=== PATIENT | male | born 1930 | race Caucasian/White ===

== ENCOUNTER 2017-05-31 18:10 | Emergency (ER) | payer MEDICARE ==
[2017-05-31 18:26] VITALS: BP 137/60
--- NOTE | 2017-05-31 20:37 | RAD ---
HISTORY: Right knee pain COMPARISONS: February 05, 2011 VIEWS: 4, Frontal, lateral, axial, and oblique views of the right knee FINDINGS: BONE DENSITY: Normal. BONES: There is no displaced fracture. 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 There is no suprapatellar joint effusion or lipohemarthrosis. ALIGNMENT: There is no dislocation. SOFT TISSUES: Unremarkable. OTHER FINDINGS: None. IMPRESSION: OSTEOARTHRITIS. NO ACUTE OSSEOUS INJURY. IF SYMPTOMS PERSIST, RECOMMEND REPEAT IMAGING.
--- NOTE | 2017-05-31 20:53 | UC ---
Bj Gale Stephanie, scribed for Phuc Butts MD on 05/31/17 at 1941 . Knee Pain HPI - HPI Summary HPI Summary: The pt is an 86 y/o M presenting to with c/o knee pain that began earlier today. The pt reports a history and treatment of a R knee injury 3 years ago. The pt reports that the pain occurs after long time periods without movement. He denies a history of blood clots. - History of Current Complaint Chief Complaint: UCLowerExtremity Stated Complaint: KNEE PAIN Time Seen by Provider: 05/31/17 19:22 Hx Obtained From: Patient Onset/Duration: Gradual Onset, Lasting Days - 1, Resolved Pain Intensity: 4 Pain Scale Used: 0-10 Numeric Aggravating Factor(s): Movement Alleviating Factor(s): Other - ambulation Able to Bear Weight: Yes - Allergies/Home Medications Allergies/Adverse Reactions: Allergies Allergy/AdvReac Type Severity Reaction Status Date / Time No Known Allergies Allergy Verified 06/11/15 18:39 PMH/Surg Hx/FS Hx/Imm Hx Previously Healthy: Yes - Pt denies any medical history when asked. - Surgical History Surgical History: Yes Surgery Procedure, Year, and Place: IMGUINAL HERNIA - Family History Known Family History: Positive: Diabetes - Social History Occupation: Employed Full-time Lives: Alone Alcohol Use: Rare Alcohol Amount: 1 glass wine/week Substance Use Type: None Smoking Status (MU): Never Smoked Tobacco Review of Systems Musculoskeletal: Other: - intermittant R knee pain All Other Systems Reviewed And Are Negative: Yes Physical Exam Triage Information Reviewed: Yes Vital Signs: Initial Vital Signs Temp 98.4 F 05/31/17 18:23 Pulse 71 05/31/17 18:23 Resp 18 05/31/17 18:23 BP 137/60 05/31/17 18:23 Pulse Ox 97 05/31/17 18:23 Vital Signs Reviewed: Yes - Additional Comments General: well-appearing, no pain distress Skin: warm, color reflects adequate perfusion, dry Head: normal Eyes: EOMI, DONAL ENT: normal Neck: supple, nontender Respiratory: CTA, breath sounds present Cardiovascular: RRR Abdomen: soft, nontender Bowel: present Musculoskeletal: normal, strength/ROM intact Neurological: normal, sensory/motor intact, A&O x3 Psychological: affect/mood appropriate Diagnostics - Radiology Knee X-ray Xray Interpretation: No Acute Changes Radiology Interpretation Completed By: Radiologist - OSTEOARTHRITIS. NO ACUTE OSSEOUS INJURY. IF SYMPTOMS PERSIST, RECOMMEND REPEAT IMAGING. Knee Pain Course/Dx - Course Course Of Treatment: Medications reviewed. DISCUSSED RESULTS WITH PATIENT. - Differential Dx/Diagnosis Provider Diagnoses: RIGHT KNEE PAIN Discharge - Discharge Plan Condition: Stable Disposition: HOME Patient Education Materials: Knee Pain (ED) Referrals: Martir Muir MD [Primary Care Provider] - Additional Instructions: FOLLOW UP WITH YOUR DOCTOR. CONSIDER TAKING AN OVER THE COUNTER GLUCOSAMINE/CHONDROITIN SUPPLEMENT FOR YOUR KNEE PAIN. GET RECHECKED FOR ANY WORSENING OF YOUR CONDITION OR QUESTIONS OR CONCERNS. The documentation as recorded by the Bj peguero Stephanie accurately reflects the service I personally performed and the decisions made by me, Phuc Butts MD.
== END 2017-05-31 21:00 | disposition home or self-care (01) ==
LOC: UCEAST 18:10
DX: M25.561 Pain in right knee (principal); M17.11 Unilateral primary osteoarthritis, right knee
CPT/HCPCS: 99211; G0463

== ENCOUNTER 2018-04-15 07:30 | Inpatient (IN) | payer MEDICARE ==
[2018-04-15] MEDS ORDERED: NS 0.9% 1000 ML* 1,000 ML IV ONE (07:37)
--- NOTE | 2018-04-15 07:41 | ED ---
Neurological HPI - HPI Summary HPI Summary: An 87 y/o male brought in by [facility] presents to [facility] with a chief complaint of a possible stroke the morning of 04/15/18. He was last seen with normal speech at 16:00 04/14/18, but he was heard moving around the morning of 04/15/18. Dr. Felix was at bedside upon arrival at 07:28. Becca Celis was called at 07:37. Per EMS the patient was having speech trouble and not able to make much sense. The patient denies any pain, rating his pain at a 0/10, but admits that he is "having trouble finding words". - History of Current Complaint Stated Complaint: POSS STROKE Hx Obtained From: Patient, EMS Onset/Duration: Sudden Onset, Started hours ago, Still Present Timing: Constant Onset Severity: Moderate Current Severity: Moderate Pain Intensity: 0 Pain Scale Used: 0-10 Numeric Character: Impaired Speech Aggravating: Nothing Alleviating: Nothing Associated Signs and Symptoms: Negative: Chest Pain, Shortness of Breath - Allergy/Home Medications Allergies/Adverse Reactions: Allergies Allergy/AdvReac Type Severity Reaction Status Date / Time No Known Allergies Allergy Verified 06/11/15 18:39 Home Medications: Home Medications Benadryl PO 50 MG CAP* 1 tab PO BEDTIME 04/15/18 [History Confirmed 04/15/18] PMH/Surg Hx/FS Hx/Imm Hx Endocrine/Hematology History: Denies: Hx Diabetes, Hx Thyroid Disease Cardiovascular History: Denies: Hx Hypertension Respiratory History: Denies: Hx Asthma, Hx Chronic Obstructive Pulmonary Disease (COPD) GI History: Denies: Hx Ulcer - Surgical History Surgery Procedure, Year, and Place: IMGUINAL HERNIA - Immunization History Date of Tetanus Vaccine: Unk Date of Influenza Vaccine: Fall 2014 Infectious Disease History: Denies: Hx Clostridium Difficile, Hx Hepatitis, Hx Human Immunodeficiency Virus (HIV), Hx of Known/Suspected MRSA, Hx Shingles, Hx Tuberculosis - Family History Known Family History: Positive: Diabetes - Social History Alcohol Use: Rare Alcohol Amount: 1 glass wine/week Substance Use Type: Reports: None Smoking Status (MU): Never Smoked Tobacco Review of Systems Negative: Fever Negative: Chest Pain Negative: Shortness Of Breath Neurological: Other - Positive: impaired speech All Other Systems Reviewed And Are Negative: Yes Physical Exam - Summary Physical Exam Summary: Appearance: The patient is well-nourished in no acute distress and in no acute pain. Skin: The skin is warm and dry and skin color reflects adequate perfusion. HEENT: The head is normocephalic and atraumatic. The pupils are equal and reactive. The conjunctivae are clear and without drainage. Nares are patent and without drainage. Mouth reveals moist mucous membranes and the throat is without erythema and exudate. The external ears are intact. The ear canals are patent and without drainage. The tympanic membranes are intact. Neck: The neck is supple with full range of motion and non-tender. There are no carotid bruits. There is no neck vein distension. Respiratory: Chest is non-tender. Lungs are clear to auscultation and breath sounds are symmetrical and equal. Cardiovascular: Heart is regular rate and rhythm. There is no murmur or rub auscultated. There is no peripheral edema and pulses are symmetrical and equal. Abdomen: The abdomen is soft and non-tender. There are normal bowel sounds heard in all four quadrants and there is no organomegaly palpated. Musculoskeletal: There is no back tenderness noted. Extremities are non-tender with full range of motion. There is good capillary refill. There is no peripheral edema or calf tenderness elicited. Neurological: Patient is alert and oriented to person, place and time. The patient has symmetrical motor strength in all four extremities. Cranial nerves are grossly intact. Deep tendon reflexes are symmetrical and equal in all four extremities. Psychiatric: The patient has an appropriate affect and does not exhibit any anxiety or depression. GCS: 15 Triage Information Reviewed: Yes Vital Signs Reviewed: Yes Diagnostics - Laboratory Result Diagrams: 04/15/18 08:05 04/15/18 08:05 Lab Statement: Any lab studies that have been ordered have been reviewed, and results considered in the medical decision making process. - Radiology CXR Radiology Interpretation Completed By: Radiologist Summary of Radiographic Findings: No evidence for acute intrathoracic disease. ED physician has reviewed this imaging report. - CT Head CTA CT Interpretation Completed By: Radiologist Summary of CT Findings: Atherosclerosis without definite evidence of stenosis in the common carotid. arteries and vertebral arteries bilaterally as well as in the intracavernous portion of. the carotid artery. No aneurysmal dilatation or branch occlusion is identified. ED physician has reviewed this imaging report. Brain CT CT Interpretation Completed By: Radiologist Summary of CT Findings: Chronic ischemic white matter change with no intracranial mass or hemorrhage. ED physician has reviewed this imaging report. - EKG 08:02 Cardiac Rate: NL - 62 bpm EKG Rhythm: Sinus Rhythm Summary of EKG Findings: NSR, PVC, first degree block, LAD. Course/Dx - Course Course Of Treatment: Mr. Ross presented by ambulance for difficulty speaking. He was last seen at 1600 yesterday and his family heard him up and about during the night at different times but this morning noticed that he was having trouble communicating. On my initial evaluation I felt that his NIH stroke scale was 4 for aphasia, possibly some dysarthria and inability to give me his date. He is within the 24-hour window for clot retrieval so a CTA was ordered along with initial code celis orders. Dr. Olmstead was consult to came to the department and evaluated him after his CT scan was negative for bleed. He is currently taking Aggrenox and had been given an aspirin here and she recommended including Plavix and admission to the hospitalist. - Diagnoses Provider Diagnoses: CVA (cerebrovascular accident) - Physician Notifications Discussed Care Of Patient With: Rehana Nash Time Discussed With Above Provider: 08:00 Instructed by Provider To: Other - Discussed patient's case in the ED. At 09:05 Dr. Nash recommended admission to the hospitalist. - Critical Care Time Critical Care Time: 30-74 min Discharge - Sign-Out/Discharge Documenting (check all that apply): Patient Departure - Admit - Discharge Plan Condition: Fair Disposition: ADMITTED TO [facility] Referrals: Martir Muir MD [Primary Care Provider] - - Billing Disposition and Condition Condition: FAIR Disposition: Admitted to [facility] - Attestation Statements Document Initiated by Jorge Luisibe: Yes Documenting Scribe: Hood Orozco Provider For Whom Ama is Documenting (Include Credential): Bc Felix MD Scribe Attestation: I, Hood Orozco, scribed for Bc Felix MD on 04/15/18 at 1030. Scribe Documentation Reviewed: Yes Provider Attestation: The documentation as recorded by the Hood peguero accurately reflects the service I personally performed and the decisions made by me, Bc Felix MD Status of Scribe Document: Viewed Consult Consult: At 09:25 Dr. Rock, hospitalist, accepted the patient for admission.
[2018-04-15] MEDS ORDERED: Iodixanol* (CONTRAST) 320 MG/ML 100 ML SDV IV ONE (07:56)
[2018-04-15] MEDS ORDERED: Aspirin TAB* 325 MG PO ONE (08:09)
[2018-04-15 08:30] LABS: Activated Partial Thrombo Time 25.9 seconds (26.0-36.3); INR 1.03 (0.77-1.02)
[2018-04-15 08:34] LABS: ABS Basophils 0 10^3/ul (0-0.2); ABS Eosinophils 0.1 10^3/ul (0-0.6); ABS Lymphocytes 0.8 10^3/ul (1.0-4.8); ABS Monocytes 0.4 10^3/ul (0-0.8); ABS Neutrophils 5.3 10^3/ul (1.5-7.7); ABS Nucleated RBC 0 10^3/ul; Eosinophil % 1.1 %; Hematocrit 37 % (42-52); Hemoglobin 12.5 g/dl (14.0-18.0); Lymphocyte % 11.7 %; Mean Corpuscular HGB Conc 34 g/dl (31-36); Mean Corpuscular Hemoglobin 31 pg (27-31); Mean Corpuscular Volume 91 fL (80-94); Mean Platelet Volume 8.6 fL (7.4-10.4); Nucleated Red Blood Cells % 0.1; Platelet Count 166 10^3/ul (150-450); Red Blood Count 4.06 10^6/ul (4.00-5.40); Red Cell Distribution Width 13 % (10.5-15); White Blood Count 6.6 10^3/ul (3.5-10.8)
[2018-04-15 08:42] LABS: Albumin 3.7 g/dL (3.2-5.2); Albumin/Globulin Ratio 1.5 (1-3); BUN/Creatinine Ratio 19.4 (8-20); Calcium 8.9 mg/dL (8.6-10.3); EGFR Non-African American 77.2 (>60); Globulin 2.5 g/dL (2-4); HDL Cholesterol 33.6 mg/dL; Potassium 3.8 mmol/L (3.5-5.0); Total Bilirubin 0.7 mg/dL (0.2-1.0); Total Protein 6.2 g/dL (6.4-8.9)
[2018-04-15] MEDS ORDERED: Clopidogrel TAB* 75 MG PO ONE (09:36)
[2018-04-15] MEDS ORDERED: LORazepam TAB(*) 0.5 MG PO PRN (10:21)
[2018-04-15 10:26] LABS: TSH (Thyroid Stimulating Horm) 0.69 mcIU/mL (0.34-5.60)
[2018-04-15 10:28] LABS: Free T4 0.85 ng/dL (0.61-1.12)
[2018-04-15 10:37] LABS: Folate 16.85 ng/mL (>3.99)
[2018-04-15] MEDS: NS 0.9% 1000 ML* 1,000 ML IV SCH (12:43)
--- NOTE | 2018-04-15 12:57 | CONS ---
CONSULTATION REPORT: DATE OF CONSULT: 04/15/18 REQUESTING PROVIDER: Bc Felix MD. This is a Code Celis, last known well at 8:30 p.m. last night. NIH stroke scale is 6. REQUEST FOR CONSULT: For stroke. HISTORY OF PRESENT ILLNESS: Dickson Ross is an 87-year-old gentleman with history of depression, anxiety, and an episode of vertigo in 2010 questioned to be stroke for which he was treated with Aggrenox, who is now in the emergency room for acute onset of change in speech. Since in the emergency room, he has received aspirin 325 mg a day. He has had CT of the brain which showed extensive small vessel ischemic disease in the periventricular region and subcortical region. His CTA showed no evidence of large vessel occlusion. His NIH stroke scale was 6 with a right homonymous hemianopsia, expressive aphasia, perseveration, and apraxia. At bedside was his resource manager forester, Trinity. He has been a of 8 years and Trinity has lived with him for most of this time. He has no children. She believes that she is his healthcare proxy. He follows with Dr. Muir and records have been requested. He also follows with Dr. [facility]. At baseline, he has had memory decline over many years. Last night he had dinner with Trinity and was working on [employer]. Trinity went to bed about 8:30 in the evening. Trinity indicated that he was up at night walking, but then was up particularly up after 5:00 a.m. When Trinity got up at 6:00 AM, she realized that his speech was a little off. She got ready for work and then it became clear that he had more difficulty with speech, and he was brought to the hospital. PAST MEDICAL HISTORY: Includes: 1. Anxiety and depression. 2. He was admitted for suicidal ideation in 2003 with an overdose of alprazolam. 3. He also was noted to have an episode of vertigo, being admitted in [address] Colvin. He was on Aggrenox. 4. Chart indicates that there also was a history of hyperlipidemia in the past. 5. Nephrolithiasis. 6. Biliary dyskinesia. 7. He has also had a right hernia repair. Trinity is unaware of any metal on his body. MEDICATIONS: Include: 1. Aggrenox 1 tablet p.o. b.i.d. 2. Benadryl p.o. q.h.s., which he uses for sleep. 3. He takes alprazolam unknown dose b.i.d. prescribed by [facility]. ALLERGIES: He has no known drug allergies. FAMILY HISTORY: Includes mother who had diabetes, father who had heart attack, nephew who had a tumor behind his eye, brother who of dementia in his 80s, a brother who had thyroid cancer. He has no children. SOCIAL HISTORY: He does not smoke. He drinks alcohol once in a great while, maximum 1 to 2 a week. Trinity denies any use of cocaine, heroin, marijuana or any other drugs. REVIEW OF SYSTEMS: The patient could not participate in review of systems given his difficulty with speech. Trinity is unaware of anything other than him feeling tired lately and his knees bothering him in the setting of arthritis. She also indicates he can get confused over years. He did not complain to her of any chest pain, chest pressure, shortness of breath. There has been no recent known rashes, high fevers. All other positive findings were listed in the HPI. 14 review of systems was attempted. PHYSICAL EXAM: Vital Signs: On examination, most recent blood pressure was 143 /77, his pulse was 63 and regular, temperature was 97.9 degrees Fahrenheit, saturation was 98%, and respiratory rate was 14. General: He had a regular cardiac rhythm. Lungs: His lungs were clear to auscultation. There was no peripheral edema and he had peripheral pulses that were intact. Extremities: He had pull-on soft braces on his knees. Neurologic: His pupils were equal and responsive to light. He had full extraocular movements with no nystagmus. He had a right homonymous hemianopsia to confrontation. His facial expression, sensation, and hearing appear to be equal. Palate was upgoing. Tongue was midline. Sternocleidomastoid and trapezius were 5/5 in strength. He had significant expressive aphasia when trying to name objects, he had completely the wrong words. He had difficulty describing a picture. He, however, did say some short sentences with clear meaning. When asked how old he was, he indicated he was 25; when asked what year it was, it was 23; and when asked who is the president, the answer was 23. He had no pronator drift. He gave good strength in the upper and lower extremities. There was no evidence of dysmetria. He denied any asymmetries to pinprick, cold, or light touch; however , had difficulty participating in double simultaneous stimulation or telling me which limb I was touching when his eyes were closed in the setting of speech difficulty. Reflexes were 2+ and symmetric with the exception of the ankles that were absent. Toes were flexor response. Gait was not tested given clinical status. DIAGNOSTIC STUDIES/LAB DATA: CBC was performed. Hemoglobin and hematocrit were slightly low at 12.5 and 37. INR was 1.03. His metabolic panel showed elevated glucose of 134, total protein was low at 6.2. His total cholesterol was 163, LDL 113, triglycerides 82, HDL 33.6. His CT of the brain showed atrophy and extensive small vessel ischemic disease in the periventricular subcortical region. His CTA of the brain and neck showed no large vessel occlusion. There was evidence of atherosclerosis. Please see report for details. These films were reviewed directly. Chest x-ray showed no evidence of acute disease per report. IMPRESSION: An 87-year-old right-handed gentleman with history of depression, anxiety, vertigo in 2010 questioned to be stroke on Aggrenox at baseline, now in the emergency room with expressive aphasia last known well at 8:30 p.m. on . His NIH stroke scale was 6. Given the timing of presentation, last known well and lack of any large vessel pathology, he is not a candidate for either tPA or for clot retrieval. This occurs in the setting of decline in memory for years and extensive small vessel ischemic disease on CT brain. He lives with his resource manager forester, Trinity, who is at his bedside and helped provide history. His examination shows right homonymous hemianopsia, expressive aphasia, perseveration and apraxia, which all can be consistent with a left hemispheric stroke. Some cognitive changes however have been noted prior to this presentation by Trinity. At this point, we will admit to telemetry to work up for stroke. I would suggest changing his Aggrenox to aspirin and Plavix for now. Would check a MRI of the brain to confirm diagnosis, as well as obtain an echocardiogram for evaluation of cardioembolic source of stroke. His fasting lipid profile did show elevated LDL at 113, and I would suggest starting him on a statin. He will need GI prophylaxis. I would allow permissive hypertension for the stroke, and treat if systolic blood pressure is greater than 180 or diastolic over 100. He does have cognitive changes, and the finding of significant small vessel ischemic disease that may contribute. I will check B12, folate, TSH, and free T4. Records from primary care may be helpful in the setting of his speech deficit and cognitive difficulties. Trinity believes she is listed as the healthcare proxy, and will be helpful to get this documentation. TIME SPENT: Over 75 minutes were spent in the patient's care. All questions were answered. Case was discussed with ER physician and hospitalist team is being paged. [id number]/[facility] #: [id number] JESSICA
[2018-04-15] MEDS: Heparin VIAL(*) 5000 UNITS/ML VIAL (FIVE THOUSAND) SUBCUT SCH ×2 (14:13→20:00)
[2018-04-15] MEDS ORDERED: Ondansetron INJ* 2 MG/ML VIAL IV PRN (14:42)
--- NOTE | 2018-04-15 16:05 | HP ---
CC: Dr. Muir * HISTORY AND PHYSICAL: DATE OF ADMISSION: 04/15/18 PRIMARY CARE PROVIDER: Dr. Muir. CHIEF COMPLAINT: Nonsensical speech. HISTORY OF PRESENT ILLNESS: Mr. Ross is an 87-year-old male who has a history of depression/anxiety and vertigo in 2010 which was questioned to be a stroke, who had been on Aggrenox, presented to the emergency room with expressive aphasia. Dr. Nash was able to obtain from somebody that the patient was last seen well at approximately 8:30 p.m. on 04/14/18; however, the patient's caregiver, Trinity whom I speak with states that they went to dinner, he seemed normal at that time. 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 At this morning when she awakened, she found the patient to be unable to speak clearly. She states that he had a very restless night of sleep based on hearing him awake. She believes that he got up at approximately 5:00 a.m. At approximately 6:00 a.m., she found him. At that point, she was concerned for stroke and had him brought to the emergency room for evaluation. PAST MEDICAL HISTORY: 1. History of vertigo in 2010 questioned to be stroke. 2. Depression/anxiety. PAST SURGICAL HISTORY: Incarcerated right inguinal hernia repair. MEDICATIONS: 1. Benadryl 50 mg p.o. q.h.s. 2. Aggrenox 25/200 one cap p.o. b.i.d. 3. Ativan 1 mg p.o. b.i.d. 4. Ibuprofen 400 mg p.o. q.6 hours p.r.n. pain. ALLERGIES: No known drug allergies. FAMILY HISTORY: Mom had diabetes. Dad of an [place]. The patient had one brother who in World War II, one brother who had lymphoma, and one brother who had dementia. SOCIAL HISTORY: The patient is a nonsmoker, he drinks alcohol rarely. 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 He is not . He has no children. Trinity is his caregiver. REVIEW OF SYSTEMS: Unobtainable from the patient. PHYSICAL EXAMINATION GENERAL: The patient is a well-developed elderly male seen lying in the stretcher in no acute distress. VITAL SIGNS: Blood pressure 143/77, pulse 63, respirations 14, temp 97.9, and O2 sat 98% on room air. HEENT: Pupils are equal and round. Extraocular muscles are intact. Oropharynx is clear. Oral mucosa is moist. There is no submandibular, cervical , or supraclavicular lymphadenopathy. NECK: Thyroid is not enlarged. No thyroid nodules noted. PULMONARY: Lungs are clear to auscultation bilaterally. CARDIAC: Normal S1 and S2. Regular rate and rhythm. There is a 2/6 systolic murmur heard best at the right upper sternal border. There is no lower extremity edema. ABDOMEN: Bowel sounds are present. Abdomen is soft, nontender, and nondistended. MUSCULOSKELETAL: There is no cyanosis or clubbing of the digits. There is full active range of motion of all four extremities. SKIN: Warm and dry. There are no rashes. There is minor abrasions to the anterior lower legs. NEUROLOGIC: Cranial nerves II through XII appear to be grossly intact. He has a significant expressive aphasia. I question a slight decrease in instructional leader strength on the left. PSYCH: The patient is alert, he appears frustrated at times but cannot speak to tell me so. LABORATORY DATA: WBC 6.6, hemoglobin 12.5, hematocrit 37, platelets 166,000. INR 1.03. Sodium 137, potassium 3.8, chloride 107, CO2 of 24, BUN 18, creatinine 0.93, glucose 134, lactic acid 1.4, calcium 8.9, bilirubin 0.7. AST 14, ALT 11, alk phos 50, troponin 0, albumin 3.7, triglycerides 82, cholesterol 163, LDL 113, and HDL 33.6. Chest x-ray: No acute intrathoracic disease. CT brain: Chronic ischemic white matter change with no intracranial mass or hemorrhage. CTA head and neck : Atherosclerosis without definite evidence of stenosis in the common carotid arteries and vertebral arteries bilaterally as well as in the intracavernous portion of the carotid artery. No aneurysmal dilation or branch occlusion is identified. ASSESSMENT AND PLAN: Mr. Ross is an 87-year-old male with a history of possible cerebrovascular disease dating back to 2010 and depression/anxiety who was last normal last evening and found this morning with a severe expressive aphasia. 1. Cerebrovascular accident. The patient has been seen in consultation by Dr. Nash already. She has recommended switching from Aggrenox which was started in 2010 to aspirin and Plavix. This has been ordered. The patient has already had CT and CTA of the head and neck. The plan will be for MRI of the brain and transthoracic echocardiogram. His fasting lipid profile is not favorable. Lipitor 40 mg p.o. q.h.s. has been ordered. We will allow for permissive hypertension. PT, OT, and speech evaluations have been ordered. Nursing bedside swallow evaluation is to be performed prior to any oral intake. Neuro checks will be obtained every 4 hours. 2. Anxiety/depression. I will continue the patient on p.r.n. Ativan, though I am going to decrease the dose to 0.5 mg twice daily. 3. Cognitive impairment. Dr. Nash has ordered vitamin B12, folate, TSH, and free T4 levels. The results of these are pending at this time. We will try to get records from Dr. Muir's office. 4. DVT prophylaxis. According to the Adult Thrombosis Prophylaxis Risk Factor Assessment Guide the patient has a total risk factor score of 3 making him high risk. He will be placed on heparin 5000 units subcutaneous q.8 hours. Code status is DNR based on the healthcare proxy's understanding of what the patient' s wishes will be. TIME SPENT: 55 minutes were spent admitting this patient. [id number]/[facility] #: [id number] JESSICA
--- NOTE | 2018-04-15 16:38 | ECHO ---
Patient: HOMER CARRILLO [facility] Rec#: [id number] : 1930 Date: 04/15/2018 Age: 87y Height: 170 cm / 66.9 in Weight: 73 kg / 160.9 lbs Sex: M BSA: 1.8 Room#: [facility] Admit Date#: 04/15/2018 Type: Inpatient Referring: Delicia Rock DO Reading: Bradley Ramos MD Individual Small Group Instructor: Meghna Ching RN RDCS CC: Martir Muir MD Transthoracic Echocardiogram Indication: CVA BP: 137/72 HR: 63 Rhythm: NSR Findings History: Hyperlipidemia, prior TIA Technical Comments: The study quality is fair. The study is technically limited due to poor apical windows. Left Ventricle: The left ventricular chamber size is normal. Mild to moderate concentric left ventricular hypertrophy is observed. There is increased basal septal hypertrophy noted without evidence of an increased gradient across the left ventricular outflow tract. Global left ventricular wall motion and contractility are within normal limits. There is normal left ventricular systolic function. The estimated ejection fraction is 60-65%. Abnormal left ventricular diastolic filling is observed, consistent with impaired relaxation. Left Atrium: The left atrium is not well visualized. Right Ventricle: The right ventricle is mildly dilated. The right ventricular global systolic function is normal. Right Atrium: The right atrium is not well visualized. The bubble study is positive. A patent foramen ovale is demonstrated by agitated contrast. Aortic Valve: The aortic valve is trileaflet. The aortic valve leaflets are moderately thickened. Systolic excursion of the aortic valve cusps is reduced. There is no evidence of aortic regurgitation. There is moderate aortic stenosis. The mean gradient of the aortic valve is 19 mmHg. The peak instantaneous gradient of the aortic valve is 30 mmHg. The aortic valve area, by peak velocities, is calculated at 1.2 cm2. The aortic valve area, by VTI's, is calculated at 1.3 cm2. The highest aortic valve velocity was obtained with the standard probe from the A5C view. Mitral Valve: Mild mitral annular calcification present. The mitral valve leaflets are mildly thickened. There is trace to mild mitral regurgitation. There is no evidence of mitral stenosis. Tricuspid Valve: The tricuspid valve leaflets are normal. There is mild tricuspid regurgitation. There is evidence of mild to moderate pulmonary hypertension. There is no tricuspid stenosis. Pulmonic Valve: The pulmonic valve structure is not well visualized. There is trace to mild pulmonic regurgitation. There is no pulmonic stenosis. Pericardium: There is no significant pericardial effusion. Aorta: The ascending aorta is not well visualized. There is no dilatation of the aortic arch. There is no dilation of the aortic root. Pulmonary Artery: The main pulmonary artery is not well visualized. Venous: The venous system is not well visualized. The inferior vena cava is not visualized. Contrast: Normal saline was used as contrast for the bubble study. Images 1 and 2. Summary: There are changes noted when compared to the previous study done on 03/04/2011, is now moderate instead of mild then. PHTN is up to moderate from mild then. Conclusions The left ventricular chamber size is normal. Mild to moderate concentric left ventricular hypertrophy is observed. There is increased basal septal hypertrophy noted without evidence of an increased gradient across the left ventricular outflow tract. There is normal left ventricular systolic function. The estimated ejection fraction is 60-65%. Abnormal left ventricular diastolic filling is observed, consistent with impaired relaxation. There is moderate aortic stenosis. The mean gradient of the aortic valve is 19 mmHg. There is trace to mild mitral regurgitation. There is mild tricuspid regurgitation. There is evidence of mild to moderate pulmonary hypertension. There is trace to mild pulmonic regurgitation. Measurements Name Value Normal Range RVIDd (AP) 2D 3.4 cm (0.9 - 2.6) RVDdMajor (2D) 3.9 cm (2.2 - 4.4) IVSd (2D) 1.3 cm (0.6 - 1) LVPWd (2D) 1.3 cm (0.6 - 1) LVIDd (2D) 4.2 cm (3.6 - 5.4) LVIDs (2D) 2.7 cm - LV FS (2D) 36 % (25 - 45) Aortic Annulus 2.1 cm (1.4 - 2.6) Ao root diameter (2D) 3.1 cm (2.1 - 3.5) Aortic arch 2.1 cm (1.8 - 3.4) LA dimension (AP) 2D 3.3 cm (2.3 - 3.8) Name Value Normal Range MV E-wave Vmax 0.63 m/sec - MV deceleration time 398 msec - MV A-wave Vmax 0.92 m/sec - LV septal e' Vmax 0.06 m/sec - LV lateral e' Vmax 0.07 m/sec - LV E:e' septal ratio 10.5 ratio - LV E:e' lateral ratio 9 ratio - Name Value Normal Range AV Vmax 2.8 m/sec - AV VTI 61.4 cm - AV peak gradient 30 mmHg - AV mean gradient 19 mmHg - LVOT diameter 2.1 cm - LVOT Vmax 1 m/sec - LVOT VTI 23.4 cm - LVOT peak gradient 4 mmHg - LVOT mean gradient 3 mmHg - DOI (VTI) 0.38 ratio - DOI (Vmax) 0.36 ratio - ANDER (continuity Vmax) 1.2 cm2 - ANDER (continuity VTI) 1.3 cm2 - ZACKARY Vmax 0.57 m/sec - Name Value Normal Range TR Vmax 2.9 m/sec - TR peak gradient 34 mmHg - RAP 8 mmHg - RVSP 42 mmHg - Name Value Normal Range PV Vmax 0.88 m/sec -
--- NOTE | 2018-04-15 18:00 | PN ---
Progress Note - Progress Note Date of Service: 04/15/18 Note: Neurology brief evening rounds after testing: HPI: 'doing better' no new concerns. Exam: No dysarthria. Occasionally stumbling over a word, however now naming and repeating with out difficulty. Facial expression symmetric. No dysarthria. Full johnson to confrontation. No pronator drift, no dysmetria. MRI with no new stroke. Reviewed directly. There is atrophy and small vessel ischemic disease. Echo showed +PFO, moderate Aortic stenosis and mild to moderate pulmonary hypertension. Please see reports for details. Laboratory Results - last 24 hr 04/15/18 04/15/18 04/15/18 08:03 08:05 08:05 WBC 6.6 RBC 4.06 Hgb 12.5 L Hct 37 L MCV 91 MCH 31 MCHC 34 RDW 13 Plt Count 166 MPV 8.6 Neut % (Auto) 79.9 Lymph % (Auto) 11.7 Gila % (Auto) 6.7 Eos % (Auto) 1.1 Baso % (Auto) 0.6 Absolute Neuts (auto) 5.3 Absolute Lymphs (auto) 0.8 L Absolute Monos (auto) 0.4 Absolute Eos (auto) 0.1 Absolute Basos (auto) 0 Absolute Nucleated RBC 0 Nucleated RBC % 0.1 INR (Anticoag Therapy) 1.03 H APTT 25.9 L Sodium Potassium Chloride Carbon Dioxide Anion Gap BUN Creatinine Est GFR ( Amer) Est GFR (Non-Af Amer) BUN/Creatinine Ratio Glucose POC Glucose (mg/dL) 139 H Hemoglobin A1c Lactic Acid Calcium Total Bilirubin AST ALT Alkaline Phosphatase Troponin I Total Protein Albumin Globulin Albumin/Globulin Ratio Triglycerides Cholesterol LDL Cholesterol HDL Cholesterol Vitamin B12 Folate TSH Free T4 04/15/18 04/15/18 04/15/18 08:05 08:05 08:05 WBC RBC Hgb Hct MCV MCH MCHC RDW Plt Count MPV Neut % (Auto) Lymph % (Auto) Gila % (Auto) Eos % (Auto) Baso % (Auto) Absolute Neuts (auto) Absolute Lymphs (auto) Absolute Monos (auto) Absolute Eos (auto) Absolute Basos (auto) Absolute Nucleated RBC Nucleated RBC % INR (Anticoag Therapy) APTT Sodium 137 Potassium 3.8 Chloride 107 Carbon Dioxide 24 Anion Gap 6 BUN 18 Creatinine 0.93 Est GFR ( Amer) 93.4 Est GFR (Non-Af Amer) 77.2 BUN/Creatinine Ratio 19.4 Glucose 134 H POC Glucose (mg/dL) Hemoglobin A1c Lactic Acid 1.4 Calcium 8.9 Total Bilirubin 0.70 AST 14 ALT 11 Alkaline Phosphatase 50 Troponin I 0.00 Total Protein 6.2 L Albumin 3.7 Globulin 2.5 Albumin/Globulin Ratio 1.5 Triglycerides 82 Cholesterol 163 LDL Cholesterol 113 HDL Cholesterol 33.6 Vitamin B12 210 Folate 16.85 TSH 0.69 Free T4 0.85 04/15/18 08:05 WBC RBC Hgb Hct MCV MCH MCHC RDW Plt Count MPV Neut % (Auto) Lymph % (Auto) Gila % (Auto) Eos % (Auto) Baso % (Auto) Absolute Neuts (auto) Absolute Lymphs (auto) Absolute Monos (auto) Absolute Eos (auto) Absolute Basos (auto) Absolute Nucleated RBC Nucleated RBC % INR (Anticoag Therapy) APTT Sodium Potassium Chloride Carbon Dioxide Anion Gap BUN Creatinine Est GFR ( Amer) Est GFR (Non-Af Amer) BUN/Creatinine Ratio Glucose POC Glucose (mg/dL) Hemoglobin A1c 5.8 H Lactic Acid Calcium Total Bilirubin AST ALT Alkaline Phosphatase Troponin I Total Protein Albumin Globulin Albumin/Globulin Ratio Triglycerides Cholesterol LDL Cholesterol HDL Cholesterol Vitamin B12 Folate TSH Free T4 B12 is low normal. Impression/plan: 87 year old gentleman admitted with expressive aphasia, perseveration, apraxia and right homonymous hemianopsia, now improved with no new stroke on MRI brain, + PFO on echo, abnormal lipid profile. Question TIA. Continue monitoring on telemetry. For now continue on plavix and aspirin. If no cardioembolic source is found, would continue on this combination for a month and then reduced to aspirin a day. He has started on statin. PT/OT/ST have been ordered. He has had cognitive decline. Vitamin B12 is low normal. Will check homocysteine and methylmalonic acid level. D.Dx could include seizure in setting of cognitive decline. Will check EEG, however less likely given field cut previously noted on exam. See note from earlier today for further details. Addition 25 minutes care this evening.
[2018-04-15] MEDS: Atorvastatin* 40 MG TAB PO SCH (19:57)
[2018-04-16] MEDS: Heparin VIAL(*) 5000 UNITS/ML VIAL (FIVE THOUSAND) SUBCUT SCH ×3 (05:21→20:55)
[2018-04-16] MEDS: NS 0.9% 1000 ML* 1,000 ML IV SCH (05:22)
[2018-04-16] MEDS: Clopidogrel TAB* 75 MG PO SCH (08:31)
[2018-04-16] MEDS: Aspirin TAB* 325 MG PO SCH (08:32)
[2018-04-16] MEDS: CMCS:Pantoprazole TAB (NF) 40 MG TAB PO SCH (08:32)
[2018-04-16] MEDS: Cyanocobalamin TAB* 500 MCG PO SCH (09:35)
--- NOTE | 2018-04-16 09:36 | PN ---
Subjective Date of Service: 04/16/18 Interval History: Pt is feeling ok today. He states he feels much less confused. He and his caregiver think that his speech is improved. Objective Active Medications: Aspirin (Aspirin Tab*) 325 mg PO DAILY [facility] Last Admin: 04/16/18 08:32 Dose: 325 mg Atorvastatin Calcium (Lipitor*) 40 mg PO 2100 [facility] Last Admin: 04/15/18 19:57 Dose: 40 mg Clopidogrel Bisulfate (Plavix Tab*) 75 mg PO DAILY [facility] Last Admin: 04/16/18 08:31 Dose: 75 mg Cyanocobalamin (Vitamin B12 Tab*) 1,000 mcg PO DAILY [facility] Heparin Sodium (Porcine) (Heparin Vial(*)) 5,000 units SUBCUT Q8HR [facility] Last Admin: 04/16/18 05:21 Dose: 5,000 units Sodium Chloride (Ns 0.9% 1000 Ml*) 1,000 mls @ 75 mls/hr IV PER RATE [facility] Last Admin: 04/16/18 05:22 Dose: 75 mls/hr Lorazepam (Ativan Tab(*)) 0.5 mg PO BID PRN PRN Reason: ANXIETY Ondansetron HCl (Zofran Inj*) 4 mg IV Q6H PRN PRN Reason: NAUSEA Last Admin: 04/15/18 16:46 Dose: 4 mg Pantoprazole Sodium (Protonix Tab (Nf)) 40 mg PO DAILY [facility] Last Admin: 04/16/18 08:32 Dose: 40 mg Vital Signs - 8 hr 04/16/18 04/16/18 04:00 08:00 Temperature 98.1 F Pulse Rate 60 Respiratory 16 16 Rate Blood Pressure 128/66 (mmHg) O2 Sat by Pulse 98 98 Oximetry Oxygen Devices in Use Now: None Appearance: Elderly male sitting up in bed, NAD Eyes: No Scleral Icterus Ears/Nose/Mouth/Throat: Mucous Membranes Moist Respiratory: Symmetrical Chest Expansion and Respiratory Effort, Clear to Auscultation Cardiovascular: NL Sounds; No Murmurs; No JVD, RRR, No Edema Abdominal: NL Sounds; No Tenderness; No Distention Extremities: No Clubbing, Cyanosis Skin: No Nodules or Sclerosis Neurological: - - Much improved expressive and receptive aphasia, still with mild-moderate word finding difficulties. Result Diagrams: 04/15/18 08:05 04/15/18 08:05 Assess/Plan/Problems-Billing Mr Ross is an 87 yo M who has a h/o possible CVA in 2010 and depression/ anxiety who presented to the ER with c/o difficulty speaking and was admitted for possible CVA. - Patient Problems (1) CVA (cerebral vascular accident) Current Visit: Yes Status: Acute Code(s): I63.9 - CEREBRAL INFARCTION, UNSPECIFIED SNOMED Code(s): 115971358 Comment: MRI negative for CVA. ? TIA. Pt much improved today but still with mild to moderate deficits. Continue ASA and plavix x30 days then decrease to just ASA. Continue omeprazole for GI prophylaxis. Continue lipitor. Dr. Nash also ordered EEG. (2) Cognitive impairment Current Visit: Yes Status: Acute Code(s): R41.89 - OTH SYMPTOMS AND SIGNS W COGNITIVE FUNCTIONS AND AWARENESS SNOMED Code(s): 411848535 Comment: Methylmalonic acid and homocysteine levels pending. Start vitamin B12 1000mcg po daily empirically as his B12 level is low normal. (3) Depression with anxiety Current Visit: Yes Status: Acute Code(s): F41.8 - OTHER SPECIFIED ANXIETY DISORDERS SNOMED Code(s): 25867302 Comment: Continue prn ativan. (4) DVT prophylaxis Current Visit: Yes Status: Acute Code(s): RTV5326 - SNOMED Code(s): 052028111 Comment: SQ heparin (5) DNR (do not resuscitate) Current Visit: Yes Status: Acute
[2018-04-16] MEDS: Atorvastatin* 40 MG TAB PO SCH (20:55)
--- NOTE | 2018-04-16 21:21 | CONS ---
NEUROLOGY FOLLOWUP: DATE OF CONSULT: 04/16/18 LOCATION: He is an inpatient in [facility]. HOSPITALIST: Dr. Rock. CHIEF COMPLAINT: Episode of aphasia. INTERVAL HISTORY: Since yesterday, Mr. Ross feels fine. He is accompanied by , I believe, his [id number], who was there when he had the episode yesterday morning. She said he seemed fine, but then he started to speaking gibberish. The words were sort of mumbly and not complete words. Her , I believe, checked his strength and thought perhaps one side was weak but she does not know for certain nor know which side. When he presented to the emergency room, he was back to normal. MEDICATIONS: Reviewed and he is now on, 1. Aspirin 325 mg p.o. daily. 2. Atorvastatin 40 mg p.o. daily. 3. Clopidogrel 75 mg p.o. daily. 4. Vitamin B12 of 1000 mcg p.o. daily. 5. Subcutaneous heparin 5000 units q.8 hours. 6. Lorazepam 0.5 mg p.o. b.i.d. p.r.n. anxiety. 7. Zofran 4 mg IV q. 6 hours p.r.n. nausea. 8. Protonix 40 mg p.o. daily. PHYSICAL EXAMINATION: He is afebrile, blood pressure 142/75, heart rate in the 50s, temperature 98.1. On exam, he has a fluent language and clear speech. Eye movements are full. Facial musculature is symmetric. Speech is clear. He has excellent strength in upper and lower extremities. There is no drift of the limbs. I did not attempt to ambulate him. His memory is poor and he says that he is 57 years old. DIAGNOSTIC STUDIES/LAB DATA: Laboratory data is reviewed. He had an MRI of the brain, which did not reveal any acute ischemic lesions. He has extensive sinus disease. Other laboratory data notable for cholesterol of 163 and LDL of 113 yesterday on admission. CBC is notable for mild anemia with hematocrit of 37. CT angiogram of the brain is reviewed. There is patchy atherosclerotic changes including in the branches of the left middle cerebral artery and the vertebral basilar system. There is also some atherosclerotic plaquing in the carotid. IMPRESSION: Probable dominant hemisphere transient ischemic attack. He is right handed. He was on aspirin therapy and he is now dual-antiplatelet therapy and a statin has been started. His blood pressure is in good shape. There is no evidence of cardioembolic source on an echocardiogram that he had. He does have a patent foramen ovale, but I consider that to be in insignificant with his other vascular risk factors. PLAN/RECOMMENDATIONS: I would recommend dual antiplatelet therapy and continue him on the statin at discharge, which can probably be tomorrow. After 30 days, he should be switched to Plavix monotherapy. He can see one of us in the office and followup. [id number]/[facility] #: [id number] JESSICA
--- NOTE | 2018-04-17 03:11 | EEG ---
ELECTROENCEPHALOGRAPHY: DATE OF STUDY: 04/16/18. LOCATION: He is an inpatient in [facility]. REFERRING PROVIDER: Dr. Nash. CLINICAL HISTORY: An episode of aphasia yesterday morning upon awakening. MEDICATIONS: Include: 1. Plavix. 2. Aspirin. 3. Atorvastatin. 4. Lorazepam. REPORT: The 16-channel EEG is remarkable for background rhythms, consisting of an alpha rhythm at the occipital derivations at just 8 cycles per second, which is symmetric. Muscle artifact is seen intermittently. In quieter portions of the tracing, beta rhythms are seen bifrontally. Activation procedures are not attempted. This patient does not appear to drowse or sleep during the recording. There are no clinical events. There are no focal, lateralized or epileptiform abnormalities. CLINICAL IMPRESSION: Normal awake EEG. [id number]/[facility] #: [id number] MTDJohn
[2018-04-17] MEDS: Heparin VIAL(*) 5000 UNITS/ML VIAL (FIVE THOUSAND) SUBCUT SCH ×2 (05:53→14:57)
[2018-04-17] MEDS: Cyanocobalamin TAB* 500 MCG PO SCH (09:08)
[2018-04-17] MEDS: Aspirin TAB* 325 MG PO SCH (09:08)
[2018-04-17] MEDS: Clopidogrel TAB* 75 MG PO SCH (09:09)
[2018-04-17] MEDS: CMCS:Pantoprazole TAB (NF) 40 MG TAB PO SCH (09:09)
[2018-04-17 12:59] VITALS: BP 133/64
--- NOTE | 2018-04-20 12:22 | EEG ---
ELECTROENCEPHALOGRAPHY: DATE OF SERVICE: 04/16/18 - ROOM #[id number] REFERRING PROVIDER: Dr. Nash. CLINICAL HISTORY: Episode of aphasia and subsequent amnesia. Rule out seizure disorder. MEDICATIONS: Include lorazepam, Plavix, aspirin, atorvastatin. ELECTROENCEPHALOGRAPHY DESCRIPTION: A 16-channel EEG is remarkable for background rhythms consistent with occipital rhythm at just about 8 cycles per second, which is symmetric. Frontal rhythms consist mainly of moderate voltage fast activity. The patient is clinically awake. Activation procedures are not attempted. The patient moves occasionally but does not drowse or sleep during the recording. There are no clinical events. There are no focal, lateralized, or epileptiform abnormalities. INTERPRETATION: Borderline abnormal EEG due to generalized slowing of background rhythms. There are no focal or epileptiform features to this recording. [id number]/[facility] #: [id number] MTDD
--- NOTE | 2018-05-19 19:25 | DS ---
CC: Dr. Muir; Dr. Nash * DISCHARGE SUMMARY: DATE OF ADMISSION: 04/15/18 DATE OF DISCHARGE: 04/17/18 PRIMARY CARE PROVIDER: Dr. Muir NEUROLOGIST: Dr. Nash PRINCIPAL DIAGNOSIS: Transient ischemic attack with resultant aphasia. SECONDARY DIAGNOSIS: Depression/anxiety. DISCHARGE MEDICATIONS: 1. Benadryl 50 mg p.o. q.h.s. 2. Ativan 1 mg p.o. b.i.d. p.r.n. anxiety. 3. Protonix 40 mg p.o. daily. 4. Vitamin B12 1000 mcg p.o. daily. 5. Plavix 75 mg p.o. daily. 6. Lipitor 40 mg p.o. q.h.s. 7. Aspirin 325 mg p.o. daily. HOSPITAL COURSE: Mr. Ross is an 87-year-old male who presented to the emergency room on 04/15/18 with complaints of nonsensical speech. He was reportedly last seen well on the evening prior to presentation. It was felt that the patient likely initially was suffering from a CVA; however, MRI of the brain did not reveal any areas of ischemia. Atrophy and findings consistent with [id number] chronic small vessel ischemic changes, however, were noted. Ultimately, it was felt that patient likely suffered from a TIA in the dominant hemisphere. The patient was seen in consultation by Dr. Nash. EEG was obtained and was reportedly normal. On 04/16/18, the patient was seen by Dr. Hunter, who recommended continuing the patient on dual antiplatelet therapy with aspirin and Plavix. Lipitor was added to his regimen. After 30 days, he should be switched to Plavix as monotherapy. The patient continued to do well from a neurologic standing point and had essentially a full recovery. At this point, it is felt that patient is safe for discharge home. Patient was discharged home on 04/17/18. ACTIVITY: Activity level is as tolerated. DIET: Hearty healthy. CONDITION ON DISCHARGE: Stable. FOLLOWUP: The patient should follow up with Dr. Muir on 04/28/18 at 11:[address] Nash in approximately 1 month. [id number]/[facility] #: [id number] [facility]
== END 2018-04-17 15:40 | disposition home or self-care (01) | DRG 69 ==
LOC: ED 07:30 → MEDTELE 10:18
PROVIDERS: ADMIT Hospitalist; ATTEND Hospitalist
DX: G45.9 Transient cerebral ischemic attack, unspecified (principal); Q21.1 Atrial septal defect; G31.84 Mild cognitive impairment of uncertain or unknown etiology; I67.2 Cerebral atherosclerosis; R29.704 NIHSS score 4; M17.0 Bilateral primary osteoarthritis of knee; Z66 Do not resuscitate; I10 Essential (primary) hypertension; I35.0 Nonrheumatic aortic (valve) stenosis; R48.8 Other symbolic dysfunctions; H53.461 Homonymous bilateral field defects, right side; R47.89 Other speech disturbances; F41.8 Other specified anxiety disorders; J32.9 Chronic sinusitis, unspecified; D64.9 Anemia, unspecified; I27.20 Pulmonary hypertension, unspecified; R42 Dizziness and giddiness; R40.2412 Glasgow coma scale score 13-15, at arrival to emergency department; E78.5 Hyperlipidemia, unspecified; Z87.442 Personal history of urinary calculi; Z82.49 Family history of ischemic heart disease and other diseases of the circulatory system; Z72.89 Other problems related to lifestyle; Z83.3 Family history of diabetes mellitus; Z80.7 Family history of other malignant neoplasms of lymphoid, hematopoietic and related tissues; Z81.8 Family history of other mental and behavioral disorders; Z80.8 Family history of malignant neoplasm of other organs or systems
CPT/HCPCS: 36415; 70450; 70496; 70498; 70551; 71045; 80053; 80061; 82607; 82746; 83036; 83090; 83605; 83921; 84439; 84443; 84484; 85025; 85610; 85730; 93306; 95816; 99284; A9270-GY; G8978-GP-CI; G8979-GP-CI; G8987-GO-CI; G8988-GO-CH; J1644; J2405; Q9967

== ENCOUNTER 2018-06-29 16:52 | Emergency (ER) | payer MEDICARE ==
[2018-06-29 16:58] VITALS: BP 142/78
--- NOTE | 2018-06-29 17:45 | UC ---
Abdominal Pain Male HPI - HPI Summary HPI Summary: patient had abdominal burning earlier today, no associated chest pain , dyspnea , diaphoresis, he took some aspirin. seems to be confused about his medications hx. of cerebrovascular disease, no prior hx. of [place] - History of Current Complaint Chief Complaint: UCGeneralIllness Stated Complaint: HEART BURN Time Seen by Provider: 06/29/18 17:14 Hx Obtained From: Patient Onset/Duration: Sudden Onset Severity Initially: Mild Severity Currently: Mild Pain Intensity: 0 Radiates: No Character: Burning Aggravating Factor(s): Nothing Alleviating Factor(s): Nothing Associated Signs And Symptoms: Positive: Negative - Allergies/Home Medications Allergies/Adverse Reactions: Allergies Allergy/AdvReac Type Severity Reaction Status Date / Time No Known Allergies Allergy Verified 06/29/18 16:58 PMH/Surg Hx/FS Hx/Imm Hx Previously Healthy: No - hx. of cerebrovascular disease, hx. of patent foramen ovale Cardiovascular History: Other Other Cardiovascular History: cerebrovascular disease - Surgical History Surgical History: Yes Surgery Procedure, Year, and Place: IMGUINAL HERNIA - Family History Known Family History: Positive: Diabetes - Social History Alcohol Use: Rare Alcohol Amount: 1 glass wine/week Substance Use Type: None Smoking Status (MU): Never Smoked Tobacco - Immunization History Most Recent Influenza Vaccination: 2018 Most Recent Pneumonia Vaccination: 2018 Review of Systems All Other Systems Reviewed And Are Negative: Yes Constitutional: Positive: Negative Skin: Positive: Negative Eyes: Positive: Negative ENT: Positive: Negative Respiratory: Positive: Negative Gastrointestinal: Positive: Abdominal Pain Genitourinary: Positive: Negative Motor: Positive: Negative Neurovascular: Positive: Negative Musculoskeletal: Positive: Negative Neurological: Positive: Other - hx of some baseline confusion, hx. of expressive aphasia transient associated with what was a TIA Psychological: Positive: Depressed Physical Exam Triage Information Reviewed: Yes Appearance: Well-Appearing Vital Signs: Initial Vital Signs Temp 36.2 C 06/29/18 16:55 Pulse 87 06/29/18 16:55 Resp 20 06/29/18 16:55 BP 142/78 06/29/18 16:55 Pulse Ox 95 06/29/18 16:55 Vital Signs Reviewed: Yes Eye Exam: Normal ENT Exam: Normal ENT: Positive: Normal ENT inspection Neck exam: Normal Neck: Positive: Supple Respiratory Exam: Other - expiratory wheezes noted left lung Cardiovascular Exam: Normal Abdominal Exam: Normal Abd Pain Male Course/Dx - Differential Dx/Clinical Impression Provider Diagnosis: Epigastric abdominal pain Discharge - Sign-Out/Discharge Documenting (check all that apply): Patient Departure All imaging exams completed and their final reports reviewed: No Studies - Discharge Plan Condition: Fair Disposition: HOME Patient Education Materials: Gastritis (ED) Referrals: Martir Muir MD [Primary Care Provider] - - Billing Disposition and Condition Condition: FAIR Disposition: Home
== END 2018-06-29 18:00 | disposition home or self-care (01) ==
LOC: UCEAST 16:52
DX: R10.13 Epigastric pain (principal)
CPT/HCPCS: 99211; G0463

== ENCOUNTER 2018-07-02 18:40 | Emergency (ER) | payer MEDICARE ==
[2018-07-02] MEDS ORDERED: NS 0.9% 500 ML* 500 ML IV ONE (18:59)
[2018-07-02] MEDS ORDERED: Ondansetron INJ* 2 MG/ML VIAL IV ONE (19:00)
[2018-07-02 19:23] LABS: ABS Basophils 0 10^3/ul (0-0.2); ABS Eosinophils 0 10^3/ul (0-0.6); ABS Monocytes 0.4 10^3/ul (0-0.8); ABS Neutrophils 7.1 10^3/ul (1.5-7.7); ABS Nucleated RBC 0 10^3/ul; Eosinophil % 0.1 %; Hematocrit 42 % (42-52); Hemoglobin 14.2 g/dl (14.0-18.0); Mean Corpuscular HGB Conc 34 g/dl (31-36); Mean Corpuscular Hemoglobin 30 pg (27-31); Mean Corpuscular Volume 90 fL (80-94); Mean Platelet Volume 8.9 fL (7.4-10.4); Nucleated Red Blood Cells % 0.1; Platelet Count 175 10^3/ul (150-450); Red Blood Count 4.67 10^6/ul (4.00-5.40); Red Cell Distribution Width 13 % (10.5-15); White Blood Count 8.6 10^3/ul (3.5-10.8)
[2018-07-02 19:53] LABS: ALT 16 U/L (7-52); AST 18 U/L (13-39); Albumin 4.3 g/dL (3.2-5.2); Albumin/Globulin Ratio 1.5 (1-3); Alkaline Phosphatase 65 U/L (34-104); Anion Gap 11 mmol/L (2-11); BUN/Creatinine Ratio 21.3 (8-20); Blood Urea Nitrogen 17 mg/dL (6-24); C Reactive Protein < 1.00 mg/L (<8.01); CO2 Carbon Dioxide 22 mmol/L (22-32); Calcium 9.3 mg/dL (8.6-10.3); Chloride 102 mmol/L (101-111); EGFR African American 111.2 (>60); EGFR Non-African American 91.9 (>60); Globulin 2.9 g/dL (2-4); Glucose 160 mg/dL (70-100); Potassium 3.8 mmol/L (3.5-5.0); Sodium 135 mmol/L (135-145); Total Protein 7.2 g/dL (6.4-8.9)
[2018-07-02] MEDS ORDERED: Ondansetron ODT TAB* 4 MG PO ONE (20:50)
--- NOTE | 2018-07-02 20:51 | ED ---
Abdominal Pain/Male - HPI Summary HPI Summary: Patient with history of chronic abdominal pain sent to outpatient CT had sudden onset nausea and vomiting post CT, sent to the ED for further evaluation. Patient denies any change in abdominal symptoms, only new symptom is nausea vomiting. Denies fever, cough, sore throat, CP, SOB, change in urine, change in BM. Chronic abdominal pain described as epigastric, crampy, intermittent. Medical history is CVA, HDL. Patient on Plavix. - History of Current Complaint Chief Complaint: EDAbdPain Stated Complaint: VOMITING/ABD PAIN/COLD SYMPTOMS Time Seen by Provider: 07/02/18 18:57 Hx Obtained From: Patient Onset/Duration: Sudden Onset Timing: Intermittent Severity Initially: Mild Severity Currently: Mild Pain Intensity: 3 Pain Scale Used: 0-10 Numeric Location: Epigastric Radiates: No Character: Cramping Aggravating Factor(s): Nothing Alleviating Factor(s): Nothing Associated Signs And Symptoms: Positive: Nausea, Vomiting - Allergies/Home Medications Allergies/Adverse Reactions: Allergies Allergy/AdvReac Type Severity Reaction Status Date / Time No Known Allergies Allergy Verified 06/29/18 16:58 PMH/Surg Hx/FS Hx/Imm Hx Endocrine/Hematology History: Denies: Hx Diabetes, Hx Thyroid Disease Cardiovascular History: Denies: Hx Hypertension, Hx Pacemaker/ICD Respiratory History: Denies: Hx Asthma, Hx Chronic Obstructive Pulmonary Disease (COPD) GI History: Denies: Hx Ulcer History: Denies: Hx Renal Disease Sensory History: Denies: Hx Contacts or Glasses, Hx Hearing Aid Opthamlomology History: Denies: Hx Contacts or Glasses Psychiatric History: Reports: Hx Anxiety, Hx Depression Denies: Hx Panic Disorder - Surgical History Surgery Procedure, Year, and Place: IMGUINAL HERNIA - Immunization History Date of Tetanus Vaccine: Unk Date of Influenza Vaccine: Fall 2014 Infectious Disease History: No Infectious Disease History: Denies: Hx Clostridium Difficile, Hx Hepatitis, Hx Human Immunodeficiency Virus (HIV), Hx of Known/Suspected MRSA, Hx Shingles, Hx Tuberculosis, Traveled Outside the [place] in Last 30 Days - Family History Known Family History: Positive: Diabetes - Social History Alcohol Use: Rare Alcohol Amount: 1 glass wine/week Substance Use Type: Reports: None Smoking Status (MU): Never Smoked Tobacco Review of Systems Constitutional: Negative Eyes: Negative ENT: Negative Cardiovascular: Negative Respiratory: Negative Positive: Abdominal Pain, Vomiting, Nausea Genitourinary: Negative Musculoskeletal: Negative Skin: Negative Neurological: Negative Psychological: Normal All Other Systems Reviewed And Are Negative: Yes Physical Exam - Summary Physical Exam Summary: Mild epigastric pain on palpation. Abdominal exam otherwise unremarkable. Physical exam otherwise unremarkable. No active N/V at this time. Triage Information Reviewed: Yes Vital Signs On Initial Exam: Initial Vitals Temp Pulse Resp BP Pulse Ox 98.0 F 61 18 157/81 94 07/02/18 18:44 07/02/18 18:44 07/02/18 18:44 07/02/18 18:44 07/02/18 18:44 Vital Signs Reviewed: Yes Appearance: Positive: Well-Appearing Skin: Positive: Warm Head/Face: Positive: Normal Head/Face Inspection Eyes: Positive: Normal Neck: Positive: Supple Respiratory/Lung Sounds: Positive: Clear to Auscultation Cardiovascular: Positive: Normal Abdomen Description: Positive: Other: Musculoskeletal: Positive: Normal Neurological: Positive: Normal Psychiatric: Positive: Normal AVPU Assessment: Alert - [place] Coma Scale Best Eye Response: 4 - Spontaneous Best Motor Response: 6 - Obeys Commands Best Verbal Response: 5 - Oriented Coma Scale Total: 15 Diagnostics - Vital Signs Vital Signs Temp Pulse Resp BP Pulse Ox 07/02/18 18:44 98.0 F 61 18 157/81 94 - Laboratory Lab Results: Lab Results 07/02/18 07/02/18 07/02/18 Range/Units 19:12 19:12 19:12 WBC 8.6 (3.5-10.8) 10^3/ul RBC 4.67 (4.00-5.40) 10^6/ul Hgb 14.2 (14.0-18.0) g/dl Hct 42 (42-52) % MCV 90 (80-94) fL MCH 30 (27-31) pg MCHC 34 (31-36) g/dl RDW 13 (10.5-15) % Plt Count 175 (150-450) 10^3/ul MPV 8.9 (7.4-10.4) fL Neut % (Auto) 83.1 % Lymph % (Auto) 12.0 % [place] % (Auto) 4.4 % Eos % (Auto) 0.1 % Baso % (Auto) 0.4 % Absolute Neuts (auto) 7.1 (1.5-7.7) 10^3/ul Absolute Lymphs (auto) 1.0 (1.0-4.8) 10^3/ul Absolute Monos (auto) 0.4 (0-0.8) 10^3/ul Absolute Eos (auto) 0 (0-0.6) 10^3/ul Absolute Basos (auto) 0 (0-0.2) 10^3/ul Absolute Nucleated RBC 0 10^3/ul Nucleated RBC % 0.1 Sodium 135 (135-145) mmol/L Potassium 3.8 (3.5-5.0) mmol/L Chloride 102 (101-111) mmol/L Carbon Dioxide 22 (22-32) mmol/L Anion Gap 11 (2-11) mmol/L BUN 17 (6-24) mg/dL Creatinine 0.80 (0.67-1.17) mg/dL Est GFR ( Amer) 111.2 (>60) Est GFR (Non-Af Amer) 91.9 (>60) BUN/Creatinine Ratio 21.3 H (8-20) Glucose 160 H (70-100) mg/dL Lactic Acid 2.1 H* (0.5-2.0) mmol/L Calcium 9.3 (8.6-10.3) mg/dL Total Bilirubin 0.90 (0.2-1.0) mg/dL AST 18 (13-39) U/L ALT 16 (7-52) U/L Alkaline Phosphatase 65 (34-104) U/L C-Reactive Protein < 1.00 (<8.01) mg/L Total Protein 7.2 (6.4-8.9) g/dL Albumin 4.3 (3.2-5.2) g/dL Globulin 2.9 (2-4) g/dL Albumin/Globulin Ratio 1.5 (1-3) Lipase 13 (11.0-82.0) U/L Result Diagrams: 07/02/18 19:12 07/02/18 19:12 Lab Statement: Any lab studies that have been ordered have been reviewed, and results considered in the medical decision making process. Abdominal Pain Male Course/Dx - Course Course Of Treatment: Patient with history of chronic abdominal pain sent to outpatient CT had sudden onset nausea and vomiting post CT, sent to the ED for further evaluation. Patient denies any change in abdominal symptoms, only new symptom is nausea vomiting. Denies fever, cough, sore throat, CP, SOB, change in urine, change in BM. Chronic abdominal pain described as epigastric, crampy , intermittent. Medical history is CVA, HDL. Patient on Plavix. Physical exam :Mild epigastric pain on palpation. Abdominal exam otherwise unremarkable. Physical exam otherwise unremarkable. No active N/V at this time. Vital signs within normal limits. Lactate 2.1. Patient given 1 L normal saline. Labs otherwise unremarkable. Outpatient CT abdomen and pelvis with contrast unremarkable. Ultrasound gallbladder and here in the ED negative. Patient advised to follow-up with GI for possible endoscopy. Patient already on Prilosec. Rx for Zofran. Patient understands and approves plan. - Diagnoses Provider Diagnoses: Nausea, Abdominal pain Discharge - Sign-Out/Discharge Documenting (check all that apply): Patient Departure Patient Received Moderate/Deep Sedation with Procedure: No - Discharge Plan Condition: Stable Disposition: HOME Prescriptions: Ondansetron ODT TAB* [Zofran 4 MG Odt TAB*] 4 mg PO Q8H PRN 4 Days #20 tab.odt PRN Reason: Nausea Patient Education Materials: Acute Nausea and Vomiting (ED), Abdominal Pain (ED ) Referrals: Martir Muir MD [Primary Care Provider] - Ari Anthony MD [Medical Doctor] - Additional Instructions: Follow-up with GI Dr. Anthony for further evaluation including possible endoscopic. Return to the ED for any new or worsening symptoms. - Billing Disposition and Condition Condition: STABLE Disposition: Home
[2018-07-02 21:23] VITALS: BP 132/79
== END 2018-07-02 21:05 | disposition home or self-care (01) ==
LOC: ED 18:40
DX: R10.13 Epigastric pain (principal); R10.11 Right upper quadrant pain; R11.2 Nausea with vomiting, unspecified; Z79.02 Long term (current) use of antithrombotics/antiplatelets; Z86.73 Personal history of transient ischemic attack (TIA), and cerebral infarction without residual deficits
CPT/HCPCS: 36415; 76705; 80053; 83605; 83690; 85025; 86140; 96374; 99282; A9270-GY; J2405

== ENCOUNTER 2018-07-07 08:33 | Emergency (ER) | payer MEDICARE ==
[2018-07-07 08:45] VITALS: BP 142/87
--- NOTE | 2018-07-07 10:35 | UC ---
Abdominal Pain Male HPI - HPI Summary HPI Summary: PT HAS NOT HAD A BM IN 7 DAYS BUT STATES HE HAS BEEN PASSING GAS. FELT BLOATED. THIS MORNING ADMINISTERED A FLEETS ENEMA AND HE DID MOVE HIS BOWELS. STATES HE FELT BETTER AFTER THAT. THOUGHT HE HAD AN APPT HERE TODAY SO CAME IN. NO FEVER, NO N/V. NO BLOOD PER RECTUM. DENIES ABDOMINAL PAIN PRESENTLY. - History of Current Complaint Chief Complaint: UCAbdominalPain Stated Complaint: CONSTIPATION Time Seen by Provider: 07/07/18 10:11 Hx Obtained From: Patient Severity Initially: Mild Severity Currently: None Pain Intensity: 0 Pain Scale Used: 0-10 Numeric Character: Dull Aggravating Factor(s): Nothing Alleviating Factor(s): Other - BM Associated Signs And Symptoms: Positive: Constipation. Negative: Fever, Nausea , Vomiting - Allergies/Home Medications Allergies/Adverse Reactions: Allergies Allergy/AdvReac Type Severity Reaction Status Date / Time No Known Allergies Allergy Verified 07/07/18 08:45 PMH/Surg Hx/FS Hx/Imm Hx Previously Healthy: Yes - Surgical History Surgical History: Yes Surgery Procedure, Year, and Place: IMGUINAL HERNIA - Family History Known Family History: Positive: Diabetes - Social History Alcohol Use: Rare Alcohol Amount: 1 glass wine/week Substance Use Type: None Smoking Status (MU): Never Smoked Tobacco - Immunization History Most Recent Influenza Vaccination: 2018 Most Recent Pneumonia Vaccination: 2018 Review of Systems All Other Systems Reviewed And Are Negative: Yes Constitutional: Positive: Negative Respiratory: Positive: Negative Cardiovascular: Positive: Negative Gastrointestinal: Positive: Other - CONSTIPATION Genitourinary: Positive: Negative Physical Exam Triage Information Reviewed: Yes Appearance: Well-Appearing, No Pain Distress, Well-Nourished Vital Signs: Initial Vital Signs Temp 98 F 07/07/18 08:42 Pulse 88 07/07/18 08:42 Resp 18 07/07/18 08:42 BP 142/87 07/07/18 08:42 Pulse Ox 99 07/07/18 08:42 Vital Signs Reviewed: Yes Eyes: Positive: Conjunctiva Clear ENT: Positive: Hearing grossly normal Neck: Positive: Supple Respiratory Exam: Normal Cardiovascular Exam: Normal Abdomen Description: Positive: Nontender, Soft. Negative: Distended, Guarding Bowel Sounds: Positive: Present Musculoskeletal: Positive: No Edema Neurological: Positive: Alert Psychological: Positive: Age Appropriate Behavior Skin: Negative: Rashes Abd Pain Male Course/Dx - Course Course Of Treatment: PT MOVED HIS BOWELS THIS MORNING AT HOME AFTER A FLEETS ENEMA. FELT BETTER BUT THOUGHT HE HAD AN APPT HERE SO HE CAME IN. NORMAL EXAM. NO ACUTE INTERVENTION INDICATED AT PRESENT. - Differential Dx/Clinical Impression Provider Diagnosis: Acute constipation Discharge - Sign-Out/Discharge Documenting (check all that apply): Patient Departure All imaging exams completed and their final reports reviewed: No Studies - Discharge Plan Condition: Stable Disposition: HOME Patient Education Materials: Constipation (ED), High Fiber Diet (ED) Referrals: Martir Muir MD [Primary Care Provider] - 1 Week Additional Instructions: YOU REPORT FEELING BETTER AFTER HAVING A FLEETS ENEMA AT HOME AND MOVING YOUR BOWELS. STAY WELL HYDRATED. EAT A HIGH-FIBER DIET. FOLLOW-UP WITH YOUR PCP YOU SHOULD DISCUSS FOLLOWING UP WITH GI IF YOU HAVE RECURRENT CONSTIPATION. - Billing Disposition and Condition Condition: STABLE Disposition: Home
== END 2018-07-07 10:36 | disposition home or self-care (01) ==
LOC: UCEAST 08:33
DX: K59.00 Constipation, unspecified (principal)
CPT/HCPCS: 99211; G0463

== ENCOUNTER 2018-07-15 10:06 | Inpatient (IN) | payer MEDICARE ==
--- OUTSIDE RECORDS SUMMARY | 2018-07-15 10:22 | XMS REPORT | Continuity of Care Document ---
:1930 External Reference #:[id number] Author Name Dianne Hassan Care Team Providers Name Role Phone Martir Muir MD Primary Care Physician Unavailable Payers Date Identification Numbers Payment Provider Subscriber Effective: 2015 Policy Number: [id number] Medicare Blue Ppo Homer Ross Group Number: [id number] [address] [address] PayID: [id number] [place] [address] Expires: 2015 Policy Number: [id number] Medicare Homer Ross PayID: [id number] [address] [place] [address] Advance Directives Description No Information Available Problems Date Description Provider Status Onset: 04/19/2007 Heart murmur Otto Hallman M.D.,FACP Active Onset: 04/19/2007 Kidney stone Otto Hallman M.D.,FACP Active Onset: 04/19/2007 Impaired fasting glycaemia Otto Hallman M.D.,FACP Active Onset: 04/19/2007 Localized osteoarthrosis Otto Hallman M.D.,FACP Active Onset: 04/19/2007 Pure hypercholesterolemia Otto Hallman M.D.,FACP Active Onset: 02/13/2016 Cerebrovascular disease Fina Colvin M.D. 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 [employer] Tobacco Use Start: Unknown Never Smoked Cigarettes ETOH Use Drinks 1 Alcoholic Beverage Per Week Recreational Drug Use Denies Drug Use Tobacco Use Start: Unknown Patient has never smoked Smoking Status Reviewed: 07/13/18 Patient has never smoked Exercise Type/Frequency Exercises regularly Allergies, Adverse Reactions, Alerts Date Description Reaction Status Severity Comments 04/19/2007 Zyprexa Active 04/19/2007 Risperdal Active 04/19/2007 Lexapro Active Medications Medication Date Status Form Strength Qnty SIG Indications Ordering Provider Ondansetron HCL 07/13 Active Tablets 4mg 30tab one tablet s every 6 to 8 Shepherd, SYSTEMS ARCHITECTURE ANALYST hours by mouth Aspirin Active Tablets 325mg 1 by mouth prn Unknown Atorvastatin Active Tablets 40mg 1 by mouth Unknown Calcium / every day Clopidogrel Active Tablets 75mg 1 by mouth Unknown Bisulfate every day Cyanocobalamin Active Solution 1000mcg/M 1 milliliters L intramuscular [id number] Prilosec OTC Active Tablets 20mg [address] twice a day Aggrenox 01/03 Hx Caps ER 25-200mg 180ca take 1 capsule 12HR ps by mouth two Cowdery, - times daily M.D. 05/16 Asa 04/10 Hx 81mg 90uni 1 po qd Kyler Dinero M.D.,[facility] 06/10 Multivitamin 12/10 Hx Liquid 1 PO qd Otto /Kyler Rowan M.D.,[facility] 06/10 Naproxen / Hx Tablets 500mg 60tab 1 PO bid prn Kyler Stein M.D.,[facility] 06/10 Lorazepam Hx Tablets 1mg 1 PO bid Unknown /0000 - 05/16 Chlorhexidine Hx Solution 0.12% prn Unknown Gluconate / - 10/27 Hydrocodone/Chriss 00/00 Hx Tablets 5-325mg prn Unknown taminophen /0000 - 02/11 Penicillin V 00/00 Hx Tablets 500mg 7-10 days. Unknown Potassium /0000 - 02/11 Pantoprazole 00/00 Hx Tablets 40mg 1 by mouth Unknown Sodium /0000 DR every day - 07/09 Immunizations CPT Code Status Date Vaccine Lot # [id number] Given 02/27/2015 Afluria Vaccine [id number] Given 03/14/2014 Fluvirin Im 3Yrs And Older [id number] Given 02/27/2011 Influenza Virus 3Yrs & Over [id number] Given 02/20/2009 Influenza Virus 3Yrs & Over [id number] Given 02/10/2008 Influenza Virus 3Yrs & Over [id number] 53524 Given 03/16/2007 Flu Vac (History By Patient> Vital Signs Date Vital Result Comment 07/13/2018 10:36am Height 70 inches 5'10" Heart Rate 74 /min BP Systolic Sitting 112 mmHg reg adult cuff left arm BP Diastolic Sitting 67 mmHg reg adult cuff left arm Body Temperature 97.4 F O2 % BldC Oximetry 96 % at rest on room air 05/17/2018 11:04am Height 70 inches 5'10" Weight 177.00 lb Heart Rate 74 /min BP Systolic 138 mmHg BP Diastolic 82 mmHg BMI (Body Mass Index) 25.4 kg/m2 06/02/2017 10:39am Height 70 inches 5'10" Weight 166.00 lb BP Systolic 128 mmHg BP Diastolic 66 mmHg Respiratory Rate 20 /min Body Temperature 97.6 F Pain Level 4 BMI (Body Mass Index) 23.8 kg/m2 01/14/2017 9:27am Height 70 inches 5'10" Weight 166.00 lb Heart Rate 72 /min BP Systolic Sitting 140 mmHg BP Diastolic Sitting 76 mmHg Respiratory Rate 14 /min O2 % BldC Oximetry 96 % BMI (Body Mass Index) 23.8 kg/m2 10/28/2016 8:53am Height 70 inches 5'10" Weight 179.00 lb Heart Rate 72 /min BP Systolic Sitting 116 mmHg BP Diastolic Sitting 60 mmHg Respiratory Rate 16 /min Pain Level 0 O2 % BldC Oximetry 93 % BMI (Body Mass Index) 25.7 kg/m2 Neck Circumference in inches 15.25 02/13/2016 1:45pm Height 70 inches 132 Weight 179.00 lb Heart Rate 61 /min BP Systolic Sitting 132 mmHg BP Diastolic Sitting 94 mmHg Pain Level 0 O2 % BldC Oximetry 95 % BMI (Body Mass Index) 25.7 kg/m2 06/10/2013 11:36am Heart Rate 76 /min BP Systolic Sitting 138 mmHg BP Diastolic Sitting 78 mmHg Respiratory Rate 16 /min 04/10/2009 9:58am Height 69.5 inches 5'9.50" Weight 199.50 lb Heart Rate 60 /min BP Systolic Sitting 138 mmHg BP Diastolic Sitting 90 mmHg Respiratory Rate 16 /min Body Temperature 97.7 F BMI (Body Mass Index) 29.0 kg/m2 04/19/2007 12:59pm Height 70 inches 5'10" Weight 200.00 lb Heart Rate 66 /min BP Systolic Sitting 119 mmHg BP Diastolic Sitting 68 mmHg BMI (Body Mass Index) 28.7 kg/m2 Results Test Date Facility Test Result H/L Range Note Laboratory test 04/15/2018 [facility] TSH 0.69 mcIU/mL N 0.34- 5.60 1, [address] ([place] [address] Stim Horm) [phone] Free T4 (Free Thyroxine) 0.85 ng/dL N 0.61-1.12 3 Folic Acid (Folate) 16.85 ng/mL >3.99 4 Vitamin B12 210 pg/mL N 180-914 5 Laboratory test 06/11/2015 [facility] Lactic Acid 1.5 mmol/L N 0.5-2.0 [address] [place] [address] [phone] CBC Auto Diff 06/11/2015 [facility] White Blood 7.8 10^3/uL N 3.5-10.[address] [place] [address] [phone] Red Blood Count 4.87 10^6/uL N 4.0-5.4 Hemoglobin 14.9 g/dL N 14.0-18.0 Hematocrit 45 % N 42-52 Mean Corpuscular Volume 93 fL N 80-94 Mean Corpuscular Hemoglobin 31 pg N 27-31 Mean Corpuscular HGB Conc 33 g/dL N 31-36 Red Cell Distribution Width 13 % N 10.5-15 Platelet Count 144 10^3/uL Low 150-450 Mean Platelet Volume 10 um3 N 7.4-10.4 Abs Neutrophils 7.2 10^3/uL N 1.5-7.7 Abs Lymphocytes 0.3 10^3/uL Low 1.0-4.8 Abs Monocytes 0.4 10^3/uL N 0-0.8 Abs Eosinophils 0 10^3/uL N 0-0.6 Abs Basophils 0 10^3/uL N 0-0.2 Abs Nucleated RBC 0 10^3/uL N Granulocyte % 91.2 % High 38-83 Lymphocyte % 3.4 % Low 25-47 Monocyte % 5.2 % N 1-9 Eosinophil % 0 % N 0-6 Basophil % 0.2 % N 0-2 Nucleated Red Blood Cells % 0 N Laboratory 06/11/2015 [facility] Partial Thrombo 26.4 N 26.0- 36.[address] [place] [address] [phone] Inr/Protime 06/11/2015 [facility] Inr 1.12 High 0.89-1.[address] [place] [address] [phone] Laboratory 06/11/2015 [facility] B-Type 122 pg/mL High [address] [place] [address] Peptide BNP [phone] CKMB 06/11/2015 [facility] CKMB ng/mL 1.2 ng/mL N 0.6-6.[address] [place] [address] [phone] Laboratory 06/11/2015 [facility] Creatine 63 U/L N 10-[address] Kinase(CK) [place] [address] [phone] Troponin-I (TnI) 0.00 ng/mL N <0.03 8 Comp Metabolic Panel 06/11/2015 [facility] Sodium 136 mmol/L N 133-[address] [place] [address] [phone] Potassium 3.6 mmol/L N 3.5-5.0 Chloride 104 mmol/L N 101-111 Co2 Carbon Dioxide 23 mmol/L N 22-32 Anion Gap 9 mmol/L N 2-11 Glucose 166 mg/dL High 70-100 Blood Urea Nitrogen 23 mg/dL N 6-24 Creatinine 0.98 mg/dL N 0.67-1.17 BUN/Creatinine Ratio 23.5 High 8-20 Calcium 9.2 mg/dL N 8.6-10.3 Total Protein 6.9 g/dL N 6.4-8.9 Albumin 4.2 g/dL N 3.2-5.2 Globulin 2.7 g/dL N 2-4 Albumin/Globulin Ratio 1.6 N 1-3 Total Bilirubin 0.80 mg/dL N 0.2-1.0 Alkaline Phosphatase 44 U/L N 34-104 Alt 10 U/L N 7-52 Ast 15 U/L N 13-39 Egfr Non- 73.2 N >60 Egfr 94.2 N >60 9 Throat-Beta Strept 07/19/2014 [facility] Throat Beta (SEE NOTE) [address] [place] [address] [phone] Urinalysis Profile 12/02/2013 [facility] Urine Color Yellow N [address] [address] [phone] Urine Appearance Cloudy N Urine Specific [place] 1.024 N 1.010-1.030 Urine pH 5.0 N 5-9 Urine Urobilinogen Negative N Negative Urine Ketones Trace N Negative Urine Protein Negative N Negative Urine Leukocytes Negative N Negative Urine Blood Negative N Negative Urine Nitrite Negative N Negative Urine Bilirubin Negative N Negative Urine Glucose Negative N Negative Code Celis Type 03/04/2011 [facility] Patient Blood O NEGATIVE And Screen [address] [place] [address] [phone] Antibody Screen NEGATIVE Laboratory test 03/04/2011 [facility] Magnesium 2.0 mg/dL 1.7 -2.6 finding [address] [address] [phone] Troponin-I 0 NG/ML 0-0.06 11 Acetaminophen < 10 g/mL Low 10-30 12 Alcohol < 10.0 mg/dL None Detected 13 Salicylate < 4.0 mg/dL Less Than 30 14 [id number] 03/04/2011 [facility] Sodium 139 mmol/L 135-145 [address] [address] [phone] Potassium 3.1 mmol/L Low 3.5-5.0 Chloride 110 mmol/L 101-111 Co2 (Carbon Dioxide) 19.0 mmol/L Low 22-32 Anion Gap 10.0 mmol/L 2-11 15 Glucose 158 mg/dL High 70-100 BUN 19 mg/dL 6-24 Creatinine 0.9 mg/dL 0.50-1.40 One Over Creatinine 1.11 BUN/Creatinine Ratio 21.1 High 8-20 Calcium 8.7 mg/dL 8.1-9.9 Total Protein 6.3 GM/DL 6.2-8.1 Albumin 3.7 GM/DL 3.2-5.2 Globulin 2.6 GM/DL 2-4 Albumin/Globulin Ratio 1.4 1-3 Bilirubin Total 0.8 mg/dL 0.4-1.5 16 Alkaline Phosphatase 56 U/L 39-117 Alt (SGPT) 14 U/L Low 17-63 Ast (Sgot) 21 U/L 12-42 eGFR Non- 81.6 > 60 eGFR 105.0 > 60 17 Laboratory test 03/04/2011 [facility] Code Celis 21.5 SEC Low 25.15-38.[address] PTT (Aptt) [place] [address] [phone] Code Celis 03/04/2011 [facility] Protime 11.3 SEC 10.67-13.64 Protime/Inr [address] [place] [address] [phone] Inr 0.96 0.88-1.13 18 Code Celis CBC 03/04/2011 [facility] White Blood 7.0 CUMM 4.8- 10.[address] [place] [address] [phone] Red Cell Count 4.33 CUMM Low 4.6-6.2 Hemoglobin 13.8 g/dL Low 14.0-18.0 Hematocrit 39 % Low 42-52 Mean Corpuscular Volume 91 um3 80-94 Mean Corpuscular Hemoglob 32 pg High 27-31 Mean Corpuscular HGB Cone 35 g/dL 32-36 Redcell Distribution WDTH 13 % 10.5-15 Platelet Count 154 CUMM 150-450 Mean Platelet Volume 9.4 um3 7.4-10.4 Gran % 63.5 % 38-83 Lymph % 26.3 % 25-47 Mononuclear % 8.0 % 1-9 Eosinophil % 1.8 % 0-6 Basophil % 0.4 % 0-2 Abs Lymphs 1.8 1.0-4.8 Abs Mononuclear 0.6 0-0.8 Absolute Neutrophil Count 4.4 1.5-7.7 Abs Eosinophils 0.1 0-0.6 Abs Basophils 0 0-0.2 Lipid Profile 10/25/2009 [facility] Triglyceride 112 mg/dL 40 -200 (Trig/Chol/HDL) [address] [place] [address] [phone] Cholesterol 189 mg/dL Less Than 200 19 High Density Lipoprotein 35 mg/dL Low 40-60 20 Cholesterol/HDL Ratio 5.40 AVERAGE High 1-4.97 Low Density Lipoprotein 132 mg/dL High Less Than 100 21 Basic Metabolic Panel 10/25/2009 [facility] Sodium 140 mmol/L 135-145 [address] [place] [address] [phone] Potassium 4.1 mmol/L 3.5-5.0 Chloride 105 mmol/L 101-111 Co2 (Carbon Dioxide) 29.0 mmol/L 22-32 Anion Gap 6.0 mmol/L 2-11 22 Glucose 108 mg/dL High 70-100 23 BUN 17 mg/dL 6-24 Creatinine 1.00 mg/dL 0.50-1.40 One Over Creatinine 1.00 BUN/Creatinine Ratio 17.0 8-20 Calcium 9.1 mg/dL 8.1-9.9 24 eGFR Non- 77.2 > 60 eGFR 93.4 > 60 25 Basic Metabolic 05/13/2007 [facility] One Over Creatinine 1.11 26 Panel Stat [address] [place] [address] [phone] Anion Gap 5.0 mmol/L 2-11 27 BUN 17 mg/dL 6-24 Calcium 9.4 mg/dL 8.7-10.2 Chloride 107 mmol/L 101-111 Co2 (Carbon Dioxide) 27.0 mmol/L 22-32 Glucose 109 mg/dL High 70-105 Potassium 4.4 mmol/L 3.5-5.0 Sodium 139 mmol/L 135-145 BUN/Creatinine Ratio 18.9 8-20 Creatinine 0.9 mg/dL 0.5-1.4 Lipid Profile 05/13/2007 [facility] Cholesterol/HDL 5.02 High 1-4.97 (Trig/Chol/HDL) [address] Ratio AVERAGE [place], [place] [id number] [phone] Cholesterol 206 mg/dL High Less Than 200 28 Triglyceride 103 mg/dL 40-200 High Density Lipoprotein 41 mg/dL 40-60 Low Density Lipoprotein 144 mg/dL High Less Than 100 29 Laboratory test 05/13/2007 [facility] PSA Screening 0.63 NG/ML 0-[address] [place], [place] [id number] [phone] Laboratory test 05/13/2007 [facility] Uric Acid 5.4 mg/dL 2.6 -7.[address] [place] [address] [phone] Comment: please add labs on blood set from ER if possible 2 Comment: please add labs on blood set from ER if possible 3 Comment: please add labs on blood set from ER if possible 4 Comment: please add labs on blood set from ER if possible 5 Normal Range 180 to 914 Indeterminate Range 145 to 180 Deficient Range <145 6 [facility] Severe Sepsis and Septic Shock Management Bundle Measure requires all lactic acids initially measuring >2.0mmol/L be repeated. 7 >100 to <200 pg/mL: likely compensated congestive heart failure (CHF) 200 to 400 pg/mL: likely moderate CHF >400 pg/mL: likely moderate to severe CHF 8 Reference Range and Interpretation: TnI (ng/mL) Interpretation Less Than 0.03 ng/mL Not supportive of diagnosis of [place] 0.03 - 0.50 ng/mL Indeterminate: suggest serial studies if clinically indicated. Greater than 0.5 ng/mL Consistent with diagnosis of [place] 9 Because ethnic data is not always readily available, this report includes an eGFR for both -Americans and non- Americans. The National Kidney Disease Education Program (NKDEP) does not endorse the use of the MDRD equation for patients that are not between the ages of 18 and 70, are , have extremes of body size, muscle mass, or nutritional status, or are non- or non-. According to the National Kidney Foundation, irrespective of diagnosis, the stage of the disease is based on the level of kidney function: Stage Description GFR(mL/min/1.73 m(2)) 1 Kidney damage with normal or decreased GFR 90 2 Kidney damage with mild decrease in GFR 60-89 3 Moderate decrease in GFR 30-59 4 Severe decrease in GFR 15-29 5 Kidney failure <15 (or dialysis) 10 RUN DATE: 07/21/14 [facility] LAB LIVE PAGE 1 RUN TIME: [address] [place] [id number] Specimen Inquiry Name: HOMER ROSS : [address]: Nasrin Coats MD Acct: [id number] Unit: [id number] AGE: 83 Location: [facility] Re07/19/14 SEX: M Status: DEP ER SPEC: [id number] TAHIRA: 07/19/14-1035 [facility] DR: Demetria Killian NP REQ: [id number] RECD: 07/19/14-1232 STATUS: BARNEY GODINEZ DR: Nasrin Hallman MD _ SOURCE: THROAT SPDESC: ORDERED: Throat Beta Str Procedure Result Verified Site Throat Beta Strep Culture Final 07/21/14- 0812 L Negative For Group A Beta Streptococcus END OF REPORT * ML=Testing performed at Main Lab DEPARTMENT OF PATHOLOGY, [address] [place] [address] Lane Solomon M.D. Director [facility] # [id number] 11 New Reference Range and Interpretation effective 02/11/2002 TnI (ng/ml) INTERPRETATION Less Than 0.06 ng/mL NOT SUPPORTIVE OF DIAGNOSIS OF [place] 0.06 - 0.50 ng/ml INDETERMINATE: SUGGEST SERIAL STUDIES IF CLINICALLY INDICATED. Greater than 0.5 ng/mL CONSISTENT WITH DIAGNOSIS OF [place] . 12 TOXIC LEVELS: GREATER THAN 150 MCG/ML @ 4HR POST INGEST GREATER THAN 50 MCG/ML @ 12HR POST INGEST The detection limit for ACETAMINOPHEN is 10.0 mcg/ml . Values less than 10.0 mcg/ml cannot be accurately measured. . 13 The detection limit for ETHANOL is 10.0 mg/dl . Values less than 10.0 mg/dl cannot be accurately measured. . 14 The detection limit for SALICYLATE is 4.0 mg/dl. Values less than 4.0 mg/dl cannot be accurately measured. . 15 Anion gap measurement may be of limited value in the presence of any alkalosis, especially in a combined acid base disorder. . 16 A metabolite of Naproxen, O-desmethylnaproxen, has been shown to interfere with the [place] method for measuring total bilirubin. Samples from patients who have taken Naproxen have shown spurious elevation in total bilirubin levels. 17 Because ethnic data is not always readily available, this report includes an eGFR for both -Americans and non- Americans. The National Kidney Disease Education Program (NKDEP) does not endorse the use of the MDRD equation for patients that are not between the ages of 18 and 70, are , have extremes of body size, muscle mass, or nutritional status, or are non- or non-. According to the National Kidney Foundation, irrespective of diagnosis, the stage of the disease is based on the level of kidney function: Stage Description GFR(mL/min/1.73 m(2)) 1 Kidney damage with normal or decreased GFR 90 2 Kidney damage with mild decrease in GFR 60-89 3 Moderate decrease in GFR 30-59 4 Severe decrease in GFR 15-29 5 Kidney failure <15 (or dialysis) 18 Recommended INR for Patients on Oral Anticoagulants Prophylaxis 2.0 - 3.0 Treatment of thrombosis 2.0 - 3.0 Prevention of embolism 2.0 - 3.0 Prevention of embolism from prosthetic heart valves 2.5 - 3.5 19 CHOLESTEROL INTERPRETATION: Desirable: Less than 200 MG/DL Borderline-High Risk: 200-239 MG/DL High-Risk: 240 MG/DL and over 20 HDL INTERPRETATION: Undesirable: High Risk: Less than 40 MG/DL Desirable: Low Risk: Greater than 60 MG/DL 21 LDL INTERPRETATION: Low Risk Optimal Level: LDL Less than 100 MG/DL Near or Above Optimal: LDL 100-129 MG/DL Borderline High Risk: LDL 130-159 MG/DL High Risk: LDL 160-189 MG/DL Very High Risk: LDL Greater than 189 MG/DL 22 Anion gap measurement may be of limited value in the presence of any alkalosis, especially in a combined acid base disorder. . 23 Note change in reference range as of 12/30/07. The change was based on recommendations from the [place] Diabetes Association. 24 Please note change in reference range effective 07 . 25 Because ethnic data is not always readily available, this report includes an eGFR for both -Americans and non- Americans. The National Kidney Disease Education Program (NKDEP) does not endorse the use of the MDRD equation for patients that are not between the ages of 18 and 70, are , have extremes of body size, muscle mass, or nutritional status, or are non- or non-. According to the National Kidney Foundation, irrespective of diagnosis, the stage of the disease is based on the level of kidney function: Stage Description GFR(mL/min/1.73 m(2)) 1 Kidney damage with normal or decreased GFR 90 2 Kidney damage with mild decrease in GFR 60-89 3 Moderate decrease in GFR 30-59 4 Severe decrease in GFR 15-29 5 Kidney failure <15 (or dialysis) 26 FASTING 27 Anion gap measurement may be of limited value in the presence of any alkalosis, especially in a combined acid base disorder. . 28 Classification: Borderline High . 29 CALCULATED LDL APPROXIMATES THE VALUE OF A DIRECT LDL MEASUREMENT. Classification: Borderline High . Procedures Date Code Description Status 04/16/2018 87720 EEG Recording Awake & Drowsy Completed 04/15/2018 81122 ECHO Transthorasic Realtime 2D W Doppler & Color Flow Completed Hosp 03/04/2011 55449 Color Flow Doppler/Interp & Reprt Completed 03/04/2011 70246 Pulse Wave/Continuous-Interp.RPT Completed 03/04/2011 63136 ECHO Transthorasic Realtime 2D W Doppler & Color Flow Completed Hosp 02/20/2004 61472 Treadmill Interp/Report Only Completed 02/20/2004 05122 Stress Test Supervsn W/Out I/R Completed 05/11/2001 74565300 Colonoscopy Completed Encounters Type Date Location Provider Dx Diagnosis Office Visit 05/17/2018 [facility] Homer Chen Z09 Encntr for f/ u 11:00a Jorge Hunter exam aft trtmt for cond oth than corin neoplm Z86.73 Prsnl hx of TIA (TIA), and cereb infrc w/o resid deficits Z79.02 jail (current) use of antithrombotics/antiplatelets Office Visit 04/16/2018 7:00a [facility] Homer Chen R47.01 Aphasia Jorge Hunter I67.82 Cerebral ischemia Office Visit 04/16/2018 10:43a [facility] Delicia Rock R47.01 Aphasia Assoc, Hospitalists D.O. 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 right knee Office Visit 01/14/2017 Pulmonology And Luna R06.83 Snoring 9:15a Sleep Services DYLAN Banegas, Of [facility] RN, BLEACH RANGE OPERATOR-BC Office Visit 10/28/2016 Pulmonology And Naa R06.83 Snoring 8:45a Sleep Services MD Gino Of [facility] R09.02 Hypoxemia R35.1 Nocturia Office 02/13/2016 [place]/Kamaljit Hong I67.9 Cerebrovascular Visit 2:15p Neurologic Serv Of robert Colvin Cma M.D. unspecified Office 06/10/2013 [facility] Fina Hong 437.9 Cerebrovascular Visit 11:45a Services Of [facility] Vinicius Disease Or Lesion Jorge Unspec Office 01/07/2012 [facility] Fina Hong 780.4 Dizziness & Visit 3:00p Services Of [facility] Cecelia Colvin M.D. Office 04/10/2009 DO Not Use [facility] AT Otto Burrows 790.21 Impaired Fasting Visit 10:00a Dunia Lowery M.D.,FACP 272.0 Hypercholesterolemia Pure 592.0 Calculus Of Kidney Office Visit 04/19/2007 1:40p DO Not Use [facility] Otto Burrows 785.2 Murmur Cardiac AT Saundra Hallman M.D.,FACP Undiagnosed 592.0 Calculus Of Kidney 790.21 Impaired Fasting Glucose 715.36 Osteoarthrosis Localzd Not Spec Prime Or 2Ndy Lower Leg 272.0 Hypercholesterolemia Pure V76.44 Screening For Malig Aldair Prostate Plan of Treatment Future Appointment(s):07/27/2018 9:15 am - Princess Shepherd NP at [facility] Zoubvmqqhdixnwse74/05/2019 - Princess Shepherd NPK59.00 Constipation, hzkbfznnqtlL68.0 Abdominal distension (gaseous)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
[2018-07-15 10:37] LABS: ABS Basophils 0 10^3/ul (0-0.2); ABS Eosinophils 0 10^3/ul (0-0.6); ABS Lymphocytes 0.7 10^3/ul (1.0-4.8); ABS Monocytes 0.8 10^3/ul (0-0.8); ABS Neutrophils 11.7 10^3/ul (1.5-7.7); ABS Nucleated RBC 0 10^3/ul; Eosinophil % 0 %; Hematocrit 41 % (42-52); Hemoglobin 13.9 g/dl (14.0-18.0); Mean Corpuscular HGB Conc 34 g/dl (31-36); Mean Corpuscular Hemoglobin 30 pg (27-31); Mean Corpuscular Volume 90 fL (80-94); Mean Platelet Volume 8.8 fL (7.4-10.4); Nucleated Red Blood Cells % 0.2; Platelet Count 134 10^3/ul (150-450); Red Blood Count 4.58 10^6/ul (4.00-5.40); Red Cell Distribution Width 13 % (10.5-15); White Blood Count 13.2 10^3/ul (3.5-10.8)
[2018-07-15 10:54] LABS: Activated Partial Thrombo Time 26.5 seconds (26.0-36.3); BNP 85 pg/mL (<=100); INR 1.01 (0.77-1.02)
[2018-07-15 10:55] LABS: ALT 12 U/L (7-52); AST 22 U/L (13-39); Albumin 3.8 g/dL (3.2-5.2); Albumin/Globulin Ratio 1.2 (1-3); Alkaline Phosphatase 62 U/L (34-104); Amylase 24 U/L (29-103); Anion Gap 7 mmol/L (2-11); BUN/Creatinine Ratio 19.8 (8-20); Blood Urea Nitrogen 21 mg/dL (6-24); C Reactive Protein 189.33 mg/L (<8.01); CO2 Carbon Dioxide 29 mmol/L (22-32); Calcium 9.2 mg/dL (8.6-10.3); Chloride 102 mmol/L (101-111); Creatine Kinase 265 U/L (10-223); EGFR African American 80.3 (>60); EGFR Non-African American 66.4 (>60); Globulin 3.3 g/dL (2-4); Glucose 122 mg/dL (70-100); Magnesium 2.2 mg/dL (1.9-2.7); Potassium 3.7 mmol/L (3.5-5.0); Sodium 138 mmol/L (135-145); Total Protein 7.1 g/dL (6.4-8.9)
[2018-07-15 10:57] LABS: Troponin I 0.16 ng/mL (<0.04)
--- NOTE | 2018-07-15 11:47 | ED ---
GI/ HPI - HPI Summary HPI Summary: Pt is a 87 y/o M presenting to the ED, referred from home after ISIDRO Sánchez for Dr. Anthony, contacted pt's caregiver and advised her to bring pt to the ED for further evaluation of elevated WBC count 19.8 drawn on 07/13/18 after an office evaluation and treatment for constipation. Princess FELIX also advised that pt's stool was + for H. pylori. Pt's caregiver, Trinity, (no blood relation to pt, but states is HCP) and lives with pt, such that pt has 24 hr care, states that her chief complaint for pt is altered mental status. Per pts starch dumper, Trinity , the pt has been in and out of UC (07/07/18) and ED (07/02/18) the past couple of weeks, mostly for constipation and abd pain. CT abd pelvis done 07/02/18 as outpatient was unremarkable. GB US on 07/02/18 was neg. Dx in UC on 07/07/18 was constipation. Pt had a good bowel clean out by GI on 07/13/18. Today and yesterday , he has been weak, tired, and confused. Trinity also states that he stopped taking his Plavix on Thursday night (07/11/18) due to vomiting and screaming in pain. The pt currently denies abd pain, sore throat, cough, headache, fever, chest pain, SOB. Neg hx of TX. + hx of CVA. Pt is a DNR. This was confirmed with Trinity, who states that the "paperwork should be in his chart". Home Medications-confirmed by Dr. Suarez in room with caregiver. Pt is not on clopidogrel since 07/11/18, DC'd by caregiver due to vomiting. Medication Instructions Recorded Confirmed Type Benadryl PO 50 MG CAP* 1 tab PO BEDTIME 04/15/18 07/07/18 History Aspirin TAB* [Aspirin 325 MG TAB*] 325 mg PO DAILY #30 tab 04/17/18 07/07/18 Rx Atorvastatin* [Lipitor 40 MG*] 40 mg PO 2100 #30 tab 04/17/18 07/07/18 Rx Clopidogrel TAB* [Plavix TAB*] 75 mg PO DAILY #30 tab 04/17/18 07/07/18 Rx Cyanocobalamin TAB* [Vitamin B12 1,000 mcg PO DAILY #30 tab 04/17/18 07/07/18 Rx TAB*] LORazepam TAB(*) [Ativan 0.5 MG 1 mg PO BID PRN #0 04/17/18 07/07/18 Rx TAB (*)] Pantoprazole TAB * [Protonix TAB*] 40 mg PO DAILY #30 tab 04/17/18 07/07/18 Rx Ondansetron ODT TAB* [Zofran 4 MG 4 mg PO Q8H PRN 4 Days #20 tab.odt 07/02/18 Rx Odt TAB*] - History of Current Complaint Chief Complaint: EDGeneral Time Seen by Provider: 07/15/18 10:07 Stated Complaint: STATES DR TOLD HIM TO COME HERE INFECT IN BOWLS PT Hx Obtained From: Patient, Family/Roller Helper - Trinity Onset/Duration: Started Days Ago, Atraumatic, Still Present Timing: Constant, Lasting Days Severity: Mild Current Severity: None Pain Intensity: 0 Location of Pain: None Pain Characteristics: Other: - no abd pain or chest pain in ED Associated Signs and Symptoms: Positive: Negative - chest pain, fever, SOB, Weight Loss, Constipation, Other: - altered mental status, vomiting. Negative: Abdominal Pain, Cough Aggravating Factor(s): Nothing Alleviating Factor(s): Nothing - Additional Pertinent History Primary Care Physician: [id number] - Allergy/Home Medications Allergies/Adverse Reactions: Allergies Allergy/AdvReac Type Severity Reaction Status Date / Time No Known Allergies Allergy Verified 07/15/18 10:14 Home Medications: Home Medications diPHENhydraMINE PO* [Benadryl PO 50 MG CAP*] 50 mg PO BEDTIME 07/15/18 [History Confirmed 07/15/18] PMH/Surg Hx/FS Hx/Imm Hx Previously Healthy: No Endocrine/Hematology History: Denies: Hx Diabetes, Hx Thyroid Disease Cardiovascular History: Denies: Hx Hypertension, Hx Myocardial Infarction, Hx Pacemaker/ICD Respiratory History: Denies: Hx Asthma, Hx Chronic Obstructive Pulmonary Disease (COPD) GI History: Reports: Other GI Disorders - constipation, H pylori Denies: Hx Ulcer History: Denies: Hx Renal Disease Sensory History: Denies: Hx Contacts or Glasses, Hx Hearing Aid Opthamlomology History: Denies: Hx Contacts or Glasses Neurological History: Reports: Hx CVA, Hx Dementia Psychiatric History: Reports: Hx Anxiety, Hx Depression Denies: Hx Panic Disorder - Surgical History Surgery Procedure, Year, and Place: IMGUINAL HERNIA - Immunization History Date of Tetanus Vaccine: Unk Date of Influenza Vaccine: Fall 2014 Infectious Disease History: No Infectious Disease History: Denies: Hx Clostridium Difficile, Hx Hepatitis, Hx Human Immunodeficiency Virus (HIV), Hx of Known/Suspected MRSA, Hx Shingles, Hx Tuberculosis, Traveled Outside the [place] in Last 30 Days - Family History Known Family History: Positive: Diabetes - Social History Lives: With Family - with caregiver, Trinity Alcohol Use: Rare Alcohol Amount: 1 glass wine/week Hx Substance Use: No Substance Use Type: Reports: None Hx Tobacco Use: No Smoking Status (MU): Never Smoked Tobacco Review of Systems Positive: Fatigue Negative: Sore Throat Cardiovascular: Negative Negative: Cough Negative: Abdominal Pain Positive: no symptoms reported Musculoskeletal: Negative Skin: Negative Neurological: Other - altered mental status Negative: Headache Psychological: Other - less responsive, more drowsy All Other Systems Reviewed And Are Negative: Yes Physical Exam - Summary Physical Exam Summary: Appearance: Ill-appearing, no pain distress, well-nourished Skin: Warm, color reflects adequate perfusion, dry Head: Normal Head/Face inspection, atraumatic Eyes: Conjunctiva clear ENT: Normal inspection Neck: Supple, no nodes, no JVD Respiratory: Lungs clear, normal breath sounds, no respiratory distress Cardio: RRR, No murmur, pulses normal, brisk capillary refill Abdomen: Soft, nontender Bowel sounds: Present Musculoskeletal: Strength Intact/ROM intact, no calf tenderness, no edema. Psychological: pleasant, oriented to name and place (date not inquired) unable to provide many history details Neuro: Alert, muscle tone normal, no focal deficit GCS: 15 Triage Information Reviewed: Yes Vital Signs On Initial Exam: Initial Vitals Temp Pulse Resp BP Pulse Ox 98.4 F 77 16 132/85 95 07/15/18 10:11 07/15/18 10:11 07/15/18 10:11 07/15/18 10:11 07/15/18 10:11 Vital Signs Reviewed: Yes - [place] Coma Scale Best Eye Response: 4 - Spontaneous Best Motor Response: 6 - Obeys Commands Best Verbal Response: 5 - Oriented Coma Scale Total: 15 Diagnostics - Vital Signs Vital Signs Temp Pulse Resp BP Pulse Ox 07/15/18 10:11 98.4 F 77 16 132/85 95 - Laboratory Lab Results: Lab Results 07/15/18 07/15/18 07/15/18 Range/Units 10:23 10:23 10:23 WBC 13.2 H (3.5-10.8) 10^3/ul RBC 4.58 (4.00-5.40) 10^6/ul Hgb 13.9 L (14.0-18.0) g/dl Hct 41 L (42-52) % MCV 90 (80-94) fL MCH 30 (27-31) pg MCHC 34 (31-36) g/dl RDW 13 (10.5-15) % Plt Count 134 L (150-450) 10^3/ul MPV 8.8 (7.4-10.4) fL Neut % (Auto) 88.5 % Lymph % (Auto) 5.0 % [place] % (Auto) 6.4 % Eos % (Auto) 0 % Baso % (Auto) 0.1 % Absolute Neuts (auto) 11.7 H (1.5-7.7) 10^3/ul Absolute Lymphs (auto) 0.7 L (1.0-4.8) 10^3/ul Absolute Monos (auto) 0.8 (0-0.8) 10^3/ul Absolute Eos (auto) 0 (0-0.6) 10^3/ul Absolute Basos (auto) 0 (0-0.2) 10^3/ul Absolute Nucleated RBC 0 10^3/ul Nucleated RBC % 0.2 INR (Anticoag Therapy) (0.77-1.02) APTT (26.0-36.3) seconds Sodium 138 (135-145) mmol/L Potassium 3.7 (3.5-5.0) mmol/L Chloride 102 (101-111) mmol/L Carbon Dioxide 29 (22-32) mmol/L Anion Gap 7 (2-11) mmol/L BUN 21 (6-24) mg/dL Creatinine 1.06 (0.67-1.17) mg/dL Est GFR ( Amer) 80.3 (>60) Est GFR (Non-Af Amer) 66.4 (>60) BUN/Creatinine Ratio 19.8 (8-20) Glucose 122 H (70-100) mg/dL Lactic Acid 1.8 (0.5-2.0) mmol/L Calcium 9.2 (8.6-10.3) mg/dL Magnesium 2.2 (1.9-2.7) mg/dL Total Bilirubin 0.80 (0.2-1.0) mg/dL AST 22 (13-39) U/L ALT 12 (7-52) U/L Alkaline Phosphatase 62 (34-104) U/L Ammonia (16-53) mcmol/L Total Creatine Kinase 265 H (10-223) U/L Troponin I 0.16 H* (<0.04) ng/mL C-Reactive Protein 189.33 H (<8.01) mg/L B-Natriuretic Peptide (<=100) pg/mL Total Protein 7.1 (6.4-8.9) g/dL Albumin 3.8 (3.2-5.2) g/dL Globulin 3.3 (2-4) g/dL Albumin/Globulin Ratio 1.2 (1-3) Amylase 24 L (29-103) U/L Lipase 13 (11.0-82.0) U/L 07/15/18 07/15/18 Range/Units 10:23 10:23 WBC (3.5-10.8) 10^3/ul RBC (4.00-5.40) 10^6/ul Hgb (14.0-18.0) g/dl Hct (42-52) % MCV (80-94) fL MCH (27-31) pg MCHC (31-36) g/dl RDW (10.5-15) % Plt Count (150-450) 10^3/ul MPV (7.4-10.4) fL Neut % (Auto) % Lymph % (Auto) % [place] % (Auto) % Eos % (Auto) % Baso % (Auto) % Absolute Neuts (auto) (1.5-7.7) 10^3/ul Absolute Lymphs (auto) (1.0-4.8) 10^3/ul Absolute Monos (auto) (0-0.8) 10^3/ul Absolute Eos (auto) (0-0.6) 10^3/ul Absolute Basos (auto) (0-0.2) 10^3/ul Absolute Nucleated RBC 10^3/ul Nucleated RBC % INR (Anticoag Therapy) 1.01 (0.77-1.02) APTT 26.5 (26.0-36.3) seconds Sodium (135-145) mmol/L Potassium (3.5-5.0) mmol/L Chloride (101-111) mmol/L Carbon Dioxide (22-32) mmol/L Anion Gap (2-11) mmol/L BUN (6-24) mg/dL Creatinine (0.67-1.17) mg/dL Est GFR ( Amer) (>60) Est GFR (Non-Af Amer) (>60) BUN/Creatinine Ratio (8-20) Glucose (70-100) mg/dL Lactic Acid (0.5-2.0) mmol/L Calcium (8.6-10.3) mg/dL Magnesium (1.9-2.7) mg/dL Total Bilirubin (0.2-1.0) mg/dL AST (13-39) U/L ALT (7-52) U/L Alkaline Phosphatase (34-104) U/L Ammonia 37 (16-53) mcmol/L Total Creatine Kinase (10-223) U/L Troponin I (<0.04) ng/mL C-Reactive Protein (<8.01) mg/L B-Natriuretic Peptide 85 (<=100) pg/mL Total Protein (6.4-8.9) g/dL Albumin (3.2-5.2) g/dL Globulin (2-4) g/dL Albumin/Globulin Ratio (1-3) Amylase (29-103) U/L Lipase (11.0-82.0) U/L Result Diagrams: 07/16/18 14:10 07/16/18 14:10 Lab Statement: Any lab studies that have been ordered have been reviewed, and results considered in the medical decision making process. - Radiology Chest x-ray Radiology Interpretation Completed By: Radiologist Summary of Radiographic Findings: Cardiomegaly without evidence of pneumonia. ED physician has reviewed this report. - EKG 1045 Cardiac Rate: NL - 71bpm EKG Rhythm: Sinus Rhythm ST Segment: Non-Specific Ectopy: None EKG Comparison: No Significant Change - from 03/04/11 Summary of EKG Findings: An EKG at 1045 reveals NSR 71bpm, nonspecific incomplete RBBB, nml QTc, and left axis. No acute changes. No significant changes since 03/04/11. Re-Evaluation - Re-Evaluation First Eval Re-Evaluation Time: 11:10 Change: Unchanged Comment: Caregiver remains with pt. Pt and caregiver notfied of elevated troponin, and need for admission. Pt denies CP, SOB, abdominal pain. Has not vomited in the ED. Pt agrees to admission. GIGU Course/Dx - Course Course Of Treatment: Pt is a 87 y/o M presenting to the ED with a chief complaint of altered mental status. Per pts starch dumper, Trinity, the pt has been in and out of UC and ED the past couple of weeks. Trinity also states that he stopped taking his Plavix on Thursday night due to vomiting and screaming in pain. The pt currently denies abd pain, sore throat, cough, fever, headache, chest pain, SOB. Pt denies hx of TX. He has + hx of CVA. He was in the ED on due to vomiting post-outpatient CT. The CT of his abdomen and the US of his gallbladder were negative. As of 1105, aware of elevated troponin. Pt's status has not changed in the ED. He continues to deny chest pain. WBC count has decreased since 07/13/18. Spoke to Dr. Mims as of 1140 who will be the accepting physician to [facility]. Pt agrees to admission. - Diagnoses Provider Diagnoses: Altered mental status, Elevated troponin - Critical Care Time Critical Care Time: 30-74 min Discharge - Sign-Out/Discharge Documenting (check all that apply): Patient Departure - admit - Discharge Plan Condition: Stable Disposition: ADMITTED TO [facility] - Billing Disposition and Condition Condition: STABLE Disposition: Admitted to [facility] - Attestation Statements Document Initiated by Scribe: Yes Documenting Scribe: Lucia Bucio Provider For Whom Scribe is Documenting (Include Credential): Dr. Cande Suarez MD. Scribe Attestation: Lucia Gale, scribed for Dr. Cande Suarez MD. on 07/16/18 at 2308. Scribe Documentation Reviewed: Yes Provider Attestation: The documentation as recorded by the scribe, Lucia Bucio accurately reflects the service I personally performed and the decisions made by me, Dr. Cande Suarez MD. Status of Scribe Document: Viewed Consult Consult: 1140 - Spoke with Dr. Mims who will be the accepting physician to [facility].
[2018-07-15] MEDS ORDERED: Acetaminophen TAB* 325 MG PO PRN (12:30)
[2018-07-15] MEDS ORDERED: Ondansetron INJ* 2 MG/ML VIAL IV PRN (12:30)
[2018-07-15] MEDS ORDERED: NS 0.9% 1000 ML** 1,000 ML IV ONE (12:36)
[2018-07-15 12:54] LABS: Urine Appearance Cloudy; Urine Bacteria 3+ (Absent); Urine Bilirubin Negative (Negative); Urine Blood 2+ (Negative); Urine Color Amber; Urine Glucose Negative (Negative); Urine Ketones Negative (Negative); Urine Nitrite Positive (Negative); Urine Protein 1+(30 mg/dL) (Negative); Urine Red Blood Cell 3+(>10/hpf) (Absent); Urine Specific Gravity 1.021 (1.010-1.030); Urine Urobilinogen Negative (Negative); Urine White Blood Cell 3+(>20/hpf) (Absent)
[2018-07-15] MEDS: Heparin VIAL(*) 5000 UNITS/ML VIAL (FIVE THOUSAND) SUBCUT SCH ×2 (13:54→21:11)
[2018-07-15 14:44] LABS: Troponin I 0.18 ng/mL (<0.04)
--- NOTE | 2018-07-15 17:25 | ECHO ---
Patient: HOMER CARRILLO [facility] Rec#: [id number] : 1930 Date: 07/15/2018 Age: 87y Height: 177.8 cm / 70.0 in Weight: 78 kg / 171.9 lbs Sex: M BSA: 2 Room#: [facility] Admit Date#: 07/15/2018 Type: Inpatient Referring: Phuc Corbin Reading: Rod Llnaos MD Tearoom Host/Hostess: Meghna Ching RN RDCS CC: Martir Muir MD Transthoracic Echocardiogram Indication: Myocardial infarction BP: 139/81 HR: 64 Rhythm: NSR Findings History: HLD, CVA, Technical Comments: The study quality is fair. Left Ventricle: The left ventricular chamber size is normal. Mild to moderate concentric left ventricular hypertrophy is observed. There is a prominent septal knuckle. There is a focal wall motion abnormality present. There is mild to moderately decreased left ventricular systolic function. The estimated ejection fraction is 40-45%. Abnormal left ventricular diastolic filling is observed, consistent with impaired relaxation. The basal inferior, mid anteroseptal, mid inferior, mid inferoseptal, apical septal, apical anterior, and apical inferior wall segments are hypokinetic (score 2). Overall wallmotion score index is 1.44 Left Atrium: The left atrial chamber size is normal. Right Ventricle: The right ventricle is slightly dilated. The right ventricular global systolic function is mildly reduced. Right Atrium: The right atrium is not well visualized. There is evidence of an atrial septal aneurysm. Aortic Valve: The aortic valve is trileaflet. The aortic valve leaflets are moderately thickened. Systolic excursion of the aortic valve cusps is reduced. There is no evidence of aortic regurgitation. There is moderate aortic stenosis. The mean gradient of the aortic valve is 16 mmHg. The peak instantaneous gradient of the aortic valve is 29 mmHg. The aortic valve area, by peak velocities, is calculated at 1.3 cm2. The aortic valve area, by VTI's, is calculated at 1.5 cm2. Mitral Valve: The mitral valve leaflets are mildly thickened. There is a trace of mitral regurgitation. There is no evidence of mitral stenosis. Tricuspid Valve: The tricuspid valve leaflets are normal. There is mild tricuspid regurgitation. 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 There is no tricuspid stenosis. Pulmonic Valve: The pulmonic valve appears normal. There is mild pulmonic regurgitation. There is no pulmonic stenosis. Pericardium: There is no significant pericardial effusion. A pericardial fat pad is visualized. Aorta: There is no dilatation of the ascending aorta. There is no dilatation of the aortic arch. There is no dilation of the aortic root. Pulmonary Artery: The main pulmonary artery is not well visualized. Venous: The inferior vena cava appears normal in size. There is a greater than 50% respiratory change in the inferior vena cava dimension. Conclusions Mild to moderate concentric left ventricular hypertrophy is observed. There is a prominent septal knuckle. There is mild to moderately decreased left ventricular systolic function. The estimated ejection fraction is 40-45%. Abnormal left ventricular diastolic filling is observed, consistent with impaired relaxation. The right ventricular global systolic function is mildly reduced. There is moderate aortic stenosis. There is a trace of mitral regurgitation. There is mild tricuspid regurgitation. 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 Interval decrease in EF c/t 04/2018 when the EF was 60-65% without inferoseptal hypokinesis. Measurements Name Value Normal Range RVIDd (AP) 2D 3.7 cm (0.9 - 2.6) RVDdMajor (2D) 3.7 cm (2.2 - 4.4) RAd ISD 4CH 3.6 cm (3.4 - 4.9) RA (A4C)W 2.9 cm (2.9 - 4.6) IVSd (2D) 1.3 cm (0.6 - 1) LVPWd (2D) 1.3 cm (0.6 - 1) LVIDd (2D) 3.9 cm (3.6 - 5.4) LVIDs (2D) 2.7 cm - LV FS (2D) 31 % (25 - 45) Aortic Annulus 2 cm (1.4 - 2.6) Ao root diameter (2D) 3.3 cm (2.1 - 3.5) Ascending Ao 3.4 cm (2.1 - 3.4) Aortic arch 2.6 cm (1.8 - 3.4) LA dimension (AP) 2D 2.9 cm (2.3 - 3.8) LAd ISD 4CH 3.2 cm (2.9 - 5.3) LA ISD 4CH W 3.6 cm (2.5 - 4.5) Name Value Normal Range LA ESV SP 4CH (A/L) 23 ml - LA ESV SP 2CH (A/L) 46 ml - LA ESV BP (A/L) 33 ml - LA ESV BP (A/L) index 17.1 ml/m2 - LA ESV SP 4CH (MOD) 17 ml - LA ESV SP 2CH (MOD) 37 ml - Name Value Normal Range MV E-wave Vmax 0.57 m/sec - MV deceleration time 310 msec - MV A-wave Vmax 0.88 m/sec - MV E:A ratio 0.65 ratio - LV septal e' Vmax 0.06 m/sec - LV lateral e' Vmax 0.08 m/sec - LV E:e' septal ratio 9.5 ratio - LV E:e' lateral ratio 7.1 ratio - Name Value Normal Range AV Vmax 2.7 m/sec - AV VTI 53.9 cm - AV peak gradient 29 mmHg - AV mean gradient 16 mmHg - LVOT diameter 2.1 cm - LVOT Vmax 1 m/sec - LVOT VTI 23 cm - LVOT peak gradient 4 mmHg - LVOT mean gradient 3 mmHg - DOI (VTI) 0.43 ratio - DOI (Vmax) 0.37 ratio - ANDER (continuity Vmax) 1.3 cm2 - ANDER (continuity VTI) 1.5 cm2 - ZACKARY Vmax 0.58 m/sec - Name Value Normal Range TR Vmax 2.8 m/sec - TR peak gradient 31 mmHg - RAP 3 mmHg - RVSP 34 mmHg - IVC diameter 1.7 cm - Name Value Normal Range PV Vmax 0.73 m/sec - Wallmotion BAS Normal BA Normal BAL Normal ТАТЬЯНА Normal BI Hypokinetic BIS Normal MAS Hypokinetic MA Normal MAL Normal MIL Normal IA Hypokinetic MIS Hypokinetic Hypokinetic AA Hypokinetic AL Normal AI Hypokinetic APEX Normal
[2018-07-15 17:56] LABS: Troponin I 0.12 ng/mL (<0.04)
[2018-07-15] MEDS ORDERED: cefTRIAXone(*) 1 GM in NS 0.9% 50 ML* 50 ML IVPB SCH (19:30)
--- NOTE | 2018-07-15 20:22 | HP ---
CC: Dr. Muir; Dr. Mark Mims* ADMISSION HISTORY AND PHYSICAL: DATE OF ADMISSION: 07/15/18 PRIMARY CARE PROVIDER: Dr. Muir. MY ATTENDING WHILE IN THE HOSPITAL: Dr. Mark Mims* (dictated by KELSEY Miller). CHIEF COMPLAINT: Lethargy x2 days. HISTORY OF PRESENT ILLNESS: Mr. Ross is an 87-year-old male with past medical history significant for depression, anxiety, TIA, and hyperlipidemia, who presents to the emergency department accompanied by his caregiver for 2 days of lethargy. The patient was within his normal state of health until approximately 3 weeks ago when he had a cold, which was self-resolving and relatively unremarkable; however, after this, he began to develop nausea and vomiting. The patient went to his primary care provider who did x-rays, which showed significant amount of constipation. The patient was referred for an outpatient CT and at the CT he developed sudden onset of severe nausea and vomiting. The patient was referred to the emergency department where the abdomen-pelvis CT was completed, which showed hepatosteatosis, cholelithiasis without signs of gallbladder pathology and negative for other abnormalities. The patient had a gallbladder ultrasound, which was unremarkable. The patient was sent home with Zofran and continued to have nausea and vomiting intermittently over the past several weeks. The patient, however, has still been able to take in Pedialyte and water, which has been encouraged by his caregiver. The patient was seen by the office of Dr. Ari Anthony on 07/13/18 for a followup of his abdominal symptoms. The patient on 07/12/18 again developed severe abdominal pain, which caused him to scream in pain with vomiting approximately 30 times. He was not taken to the emergency department at that time. At his office visit, the patient was believed to be constipated. The patient was able to have a large stool on 07/14/18, which helped to a certain degree with his abdominal pain. The patient had a CBC, CMP, H. pylori, lipase, and amylase. The CBC showed a white count of 19.8, a hemoglobin of 14.3. The patient's CBC was unremarkable. The H. pylori was positive and he was referred to the emergency department. In the emergency department, he was found to have a persistently elevated white blood cell count that was trending down and had elevated troponin of 0.16. The patient on the 2 days before coming to the emergency department had been getting more lethargic, but his nausea and vomiting had seemed to subside with the aid of Zofran. The patient per his caregiver was still urinating, but only small amounts of dark-concentrated urine. He was unsteady on his feet and diffusely weak. The patient denied at the time of evaluation any epigastric or abdominal pain, painful urination, or diarrhea. The patient did have 2 bowel movement on the day of his admission prior to his evaluation. The patient has lost 7 pounds since he presented to the emergency department on 07/02/18. The patient has no focal weakness, fevers, chills, or other symptoms. Due to concern for elevated troponin and dehydration, we were asked to evaluate the patient for admission. PAST MEDICAL HISTORY: Depression, anxiety, vertigo, hyperlipidemia, nephrolithiasis, biliary dyskinesia, TIA. PAST SURGICAL HISTORY: Right hernia repair. MEDICATIONS: 1. Lipitor 40 mg p.o. daily. 2. Plavix 75 mg p.o. daily. 3. Prilosec 20 mg p.o. b.i.d. 4. Aspirin 325 mg p.o. daily. 5. Vitamin B12 1000 units p.o. daily. ALLERGIES: ZYPREXA, RISPERDAL, LEXAPRO. FAMILY HISTORY: The patient's mother had diabetes. The patient's father of [place]. The patient had a brother who in World War II. SOCIAL HISTORY: The patient never smoked. Drinks occasionally. Denies any drug use. 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 The patient is and has no children. The patient's surrogate decision maker will be his caregiver, Trinity Hylton. REVIEW OF SYSTEMS: A 14-point review of systems was reviewed and is negative except as above in the HPI. PHYSICAL EXAMINATION GENERAL: The patient is an 87-year-old male who appears stated age and sitting comfortably in bed, in no acute distress. VITAL SIGNS: Temperature 98.4, pulse rate 69, respiratory rate 25, oxygenation 96% on room air. Blood pressure 164/118. HEENT: Head: Normocephalic, atraumatic. Sclerae anicteric. No conjunctival injection. Oral mucosa is dry. No pharyngeal erythema, discharge, or exudate. RESPIRATORY: Clear to auscultation bilaterally. No wheezes, rales, or rhonchi. Good air exchange bilaterally. CARDIAC: Regular rate and rhythm. No clicks, murmurs, gallops, or rubs. Pulses are 2+ in the bilateral dorsalis pedis, posterior tibialis and radial areas. Bilateral lower extremity edema noted. ABDOMEN: Soft, nontender, nondistended. Bowel sounds present and normoactive in all 4 quadrants. No hepatosplenomegaly. No abdominal bruits auscultated. No hepatojugular reflux. GENITOURINARY: No suprapubic or CVA tenderness. NEUROLOGIC: Cranial nerves II through XII intact. No focal deficits. Alert and oriented x3. Cerebellar testing performed without difficulty. Reflexes unremarkable. PSYCHIATRIC: Flat affect, otherwise pleasant and cooperative. SKIN: Clean, dry, and intact. No rash. LABORATORY DATA: White blood cell count 13.2, hemoglobin 13.9, platelet count 134. INR 1.01, aPTT 26.5. Sodium 138, potassium 3.7, chloride 102, carbon dioxide 29, anion gap 7, BUN 21, creatinine 1.06, glucose 122, lactic acid 1.8, calcium 9.2, magnesium 2.2, bilirubin 0.8, AST 22, ALT 12, alkaline phosphatase 62, ammonia 37, creatine kinase 365, troponin I 0.16, CRP 189.33, BNP 85, protein 7.1, albumin 3.8, globulin 3.3, amylase 24, lipase 13. DIAGNOSTIC STUDIES: In the emergency department, chest x-ray read as cardiomegaly without evidence of pneumonia. Electrocardiogram shows normal sinus rhythm, single PAC, markedly poor R-wave progression. No other ST- segment abnormalities. No hypertrophy or enlargement compared to previous exam. Poor R-wave progression is new from previous exam from 2011. Brain CT read as chronic ischemic white matter change, no intracranial mass or hemorrhage is noted. ASSESSMENT AND PLAN: Impression: Mr. Ross is an 87-year-old male with past medical history significant for depression, anxiety, and transient ischemic attack, who presents to the emergency department with 2 days of lethargy following a 3-week course of intermittent nausea, vomiting, poor oral intact, and abdominal pain. The patient was found to have an elevated white blood cell count and elevated troponin in the emergency department and will be admitted to the hospital for dehydration and possible [id number] myocardial infarction. 1. Abdominal pain, dehydration. The patient appears clinically dry. The patient will receive 1 L of normal saline followed by normal saline at 100 mL an hour. This will hopefully lead to improvement to the patient's mental status and will be assessed as this continues. The patient's nausea, vomiting, and dehydration may be abdominal component of acute coronary syndrome, which would correspond to the patient's elevated troponin. However, the patient also has a positive H. pylori antigen and takes aspirin. The patient will be treated with Zofran for his nausea. His aspirin will be held. His Plavix will be continued. The patient will be continued on pantoprazole 40 mg daily. The patient has no abdominal symptoms at this time. If the patient develops nausea and vomiting recurrently, endoscopy may be indicated to assess for ulcers. 2. Elevated troponin. The patient has no current chest pain or ischemic changes on his EKG; however, he has poor R-wave progression and cardiomegaly on his chest x- ray. The patient will have an echocardiogram to assess for wall motion abnormalities or decreased ejection fraction. The patient will have hemoglobin A1c and lipid profile. The patient will be continued on his Plavix, but his aspirin will be held for the above. The patient's troponins will be trended. Repeat EKG will be obtained in the morning. Further workup including possible stress testing or catheterization will be pending patient's clinical course. 3. Weakness. The patient has no focal weakness to indicate recurrent transient ischemic attack or stroke. Continue the patient on his Plavix and Lipitor per Neurology recommendation on his previous admission. It is likely this is due to his dehydration. The patient will have physical therapy and occupational therapy while in the hospital. 4. Depression and anxiety. The patient is currently euthymic and not on any medications. We will monitor closely. 5. Hyperlipidemia. Continue the patient's Lipitor. Repeat lipid profile in the morning. 6. DVT prophylaxis. The patient will have heparin subcu. 7. Fluids, electrolytes, nutrition. The patient will have a heart-healthy diet without caffeine and fluids as above. 8. Disposition. The patient is made observation to telemetry. TIME SPENT: Approximately 60 minutes spent on the admission of this patient, 30 of which was spent [id number] with the patient and his caregiver obtaining history and physical and discussing treatment plan. This plan was discussed with my attending, Dr. Mark Mims, and he is in agreement. KELSEY MILLER [id number]/[facility] #: [id number] JESSICA
[2018-07-15] MEDS: Aspirin EC TAB* 81 MG TAB.EC PO SCH (21:10)
[2018-07-15] MEDS: Metoprolol Tartrate TAB* 25 MG PO SCH (21:10)
[2018-07-15] MEDS: Atorvastatin* 40 MG TAB PO SCH (21:11)
[2018-07-16] MEDS: NS 0.9% 1000 ML** 1,000 ML IV SCH ×3 (00:37→15:37)
[2018-07-16] MEDS: Heparin VIAL(*) 5000 UNITS/ML VIAL (FIVE THOUSAND) SUBCUT SCH ×3 (05:11→20:48)
[2018-07-16 06:31] LABS: ABS Basophils 0 10^3/ul (0-0.2); ABS Eosinophils 0 10^3/ul (0-0.6); ABS Lymphocytes 0.2 10^3/ul (1.0-4.8); ABS Monocytes 0.5 10^3/ul (0-0.8); ABS Neutrophils 8.6 10^3/ul (1.5-7.7); ABS Nucleated RBC 0 10^3/ul; Eosinophil % 0 %; Hematocrit 38 % (42-52); Hemoglobin 12.8 g/dl (14.0-18.0); Lymphocyte % 2.5 %; Mean Corpuscular HGB Conc 34 g/dl (31-36); Mean Corpuscular Hemoglobin 30 pg (27-31); Mean Corpuscular Volume 90 fL (80-94); Mean Platelet Volume 9.1 fL (7.4-10.4); Nucleated Red Blood Cells % 0; Platelet Count 122 10^3/ul (150-450); Red Blood Count 4.23 10^6/ul (4.00-5.40); Red Cell Distribution Width 13 % (10.5-15); White Blood Count 9.4 10^3/ul (3.5-10.8)
[2018-07-16 06:48] LABS: BUN/Creatinine Ratio 27.5 (8-20); Calcium 8.5 mg/dL (8.6-10.3); EGFR African American 131.9 (>60); HDL Cholesterol 27.7 mg/dL; Magnesium 1.9 mg/dL (1.9-2.7); Potassium 3.5 mmol/L (3.5-5.0)
[2018-07-16] MEDS: Clopidogrel TAB* 75 MG PO SCH (07:53)
[2018-07-16] MEDS: Aspirin EC TAB* 81 MG TAB.EC PO SCH (07:53)
[2018-07-16] MEDS: Cyanocobalamin TAB* 500 MCG PO SCH (07:53)
[2018-07-16] MEDS: Pantoprazole TAB * 40 MG TAB PO SCH (07:53)
[2018-07-16] MEDS: Metoprolol Tartrate TAB* 25 MG PO SCH ×2 (07:53→20:48)
[2018-07-16] MEDS ORDERED: Lisinopril TAB* 5 MG PO SCH (09:00)
[2018-07-16] MEDS ORDERED: NS 0.9% 500 ML* 500 ML IV ONE (10:27)
[2018-07-16] MEDS: Potassium Chloride LIQUID* 20 MEQ PACKET PO SCH ×2 (10:57→17:31)
--- NOTE | 2018-07-16 11:03 | CONS ---
CONSULTATION REPORT: ADDENDUM: DATE OF CONSULT: 07/16/18 MEDICATIONS: Active medications include: 1. Acetaminophen. 2. Aspirin 81 mg a day. 3. Atorvastatin 40 mg a day. 4. Ceftriaxone 1 g q.24 IV. 5. Plavix 75 mg a day. 6. Vitamin B12 1000 mcg daily. 7. Subcu heparin 5000 units q.8. 8. Metoprolol 12.5 mg b.i.d. 9. Zofran 4 mg IV q.6 p.r.n. 10. Protonix 40 mg p.o. daily. 11. Normal saline 100 cc an hour. [id number]/[facility] #: [id number] MTDD
--- NOTE | 2018-07-16 13:36 | PN ---
Subjective Date of Service: 07/16/18 Interval History: Pt had rigors when evaluated by cardiology this aM, then had CT scan of abd to r /o hydronephrosis, en route to radiology he vomited once, but was AAOx3, after CT he was noted to be minimally responsive and I was called to the bedside. Pt is nonverbal, Nodded his head id asked if he is OK. Refuses to open eyes, decreased muscle tone throughout, withdraws to pain, SBP 90, 02 sat 93% , HR in 70's Objective Active Medications: Acetaminophen (Tylenol Tab*) 650 mg PO Q6H PRN PRN Reason: FEVER/PAIN Aspirin (Aspirin Ec Tab*) 81 mg PO DAILY [facility] Last Admin: 07/16/18 07:53 Dose: 81 mg Atorvastatin Calcium (Lipitor*) 40 mg PO 2100 [facility] Last Admin: 07/15/18 21:11 Dose: 40 mg Clopidogrel Bisulfate (Plavix Tab*) 75 mg PO DAILY [facility] Last Admin: 07/16/18 07:53 Dose: 75 mg Cyanocobalamin (Vitamin B12 Tab*) 1,000 mcg PO DAILY [facility] Last Admin: 07/16/18 07:53 Dose: 1,000 mcg Heparin Sodium (Porcine) (Heparin Vial(*)) 5,000 units SUBCUT Q8HR [facility] Last Admin: 07/16/18 05:11 Dose: 5,000 units Cefepime HCl (Maxipime 2 Gm In Dextrose Duplex (*)) 2 gm in 50 mls @ 100 mls/ hr IV Q12H [facility] Sodium Chloride (Ns 0.9% 1000 Ml) 1,000 mls @ 150 mls/hr IV PER RATE [facility] Metoprolol Tartrate (Lopressor Tab*) 12.5 mg PO BID [facility] Ondansetron HCl (Zofran Inj*) 4 mg IV Q6H PRN PRN Reason: NAUSEA Last Admin: 07/16/18 11:04 Dose: 4 mg Pantoprazole Sodium (Protonix Tab*) 40 mg PO DAILY [facility] Last Admin: 07/16/18 07:53 Dose: 40 mg Potassium Chloride (Klor-Con Liquid*) 20 meq PO Q4H [facility] Stop: 07/16/18 15:01 Last Admin: 07/16/18 10:57 Dose: 20 meq Vital Signs - 8 hr 07/16/18 07/16/18 07/16/18 07:29 09:45 11:02 Temperature 97.0 F 100.0 F 101.5 F Pulse Rate 72 84 82 Respiratory 16 20 Rate Blood Pressure 123/74 131/87 154/69 (mmHg) O2 Sat by Pulse 93 96 92 Oximetry Oxygen Devices in Use Now: None Appearance: 87 yo M, has to be stimulated multiple times to respond, able to follow simple commands before drifting off to sleep, nonverbal, resists eye opening Eyes: No Scleral Icterus, - - unable to eval pupils, pt resists Ears/Nose/Mouth/Throat: NL Teeth, Lips, Gums, Mucous Membranes Moist Neck: NL Appearance and Movements; NL JVP, Trachea Midline Respiratory: Symmetrical Chest Expansion and Respiratory Effort, Clear to Auscultation Cardiovascular: RRR, - - 3/6 RADHA Abdominal: NL Sounds; No Tenderness; No Distention, No Hepatosplenomegaly Lymphatic: No Axillary Adenopathy Extremities: No Edema, No Clubbing, Cyanosis Skin: No Rash or Ulcers, No Nodules or Sclerosis Neurological: Alert and Oriented x 3, NL Muscle Strength and Tone Result Diagrams: 07/16/18 06:05 07/16/18 06:05 Additional Lab and Data: Lab Results 07/15/18 07/15/18 07/15/18 Range/Units 10:23 10:23 10:23 WBC 13.2 H (3.5-10.8) 10^3/ul RBC 4.58 (4.00-5.40) 10^6/ul Hgb 13.9 L (14.0-18.0) g/dl Hct 41 L (42-52) % MCV 90 (80-94) fL MCH 30 (27-31) pg MCHC 34 (31-36) g/dl RDW 13 (10.5-15) % Plt Count 134 L (150-450) 10^3/ul MPV 8.8 (7.4-10.4) fL Neut % (Auto) 88.5 % Lymph % (Auto) 5.0 % [place] % (Auto) 6.4 % Eos % (Auto) 0 % Baso % (Auto) 0.1 % Absolute Neuts (auto) 11.7 H (1.5-7.7) 10^3/ul Absolute Lymphs (auto) 0.7 L (1.0-4.8) 10^3/ul Absolute Monos (auto) 0.8 (0-0.8) 10^3/ul Absolute Eos (auto) 0 (0-0.6) 10^3/ul Absolute Basos (auto) 0 (0-0.2) 10^3/ul Absolute Nucleated RBC 0 10^3/ul Nucleated RBC % 0.2 INR (Anticoag Therapy) (0.77-1.02) APTT (26.0-36.3) seconds Sodium 138 (135-145) mmol/L Potassium 3.7 (3.5-5.0) mmol/L Chloride 102 (101-111) mmol/L Carbon Dioxide 29 (22-32) mmol/L Anion Gap 7 (2-11) mmol/L BUN 21 (6-24) mg/dL Creatinine 1.06 (0.67-1.17) mg/dL Est GFR ( Amer) 80.3 (>60) Est GFR (Non-Af Amer) 66.4 (>60) BUN/Creatinine Ratio 19.8 (8-20) Glucose 122 H (70-100) mg/dL Lactic Acid 1.8 (0.5-2.0) mmol/L Calcium 9.2 (8.6-10.3) mg/dL Magnesium 2.2 (1.9-2.7) mg/dL Total Bilirubin 0.80 (0.2-1.0) mg/dL AST 22 (13-39) U/L ALT 12 (7-52) U/L Alkaline Phosphatase 62 (34-104) U/L Ammonia (16-53) mcmol/L Total Creatine Kinase 265 H (10-223) U/L Troponin I 0.16 H* (<0.04) ng/mL C-Reactive Protein 189.33 H (<8.01) mg/L B-Natriuretic Peptide (<=100) pg/mL Total Protein 7.1 (6.4-8.9) g/dL Albumin 3.8 (3.2-5.2) g/dL Globulin 3.3 (2-4) g/dL Albumin/Globulin Ratio 1.2 (1-3) Amylase 24 L (29-103) U/L Lipase 13 (11.0-82.0) U/L 07/15/18 07/15/18 Range/Units 10:23 10:23 WBC (3.5-10.8) 10^3/ul RBC (4.00-5.40) 10^6/ul Hgb (14.0-18.0) g/dl Hct (42-52) % MCV (80-94) fL MCH (27-31) pg MCHC (31-36) g/dl RDW (10.5-15) % Plt Count (150-450) 10^3/ul MPV (7.4-10.4) fL Neut % (Auto) % Lymph % (Auto) % [place] % (Auto) % Eos % (Auto) % Baso % (Auto) % Absolute Neuts (auto) (1.5-7.7) 10^3/ul Absolute Lymphs (auto) (1.0-4.8) 10^3/ul Absolute Monos (auto) (0-0.8) 10^3/ul Absolute Eos (auto) (0-0.6) 10^3/ul Absolute Basos (auto) (0-0.2) 10^3/ul Absolute Nucleated RBC 10^3/ul Nucleated RBC % INR (Anticoag Therapy) 1.01 (0.77-1.02) APTT 26.5 (26.0-36.3) seconds Sodium (135-145) mmol/L Potassium (3.5-5.0) mmol/L Chloride (101-111) mmol/L Carbon Dioxide (22-32) mmol/L Anion Gap (2-11) mmol/L BUN (6-24) mg/dL Creatinine (0.67-1.17) mg/dL Est GFR ( Amer) (>60) Est GFR (Non-Af Amer) (>60) BUN/Creatinine Ratio (8-20) Glucose (70-100) mg/dL Lactic Acid (0.5-2.0) mmol/L Calcium (8.6-10.3) mg/dL Magnesium (1.9-2.7) mg/dL Total Bilirubin (0.2-1.0) mg/dL AST (13-39) U/L ALT (7-52) U/L Alkaline Phosphatase (34-104) U/L Ammonia 37 (16-53) mcmol/L Total Creatine Kinase (10-223) U/L Troponin I (<0.04) ng/mL C-Reactive Protein (<8.01) mg/L B-Natriuretic Peptide 85 (<=100) pg/mL Total Protein (6.4-8.9) g/dL Albumin (3.2-5.2) g/dL Globulin (2-4) g/dL Albumin/Globulin Ratio (1-3) Amylase (29-103) U/L Lipase (11.0-82.0) U/L Microbiology and Other Data: Microbiology 07/15/18 12:35 Urine Culture - Preliminary Urine Escherichia Coli 07/15/18 18:11 Anaerobic Blood Culture - Preliminary Blood Venous 07/15/18 17:19 Anaerobic Blood Culture - Preliminary Blood Venous Assess/Plan/Problems-Billing Assessment: 87 yo M with h/o depression, TIA, dyslipidemia presents with lethargy, constipation, abd pain - Patient Problems (1) Sepsis Comment: with hypotension(start IVF boluses, get latic acid), GN bacteremia, source likley UTI CT abd shows no renal abn. Ceftriaxone 3will be switched to Cefepime for now till senisitivities are back (2) Elevated troponin Comment: with mod , new EF 45% likley demand ischemia, but pt needs cath soon when stable Appreciate DR. Llanos's recommendations cont ASA, lipitor, lopressor. holding lisinopril for hypotension (3) Altered mental state Comment: will transfer to ICU, get EEG, get CT brain, start neurochecks (4) Cognitive impairment Comment: h/o (5) Depression with anxiety Comment: prn ativan held due to lethargy (6) DVT prophylaxis Comment: SQ heparin
[2018-07-16] MEDS ORDERED: NS 0.9% 1000 ML** 1,000 ML IV ONE (13:45)
[2018-07-16] MEDS ORDERED: Cefepime 2 GM in Dextrose(*) 2 GM/50 ML BAG IV SCH (14:00)
--- NOTE | 2018-07-16 14:29 | CONS ---
CC: Rod Llanos MD; Dr. Muir CARDIOLOGY CONSULTATION: DATE OF CONSULT: [employer] PROVIDER: KELSEY Garay. REASON FOR CONSULT: Elevated troponin and abnormal echo. SOURCE OF HISTORY: Source of history is from the patient who is an inconsistent historian and the chart admission and physical from 07/15/18. HISTORY OF PRESENT ILLNESS: This is an 87-year-old gentleman with a history of depression, anxiety, TIA, hyperlipidemia, who was brought to the emergency room with 2 days of lethargy. According to the chart, he had 3 weeks of feeling poorly with a cold about 3 weeks ago and then nausea and vomiting. His abdominal x-ray ordered by his primary care provider apparently showed constipation. He was sent for an outpatient CT and at the CT, developed an onset of severe nausea and vomiting, referred to the ED where the abdomen and pelvis CT was completed and showed hepatosteatosis, cholelithiasis without signs of gallbladder pathology, negative for other comorbidities. He had a gallbladder ultrasound, which was negative. He was sent home with Zofran, but continued to have nausea and vomiting over the next several weeks. He saw Ari Anthony on 07/13/18 and developed severe abdominal pain with vomiting approximately 30 times. He was not taken to the emergency room at that time. The patient believed he was constipated. He was able to have a large bowel movement on 07/14/18, which helped to certain degree with his pain. He had an elevated white count on a CBC. H. pylori was positive and he was referred back to the emergency room and he had an elevated troponin of 0.16. He reported more lethargy on the days before coming to the emergency room. His nausea and vomiting subsided on the Zofran. He had 2 bowel movements on the day of his admission prior to evaluation and he had 7-pound weight loss since he was in the ER on 07/02/18. Because of concern about dehydration and his troponin elevation, he was admitted. When I asked the patient about the reason for admission, he was unable to tell me why was he here. He just said he was brought in by his because of feeling poorly. He denies any chest pain, shortness of breath, syncope, or near syncope. No previous heart history, no murmurs or rheumatic fever. When I saw him, he had just come back from the bathroom with shaking and reported he was cold, that he was having rigors. At the time of evaluation, his temperature was obtained, both orally and with the infrared, his temperature was 99.8 and 100. He reports that normally with stairs in his house, he is able to go up and down the stairs. Denies orthopnea , peripheral edema. No fevers, chills or sweats. PAST MEDICAL HISTORY: Includes depression, anxiety, vertigo, hyperlipidemia, nephrolithiasis, biliary dyskinesia, TIA in the past. PAST SURGICAL HISTORY: Includes right hernia repair. MEDICATIONS: Includes: 1. Lipitor 40 mg a day. 2. Plavix 75 a day 3. Prilosec 20 b.i.d. 4. Aspirin 325 a day. 5. Vitamin B12 1000 units a day. ALLERGIES: He denies any allergies, but the chart lists ZYPREXA, RISPERDAL, and LEXAPRO. FAMILY HISTORY: I asked the patient, he said that both parents in their 60s, but he did not know the details. According to the chart, it says his mother had diabetes and his father of a MS. He has 3 siblings. He said they were all , 1 in World War II. SOCIAL HISTORY: He denies tobacco use. He has about 1 drink a month. 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 According to the chart, it says he is a and has some children, but he told me he has a and 2 children and according to the chart, his decision maker is his caregiver, Trinity Hylton. REVIEW OF SYSTEMS: Review of systems was performed, but it was negative. In the reliability, this is uncertain. PHYSICAL EXAM: He is a well-developed, well-nourished gentleman, who appears tachypneic and rigorous. His pulse was 82 with a O2 sat at 95% on room air, blood pressure 131/87, temperature 99.8 by infrared. No significant JVD. Carotids 2+. No bruits. Cardiac Exam: S1 and S2 with a 2/6 systolic ejection murmur at the base. Chest was clear, no CVAT. Atraumatic, normocephalic. Extraocular muscles intact. Sclerae anicteric. Abdomen: No hepatosplenomegaly , nontender, bowel sounds present. Femoral pulses intact without bruits. Distal pulses intact. No edema. Motor strength 5/5 bilaterally. Deep tendon reflexes are 2/4. The patient thought it was June 2013 and seemed somewhat confused. DIAGNOSTIC STUDIES/LAB DATA: Labs from today include a white count of 9.4, down from 13.2 yesterday; hemoglobin of 12.8 and hematocrit of 38 down from 13.9 and 41 yesterday; platelet count of 122. Sodium 136, potassium at 3.5, BUN of 19, creatinine of 0.69, BUN/creatinine ratio at 27.7, up from 19.8 yesterday. Calcium low at 8.5, magnesium 1.9. Troponin was 0.16 yesterday, 0.18 yesterday afternoon, and 0.12 yesterday evening. C-reactive protein was elevated at 189. Cholesterol was 93, triglycerides 125, LDL 40, HDL 27.7, amylase was low at 24, transaminases were normal. Urine was concentrated at 1.021, positive for nitrites and positive for red cells and white cells 3+ and his blood cultures are positive for gram- negative bacilli. EKG revealed sinus rhythm with a left anterior hemiblock, poor R-wave progression, nonspecific inferior ST-T changes, and this was similar to except for somewhat less pronounced inferior T-wave inversions and similar to February 2011. He also had an echocardiogram from 07/15/18, which revealed [id number] LVH, [id number] depressed LV functioning of 40% to 45% with multiple wall motion abnormalities. He had a moderate aortic stenosis with a low gradient aortic stenosis picture, calculated valve of 1.3 to 1.5 cm2 , trace MR and mild TR, borderline pulmonary hypertension, abnormal diastolic functions grade 1, and there was an interval decrease in the EF compared to April 2018 when the EF was 60% to 65% without inferior septal hypokinesis. CT scan from 07/02/18 was described above. 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 Physiological distension of the IVC and the liver was consistent with hepatosteatosis. He has a benign appearing renal cortical cyst, enlarged prostate with multiple calcifications. Chest x-ray from 07/15/18 suggested cardiomegaly without evidence of pneumonia. IMPRESSION: My impression is that Mr. Ross has a history of hyperlipidemia; transient ischemic attack; now 3 weeks of fatigue; nausea, vomiting and abdominal pain of unclear etiology. He also had an elevated troponin and echo suggests inferior wall motion abnormality and elevated inflammatory markers and white count and bacteremia suggestive of infectious process that raise a possibility of urinary tract infection and urosepsis versus some other yet undiscovered etiology. He did have a markedly elevated CRP of 189 yesterday and he appears to have some confusion, perhaps delirium related to the sepsis. I discussed the case with Dr. Celestin and recommended followup with continued aggressive treatment for his sepsis and evaluation for the etiology. We will consider aggressive hydration given his prerenal numbers. We will try to maintain his potassium over 4. We will continue aspirin and Plavix if possible given his recent troponin elevation, wall motion abnormality. Once his ID status has been clarified, he might benefit from cardiac catheterization, which he is agreeable to. He will continue Lipitor if possible from a GI stand point. We would continue adding a beta-patricia if his blood pressure would tolerate it. Further condition will depend on his clinical course. His prognosis is guarded given to his advanced age, sepsis, and what appears to be a newly diagnosed coronary artery disease. [id number]/[facility] #: [id number] ADDENDUM: DATE OF CONSULT: 07/16/18 MEDICATIONS: 07/16/18 Active medications include: 1. Acetaminophen. 2. Aspirin 81 mg a day. 3. Atorvastatin 40 mg a day. 4. Ceftriaxone 1 g q.24 IV. 5. Plavix 75 mg a day. 6. Vitamin B12 1000 mcg daily. 7. Subcu heparin 5000 units q.8. 8. Metoprolol 12.5 mg b.i.d. 9. Zofran 4 mg IV q.6 p.r.n. 10. Protonix 40 mg p.o. daily. 11. Normal saline 100 cc an hour. discussed with Dr. Celestin 07[facility]16.18 [facility]
[2018-07-16 14:33] LABS: ABS Basophils 0 10^3/ul (0-0.2); ABS Eosinophils 0 10^3/ul (0-0.6); ABS Lymphocytes 0.3 10^3/ul (1.0-4.8); ABS Monocytes 0.9 10^3/ul (0-0.8); ABS Neutrophils 9.6 10^3/ul (1.5-7.7); ABS Nucleated RBC 0 10^3/ul; Eosinophil % 0 %; Hematocrit 35 % (42-52); Hemoglobin 11.9 g/dl (14.0-18.0); Lymphocyte % 2.8 %; Mean Corpuscular HGB Conc 34 g/dl (31-36); Mean Corpuscular Hemoglobin 30 pg (27-31); Mean Corpuscular Volume 90 fL (80-94); Nucleated Red Blood Cells % 0; Platelet Count 121 10^3/ul (150-450); Red Blood Count 3.93 10^6/ul (4.00-5.40); Red Cell Distribution Width 13 % (10.5-15); White Blood Count 10.8 10^3/ul (3.5-10.8)
[2018-07-16 14:53] LABS: Anion Gap 5 mmol/L (2-11); Blood Urea Nitrogen 19 mg/dL (6-24); CO2 Carbon Dioxide 25 mmol/L (22-32); Calcium 8.1 mg/dL (8.6-10.3); Chloride 106 mmol/L (101-111); EGFR African American 123.6 (>60); EGFR Non-African American 102.1 (>60); Glucose 123 mg/dL (70-100); Potassium 3.9 mmol/L (3.5-5.0); Sodium 136 mmol/L (135-145)
[2018-07-16 15:00] LABS: Troponin I 0.07 ng/mL (<0.04)
[2018-07-16 15:32] LABS: Urine Appearance Cloudy; Urine Bacteria Absent (Absent); Urine Bilirubin Negative (Negative); Urine Blood 2+ (Negative); Urine Color Yellow; Urine Glucose Negative (Negative); Urine Ketones Trace (Negative); Urine Nitrite Negative (Negative); Urine Protein 1+(30 mg/dL) (Negative); Urine Red Blood Cell 2+(6-10/hpf) (Absent); Urine Renal Epithelial Cells Present (Absent); Urine Specific Gravity 1.021 (1.010-1.030); Urine Urobilinogen Negative (Negative); Urine White Blood Cell 3+(>20/hpf) (Absent)
[2018-07-16] MEDS: Cefepime 2 GM in Dextrose(*) 2 GM/50 ML BAG IV SCH (15:35)
[2018-07-16] MEDS: Atorvastatin* 40 MG TAB PO SCH (20:45)
[2018-07-17] MEDS: NS 0.9% 1000 ML** 1,000 ML IV SCH (01:41)
[2018-07-17] MEDS: Heparin VIAL(*) 5000 UNITS/ML VIAL (FIVE THOUSAND) SUBCUT SCH ×3 (04:50→22:48)
[2018-07-17 05:02] LABS: ABS Basophils 0 10^3/ul (0-0.2); ABS Eosinophils 0 10^3/ul (0-0.6); ABS Lymphocytes 0.6 10^3/ul (1.0-4.8); ABS Monocytes 0.6 10^3/ul (0-0.8); ABS Neutrophils 5.9 10^3/ul (1.5-7.7); ABS Nucleated RBC 0 10^3/ul; Eosinophil % 0.3 %; Hematocrit 34 % (42-52); Hemoglobin 11.4 g/dl (14.0-18.0); Lymphocyte % 8.1 %; Mean Corpuscular HGB Conc 34 g/dl (31-36); Mean Corpuscular Hemoglobin 31 pg (27-31); Mean Corpuscular Volume 91 fL (80-94); Mean Platelet Volume 8.8 fL (7.4-10.4); Nucleated Red Blood Cells % 0; Platelet Count 113 10^3/ul (150-450); Red Blood Count 3.72 10^6/ul (4.00-5.40); Red Cell Distribution Width 14 % (10.5-15)
[2018-07-17 05:18] LABS: BUN/Creatinine Ratio 33.3 (8-20); EGFR African American 131.9 (>60); Potassium 3.8 mmol/L (3.5-5.0)
[2018-07-17] MEDS: Cefepime 2 GM in Dextrose(*) 2 GM/50 ML BAG IV SCH ×2 (08:09→16:32)
[2018-07-17] MEDS: Aspirin EC TAB* 81 MG TAB.EC PO SCH (08:49)
[2018-07-17] MEDS: Cyanocobalamin TAB* 500 MCG PO SCH (08:50)
[2018-07-17] MEDS: Metoprolol Tartrate TAB* 25 MG PO SCH ×2 (08:50→20:51)
[2018-07-17] MEDS: Clopidogrel TAB* 75 MG PO SCH (08:50)
[2018-07-17] MEDS: Pantoprazole TAB * 40 MG TAB PO SCH (08:50)
--- NOTE | 2018-07-17 09:56 | PN ---
Subjective Date of Service: 07/17/18 Interval History: Pt is awake, c/o no pain, but remembers severe headache yesterday, does not remember me from yesterday's visit. today he has no pain, feels well Objective Active Medications: Acetaminophen (Tylenol Tab*) 650 mg PO Q6H PRN PRN Reason: FEVER/PAIN Aspirin (Aspirin Ec Tab*) 81 mg PO DAILY [facility] Last Admin: 07/17/18 08:49 Dose: 81 mg Atorvastatin Calcium (Lipitor*) 40 mg PO 2100 [facility] Last Admin: 07/16/18 20:45 Dose: 40 mg Clopidogrel Bisulfate (Plavix Tab*) 75 mg PO DAILY [facility] Last Admin: 07/17/18 08:50 Dose: 75 mg Cyanocobalamin (Vitamin B12 Tab*) 1,000 mcg PO DAILY [facility] Last Admin: 07/17/18 08:50 Dose: 1,000 mcg Heparin Sodium (Porcine) (Heparin Vial(*)) 5,000 units SUBCUT Q8HR [facility] Last Admin: 07/17/18 04:50 Dose: 5,000 units Cefepime HCl (Maxipime 2 Gm In Dextrose Duplex (*)) 2 gm in 50 mls @ 100 mls/ hr IV 0800,1600 [facility] Last Admin: 07/17/18 08:09 Dose: 100 mls/hr Metoprolol Tartrate (Lopressor Tab*) 12.5 mg PO BID [facility] Last Admin: 07/17/18 08:50 Dose: Not Given Ondansetron HCl (Zofran Inj*) 4 mg IV Q6H PRN PRN Reason: NAUSEA Last Admin: 07/16/18 11:04 Dose: 4 mg Pantoprazole Sodium (Protonix Tab*) 40 mg PO DAILY [facility] Last Admin: 07/17/18 08:50 Dose: 40 mg Vital Signs - 8 hr 07/17/18 07/17/18 07/17/18 02:00 02:02 02:15 Temperature Pulse Rate 58 57 61 Respiratory 18 19 21 Rate Blood Pressure 111/55 103/66 (mmHg) O2 Sat by Pulse 98 97 97 Oximetry 07/17/18 07/17/18 07/17/18 02:30 02:45 03:00 Temperature Pulse Rate 60 57 57 Respiratory 21 22 19 Rate Blood Pressure 115/65 106/64 102/59 (mmHg) O2 Sat by Pulse 97 98 94 Oximetry 03/09/19 03/09/19 03/09/19 03:01 03:15 03:30 Temperature Pulse Rate 58 63 59 Respiratory 19 21 19 Rate Blood Pressure 97/59 99/59 (mmHg) O2 Sat by Pulse 95 94 94 Oximetry 07/17/18 07/17/18 07/17/18 03:45 03:52 04:00 Temperature 99.1 F Pulse Rate 59 59 Respiratory 20 21 19 Rate Blood Pressure 102/60 104/55 (mmHg) O2 Sat by Pulse 94 96 Oximetry 07/17/18 07/17/18 07/17/18 04:01 04:15 04:30 Temperature Pulse Rate 60 56 58 Respiratory 19 19 21 Rate Blood Pressure 111/61 108/61 (mmHg) O2 Sat by Pulse 96 96 95 Oximetry 07/17/18 07/17/18 07/17/18 04:45 05:00 05:01 Temperature Pulse Rate 61 61 59 Respiratory 25 20 22 Rate Blood Pressure 108/61 105/63 (mmHg) O2 Sat by Pulse 96 95 95 Oximetry 07/17/18 07/17/18 07/17/18 05:15 05:30 05:45 Temperature Pulse Rate 59 63 64 Respiratory 20 20 21 Rate Blood Pressure 103/61 106/68 115/70 (mmHg) O2 Sat by Pulse 95 95 96 Oximetry 07/17/18 07/17/18 06:00 07:46 Temperature 97.1 F Pulse Rate 60 Respiratory 22 Rate Blood Pressure 117/67 (mmHg) O2 Sat by Pulse 95 Oximetry Oxygen Devices in Use Now: None Appearance: 87 yo M in nAD, AAOx2, forgetful about the date but is able to tell the year Eyes: No Scleral Icterus, PERRLA Ears/Nose/Mouth/Throat: NL Teeth, Lips, Gums, Mucous Membranes Moist Neck: NL Appearance and Movements; NL JVP, Trachea Midline Respiratory: Symmetrical Chest Expansion and Respiratory Effort, Clear to Auscultation Cardiovascular: NL Sounds; No Murmurs; No JVD, RRR Abdominal: NL Sounds; No Tenderness; No Distention, No Hepatosplenomegaly Lymphatic: No Cervical Adenopathy Extremities: No Edema, No Clubbing, Cyanosis Skin: No Rash or Ulcers, No Nodules or Sclerosis Neurological: NL Muscle Strength and Tone Result Diagrams: 07/17/18 04:54 07/17/18 04:54 Additional Lab and Data: Lab Results 07/15/18 07/15/18 07/15/18 Range/Units 10:23 10:23 10:23 WBC 13.2 H (3.5-10.8) 10^3/ul RBC 4.58 (4.00-5.40) 10^6/ul Hgb 13.9 L (14.0-18.0) g/dl Hct 41 L (42-52) % MCV 90 (80-94) fL MCH 30 (27-31) pg MCHC 34 (31-36) g/dl RDW 13 (10.5-15) % Plt Count 134 L (150-450) 10^3/ul MPV 8.8 (7.4-10.4) fL Neut % (Auto) 88.5 % Lymph % (Auto) 5.0 % [place] % (Auto) 6.4 % Eos % (Auto) 0 % Baso % (Auto) 0.1 % Absolute Neuts (auto) 11.7 H (1.5-7.7) 10^3/ul Absolute Lymphs (auto) 0.7 L (1.0-4.8) 10^3/ul Absolute Monos (auto) 0.8 (0-0.8) 10^3/ul Absolute Eos (auto) 0 (0-0.6) 10^3/ul Absolute Basos (auto) 0 (0-0.2) 10^3/ul Absolute Nucleated RBC 0 10^3/ul Nucleated RBC % 0.2 INR (Anticoag Therapy) (0.77-1.02) APTT (26.0-36.3) seconds Sodium 138 (135-145) mmol/L Potassium 3.7 (3.5-5.0) mmol/L Chloride 102 (101-111) mmol/L Carbon Dioxide 29 (22-32) mmol/L Anion Gap 7 (2-11) mmol/L BUN 21 (6-24) mg/dL Creatinine 1.06 (0.67-1.17) mg/dL Est GFR ( Amer) 80.3 (>60) Est GFR (Non-Af Amer) 66.4 (>60) BUN/Creatinine Ratio 19.8 (8-20) Glucose 122 H (70-100) mg/dL Lactic Acid 1.8 (0.5-2.0) mmol/L Calcium 9.2 (8.6-10.3) mg/dL Magnesium 2.2 (1.9-2.7) mg/dL Total Bilirubin 0.80 (0.2-1.0) mg/dL AST 22 (13-39) U/L ALT 12 (7-52) U/L Alkaline Phosphatase 62 (34-104) U/L Ammonia (16-53) mcmol/L Total Creatine Kinase 265 H (10-223) U/L Troponin I 0.16 H* (<0.04) ng/mL C-Reactive Protein 189.33 H (<8.01) mg/L B-Natriuretic Peptide (<=100) pg/mL Total Protein 7.1 (6.4-8.9) g/dL Albumin 3.8 (3.2-5.2) g/dL Globulin 3.3 (2-4) g/dL Albumin/Globulin Ratio 1.2 (1-3) Amylase 24 L (29-103) U/L Lipase 13 (11.0-82.0) U/L 07/15/18 07/15/18 Range/Units 10:23 10:23 WBC (3.5-10.8) 10^3/ul RBC (4.00-5.40) 10^6/ul Hgb (14.0-18.0) g/dl Hct (42-52) % MCV (80-94) fL MCH (27-31) pg MCHC (31-36) g/dl RDW (10.5-15) % Plt Count (150-450) 10^3/ul MPV (7.4-10.4) fL Neut % (Auto) % Lymph % (Auto) % [place] % (Auto) % Eos % (Auto) % Baso % (Auto) % Absolute Neuts (auto) (1.5-7.7) 10^3/ul Absolute Lymphs (auto) (1.0-4.8) 10^3/ul Absolute Monos (auto) (0-0.8) 10^3/ul Absolute Eos (auto) (0-0.6) 10^3/ul Absolute Basos (auto) (0-0.2) 10^3/ul Absolute Nucleated RBC 10^3/ul Nucleated RBC % INR (Anticoag Therapy) 1.01 (0.77-1.02) APTT 26.5 (26.0-36.3) seconds Sodium (135-145) mmol/L Potassium (3.5-5.0) mmol/L Chloride (101-111) mmol/L Carbon Dioxide (22-32) mmol/L Anion Gap (2-11) mmol/L BUN (6-24) mg/dL Creatinine (0.67-1.17) mg/dL Est GFR ( Amer) (>60) Est GFR (Non-Af Amer) (>60) BUN/Creatinine Ratio (8-20) Glucose (70-100) mg/dL Lactic Acid (0.5-2.0) mmol/L Calcium (8.6-10.3) mg/dL Magnesium (1.9-2.7) mg/dL Total Bilirubin (0.2-1.0) mg/dL AST (13-39) U/L ALT (7-52) U/L Alkaline Phosphatase (34-104) U/L Ammonia 37 (16-53) mcmol/L Total Creatine Kinase (10-223) U/L Troponin I (<0.04) ng/mL C-Reactive Protein (<8.01) mg/L B-Natriuretic Peptide 85 (<=100) pg/mL Total Protein (6.4-8.9) g/dL Albumin (3.2-5.2) g/dL Globulin (2-4) g/dL Albumin/Globulin Ratio (1-3) Amylase (29-103) U/L Lipase (11.0-82.0) U/L Microbiology and Other Data: Microbiology 07/15/18 12:35 Urine Culture - Preliminary Urine Escherichia Coli 07/15/18 18:11 Anaerobic Blood Culture - Preliminary Blood Venous 07/15/18 17:19 Anaerobic Blood Culture - Preliminary Blood Venous Assess/Plan/Problems-Billing Assessment: 87 yo M with h/o depression, TIA, dyslipidemia presents with lethargy, constipation, abd pain - Patient Problems (1) Sepsis Comment: with hypotension that resolved after IVF boluses on 07/16/18 GN bacteremia, source likley UTI CT abd shows no renal abn. Cont Cefepime for now till senisitivities are back (2) Elevated troponin Comment: with mod , new EF 45% likley demand ischemia, but pt needs cath soon when stable Appreciate DR. Llanos's recommendations cont ASA, lipitor, lopressor (with hold parameters). holding lisinopril for hypotension yesterday Pt agrees to pharmacologic stress test on Thursday (3) Altered mental state Comment: resolved. Likley due to hypotension and sepsis ans sepsis related ancephalopathy (4) Cognitive impairment Comment: h/o (5) Depression with anxiety Comment: prn ativan held due to lethargy (6) DVT prophylaxis Comment: SQ heparin Status and Disposition: inpatient
[2018-07-17] MEDS: Atorvastatin* 40 MG TAB PO SCH (20:51)
[2018-07-18] MEDS: Heparin VIAL(*) 5000 UNITS/ML VIAL (FIVE THOUSAND) SUBCUT SCH ×3 (05:27→22:17)
[2018-07-18] MEDS: Cefepime 2 GM in Dextrose(*) 2 GM/50 ML BAG IV SCH (08:34)
[2018-07-18] MEDS: Cyanocobalamin TAB* 500 MCG PO SCH (08:35)
[2018-07-18] MEDS: Pantoprazole TAB * 40 MG TAB PO SCH (08:35)
[2018-07-18] MEDS: Clopidogrel TAB* 75 MG PO SCH (08:35)
[2018-07-18] MEDS: Aspirin EC TAB* 81 MG TAB.EC PO SCH (08:35)
[2018-07-18] MEDS: Metoprolol Tartrate TAB* 25 MG PO SCH (08:36)
[2018-07-18 09:52] LABS: Hematocrit 37 % (42-52); Hemoglobin 12.4 g/dl (14.0-18.0); Mean Corpuscular HGB Conc 33 g/dl (31-36); Mean Corpuscular Hemoglobin 30 pg (27-31); Mean Corpuscular Volume 90 fL (80-94); Mean Platelet Volume 8.8 fL (7.4-10.4); Platelet Count 143 10^3/ul (150-450); Red Blood Count 4.16 10^6/ul (4.00-5.40); Red Cell Distribution Width 13 % (10.5-15)
[2018-07-18 10:03] LABS: BUN/Creatinine Ratio 22.1 (8-20); Calcium 8.3 mg/dL (8.6-10.3); EGFR African American 134.1 (>60); EGFR Non-African American 110.8 (>60); Potassium 3.4 mmol/L (3.5-5.0)
[2018-07-18] MEDS ORDERED: Tamsulosin CAP* 0.4 MG PO ONE (12:11)
[2018-07-18] MEDS: cefTRIAXone(*) 1 GM in NS 0.9% 50 ML* 50 ML IVPB SCH (13:44)
--- NOTE | 2018-07-18 14:48 | PN ---
Subjective Date of Service: 07/18/18 Interval History: Pt feels tired today. Denies any pain. seen with HCP Trinity by the bedside Objective Active Medications: Acetaminophen (Tylenol Tab*) 650 mg PO Q6H PRN PRN Reason: FEVER/PAIN Aspirin (Aspirin Ec Tab*) 81 mg PO DAILY [facility] Last Admin: 07/18/18 08:35 Dose: 81 mg Atorvastatin Calcium (Lipitor*) 40 mg PO 2100 [facility] Last Admin: 07/17/18 20:51 Dose: 40 mg Clopidogrel Bisulfate (Plavix Tab*) 75 mg PO DAILY [facility] Last Admin: 07/18/18 08:35 Dose: 75 mg Cyanocobalamin (Vitamin B12 Tab*) 1,000 mcg PO DAILY [facility] Last Admin: 07/18/18 08:35 Dose: 1,000 mcg Heparin Sodium (Porcine) (Heparin Vial(*)) 5,000 units SUBCUT Q8HR [facility] Last Admin: 07/18/18 13:44 Dose: 5,000 units Ceftriaxone Sodium 1 gm/ (Sodium Chloride) 50 mls @ 200 mls/hr IVPB Q24H [facility] Last Admin: 07/18/18 13:44 Dose: 200 mls/hr Metoprolol Tartrate (Lopressor Tab*) 12.5 mg PO BID [facility] Last Admin: 07/18/18 08:36 Dose: 12.5 mg Ondansetron HCl (Zofran Inj*) 4 mg IV Q6H PRN PRN Reason: NAUSEA Last Admin: 07/16/18 11:04 Dose: 4 mg Pantoprazole Sodium (Protonix Tab*) 40 mg PO DAILY [facility] Last Admin: 07/18/18 08:35 Dose: 40 mg Tamsulosin HCl (Flomax Cap*) 0.4 mg PO BEDTIME [facility] Vital Signs - 8 hr 07/18/18 08:04 Temperature 98.7 F Pulse Rate 64 Respiratory 19 Rate Blood Pressure 138/74 (mmHg) O2 Sat by Pulse 96 Oximetry Oxygen Devices in Use Now: None Appearance: 87 yo M in nAD, AAOx3, poor historian Eyes: No Scleral Icterus, PERRLA Ears/Nose/Mouth/Throat: NL Teeth, Lips, Gums, Mucous Membranes Moist Neck: NL Appearance and Movements; NL JVP, Trachea Midline Respiratory: Symmetrical Chest Expansion and Respiratory Effort, Clear to Auscultation Cardiovascular: NL Sounds; No Murmurs; No JVD, RRR, No Edema Abdominal: NL Sounds; No Tenderness; No Distention Lymphatic: No Cervical Adenopathy Extremities: No Edema, No Clubbing, Cyanosis Skin: No Rash or Ulcers, No Nodules or Sclerosis Neurological: Alert and Oriented x 3, NL Muscle Strength and Tone Result Diagrams: 07/18/18 09:32 07/18/18 09:32 Additional Lab and Data: Lab Results 07/15/18 07/15/18 07/15/18 Range/Units 10:23 10:23 10:23 WBC 13.2 H (3.5-10.8) 10^3/ul RBC 4.58 (4.00-5.40) 10^6/ul Hgb 13.9 L (14.0-18.0) g/dl Hct 41 L (42-52) % MCV 90 (80-94) fL MCH 30 (27-31) pg MCHC 34 (31-36) g/dl RDW 13 (10.5-15) % Plt Count 134 L (150-450) 10^3/ul MPV 8.8 (7.4-10.4) fL Neut % (Auto) 88.5 % Lymph % (Auto) 5.0 % [place] % (Auto) 6.4 % Eos % (Auto) 0 % Baso % (Auto) 0.1 % Absolute Neuts (auto) 11.7 H (1.5-7.7) 10^3/ul Absolute Lymphs (auto) 0.7 L (1.0-4.8) 10^3/ul Absolute Monos (auto) 0.8 (0-0.8) 10^3/ul Absolute Eos (auto) 0 (0-0.6) 10^3/ul Absolute Basos (auto) 0 (0-0.2) 10^3/ul Absolute Nucleated RBC 0 10^3/ul Nucleated RBC % 0.2 INR (Anticoag Therapy) (0.77-1.02) APTT (26.0-36.3) seconds Sodium 138 (135-145) mmol/L Potassium 3.7 (3.5-5.0) mmol/L Chloride 102 (101-111) mmol/L Carbon Dioxide 29 (22-32) mmol/L Anion Gap 7 (2-11) mmol/L BUN 21 (6-24) mg/dL Creatinine 1.06 (0.67-1.17) mg/dL Est GFR ( Amer) 80.3 (>60) Est GFR (Non-Af Amer) 66.4 (>60) BUN/Creatinine Ratio 19.8 (8-20) Glucose 122 H (70-100) mg/dL Lactic Acid 1.8 (0.5-2.0) mmol/L Calcium 9.2 (8.6-10.3) mg/dL Magnesium 2.2 (1.9-2.7) mg/dL Total Bilirubin 0.80 (0.2-1.0) mg/dL AST 22 (13-39) U/L ALT 12 (7-52) U/L Alkaline Phosphatase 62 (34-104) U/L Ammonia (16-53) mcmol/L Total Creatine Kinase 265 H (10-223) U/L Troponin I 0.16 H* (<0.04) ng/mL C-Reactive Protein 189.33 H (<8.01) mg/L B-Natriuretic Peptide (<=100) pg/mL Total Protein 7.1 (6.4-8.9) g/dL Albumin 3.8 (3.2-5.2) g/dL Globulin 3.3 (2-4) g/dL Albumin/Globulin Ratio 1.2 (1-3) Amylase 24 L (29-103) U/L Lipase 13 (11.0-82.0) U/L 07/15/18 07/15/18 Range/Units 10:23 10:23 WBC (3.5-10.8) 10^3/ul RBC (4.00-5.40) 10^6/ul Hgb (14.0-18.0) g/dl Hct (42-52) % MCV (80-94) fL MCH (27-31) pg MCHC (31-36) g/dl RDW (10.5-15) % Plt Count (150-450) 10^3/ul MPV (7.4-10.4) fL Neut % (Auto) % Lymph % (Auto) % [place] % (Auto) % Eos % (Auto) % Baso % (Auto) % Absolute Neuts (auto) (1.5-7.7) 10^3/ul Absolute Lymphs (auto) (1.0-4.8) 10^3/ul Absolute Monos (auto) (0-0.8) 10^3/ul Absolute Eos (auto) (0-0.6) 10^3/ul Absolute Basos (auto) (0-0.2) 10^3/ul Absolute Nucleated RBC 10^3/ul Nucleated RBC % INR (Anticoag Therapy) 1.01 (0.77-1.02) APTT 26.5 (26.0-36.3) seconds Sodium (135-145) mmol/L Potassium (3.5-5.0) mmol/L Chloride (101-111) mmol/L Carbon Dioxide (22-32) mmol/L Anion Gap (2-11) mmol/L BUN (6-24) mg/dL Creatinine (0.67-1.17) mg/dL Est GFR ( Amer) (>60) Est GFR (Non-Af Amer) (>60) BUN/Creatinine Ratio (8-20) Glucose (70-100) mg/dL Lactic Acid (0.5-2.0) mmol/L Calcium (8.6-10.3) mg/dL Magnesium (1.9-2.7) mg/dL Total Bilirubin (0.2-1.0) mg/dL AST (13-39) U/L ALT (7-52) U/L Alkaline Phosphatase (34-104) U/L Ammonia 37 (16-53) mcmol/L Total Creatine Kinase (10-223) U/L Troponin I (<0.04) ng/mL C-Reactive Protein (<8.01) mg/L B-Natriuretic Peptide 85 (<=100) pg/mL Total Protein (6.4-8.9) g/dL Albumin (3.2-5.2) g/dL Globulin (2-4) g/dL Albumin/Globulin Ratio (1-3) Amylase (29-103) U/L Lipase (11.0-82.0) U/L Microbiology and Other Data: Microbiology 07/15/18 12:35 Urine Culture - Preliminary Urine Escherichia Coli 07/15/18 18:11 Anaerobic Blood Culture - Preliminary Blood Venous 07/15/18 17:19 Anaerobic Blood Culture - Preliminary Blood Venous Assess/Plan/Problems-Billing Assessment: 87 yo M with h/o depression, TIA, dyslipidemia presents with lethargy, constipation, abd pain - Patient Problems (1) Sepsis Comment: with bacteriemia-E.coli hypotension that resolved after IVF boluses on 07/16/18 GN bacteremia, source likely UTI CT abd shows no renal abn. Will switch Cefepime to Ceftriaxone today. Likely discharge tomorrow (2) Elevated troponin Comment: with mod , new EF 45% likely demand ischemia, plan for pharmacologic stress test on Thursday Appreciate Dr. Llanos's recommendations cont ASA, lipitor, lopressor (with hold parameters) lisinopril (3) Altered mental state Comment: resolved. Likely due to hypotension and sepsis and sepsis related encephalopathy (4) Cognitive impairment Comment: h/o (5) Depression with anxiety Comment: prn ativan so far not needed (6) DVT prophylaxis Comment: SQ heparin Status and Disposition: inpatient
[2018-07-18] MEDS ORDERED: Potassium Chlor TAB* 20 MEQ TAB.ER PO ONE (14:53)
[2018-07-18] MEDS ORDERED: Metoprolol Succinate XL TAB* 25 MG PO SCH ×2 (15:27→16:00)
[2018-07-18] MEDS ORDERED: Potassium Chloride LIQUID* 20 MEQ PACKET PO SCH (16:00)
[2018-07-18 16:03] LABS: Troponin I 0.02 ng/mL (<0.04)
[2018-07-18] MEDS: Lisinopril TAB* 5 MG PO SCH (18:34)
[2018-07-18] MEDS ORDERED: Tamsulosin CAP* 0.4 MG PO SCH (21:00)
[2018-07-18] MEDS: Atorvastatin* 40 MG TAB PO SCH (22:17)
[2018-07-19] MEDS: Heparin VIAL(*) 5000 UNITS/ML VIAL (FIVE THOUSAND) SUBCUT SCH ×2 (05:16→13:18)
[2018-07-19] MEDS ORDERED: Regadenoson* 0.4 MG/5 ML SYRINGE ONE (12:03)
[2018-07-19] MEDS: Cyanocobalamin TAB* 500 MCG PO SCH (13:19)
[2018-07-19] MEDS: Clopidogrel TAB* 75 MG PO SCH (13:19)
[2018-07-19] MEDS: Aspirin EC TAB* 81 MG TAB.EC PO SCH (13:19)
[2018-07-19] MEDS: Pantoprazole TAB * 40 MG TAB PO SCH (13:19)
[2018-07-19] MEDS: Lisinopril TAB* 5 MG PO SCH (13:19)
[2018-07-19] MEDS: cefTRIAXone(*) 1 GM in NS 0.9% 50 ML* 50 ML IVPB SCH (13:27)
[2018-07-19 16:47] VITALS: BP 135/74
--- NOTE | 2018-07-20 02:58 | DS ---
CC: Dr. Muir; Dr. Llanos * DISCHARGE SUMMARY: DATE OF ADMISSION: 07/15/18 DATE OF DISCHARGE: 07/19/18 PRIMARY CARE PROVIDER: Dr. Muir. DISCHARGE DIAGNOSES: 1. Sepsis due to Escherichia coli bacteremia secondary to urinary tract infection. 2. Encephalopathy due to sepsis. 3. Elevated troponin due to demand ischemia with low probability cardiac stress test documented on 07/19/18. SECONDARY DIAGNOSES: 1. History of recent constipation. 2. History of depression/anxiety. 3. Vertigo. 4. Hyperlipidemia. 5. Nephrolithiasis. 6. History of biliary dyskinesia. 7. History of transient ischemic attack. MEDICATIONS AT DISCHARGE: 1. Cefdinir 300 mg p.o. b.i.d. for total 10 days. Remaining medications are unchanged and include: 1. Aspirin 325 mg daily. 2. Lipitor 40 mg a day. 3. Plavix 75 mg daily. 4. Vitamin B12 1000 mcg daily. 5. Ativan 0.5 mg on a p.r.n. basis. 6. Zofran 4 mg a day. 7. Protonix 40 mg daily. LABORATORY DATA AND STUDIES PERFORMED DURING THE HOSPITAL STAY: Included: On , white blood cell count of 8.0, hemoglobin of 12.4, hematocrit of 37, and platelets of 143. Sodium was 135, potassium 3.4, chloride 104, carbon dioxide 24, BUN 15, and creatinine 0.68. Troponin was peaked at 0.18 on . Ammonia level was 59 on 07/16/18. ABG obtained on 07/16/18, showed pH of 7.44, pCO2 of 35, pO2 of 78, bicarbonate level of 25.0. CT of abdomen and pelvis obtained on 07/16/18 to rule out nephrolithiasis. Impression: "Negative for urolithiasis or hydronephrosis. No acute abdominal or pelvic inflammatory process evident." The patient's brain CT obtained on 07/16/18. 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 The basal inferior, mid anteroseptal, mid inferior, and mid inferoseptal as well as apical septal, and apical inferior wall segments are hypokinetic. The aortic valve area was calculated as 1.3 cm square and there was moderate aortic stenosis. There was interval decrease of EF from April 2018 when the EF at that point was 60% to 65% without inferoseptal hypokinesis. CONSULTATIONS DURING THE HOSPITAL STAY: Dr. Llanos from Cardiology. HOSPITALIZATION COURSE: Dickson Ross is an 87-year-old male who lives at home with his healthcare proxy and a friend and cash checker, Trinity, and who was brought by Trinity to the hospital on 07/15/18 for lethargy. Apparently, the patient has had problems with recent constipation and had an outpatient CT that showed constipation. He has had nausea and vomiting at home at that point and came in lethargic. He was admitted to the hospital with dehydration. He was also noted to have generalized weakness, lethargy, and abnormal troponin. During his hospital stay, it was noted that he has abnormal urinalysis, which was growing E. coli. Interestingly enough, the patient also was noted to have positive blood cultures for E. coli. On the second day of his hospital stay, he was hypotensive and became more lethargic. He was transferred to the intensive care unit overnight for monitoring. CT of his brain was unremarkable. At that point, Ulloa catheter was placed to monitor urine output and for hemodynamic monitoring. The patient's hypotension resolved with intravenous fluid boluses. It was also noted that the patient had rigors and fever up to 101.5. After his fever normalized, his mental state was back to normal. At baseline, he is oriented x2. Sometimes, he is able to give correct date also. Dr. Llanos saw the patient for an echocardiogram with a newly noted decreased EF to 45% as well as wall motion abnormality noted in echocardiogram and mildly elevated troponin. Dr. Llanos at that point recommended further evaluation with cardiac stress test, which was obtained on 07/09/18. The stress test was noted to be low risk. There was a decreased activity at the apical through basal and inferior kelly, similar at stress and at rest, although most pronounced at stress and no additional perfusion defects were evident. The absence of CT attenuation correction limits assessment. The EF was noted to be 66% at rest. The decreased perfusion at the inferior wall was noted to be most likely representing diaphragmatic attenuation. By the time of discharge, the patient had been afebrile for at least 2 days. His ambulation was slightly unsteady, but he did not require assistance for ambulation. He felt good to go home. He is going to be discharged home on 10 days of Cefdinir to complete a 14-day course of antibiotics for his E. coli bacteremia. The patient's Ulloa catheter was discontinued on 07/18/18. On the day of discharge, the patient's postvoid residual was 80 mL. He had no urinary symptoms at this point. The patient is recommended to follow with his primary care provider in 4 to 7 days. PHYSICAL EXAM AT TIME OF DISCHARGE: Blood pressure of 135/74, heart rate of 59 and regular, respiratory rate 16, oxygen saturation 96% on room air, and temperature 99.2. General: The patient is a very pleasant 87-year-old male, who is in no acute distress. Alert, awake, and oriented x3. HEENT: Head atraumatic, normocephalic. Eyes: Pupils equal, reactive to light and accommodation. Oropharynx is clear. Mucosa moist. Neck: Supple. No JVD. No bruits bilaterally. Cardiovascular: Regular rate and rhythm. No murmur. Respiratory: Clear to auscultation bilaterally. Abdomen: Soft, nontender. Bowel sounds present in all 4 quadrants. Extremities: There is no edema. Pulses 2+ bilaterally. No clubbing or cyanosis. On neuro evaluation, speech clear. Cranial nerves II through XII grossly intact. Motor strength is 5/5 bilaterally. Please note that this is a short summary of the patient's hospitalization. Please refer to further medical records for details. TIME SPENT: Approximately 40 minutes were spent on the patient's discharge. [id number]/[facility] #: [id number] [facility]ENTERJohn
--- NOTE | 2018-07-20 15:37 | EEG ---
DATE OF STUDY: . He is an inpatient in room 447. REFERRING PHYSICIAN: Dr. Celestin. CLINICAL HISTORY: 87-year-old man admitted July 15 for two days of lethargy. He was minimally responsive upon returning from CT scan earlier this day. He would not open his eyes, but did nod to questions. MEDICATIONS: Zofran, Protonix, Lopressor, Lipitor, Maxipime. EEG DESCRIPTION: This 16-channel EEG is remarkable for background rhythms consisting of a posterior rhythm of just barely 8 cycles per second which is fairly symmetric. Bitemporal and central theta rhythms are noted. Lower to moderate voltage bifrontal beta rhythms are noted. The patient intermittently opens and closes his eyes. He develops stage 2 sleep with sleep spindles and some vertex slowing. This is accompanied by snoring. Activation procedures are not attempted. There are no clinical events. There are no focal, lateralized, or epileptiform abnormalities. INTERPRETATION: Normal, largely asleep EEG. He does not seem to follow commands even with eyes open, but background looks to be mainly drowsiness or perhaps diffuse mild slowing consistent with diffuse cerebral dysfunction. There are no focal or epileptiform features to this recording. [id number]/[facility] #: [id number] [facility]
== END 2018-07-19 18:20 | disposition home or self-care (01) | DRG 872 ==
LOC: ED 10:06 → MEDTELE 12:30 → INTOOBSV 07-16 10:00 → OBSVTOIN 07-16 10:00 → ICU 07-16 13:22 → INTOOBSV 07-17 10:00 → OBSVTOIN 07-17 10:00 → MEDTELE 07-17 12:10
PROVIDERS: ADMIT Student in an Organized Health Care Education/Training Program; ATTEND Internal Medicine
DX: A41.51 Sepsis due to Escherichia coli [E. coli] (principal); N39.0 Urinary tract infection, site not specified; G93.40 Encephalopathy, unspecified; I24.8 Other forms of acute ischemic heart disease; I95.9 Hypotension, unspecified; E86.0 Dehydration; I35.0 Nonrheumatic aortic (valve) stenosis; I44.39 Other atrioventricular block; B96.20 Unspecified Escherichia coli [E. coli] as the cause of diseases classified elsewhere; R74.8 Abnormal levels of other serum enzymes; F41.8 Other specified anxiety disorders; R42 Dizziness and giddiness; E78.5 Hyperlipidemia, unspecified; N20.0 Calculus of kidney; G31.84 Mild cognitive impairment of uncertain or unknown etiology; K82.8 Other specified diseases of gallbladder; Z86.73 Personal history of transient ischemic attack (TIA), and cerebral infarction without residual deficits; Z79.02 Long term (current) use of antithrombotics/antiplatelets; Z79.82 Long term (current) use of aspirin; Z79.899 Other long term (current) drug therapy; Z88.8 Allergy status to other drugs, medicaments and biological substances; Z83.3 Family history of diabetes mellitus; Z82.49 Family history of ischemic heart disease and other diseases of the circulatory system
CPT/HCPCS: 36415; 36600; 70450; 71045; 74019; 74176; 78452; 80048; 80053; 80061; 81003; 81015; 82140; 82150; 82550; 82803; 83036; 83605; 83690; 83735; 83880; 84484; 85025; 85027; 85610; 85730; 86140; 87040; 87077; 87086; 87186; 87205; 93005; 93017; 93306; 95819; 99282; A9270-GY; A9502; G0378; J0692; J0696; J1644; J2405; J2785

== ENCOUNTER 2018-08-31 17:17 | Inpatient (IN) | payer MEDICARE ==
--- OUTSIDE RECORDS SUMMARY | 2018-08-31 17:30 | XMS REPORT | Continuity of Care Document ---
:1930 External Reference #:[id number] Author Name Roxi Malave Care Team Providers Name Role Phone Martir Muir MD Primary Care Physician Unavailable Payers Date Identification Numbers Payment Provider Subscriber Effective: 2015 Policy Number: [id number] Medicare Blue Ppo Homer Ross Group Number: [id number] [address] [address] PayID: [id number] [place] [address] Expires: 2015 Policy Number: [id number] Medicare Homer Ross PayID: [id number] [address] [place] [address] Advance Directives Description No Information Available Problems Active Problems Provider Date Heart murmur Otto Hallman M.D.,FACP Onset: 04/19/2007 Kidney stone Otto Hallman M.D.,FACP Onset: 04/19/2007 Impaired fasting glycaemia Otto Hallman M.D.,FACP Onset: 04/19/2007 Localized osteoarthrosis Otto Hallman M.D.,FACP Onset: 04/19/2007 Pure hypercholesterolemia Otto Hallman M.D.,FACP Onset: 04/19/2007 Cerebrovascular disease Fina Colvin M.D. 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 [employer] Tobacco Use Start: Unknown Never Smoked Cigarettes ETOH Use Drinks 1 Alcoholic Beverage Per Week Recreational Drug Use Denies Drug Use Tobacco Use Start: Unknown Patient has never smoked Smoking Status Reviewed: 08/31/18 Patient has never smoked Exercise Type/Frequency Exercises regularly Allergies, Adverse Reactions, Alerts Active Allergies Reaction Severity Comments Date Zyprexa 04/19/2007 Risperdal 04/19/2007 Lexapro 04/19/2007 Medications Active Medications SIG Qnty Indications Ordering Provider Date Ondansetron HCL one tablet every 30tabs Princess Shepherd NP 07/13/2018 4mg 6 to 8 hours by Tablets mouth Aspirin 1 by mouth prn Unknown 325mg Tablets Atorvastatin Calcium 1 by mouth every Unknown 40mg day Tablets Clopidogrel Bisulfate 1 by mouth every Unknown day 75mg Tablets Vitamin B-12 1 by mouth every Unknown Natural day 500mcg Tablets Probiotic 1 by mouth every Unknown Capsules day History Medications Aggrenox take 1 capsule by tuan Nash, 01/03/2013 - 25-200mg Caps ER mouth two times daily M.DMali 05/16/2018 12HR Asa 1 po qd 90units Otto Burrows 04/10/2009 - 81mg Jorge Hallman,[facility] 06/10/2013 Naproxen 1 PO bid prn 60tabs Otto Burrows 04/19/2007 - 500mg Tablets Jorge Hallman,FACP 06/10/2013 Multivitamin 1 PO qd Otto Burrows 04/19/2007 - Liquid [facility] 06/10/2013 Lorazepam 1 PO bid Unknown - 1mg Tablets 05/16/2018 Chlorhexidine prn Unknown - Gluconate 10/27/2016 0.12% Solution Hydrocodone/Acetaminop prn Unknown - hen 02/12/2016 5-325mg Tablets Penicillin V Potassium 7-10 days. Unknown - 02/12/2016 500mg Tablets Cyanocobalamin 1 milliliters Unknown - 1000mcg/ML intramuscular [id number] 08/30/2018 Solution Pantoprazole Sodium 1 by mouth every day Unknown - 40mg 07/09/[address] Moreno OTC 1 by mouth twice a Unknown - 20mg Tablets day 07/25/2018 Cefdinir 1 by mouth twice a Unknown - 300mg Capsules day x 7 days for 08/30/2018 bladder infection Immunizations CPT Code Status Date Vaccine Lot # [id number] Given 02/27/2015 Afluria Vaccine [id number] Given 03/14/2014 Fluvirin Im 3Yrs And Older 70038 Given 02/27/2011 Influenza Virus 3Yrs & Over [id number] Given 02/20/2009 Influenza Virus 3Yrs & Over [id number] 77364 Given 02/10/2008 Influenza Virus 3Yrs & Over [id number] Given 03/16/2007 Flu Vac (History By Patient> Vital Signs Date Vital Result Comment 08/31/2018 11:52am Height 70 inches 5'10" Weight 172.00 lb Heart Rate 72 /min BP Systolic 110 mmHg BP Diastolic 78 mmHg BMI (Body Mass Index) 24.7 kg/m2 07/26/2018 10:11am Height 70 inches 5'10" Weight 173.38 lb Heart Rate 66 /min BP Systolic 136 mmHg BP Diastolic 83 mmHg Respiratory Rate 18 /min Body Temperature 96.4 F O2 % BldC Oximetry 96 % BMI (Body Mass Index) 24.9 kg/m2 07/13/2018 10:36am Height 70 inches 5'10" Heart [...] Date Facility Test Result H/L Range Note CBC No Diff 07/13/2018 [facility] White Blood 19.8 10^3/uL High 3.5-10.[address] [place] [address] [phone] Red Blood Count 4.71 10^6/uL N 4.00-5.40 Hemoglobin 14.3 g/dL N 14.0-18.0 Hematocrit 43 % N 42-52 Mean Corpuscular Volume 91 fL N 80-94 Mean Corpuscular Hemoglobin 30 pg N 27-31 Mean Corpuscular HGB Conc 33 g/dL N 31-36 Red Cell Distribution Width 13 % N 10.5-15 Platelet Count 173 10^3/uL N 150-450 Mean Platelet Volume 9.7 fL N 7.4-10.4 Comp Metabolic Panel 07/13/2018 [facility] Sodium 139 mmol/L N 135-[address] [place] [address] [phone] Potassium 4.2 mmol/L N 3.5-5.0 Chloride 101 mmol/L N 101-111 Co2 Carbon Dioxide 27 mmol/L N 22-32 Anion Gap 11 mmol/L N 2-11 Glucose 136 mg/dL High 70-100 Blood Urea Nitrogen 18 mg/dL N 6-24 Creatinine 0.99 mg/dL N 0.67-1.17 BUN/Creatinine Ratio 18.2 N 8-20 Calcium 9.6 mg/dL N 8.6-10.3 Total Protein 7.2 g/dL N 6.4-8.9 Albumin 4.3 g/dL N 3.2-5.2 Globulin 2.9 g/dL N 2-4 Albumin/Globulin Ratio 1.5 N 1-3 Total Bilirubin 1.10 mg/dL High 0.2-1.0 Alkaline Phosphatase 71 U/L N 34-104 Alt 13 U/L N 7-52 Ast 17 U/L N 13-39 Egfr Non- 71.8 >60 Egfr 86.9 >60 1 Laboratory 07/13/2018 [facility] [place] Positive Abnormal Negative [address] [place] [address] Antigen- [phone] Stool Liver 07/13/2018 [facility] Direct 0.20 mg/dL High 0.03-0.[address] [place] [address] [phone] Indirect Bilirubin 0.9 mg/dL N 0.3-1.0 Laboratory test finding 07/13/2018 [facility] Lipase 13 U/L N 11.0-82[address] [place] [address] [phone] Amylase 39 U/L N 29-103 Stool Occult 07/13/2018 [facility] Stool Occult SEE RESULT [address] Blood, [place] [address] [phone] Laboratory test 04/15/2018 [facility] TSH (Thyroid 0.69 mcIU/mL N 0.34-5 4, [address] Stim Horm) .60 [place] [address] [phone] Free T4 (Free Thyroxine) 0.85 ng/dL N 0.61-1.12 6 Folic Acid (Folate) 16.85 ng/mL >3.99 7 Vitamin B12 210 pg/mL N 180-914 8 CBC Auto Diff 06/11/2015 [facility] White Blood 7.8 10^3/uL N 3.5-10.[address] [place] [address] [phone] Red Blood Count 4.87 10^6/uL N 4.0-5.4 [...] Nucleated Red Blood Cells % 0 N Comp Metabolic Panel 06/11/2015 [facility] Sodium 136 mmol/L N 133-[address] [place] [address] [phone] Potassium 3.6 mmol/L N 3.5-5.0 Chloride 104 [...] N >60 Egfr 94.2 N >60 9 Laboratory test 06/11/2015 [facility] Creatine 63 U/L N 10- [address] Kinase(CK) [place] [address] [phone] Troponin-I (TnI) 0.00 ng/mL N <0.03 10 CKMB 06/11/2015 [facility] CKMB ng/mL 1.2 ng/mL N 0.6-6.[address] [place] [address] [phone] Laboratory 06/11/2015 [facility] B-Type 122 pg/mL High 11 test finding [address] [place] [address] Peptide BNP [phone] Inr/Protime 06/11/2015 [facility] Inr 1.12 High 0.89-1.[address] [place] [address] [phone] Laboratory 06/11/2015 [facility] Partial 26.4 N 26.0-36.3 test finding [address] [place] [address] PTT [phone] Laboratory 06/11/2015 [facility] Lactic Acid 1.5 mmol/L N 0.5- 2.0 12 test finding [address] [place] [address] [phone] Throat-Beta 07/19/2014 [facility] Throat Beta (SEE NOTE) [address] [place] [address] [phone] Urinalysis 12/02/2013 [facility] Urine Color Yellow N Profile [address] [place] [address] [phone] Urine Appearance Cloudy N Urine Specific [place] 1.024 N 1.010-1.030 Urine pH 5.0 N 5-9 Urine Urobilinogen Negative N Negative Urine Ketones Trace N Negative Urine Protein Negative N Negative Urine Leukocytes Negative N Negative Urine Blood Negative N Negative Urine Nitrite Negative N Negative Urine Bilirubin Negative N Negative Urine Glucose Negative N Negative Code Celis Type 03/04/2011 [facility] Patient Blood O NEGATIVE And Screen [address] [place] [address] [phone] Antibody Screen NEGATIVE Laboratory test 03/04/2011 [facility] Magnesium 2.0 mg/dL 1.7 -2.6 finding [address] [place] [address] [phone] Troponin-I 0 NG/ML 0-0.06 14 Acetaminophen < 10 g/mL Low 10-30 15 Alcohol < 10.0 mg/dL None Detected 16 Salicylate < 4.0 mg/dL Less Than 30 17 [id number] 03/04/2011 [facility] Sodium 139 mmol/L 135-145 [address] [place] [address] [phone] Potassium 3.1 mmol/L Low 3.5-5.0 Chloride 110 mmol/L 101-111 Co2 (Carbon Dioxide) 19.0 mmol/L Low 22-32 Anion Gap 10.0 mmol/L 2-11 18 Glucose 158 mg/dL High 70-100 BUN 19 mg/dL 6-24 Creatinine 0.9 mg/dL 0.50-1.40 One Over Creatinine 1.11 BUN/Creatinine Ratio 21.1 High 8-20 Calcium 8.7 mg/dL 8.1-9.9 Total Protein 6.3 GM/DL 6.2-8.1 Albumin 3.7 GM/DL 3.2-5.2 Globulin 2.6 GM/DL 2-4 Albumin/Globulin Ratio 1.4 1-3 Bilirubin Total 0.8 mg/dL 0.4-1.5 19 Alkaline Phosphatase 56 U/L 39-117 Alt (SGPT) 14 U/L Low 17-63 Ast (Sgot) 21 U/L 12-42 eGFR Non- 81.6 > 60 eGFR 105.0 > 60 20 Laboratory test 03/04/2011 [facility] Code Celis 21.5 SEC Low 25.15-38.[address] PTT (Aptt) [place] [address] [phone] Code Celis 03/04/2011 [facility] Protime 11.3 SEC 10.67-13.64 Protime/Inr [address] [place] [address] [phone] Inr 0.96 0.88-1.13 21 Code Celis CBC 03/04/2011 [facility] White Blood 7.0 CUMM 4.8- 10.[address] [place] [address] [phone] Red Cell Count 4.33 CUMM Low 4.6-6.2 [...] Eosinophils 0.1 0-0.6 Abs Basophils 0 0-0.2 Basic Metabolic Panel 10/25/2009 [facility] Sodium 140 mmol/L 135-[address] [place] [address] [phone] Potassium 4.1 mmol/L 3.5-5.0 Chloride 105 mmol/L 101-111 Co2 (Carbon Dioxide) 29.0 mmol/L 22-32 Anion Gap 6.0 mmol/L 2-11 22 Glucose 108 mg/dL High 70-100 23 BUN 17 mg/dL 6-24 Creatinine 1.00 mg/dL 0.50-1.40 One Over Creatinine 1.00 BUN/Creatinine Ratio 17.0 8-20 Calcium 9.1 mg/dL 8.1-9.9 24 eGFR Non- 77.2 > 60 eGFR 93.4 > 60 25 Lipid Profile 10/25/2009 [facility] Triglyceride 112 mg/dL 40 -200 (Trig/Chol/HDL) [address] [place] [address] [phone] Cholesterol 189 mg/dL Less Than 200 26 High Density Lipoprotein 35 mg/dL Low 40-60 27 Cholesterol/HDL Ratio 5.40 AVERAGE High 1-4.97 Low Density Lipoprotein 132 mg/dL High Less Than 100 28 Laboratory test 05/13/2007 [facility] Uric Acid 5.4 mg/dL 2.6 -7.2 [address] [place] [address] [phone] Basic Metabolic 05/13/2007 [facility] One Over 1.11 Panel Stat [address] [place] [address] [phone] Anion Gap 5.0 mmol/L 2-11 30 BUN 17 mg/dL 6-24 Calcium 9.4 mg/dL 8.7-10.2 Chloride 107 mmol/L 101-111 Co2 (Carbon Dioxide) 27.0 mmol/L 22-32 Glucose 109 mg/dL High 70-105 Potassium 4.4 mmol/L 3.5-5.0 Sodium 139 mmol/L 135-145 BUN/Creatinine Ratio 18.9 8-20 Creatinine 0.9 mg/dL 0.5-1.4 Lipid Profile 05/13/2007 [facility] Cholesterol/HDL 5.02 High 1-4.97 (Trig/Chol/HDL) [address] [place] [address] [phone] Cholesterol 206 mg/dL High Less Than 200 31 Triglyceride 103 mg/dL 40-200 High Density Lipoprotein 41 mg/dL 40-60 Low Density Lipoprotein 144 mg/dL High Less Than 100 32 Laboratory test 05/13/2007 [facility] PSA Screening 0.63 NG/ML 0-[address] [place] [address] [phone] 1 Because ethnic data is not always readily [...] 15-29 5 Kidney failure <15 (or dialysis) 2 Test Performed by: [address] [address] 3 SEE RESULT BELOW Name: HOMER ROSS : [address]: Princess Shepherd NP Acct: [id number] Unit: [id number] AGE: 87 Location: [facility] Re07/13/18 SEX: M Status: REG REF SPEC: [id number] TAHIRA: 07/13/18-[address]: rPincess hSepherd NP REQ: [id number] RECD: 07/13/185216 STATUS: COMP _ SOURCE: STOOL SPDESC: ORDERED: Occult Bl, Diag Procedure Result Reported Site Stool Occult Blood (1) Final 07/13/18- 1613 ML Stool Occult Blood Negative Collection Date (1) 07/11/18 * ML - Main Lab . END OF REPORT DEPARTMENT OF PATHOLOGY, [address] [place] [address] Lane Solomon M.D. Director [facility] # [id number] 4 Comment: please add labs on blood set from ER if possible 5 Comment: please add labs on blood set from ER if possible 6 Comment: please add labs on blood set from ER if possible 7 Comment: please add labs on blood set from ER if possible 8 Normal Range 180 to 914 Indeterminate Range 145 to 180 Deficient Range <145 9 Because ethnic data is not always [...] 5 Kidney failure <15 (or dialysis) 10 Reference Range and Interpretation: TnI (ng/mL) Interpretation Less Than 0.03 ng/mL Not supportive of diagnosis of MO 0.03 - 0.50 ng/mL Indeterminate: suggest serial studies if clinically indicated. Greater than 0.5 ng/mL Consistent with diagnosis of MO 11 >100 to <200 pg/mL: likely compensated congestive heart failure (CHF) 200 to 400 pg/mL: likely moderate CHF >400 pg/mL: likely moderate to severe CHF 12 [facility] Severe Sepsis and Septic Shock Management Bundle Measure requires all lactic acids initially measuring >2.0mmol/L be repeated. 13 RUN DATE: 07/21/14 [facility] LAB LIVE PAGE 1 RUN TIME: [address] [place] [address] Specimen Inquiry Name: HOMER ROSS : [address]: Nasrin Coats MD Acct: [id number] Unit: [id number] AGE: 83 Location: [facility] Re07/19/14 SEX: M Status: DEP ER SPEC: [id number] TAHIRA: 07/19/14-[address] [facility] [address]: Demetria Killian NP REQ: [id number] RECD: 07/19/14-123 STATUS: BARNEY GODINEZ DR: Nasrin Hallman MD _ SOURCE: THROAT SPDESC: ORDERED: Throat Beta Str Procedure Result Verified Site Throat Beta Strep Culture Final 07/21/14- 08 L Negative For Group A Beta Streptococcus END OF REPORT * ML=Testing performed at Main Lab DEPARTMENT OF PATHOLOGY, [address] [place] [address] Lane Solomon M.D. Director [facility] # [id number] 14 New Reference Range and Interpretation effective 02/11/2002 TnI (ng/ml) INTERPRETATION Less Than 0.06 ng/mL NOT SUPPORTIVE OF DIAGNOSIS OF MO 0.06 - 0.50 ng/ml INDETERMINATE: SUGGEST SERIAL STUDIES IF CLINICALLY INDICATED. Greater than 0.5 ng/mL CONSISTENT WITH DIAGNOSIS OF MO . 15 TOXIC LEVELS: GREATER THAN 150 MCG/ML @ 4HR POST INGEST GREATER THAN 50 MCG/ML @ 12HR POST INGEST The detection limit for ACETAMINOPHEN is 10.0 mcg/ml . Values less than 10.0 mcg/ml cannot be accurately measured. . 16 The detection limit for ETHANOL is 10.0 mg/dl . Values less than 10.0 mg/dl cannot be accurately measured. . 17 The detection limit for SALICYLATE is 4.0 mg/dl. Values less than 4.0 mg/dl cannot be accurately measured. . 18 Anion gap measurement may be of limited value in the presence of any alkalosis, especially in a combined acid base disorder. . 19 A metabolite of Naproxen, O-desmethylnaproxen, has been shown to interfere with the Jendrassik-Matt method for measuring total bilirubin. Samples from patients who have taken Naproxen have shown spurious elevation in total bilirubin levels. 20 Because ethnic data is not always readily [...] 15-29 5 Kidney failure <15 (or dialysis) 21 Recommended INR for Patients on Oral Anticoagulants Prophylaxis 2.0 - 3.0 Treatment of thrombosis 2.0 - 3.0 Prevention of embolism 2.0 - 3.0 Prevention of embolism from prosthetic heart valves 2.5 - 3.5 22 Anion gap measurement may be of limited value in the presence of any alkalosis, especially in a combined acid base disorder. . 23 Note change in reference range as of 12/30/07. The change was based on recommendations from the [place] [employer]. 24 Please note change in [...] 5 Kidney failure <15 (or dialysis) 26 CHOLESTEROL INTERPRETATION: Desirable: Less than 200 MG/DL Borderline-High Risk: 200-239 MG/DL High-Risk: 240 MG/DL and over 27 HDL INTERPRETATION: Undesirable: High Risk: Less than 40 MG/DL Desirable: Low Risk: Greater than 60 MG/DL 28 LDL INTERPRETATION: Low Risk Optimal Level: LDL Less than 100 MG/DL Near or Above Optimal: LDL 100-129 MG/DL Borderline High Risk: LDL 130-159 MG/DL High Risk: LDL 160-189 MG/DL Very High Risk: LDL Greater than 189 MG/DL 29 FASTING 30 Anion gap measurement may be of limited value in the presence of any alkalosis, especially in a combined acid base disorder. . 31 Classification: Borderline High . 32 CALCULATED LDL APPROXIMATES THE VALUE OF A DIRECT LDL MEASUREMENT. Classification: Borderline High . Procedures Date Code Description Status 07/19/2018 40184 Treadmill Interp/Report Only Completed 07/19/2018 46664 Stress Test Supervsn W/Out I/R Completed 07/15/2018 59485 ECHO Transthorasic Realtime 2D W Doppler & Color Flow Completed Hosp 04/16/2018 73614 EEG Recording Awake & Drowsy Completed 04/15/2018 44823 ECHO Transthorasic Realtime 2D W Doppler & Color Flow Completed Hosp 10/15/2011 91890755 Colonoscopy Completed 03/04/2011 20808 Color Flow Doppler/Interp & Reprt Completed 03/04/2011 19830 Pulse Wave/Continuous-Interp.RPT Completed 03/04/2011 74160 ECHO Transthorasic Realtime 2D W Doppler & Color Flow Completed Hosp 02/20/2004 58030 Treadmill Interp/Report Only Completed 02/20/2004 04843 Stress Test Supervsn W/Out I/R Completed 10/27/2001 92544013 Colonoscopy Completed Encounters Type Date Location Provider Dx Diagnosis Office Visit 07/26/2018 [facility] Princess Shepherd, 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 abnormal findings of blood chemistry Office Visit 07/19/2018 [facility] Stacey Celestin, A41.51 Sepsis due to 10:11a kassandra Domínguez Hospitalists Jorge Escherichia coli [E. coli] N39.0 Urinary tract infection, site not specified G93.40 Encephalopathy, unspecified R79.89 Other specified abnormal findings of blood chemistry Office Visit 07/18/2018 3:25p [facility] Rod Johnson I21.4 Non-St elevation Jorge Llanos (Nstemi) myocardial infarction A41.9 Sepsis, unspecified organism I35.0 Nonrheumatic aortic (valve) stenosis I10 Essential (primary) hypertension I42.9 Cardiomyopathy, unspecified Office Visit 07/18/2018 [facility] Stacey Mackhn, A41.51 Sepsis due to 10:11a kassandra Domínguez M.D. Escherichia coli Hospitalists [E. coli] N39.0 Urinary tract infection, site not specified R79.89 Other specified abnormal findings of blood chemistry Office Visit 07/17/2018 10:10a [facility] Stacey Mackhn, N39.0 Urinary tract Asskassandra bowen M.D. infection, site Hospitalists not specified R79.89 Other specified abnormal findings of blood chemistry F32.9 Major depressive disorder, single episode, unspecified Office Visit 07/16/2018 3:22p [facility] Rod Johnson R79.89 Other specified Jorge Llanos abnormal findings of blood chemistry R94.39 Abnormal result of other cardiovascular function study R94.31 Abnormal electrocardiogram [ECG] [EKG] A41.9 Sepsis, unspecified organism [facility], B96.20 Unsp Escherichia 10:10a kassandra Domínguez M.D. coli as the cause Hospitalists of diseases classd elswhr N39.0 Urinary tract infection, site not specified R79.89 Other specified abnormal findings of blood chemistry R41.82 Altered mental status, unspecified R53.83 Other fatigue Office Visit 07/15/2018 10:10a [facility] Phuc Martinez, E86.0 Dehydration Assoc,pc Hospitalists [place] R79.89 Other specified abnormal findings of blood chemistry R10.9 Unspecified abdominal pain R53.1 Weakness Office Visit 07/13/2018 [facility] Princess K59.00 Constipation, 10:00a ISIDRO Shepherd unspecified R14.0 Abdominal distension (gaseous) 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 right knee Office Visit 01/14/2017 Pulmonology And Luna R06.83 Snoring 9:15a Sleep Services DYLAN Banegas, Of [facility] RN, MANUFACTURING MANAGEMENT ASSOCIATE- Office Visit 10/28/2016 Pulmonology And Naa R06.83 Snoring 8:45a Sleep Services MD Gino Of [facility] R09.02 Hypoxemia R35.1 Nocturia Office 02/13/2016 [place]/Kamaljit Hong I67.9 Cerebrovascular Visit 2:15p Neurologic Serv Of robert Colvin Cma M.D. unspecified Office 06/10/2013 Kamaljit Hong 437.9 Cerebrovascular Visit 11:45a Services Of Robert Price Or Lesion Jorge Unspec Office 01/07/2012 Kamaljit Hong 780.4 Dizziness & Visit 3:00p Services Of Cecelia Price M.D. Office 04/10/2009 DO Not Use [facility] AT Otto Burrows 790.21 Impaired Fasting Visit 10:00a Dunia Lowery M.D.,FACP 272.0 Hypercholesterolemia Pure 592.0 Calculus Of Kidney Office Visit 04/19/2007 1:40p DO Not Use Daniel Menjivar D. 785.2 Murmur Cardiac AT Saundra Hallman M.D.,FACP Undiagnosed 592.0 Calculus Of Kidney 790.21 Impaired Fasting Glucose 715.36 Osteoarthrosis Localzd Not Spec Prime Or 2Ndy Lower Leg 272.0 Hypercholesterolemia Pure V76.44 Screening For Malig Aldair Prostate Plan of Treatment Future Appointment(s):09/03/2018 3:15 pm - Princess Shepherd NP at [facility] Aqyxxnwtwfnpvjut15/18/2019 9:00 am - Princess Shepherd NP at [facility] Igkimgrffiybijtv83 /23/2019 - Homer Hunter M.D.A41.51 Sepsis due to Escherichia coli [E. coli] Follow up:prnG93.40 Encephalopathy, unspecifiedFollow up:Get [facility] last office bqaupR37.02 retirement (current) use of antithrombotics/ mxdszbbakdpleH66.9 Transient cerebral ischemic attack, unspecifiedFollow up: stop aspirin, continue clopidogrel
[2018-08-31 20:37] LABS: ABS Basophils 0 10^3/ul (0-0.2); ABS Eosinophils 0 10^3/ul (0-0.6); ABS Lymphocytes 0.7 10^3/ul (1.0-4.8); ABS Neutrophils 12.1 10^3/ul (1.5-7.7); ABS Nucleated RBC 0 10^3/ul; Eosinophil % 0 %; Hematocrit 40 % (36-46); Hemoglobin 13.5 g/dL (14.0-18.0); Lymphocyte % 4.9 %; Mean Corpuscular HGB Conc 34 g/dL (31-36); Mean Corpuscular Hemoglobin 30 pg (27-31); Mean Corpuscular Volume 88 fL (80-94); Mean Platelet Volume 8.2 fL (7.4-10.4); Nucleated Red Blood Cells % 0; Platelet Count 177 10^3/uL (150-450); Red Blood Count 4.49 10^6 /uL (4.18-5.48); Red Cell Distribution Width 14 % (10.5-15); White Blood Count 13.8 10^3/uL (3.5-10.8)
[2018-08-31 20:56] LABS: Albumin 4.1 g/dL (3.2-5.2); Albumin/Globulin Ratio 1.3 (1-3); BUN/Creatinine Ratio 21.2 (8-20); Calcium 9.6 mg/dL (8.6-10.3); EGFR African American 103.7 (>60); EGFR Non-African American 85.7 (>60); Globulin 3.2 g/dL (2-4); Potassium 3.8 mmol/L (3.5-5.0); Total Protein 7.3 g/dL (6.4-8.9)
[2018-08-31 20:58] LABS: Troponin I 0.01 ng/mL (<0.04)
[2018-08-31 21:32] LABS: TSH (Thyroid Stimulating Horm) 0.52 mcIU/mL (0.34-5.60)
--- NOTE | 2018-08-31 22:15 | ED ---
Complex/Multi-Sys Presentation - HPI Summary HPI Summary: Patient is a 87 y/o M presenting to ED for possible bladder infection and AMS. Per triage note, "Pt states he has had depression, denies SI/HI. Pt's caregiver states he has had recent illness and is sleeping more than normal. Had a bladder infection apox 5 wks ago. Abd pain and n/v".Patient's daughter states that the patient has been lethargic and more AMS as of lately, noting that he has been having delusions and hallucinations. She states that the patient was sent to ED by Dr. Muir for evaluation for possible bladder infection and AMS. Review of medical records showed that the patient had been previously admitted and had positive blood cultures for E.coli. Patient had a similar presentation of AMS during this hospital visit as well. Daughter states that she lives with the patient and notes that the patient has had difficulty walking and has experienced multiple falls recently, with two occurring yesterday. However, the patient has not sustained any significant injuries from the falls. Level 5 caveat, AMS. On triage, pain is rated 5/10, nothing is noted to aggravate/alleviate Sx. Home medications and allergies are reviewed. - History Of Current Complaint Chief Complaint: EDWeakness Time Seen by Provider: 08/31/18 22:03 Hx Obtained From: Family/Analyzer [employer], Medical Records Hx From Patient Unobtainable Due To: Altered Mental Status Onset/Duration: Still Present Timing: Constant Severity Currently: Moderate - 5/10 Location: Pain At: - abdomen Aggravating Factor(s): nothing Alleviating Factor(s): nothing Associated Signs And Symptoms: Positive: Nausea, Vomiting, Abdominal Pain, Other - AMS, falls, depression, lethargy - Allergies/Home Medications Allergies/Adverse Reactions: Allergies Allergy/AdvReac Type Severity Reaction Status Date / Time No Known Allergies Allergy Verified 07/15/18 10:14 PMH/Surg Hx/FS Hx/Imm Hx Endocrine/Hematology History: Denies: Hx Diabetes, Hx Thyroid Disease Cardiovascular History: Denies: Hx Hypertension, Hx Myocardial Infarction, Hx Pacemaker/ICD Respiratory History: Denies: Hx Asthma, Hx Chronic Obstructive Pulmonary Disease (COPD) GI History: Reports: Other GI Disorders - constipation, H pylori Denies: Hx Ulcer History: Denies: Hx Renal Disease Sensory History: Denies: Hx Contacts or Glasses, Hx Hearing Aid Opthamlomology History: Denies: Hx Contacts or Glasses Neurological History: Reports: Hx CVA, Hx Dementia Psychiatric History: Reports: Hx Anxiety, Hx Depression Denies: Hx Panic Disorder - Surgical History Surgery Procedure, Year, and Place: IMGUINAL HERNIA - Immunization History Date of Tetanus Vaccine: Unk Date of Influenza Vaccine: Fall 2014 Infectious Disease History: No Infectious Disease History: Denies: Hx Clostridium Difficile, Hx Hepatitis, Hx Human Immunodeficiency Virus (HIV), Hx of Known/Suspected MRSA, Hx Shingles, Hx Tuberculosis, Traveled Outside the [place] in Last 30 Days - Family History Known Family History: Positive: Diabetes - Social History Alcohol Use: Rare Alcohol Amount: 1 glass wine/week Hx Substance Use: No Substance Use Type: Reports: None Hx Tobacco Use: No Smoking Status (MU): Never Smoked Tobacco Review of Systems - ROS Summary Review of Systems Summary: LEVEL 5 CAVEAT, AMS Constitutional: Other - POSITIVE - FALLS Positive: Fatigue - lethargic Positive: Abdominal Pain, Vomiting, Nausea Neurological: Other - POSITIVE - AMS Positive: Depressed All Other Systems Reviewed And Are Negative: No - Comments Additional Review of Systems Comments: LEVEL 5 CAVEAT, AMS Physical Exam - Summary Physical Exam Summary: Appearance: Elderly, Well-appearing, Well-nourished, lying in bed comfortably Skin: Warm, dry, no obvious rash Eyes: sclera anicteric, no conjunctival pallor ENT: mucous membranes moist, pharynx appears normal Neck: Supple, nontender Respiratory: Clear to auscultation, no signs of respiratory distress Cardiovascular: Normal S1, S2. No murmurs. Normal distal pulses in tibial and radial bilaterally. Abdomen: Soft, nontender, normal active bowel sounds present Musculoskeletal: Normal, Strength/ROM Intact Neurological: Speech is slow, awake and alert and oriented to person and place but not time, level 5 caveat AMS Psychiatric: He is soft spoken with flat affect Triage Information Reviewed: Yes Vital Signs On Initial Exam: Initial Vitals Temp Pulse Resp BP Pulse Ox 98.7 F 69 20 138/83 93 08/31/18 17:19 08/31/18 17:19 08/31/18 17:19 08/31/18 17:19 08/31/18 17:19 Vital Signs Reviewed: Yes Completion Of Physical Exam Limited Due To: Altered Mental Status, Level 5 Diagnostics - Vital Signs Vital Signs Temp Pulse Resp BP Pulse Ox 04/23/19 19:49 99.4 F 62 18 153/79 94 08/31/18 17:19 98.7 F 69 20 138/83 93 - Laboratory Lab Results: Lab Results 08/31/18 08/31/18 08/31/18 Range/Units 20:30 20:30 20:30 WBC 13.8 H (3.5-10.8) 10^3/uL RBC 4.49 (4.18-5.48) 10^6 /uL Hgb 13.5 L (14.0-18.0) g/dL Hct 40 (36-46) % MCV 88 (80-94) fL MCH 30 (27-31) pg MCHC 34 (31-36) g/dL RDW 14 (10.5-15) % Plt Count 177 (150-450) 10^3/uL MPV 8.2 (7.4-10.4) fL Neut % (Auto) 87.7 % Lymph % (Auto) 4.9 % [place] % (Auto) 7.0 % Eos % (Auto) 0 % Baso % (Auto) 0.4 % Absolute Neuts (auto) 12.1 H (1.5-7.7) 10^3/ul Absolute Lymphs (auto) 0.7 L (1.0-4.8) 10^3/ul Absolute Monos (auto) 1.0 H (0-0.8) 10^3/ul Absolute Eos (auto) 0 (0-0.6) 10^3/ul Absolute Basos (auto) 0 (0-0.2) 10^3/ul Absolute Nucleated RBC 0 10^3/ul Nucleated RBC % 0 Sodium 135 (135-145) mmol/L Potassium 3.8 (3.5-5.0) mmol/L Chloride 101 (101-111) mmol/L Carbon Dioxide 25 (22-32) mmol/L Anion Gap 9 (2-11) mmol/L BUN 18 (6-24) mg/dL Creatinine 0.85 (0.67-1.17) mg/dL Est GFR ( Amer) 103.7 (>60) Est GFR (Non-Af Amer) 85.7 (>60) BUN/Creatinine Ratio 21.2 H (8-20) Glucose 155 H (70-100) mg/dL Lactic Acid 1.6 (0.5-2.0) mmol/L Calcium 9.6 (8.6-10.3) mg/dL Total Bilirubin 1.00 (0.2-1.0) mg/dL AST 12 L (13-39) U/L ALT 12 (7-52) U/L Alkaline Phosphatase 83 (34-104) U/L Troponin I 0.01 (<0.04) ng/mL Total Protein 7.3 (6.4-8.9) g/dL Albumin 4.1 (3.2-5.2) g/dL Globulin 3.2 (2-4) g/dL Albumin/Globulin Ratio 1.3 (1-3) TSH 0.52 (0.34-5.60) mcIU/mL Result Diagrams: 09/01/18 06:27 09/01/18 06:27 Lab Statement: Any lab studies that have been ordered have been reviewed, and results considered in the medical decision making process. - EKG 1999 Cardiac Rate: NL - rate of 76 BPM EKG Rhythm: Sinus Rhythm Summary of EKG Findings: NSR at 76 BPM, P waves, QRS complex, and T waves are within normal limits, T waves and intervals are normal, no ischemic changes. This is a normal EKG. Re-Evaluation - Re-Evaluation First Eval Re-Evaluation Time: 23:14 Comment: Results of labs and tests were discussed with patient and daughter as well as plan for admission. They are agreeable with plan. Complex Multi-Symp Course/Dx Course Of Treatment: Patient is a 87 y/o M presenting to ED for possible bladder infection and AMS. Per triage note, "Pt states he has had depression, denies SI/HI. Pt's caregiver states he has had recent illness and is sleeping more than normal. Had a bladder infection apox 5 wks ago. Abd pain and n/v ".Patient's daughter states that the patient has been lethargic and more AMS as of lately, noting that he has been having delusions and hallucinations. She states that the patient was sent to ED by Dr. Muir for evaluation for possible bladder infection and AMS. Review of medical records showed that the patient had been previously admitted and had positive blood cultures for E.coli. Patient had a similar presentation of AMS during this hospital visit as well. Daughter states that she lives with the patient and notes that the patient has had difficulty walking and has experienced multiple falls recently, with two occurring yesterday. However, the patient has not sustained any significant injuries from the falls. Level 5 caveat, AMS. On physical exam, patient is noted to be soft-spoken with flat affect. He is awake and alert and oriented to person and place but not time. Speech is slow. NSR at 76 BPM, P waves, QRS complex, and T waves are within normal limits, T waves and intervals are normal, no ischemic changes. This is a normal EKG. Labs showed WBC 13.8, Hgb 13.5, absolute neuts 12.1, absolute lymphs 0.7, absolute monos 1.0, BUN/ creatinine ratio 21.2, glucose 155, lactic acid 1.6, AST 1, trop 0.01, TSH 0.52. UA showed 1+ protein, trace ketones, 2+ blood, 2+ leukocyte esterase. During ceftriaxone sodium 1 gm in sodium chloride 50 mls @ 100 mls/hr IVPB ED ONCE ONE. Patient's case was discussed with Dr. Bui, Dr. Bui accepts for admission. Results of labs and tests were discussed with patient and daughter as well as plan for admission. They are agreeable with plan. - Diagnoses Provider Diagnoses: UTI (urinary tract infection), Bacteremia - Physician Notifications Discussed Care Of Patient With: Lucia Bui Time Discussed With Above Provider: 23:12 Instructed by Provider To: Other - Patient's case was discussed with Dr. Bui, Dr. Bui accepts for admission. Discharge - Sign-Out/Discharge Documenting (check all that apply): Patient Departure - admit All imaging exams completed and their final reports reviewed: No Studies Patient Received Moderate/Deep Sedation with Procedure: No - Discharge Plan Condition: Stable Disposition: ADMITTED TO [facility] - Billing Disposition and Condition Condition: STABLE Disposition: Admitted to [facility] - Attestation Statements Document Initiated by Scribe: Yes Documenting Scribe: CLEMENT MARRERO Provider For Whom Scribe is Documenting (Include Credential): BINDU WHIPPLE MD Scribe Attestation: CLEMENT Gale, scribed for BINDU WHIPPLE MD on 09/05/18 at 1844. Scribe Documentation Reviewed: Yes Provider Attestation: The documentation as recorded by the scribe, CLEMENT MARRERO accurately reflects the service I personally performed and the decisions made by me, BINDU WHIPPLE MD Status of Ama Document: Viewed
[2018-08-31 22:42] LABS: Urine Appearance Cloudy; Urine Bacteria 1+ (Absent); Urine Bilirubin Negative (Negative); Urine Blood 2+ (Negative); Urine Color Yellow; Urine Glucose Negative (Negative); Urine Ketones Trace (Negative); Urine Nitrite Negative (Negative); Urine Protein 1+(30 mg/dL) (Negative); Urine Red Blood Cell 2+(6-10/hpf) (Absent); Urine Specific Gravity 1.018 (1.010-1.030); Urine Urobilinogen Negative (Negative); Urine White Blood Cell 3+(>20/hpf) (Absent)
[2018-08-31] MEDS ORDERED: cefTRIAXone(*) 1 GM in NS 0.9% 50 ML* 50 ML IVPB ONE (23:04)
[2018-08-31] MEDS ORDERED: Docusate CAP* 100 MG PO PRN (23:46)
[2018-08-31] MEDS ORDERED: Ondansetron INJ* 2 MG/ML VIAL IV PRN (23:46)
[2018-08-31] MEDS ORDERED: Al Hydrox/Mg Hydrox/Simet LIQ* 30 ML UDC PO PRN (23:46)
[2018-08-31] MEDS ORDERED: Acetaminophen TAB* 325 MG PO PRN (23:46)
[2018-08-31] MEDS ORDERED: Senna TAB PO PRN (23:46)
--- NOTE | 2018-09-01 01:14 | HP ---
CC: Martir Muir MD * HISTORY AND PHYSICAL: DATE OF ADMISSION: 08/31/18 TIME OF EVALUATION: 2300 PRIMARY CARE PHYSICIAN: Martir Muir MD CHIEF COMPLAINT: Altered mental status. HISTORY OF PRESENT ILLNESS: This is an 87-year-old male with a past medical history of cognitive impairment, BPH with a recent admission for bacteremia secondary to UTI, who presents to the emergency room from his primary care physician's office for concern for recurrent UTI in the setting of altered mental status. His friend, who is also his caregiver, that lives with him, states he has been more confused and weak with more falls last night, began vomiting and vomiting more today. He has been having urinary frequency in this evening and he also noted he was having some abdominal pain and pain while urinating. The patient denies any chest pain or shortness of breath. The friend states he fell yesterday hitting the back of his leg and he fell out of bed last night. Did not hit his head and no loss of consciousness. She states he is supposed to use a walker but he will not use it. His last bowel movement was yesterday. He has had a decrease in appetite with weight loss over the past few months. The patient went to his primary care physician's office and they were concerned about his altered mental status and recommended he go to the emergency room for workup before they worked him up for mental health eval, was initially concerned that may be this was worsening depression. In the emergency room, the patient had labs. His findings were concerning for urinary tract infection. He was given ceftriaxone 1 g and referred to the hospitalist service for further evaluation. PAST MEDICAL HISTORY: 1. History of vertigo. 2. History of TIA. 3. Admission in July 2018 for sepsis secondary to bacteremia and UTI, pansensitive E. coli. 4. History of cognitive impairment and question of dementia. MEDICATIONS: According to his primary care physician's note: 1. Zofran 4 mg as needed. 2. Vitamin B12 500 mcg daily. 3. Plavix 75 mg daily. 4. Atorvastatin 40 mg daily. 5. Calcium. 6. Aspirin 325 mg daily. According to the PCP note saw Dr. Hunter earlier and recommended he stop the aspirin. ALLERGIES: No known drug allergies. FAMILY HISTORY: Reviewed and noncontributory. SOCIAL HISTORY: The patient lives with his friend/partner, Trinity who is his healthcare proxy. She helps him with his ADLs as it appears he is dependent on all of them. No history of tobacco. Rare alcohol use. No illicit drug use. CODE STATUS: Confirmed he is a DNR/DNI. REVIEW OF SYSTEMS: A 14-point review of systems as mentioned in the HPI, otherwise, negative. PHYSICAL EXAMINATION GENERAL: No acute distress. Resting comfortably with his friend at the bedside. VITAL SIGNS: Temp 99.4, pulse rate 62, respiratory rate 18, oxygen saturation 94% on room air, and blood pressure 153/79. HEENT: Head normocephalic. Pupils are equal and reactive. Anicteric. Oropharynx: Mucous membranes moist. NECK: Supple. RESPIRATORY: Diminished breath sounds. No wheeze, rhonchi or rales. CARDIAC: Regular rate and rhythm. Harsh systolic murmur most prominent over the left sternal base. ABDOMEN: Positive bowel sounds. Soft, nontender, nondistended. EXTREMITIES: No clubbing, cyanosis or edema. +1 DPs. NEUROLOGIC: Alert and oriented x2. Oriented to self and place. No gross focal neurologic deficits. DIAGNOSTIC STUDIES/LAB DATA: White count 13.8, hemoglobin 13.5, hematocrit 48 , platelets 177. Sodium 135, potassium 3.8, chloride 101, bicarb 25, BUN 18, creatinine 0.85, glucose 155. Lactic acid 1.6. Troponin 0.01. TSH 0.52. EKG shows normal sinus rhythm. ASSESSMENT: This is an 87-year-old male with a past medical history of urinary tract infection, bacteremia last month who presents to the emergency room with vomiting and urinary symptoms, found to have a urinary tract infection. 1. Vomiting, altered mental status, and urinary symptoms. Assessment: The patient's history and physical most consistent with urinary tract infection. He did have bacteremia last month, Escherichia coli pansensitive. He also required a [place] during his hospitalization for urinary retention. Plan: We will continue him on ceftriaxone. Follow up on his blood and urine cultures. We will order a bladder scan with postvoid residual. We will also order a PT consult in the setting of frequent falls. He may be a candidate for subacute rehab. 2. Chronic medical problems. History of a transient ischemic attack. Per primary care physician's note, Dr. Hunter recommends stopping the aspirin. We will continue his Plavix and atorvastatin. 3. FEN: Regular diet with IV fluids. 4. DVT prophylaxis: The patient scores high risk. We will place him on heparin subcu t.i.d. 5. Code status: The patient is do not resuscitate, do not intubate. PATIENT TIME: Greater than 45 minutes was spent doing the history and physical , more than half the time spent in direct patient contact. [id number]/CPS #: [id number] JESSICA
[2018-09-01] MEDS: Lactated Ringers 1000 ML Bag* 1,000 ML IV SCH ×3 (01:23→23:13)
[2018-09-01] MEDS: Heparin VIAL(*) 5000 UNITS/ML VIAL (FIVE THOUSAND) SUBCUT SCH ×3 (06:22→22:40)
[2018-09-01 06:50] LABS: ABS Basophils 0 10^3/ul (0-0.2); ABS Eosinophils 0 10^3/ul (0-0.6); ABS Lymphocytes 1.5 10^3/ul (1.0-4.8); ABS Monocytes 1.3 10^3/ul (0-0.8); ABS Neutrophils 8.2 10^3/ul (1.5-7.7); ABS Nucleated RBC 0 10^3/ul; Eosinophil % 0.4 %; Hematocrit 36 % (36-46); Hemoglobin 12.4 g/dL (14.0-18.0); Lymphocyte % 13.8 %; Mean Corpuscular HGB Conc 34 g/dL (31-36); Mean Corpuscular Hemoglobin 30 pg (27-31); Mean Corpuscular Volume 88 fL (80-94); Mean Platelet Volume 8.6 fL (7.4-10.4); Nucleated Red Blood Cells % 0.1; Platelet Count 164 10^3/uL (150-450); Red Blood Count 4.13 10^6 /uL (4.18-5.48); Red Cell Distribution Width 14 % (10.5-15)
[2018-09-01 07:06] LABS: BUN/Creatinine Ratio 18.8 (8-20); Calcium 9.2 mg/dL (8.6-10.3); EGFR African American 103.7 (>60); EGFR Non-African American 85.7 (>60); Potassium 3.5 mmol/L (3.5-5.0)
[2018-09-01] MEDS ORDERED: Aspirin TAB* 325 MG PO SCH (09:00)
[2018-09-01] MEDS: Clopidogrel TAB* 75 MG PO SCH (09:24)
[2018-09-01] MEDS ORDERED: Lidocaine 2% JELLY* 6 ML JELLY TOPICAL ONE (10:08)
--- NOTE | 2018-09-01 18:29 | PN ---
Subjective Date of Service: 09/01/18 Interval History: Patient seen and examined. Was retaining urine overnight and this morning with PVR >450 and patient stating he felt like he had to urinate but couldn't. Denies fever or chills, no abdominal pain, no n/v, no SOB or chest pain. Objective Active Medications: Acetaminophen (Tylenol Tab*) 650 mg PO Q4H PRN PRN Reason: FEVER/PAIN Last Admin: 09/01/18 11:02 Dose: 650 mg Al Hydrox/Mg Hydrox/Simethicone (Maalox Plus*) 30 ml PO Q6H PRN PRN Reason: INDIGESTION Atorvastatin Calcium (Lipitor*) 40 mg PO 2100 [facility] Clopidogrel Bisulfate (Plavix Tab*) 75 mg PO DAILY [facility] Last Admin: 09/01/18 09:24 Dose: 75 mg Docusate Sodium (Colace Cap*) 100 mg PO BID PRN PRN Reason: CONSTIPATION Heparin Sodium (Porcine) (Heparin Vial(*)) 5,000 units SUBCUT Q8HR [facility] Last Admin: 09/01/18 13:39 Dose: 5,000 units Ceftriaxone Sodium 1 gm/ (Sodium Chloride) 50 mls @ 200 mls/hr IVPB Q24H [facility] Lactated Ringer's (Lactated Ringers 1000 Ml Bag*) 1,000 mls @ 100 mls/hr IV PER RATE [facility] Last Admin: 09/01/18 11:03 Dose: 100 mls/hr Ondansetron HCl (Zofran Inj*) 4 mg IV Q4H PRN PRN Reason: NAUSEA/VOMITING Senna (Senokot Tab*) 1 tab PO BID PRN PRN Reason: CONSTIPATION Tamsulosin HCl (Flomax Cap*) 0.4 mg PO BEDTIME [facility] Vital Signs - 8 hr 09/01/18 09/01/18 11:59 13:49 Temperature 98.3 F 98.8 F Pulse Rate 71 64 Respiratory 17 16 Rate Blood Pressure 131/65 128/68 (mmHg) O2 Sat by Pulse 97 96 Oximetry Oxygen Devices in Use Now: None Appearance: alert, NAD Eyes: No Scleral Icterus, PERRLA Ears/Nose/Mouth/Throat: NL Teeth, Lips, Gums, Mucous Membranes Moist Neck: NL Appearance and Movements; NL JVP, Trachea Midline Respiratory: Symmetrical Chest Expansion and Respiratory Effort, Clear to Auscultation Cardiovascular: NL Sounds; No Murmurs; No JVD, RRR, No Edema Abdominal: NL Sounds; No Tenderness; No Distention Extremities: No Edema, No Clubbing, Cyanosis Skin: No Rash or Ulcers Neurological: Alert and Oriented x 3, NL Muscle Strength and Tone Lines/Tubes/Other Access: Clean, Dry and Intact Jennings - cloudy urine Nutrition: Taking PO's Result Diagrams: 09/01/18 06:27 09/01/18 06:27 Additional Lab and Data: Lab Results 08/31/18 08/31/18 08/31/18 Range/Units 20:30 20:30 20:30 WBC 13.8 H (3.5-10.8) 10^3/uL RBC 4.49 (4.18-5.48) 10^6 /uL Hgb 13.5 L (14.0-18.0) g/dL Hct 40 (36-46) % MCV 88 (80-94) fL MCH 30 (27-31) pg MCHC 34 (31-36) g/dL RDW 14 (10.5-15) % Plt Count 177 (150-450) 10^3/uL MPV 8.2 (7.4-10.4) fL Neut % (Auto) 87.7 % Lymph % (Auto) 4.9 % [place] % (Auto) 7.0 % Eos % (Auto) 0 % Baso % (Auto) 0.4 % Absolute Neuts (auto) 12.1 H (1.5-7.7) 10^3/ul Absolute Lymphs (auto) 0.7 L (1.0-4.8) 10^3/ul Absolute Monos (auto) 1.0 H (0-0.8) 10^3/ul Absolute Eos (auto) 0 (0-0.6) 10^3/ul Absolute Basos (auto) 0 (0-0.2) 10^3/ul Absolute Nucleated RBC 0 10^3/ul Nucleated RBC % 0 Sodium 135 (135-145) mmol/L Potassium 3.8 (3.5-5.0) mmol/L Chloride 101 (101-111) mmol/L Carbon Dioxide 25 (22-32) mmol/L Anion Gap 9 (2-11) mmol/L BUN 18 (6-24) mg/dL Creatinine 0.85 (0.67-1.17) mg/dL Est GFR ( Amer) 103.7 (>60) Est GFR (Non-Af Amer) 85.7 (>60) BUN/Creatinine Ratio 21.2 H (8-20) Glucose 155 H (70-100) mg/dL Lactic Acid 1.6 (0.5-2.0) mmol/L Calcium 9.6 (8.6-10.3) mg/dL Total Bilirubin 1.00 (0.2-1.0) mg/dL AST 12 L (13-39) U/L ALT 12 (7-52) U/L Alkaline Phosphatase 83 (34-104) U/L Troponin I 0.01 (<0.04) ng/mL Total Protein 7.3 (6.4-8.9) g/dL Albumin 4.1 (3.2-5.2) g/dL Globulin 3.2 (2-4) g/dL Albumin/Globulin Ratio 1.3 (1-3) TSH 0.52 (0.34-5.60) mcIU/mL Assess/Plan/Problems-Billing Assessment: This is an 87 year old man with history of BPH and frequent UTIs that was admitted with AMS and UTI, now with acute retention. - Patient Problems (1) UTI (urinary tract infection) Comment: - Recent hx of UTI with bacteremia, mild leukocytosis this admission - continue ceftriaxone - Follow cultures - Recurrent likely 2/2 BPH/retention (2) Acute urinary retention Code(s): R33.8 - OTHER RETENTION OF URINE SNOMED Code(s): 710203998 Comment: - Increased PVRs throughout the night - Jennings placed with coude, difficult insertion - Sediment noted in jennings bag, continue to monitor output (3) BPH (benign prostatic hyperplasia) Code(s): N40.0 - BENIGN PROSTATIC HYPERPLASIA WITHOUT LOWER URINRY TRACT SYMP SNOMED Code(s): 704494227 Comment: - Will start flomax - Sees urology outpatient (4) Altered mental state Code(s): R41.82 - ALTERED MENTAL STATUS, UNSPECIFIED SNOMED Code(s): 841753616 Comment: - Improved today with IVF and antibiotics - No sepsis noted (5) Cognitive impairment Code(s): R41.89 - OTH SYMPTOMS AND SIGNS W COGNITIVE FUNCTIONS AND AWARENESS SNOMED Code(s): 167384454 Comment: - Appears appropriate and at baseline (6) DVT prophylaxis Code(s): LMR9205 - SNOMED Code(s): 835799731 Comment: - HSQ (7) DNR (do not resuscitate) Status and Disposition: Inpatient, continue IV atbx
[2018-09-01] MEDS: cefTRIAXone(*) 1 GM in NS 0.9% 50 ML* 50 ML IVPB SCH (22:36)
[2018-09-01] MEDS: Tamsulosin CAP* 0.4 MG PO SCH (22:40)
[2018-09-01] MEDS: Atorvastatin* 40 MG TAB PO SCH (22:40)
[2018-09-02] MEDS: Heparin VIAL(*) 5000 UNITS/ML VIAL (FIVE THOUSAND) SUBCUT SCH ×3 (05:34→21:10)
[2018-09-02] MEDS: Clopidogrel TAB* 75 MG PO SCH (08:33)
[2018-09-02] MEDS: Lactated Ringers 1000 ML Bag* 1,000 ML IV SCH (09:17)
--- NOTE | 2018-09-02 18:43 | PN ---
Subjective Date of Service: 09/02/18 Interval History: Patient seen and examined. Feeling much improved. States he has some mild abdominal pain, but denies fevers or chills. States he feels more "clear headed " and knows he was feeling confused when he was first admitted. Offers no further complaints. Discussion with Trinity, patient's significant other at bedside regarding POC. Objective Active Medications: Acetaminophen (Tylenol Tab*) 650 mg PO Q4H PRN PRN Reason: FEVER/PAIN Last Admin: 09/01/18 11:02 Dose: 650 mg Al Hydrox/Mg Hydrox/Simethicone (Maalox Plus*) 30 ml PO Q6H PRN PRN Reason: INDIGESTION Atorvastatin Calcium (Lipitor*) 40 mg PO 2100 [facility] Last Admin: 09/01/18 22:40 Dose: 40 mg Clopidogrel Bisulfate (Plavix Tab*) 75 mg PO DAILY [facility] Last Admin: 09/02/18 08:33 Dose: 75 mg Docusate Sodium (Colace Cap*) 100 mg PO BID PRN PRN Reason: CONSTIPATION Heparin Sodium (Porcine) (Heparin Vial(*)) 5,000 units SUBCUT Q8HR [facility] Last Admin: 09/02/18 13:26 Dose: 5,000 units Ceftriaxone Sodium 1 gm/ (Sodium Chloride) 50 mls @ 200 mls/hr IVPB Q24H [facility] Last Admin: 09/01/18 22:36 Dose: 200 mls/hr Ondansetron HCl (Zofran Inj*) 4 mg IV Q4H PRN PRN Reason: NAUSEA/VOMITING Senna (Senokot Tab*) 1 tab PO BID PRN PRN Reason: CONSTIPATION Tamsulosin HCl (Flomax Cap*) 0.4 mg PO BEDTIME [facility] Last Admin: 09/01/18 22:40 Dose: 0.4 mg Vital Signs - 8 hr 09/02/18 09/02/18 09/02/18 11:10 15:00 15:15 Temperature 98.3 F 98.6 F 98.1 F Pulse Rate 66 66 66 Respiratory 18 20 18 Rate Blood Pressure 139/68 138/71 138/75 (mmHg) O2 Sat by Pulse 97 96 96 Oximetry 09/02/18 17:07 Temperature Pulse Rate Respiratory Rate Blood Pressure (mmHg) O2 Sat by Pulse 95 Oximetry Oxygen Devices in Use Now: None Appearance: alert, NAD Eyes: No Scleral Icterus, PERRLA Ears/Nose/Mouth/Throat: NL Teeth, Lips, Gums, Mucous Membranes Moist Neck: NL Appearance and Movements; NL JVP, Trachea Midline Respiratory: Symmetrical Chest Expansion and Respiratory Effort, Clear to Auscultation Cardiovascular: NL Sounds; No Murmurs; No JVD, RRR, No Edema Abdominal: - - normal BS, mild suprapubic tenderness Extremities: No Edema, No Clubbing, Cyanosis Skin: No Rash or Ulcers Neurological: Alert and Oriented x 3, NL Sensation, NL Gait Lines/Tubes/Other Access: Clean, Dry and Intact Jennings Nutrition: Taking PO's Result Diagrams: 09/01/18 06:27 09/01/18 06:27 Additional Lab and Data: Lab Results 08/31/18 08/31/18 08/31/18 Range/Units 20:30 20:30 20:30 WBC 13.8 H (3.5-10.8) 10^3/uL RBC 4.49 (4.18-5.48) 10^6 /uL Hgb 13.5 L (14.0-18.0) g/dL Hct 40 (36-46) % MCV 88 (80-94) fL MCH 30 (27-31) pg MCHC 34 (31-36) g/dL RDW 14 (10.5-15) % Plt Count 177 (150-450) 10^3/uL MPV 8.2 (7.4-10.4) fL Neut % (Auto) 87.7 % Lymph % (Auto) 4.9 % Robertson % (Auto) 7.0 % Eos % (Auto) 0 % Baso % (Auto) 0.4 % Absolute Neuts (auto) 12.1 H (1.5-7.7) 10^3/ul Absolute Lymphs (auto) 0.7 L (1.0-4.8) 10^3/ul Absolute Monos (auto) 1.0 H (0-0.8) 10^3/ul Absolute Eos (auto) 0 (0-0.6) 10^3/ul Absolute Basos (auto) 0 (0-0.2) 10^3/ul Absolute Nucleated RBC 0 10^3/ul Nucleated RBC % 0 Sodium 135 (135-145) mmol/L Potassium 3.8 (3.5-5.0) mmol/L Chloride 101 (101-111) mmol/L Carbon Dioxide 25 (22-32) mmol/L Anion Gap 9 (2-11) mmol/L BUN 18 (6-24) mg/dL Creatinine 0.85 (0.67-1.17) mg/dL Est GFR ( Amer) 103.7 (>60) Est GFR (Non-Af Amer) 85.7 (>60) BUN/Creatinine Ratio 21.2 H (8-20) Glucose 155 H (70-100) mg/dL Lactic Acid 1.6 (0.5-2.0) mmol/L Calcium 9.6 (8.6-10.3) mg/dL Total Bilirubin 1.00 (0.2-1.0) mg/dL AST 12 L (13-39) U/L ALT 12 (7-52) U/L Alkaline Phosphatase 83 (34-104) U/L Troponin I 0.01 (<0.04) ng/mL Total Protein 7.3 (6.4-8.9) g/dL Albumin 4.1 (3.2-5.2) g/dL Globulin 3.2 (2-4) g/dL Albumin/Globulin Ratio 1.3 (1-3) TSH 0.52 (0.34-5.60) mcIU/mL Microbiology and Other Data: Microbiology 08/31/18 22:25 Urine Culture - Preliminary Urine Escherichia Coli 08/31/18 23:30 Aerobic Blood Culture - Preliminary Blood Venous No Growth Day 1 Anaerobic Blood Culture - Preliminary No Growth Day 1 08/31/18 23:00 Aerobic Blood Culture - Preliminary Blood Venous No Growth Day 1 Anaerobic Blood Culture - Preliminary No Growth Day 1 Assess/Plan/Problems-Billing Assessment: This is an 87 year old man with history of BPH and frequent UTIs that was admitted with AMS and UTI, now with acute retention. - Patient Problems (1) UTI (urinary tract infection) Comment: - Recent hx of UTI with bacteremia, mild leukocytosis this admission - continue ceftriaxone - Culture with eColi in urine - Recurrent likely 2/2 BPH/retention - Will need jennings at discharge and close follow up with urology for BPH evaluation and treatment (2) Acute urinary retention Code(s): R33.8 - OTHER RETENTION OF URINE SNOMED Code(s): 161361372 Comment: - Increased PVRs at admission - Jennings placed with coude, difficult insertion - Sediment noted in jennings bag initially, urine clearing last 24 hours (3) BPH (benign prostatic hyperplasia) Code(s): N40.0 - BENIGN PROSTATIC HYPERPLASIA WITHOUT LOWER URINRY TRACT SYMP SNOMED Code(s): 807998030 Comment: - Continue flomax - Sees urology outpatient (4) Altered mental state Code(s): R41.82 - ALTERED MENTAL STATUS, UNSPECIFIED SNOMED Code(s): 738986059 Comment: - Mentation back to baseline - No sepsis noted (5) Cognitive impairment Code(s): R41.89 - OTH SYMPTOMS AND SIGNS W COGNITIVE FUNCTIONS AND AWARENESS SNOMED Code(s): 715553944 Comment: - Appears appropriate and at baseline (6) DVT prophylaxis Code(s): ALJ0202 - SNOMED Code(s): 065922983 Comment: - HSQ (7) DNR (do not resuscitate) Status and Disposition: Inpatient, last dose ceftriaxone at 11pm tonight, will DC in AM with VNS referral.
[2018-09-02] MEDS: Tamsulosin CAP* 0.4 MG PO SCH (21:10)
[2018-09-02] MEDS: Atorvastatin* 40 MG TAB PO SCH (21:10)
[2018-09-02] MEDS: cefTRIAXone(*) 1 GM in NS 0.9% 50 ML* 50 ML IVPB SCH (23:03)
[2018-09-03 01:11] VITALS: BP 152/81
[2018-09-03] MEDS: Heparin VIAL(*) 5000 UNITS/ML VIAL (FIVE THOUSAND) SUBCUT SCH (05:27)
[2018-09-03] MEDS: Clopidogrel TAB* 75 MG PO SCH (08:29)
[2018-09-03] MEDS ORDERED: Finasteride TAB* 5 MG PO SCH (13:00)
[2018-09-03] MEDS ORDERED: ceFUROXime TAB(*) 250 MG PO SCH (21:00)
--- NOTE | 2018-09-04 00:38 | DS ---
CC: Dr. Shravan Turcios; Dr. Muir; Dr. Miguel Hemphill* DISCHARGE SUMMARY: DATE OF ADMISSION: 08/31/18 DATE OF DISCHARGE: 09/03/18 PRIMARY CARE PROVIDER: Dr. Martir Muir. ATTENDING PHYSICIAN: Dr. Shravan Turcios* (dictated by Javon Vasquez NP ). HOSPITAL COURSE: Please refer to admitting H and P on 08/31/18, but in short, this is an 87-year-old male with past medical history of some baseline dementia and BPH with a recent admission for UTI and bacteremia that presented to the emergency department from his home with his significant other with complaint of altered mental status. The patient ruled in for recurring UTI, also in the setting of exacerbated altered mental status. The patient seemed to be retaining urine. We were recording postvoid residuals after the patient was admitted and he was in fact retaining urine. He was given ceftriaxone in the emergency department. He was bolused with normal saline. He also had some vomiting and recent bacteremia. His UTI from previous admission was with E. coli. Pending additional cultures, we continued to treat him with ceftriaxone. His urine cultures also revealed E. coli this time with sensitivity to ceftriaxone, for which we continued to treat him. Of significant note, the morning after admission, his PVRs were greater than 500. We instructed the nursing staff to place a Ulloa catheter. However, they were not able to place one initially. The patient did require local topical anesthesia with lidocaine jelly and Coude for Ulloa placement. The patient does have a history of BPH which was known from his previous admission. At that point, I placed the patient on Flomax. He did have some sediment noted in his urine, it was cloudy in nature. After approximately 24 hours, decompression with Ulloa catheter, his urine output did appear to have some clearance and less sediment and was flowing clearly. I did reach out to Dr. Hemphill of Urology today, the day of discharge, to advise about the patient's condition. He will be following up on an outpatient basis to determine what his plan of care will be for his BPH. Dr. Hemphill also recommended that the patient be placed on finasteride. He did receive the first dose of finasteride today of 5 mg prior to being discharged. Ulloa bag was changed to a leg bag. Family members present and significant other received leg bag teaching. Referral for VNS was also made. On the day of discharge, the patient denied any fever, fatigue, or chills. He did have some abdominal pain earlier in the admission, which had resolved. He denied any further constitutional complaints. He does have some baseline dementia. However , he is currently at his baseline and denied any further changes in his own condition. PHYSICAL EXAMINATION: Reveals a well-appearing elderly gentleman, in no acute distress. His vital signs are, blood pressure 152/81, heart rate 61, respiratory rate 18, O2 saturation 96% on room air with a temperature of 98.1. HEENT: The patient is atraumatic, normocephalic. PERRLA. Nonicteric sclerae. Oral mucosa is moist. Tongue is midline. Dentition is intact. Neck: Supple. Nontender. No JVD noted. No carotid bruits auscultated. Lungs are clear bilaterally to auscultation with no wheezing, rhonchi, or rales. Cardiovascular: S1, S2 present. Rate and rhythm are regular. No murmurs, gallops, or rubs noted. Abdomen is soft, nontender, nondistended. Positive bowel sounds in all 4 quadrants. : His Ulloa catheter 16-[place] Coude draining clear yellow urine. No clots or sediment noted in his Ulloa bag. Musculoskeletal: There is no clubbing, no cyanosis, no edema. He has +2 distal pulses palpable. Full range of motion. Gross motor and sensation are intact. He has a steady gait with minimal assistance. Neurologic: He is confused at baseline. However, he can make his needs known. His behavior is appropriate, although he can be impulsive at times. He is otherwise neurologically grossly intact. Psychiatric: Cooperative and appropriate. DIAGNOSTIC STUDIES/LAB DATA: WBCs 11.0, RBCs 4.13, hemoglobin 12.4, hematocrit 36, platelets 164. Sodium 137, potassium 3.5, chloride 102, BUN 16, creatinine 0.85, GFR 85.7, glucose 116, lactic acid 1.6, calcium 9.2. LFTs within normal range. Troponin negative. TSH 0.52. Urinalysis showed yellow cloudy urine, pH 5.0, specific gravity 1.018, 1+ protein, trace ketones, 2+ blood, negative for nitrites and bilirubin, 2+ leukocyte esterase, 3+ wbc's, 2+ rbc's, 1+ bacteria. Microbiology shows E. coli of greater than 100,000 colonies. Blood cultures were negative. Imaging: No imaging was done. EKG on 08/31/18 shows regular sinus rhythm with an incomplete right bundle- branch block. DISCHARGE DIAGNOSES: 1. Altered mental status secondary to urinary tract infection. 2. Escherichia coli urinary tract infection. 3. Acute urinary retention secondary to benign prostatic hypertrophy. 4. Benign prostatic hypertrophy. 5. Cognitive impairment and mild dementia at baseline. DISCHARGE MEDICATIONS: Include: 1. Aspirin 325 mg p.o. daily. 2. Protonix 40 mg daily. 3. Lorazepam 1 mg 2 times a day as needed. 4. Zofran 4 mg p.o. q.8 hours as needed. 5. Vitamin B12 a 1000 mcg daily. 6. Plavix 75 mg daily. 7. Atorvastatin 40 mg daily. 8. Flomax 0.4 mg in the evening. 9. Finasteride 5 mg p.o. daily. 10. Cefuroxime 500 mg p.o. b.i.d. x6 more days. FOLLOWUP: The patient is instructed to follow up with his primary care provider in the next 4 to 7 days. He is also instructed to follow up with Dr. Miguel Hemphill within the next week. DISPOSITION: The patient was discharged home in the care of his significant other in stable condition. TIME SPENT: Approximately 45 minutes developing discharge plan of care and in consultation with the patient's family on this discharge plan. JAVON VASQUEZ NP [id number]/[facility] #: [id number]
== END 2018-09-03 13:00 | disposition home health service (06) | DRG 690 ==
LOC: ED 17:17 → MEDTELE 09-01 00:16
PROVIDERS: ADMIT Pediatrics; ATTEND Internal Medicine
PROC: 0T9B70Z Drainage of Bladder with Drainage Device, Via Natural or Artificial Opening (ICD-10-PCS; principal; 2018-09-01)
DX: N39.0 Urinary tract infection, site not specified (principal); B96.20 Unspecified Escherichia coli [E. coli] as the cause of diseases classified elsewhere; F03.90 Unspecified dementia, unspecified severity, without behavioral disturbance, psychotic disturbance, mood disturbance, and anxiety; F41.9 Anxiety disorder, unspecified; F32.9 Major depressive disorder, single episode, unspecified; N40.1 Benign prostatic hyperplasia with lower urinary tract symptoms; Z66 Do not resuscitate; R33.8 Other retention of urine; I45.10 Unspecified right bundle-branch block; Z79.82 Long term (current) use of aspirin; Z86.73 Personal history of transient ischemic attack (TIA), and cerebral infarction without residual deficits; Z83.3 Family history of diabetes mellitus; Z79.02 Long term (current) use of antithrombotics/antiplatelets
CPT/HCPCS: 36415; 80048; 80053; 81003; 81015; 83605; 84443; 84484; 85025; 87040; 87077; 87086; 87186; 93005; 99284; A9270-GY; G8978-GP-CK; G8979-GP-CI; J0696; J1644

== ENCOUNTER 2018-09-06 14:54 | Emergency (ER) | payer MEDICARE ==
--- OUTSIDE RECORDS SUMMARY | 2018-09-06 15:12 | XMS REPORT | Continuity of Care Document ---
:1930 External Reference #:[id number] Author Name Martir Muir M.D. Address [address] [facility] [address] [place] [address] Care Team Providers Name Role Phone HCP given Primary Care Physician Unavailable Payers Date Identification Numbers Payment Provider Subscriber Effective: 2012 Policy Number: [id number] [facility] Medicare Ppo Homer Carrillo Group Number: [id number] [address] PayID: [id number] DianeHOMERO islas [id number] Advance Directives Description No Information Available Problems Active Problems Provider Date Impaired fasting glycaemia Martir Muir M.D. Onset: 09/07/2012 Family History Date Family Member(s) Observation Comments General Had 3 brothers, all , one from Alzheimer's Dz at age 75, one from cancer (?head and neck) at age 65, one while in the service : (age 66 Father due to [place] no known CAD preceeding Years) this : (age 79 Mother due to [place] Years) Number of Children None Number of Siblings Siblings: 3 Social History Type Date Description Comments Sex Unknown Education Highest level completed, 11th grade Marital Status Marital Status Significant Other GF of 6yrs as of 09/24/15 (not sexually active) Work Status 04/28/2018 Not Currently 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 Tablets Clopidogrel 1 tablet by mouth 90tabs Martir Muir, 04/17/2018 Bisulfate daily; for stroke M.D. 75mg prevention Tablets Atorvastatin Calcium 1 tablet by mouth 90tabs Martir Muir, 04/17/2018 every evening M.D. 40mg Tablets History Medications Cefdinir 1 capsule by mouth 20caps Unknown 07/19/2018 - 300mg twice daily x 10 07/29/2018 Capsules days Pantoprazole Sodium 1 tablet by mouth 30tabs Unknown 04/17/2018 - daily 07/21/2018 40mg Tablets Aspirin take 1 tablet (325 90tabs Isadora, 04/17/2018 - 325mg Tablets mg total) by mouth Jorge Mcmahan 08/31/2018 daily for stroke prevention Vitamin B12 2 tablets daily Unknown 04/17/2018 - 500mcg 05/25/2018 Lorazepam Take 1 Tablet By Unknown 03/26/2018 - 1mg Tablets Mouth Three Times 07/21/2018 Daily as Needed For Anxiety - Maximum Daily Dose Of 3 Per Day Aspirin-Dipyridamole 1 pill twice daily 180caps I67.9 [place], 03/12/2018 - ER for stroke Jorge Mcmahan 04/17/2018 25-200mg Caps ER prevention 12HR Z86.73 Diclofenac Sodium take one by mouth 30tabs M25.561 Martir Muir 2017 - ER up to once/day, Jorge 04/27/2018 100mg Tablets ER as needed, for 24HR right knee and lower leg pain; take with food M17.11 Shingrix administer 2 doses 2units Z23 Isadora, 07/28/2017 - 50mcg as directed, per Jorge Mcmahan 10/26/2017 Suspension Rec cdc guidelines Diclofenac Sodium take one by mouth 30tabs M25.561 Isadora, 06/30/2017 - ER daily for right Jorge Mcmahan 07/28/2017 100mg Tablets ER knee and lower leg 24HR pain Diclofenac Sodium take one by mouth 30tabs M25.561 Isadora, 12/24/2016 - ER up to once a day Jorge Mcmahan 06/29/2017 100mg Tablets ER as Needed for 24HR right knee pain Ondansetron as needed for 10tabs Unknown 06/13/2015 - 4mg nausea 06/13/2015 Tablets Dispers Fluticasone 2 sprays into each 16units 465.9 Isadora, 09/19/2014 - Propionate nostril once daily Jorge Mcmahan 10/19/2014 for nasal 50mcg/Act congestion/post Suspension nasal drip. Stop when feeling well again PT For L please evaluate 719.45 Isadora 12/09/2013 - Hip/Buttock Pain and treatMartir M.D. 09/18/2014 And L Knee Pain instruct in hep, modalities prn (Recent Knee Xrays showed mod OA) 719.46 Aleve 2 by mouth twice Martir Muir, 12/09/2013 - 220mg Tablets a day as needed M.D. 06/15/2015 for pain Oxycodone-Acetaminoph 1 tablet po two 20tabs Unknown 12/03/2013 - en times daily prn 12/09/2013 5-325mg Tablets Naproxen 1 tablet po two 14tabs Unknown 12/03/2013 - 500mg Tablets times daily 12/09/2013 Orphenadrine Citrate 1 by mouth twice 719.45 Unknown 12/03/2013 - ER a day as needed 12/09/2013 100mg Tablets ER for muscle pain 12HR Lorazepam 1 tab by mouth G47.00 [facility] 09/06/2013 - 1mg Tablets two times a day Mental Health 04/27/2018 every 8 hours for anxiety and sleep F41.9 Aggrenox 1 pill twice daily 180caps Martir Muir, 03/11/2011 - 25-200mg for stroke M.D. 03/12/2018 Caps ER 12HR prevention Lorazepam 1 po qhs 780.52 Unknown 11/29/2009 - 1mg 09/06/2013 Immunizations CPT Code Status Date Vaccine Lot # [id number] Given 02/24/2018 Shingrix Zoster (Shingles) Vaccine (HZV) Recomb,Subnit,Adjuvanted 56764 Given 02/24/2018 Influenza Vaccine Split Virus Preservative Free Im Use 89059 Given 10/09/2017 Shingrix Zoster (Shingles) Vaccine (HZV) Recomb,Subnit,Adjuvanted 54717 Given 06/16/2017 Prevnar 13 10663 Given 12/24/2016 Influenza Vaccine Split Virus Preservative Free Im [id number] Use 34613 Given 02/06/2016 Influenza Virus Vaccine, Quadrivalent, Split, [id number] Preservative Free 77672 Given 09/19/2014 Adacel or Boostrix, TDaP [id number] 58266 Given 09/19/2014 Prevnar 13 [id number] 28820 Given 03/15/2013 Flu, Split Virus 3Yrs 12930 Given 08/16/2010 Zostavax [id number] 72325 Given 08/16/2010 Pneumococcal Immunization [id number] 30474 Given 03/04/2010 Flu, Split Virus 3Yrs [id number] 96502 Given 11/30/2009 Td Immunization [id number] Vital Signs Date Vital Result Comment 08/31/2018 4:00pm BP Systolic 122 mmHg BP Diastolic 80 mmHg Heart Rate 76 /min reg Respiratory Rate 12 /min not laboured Body Temperature 98.3 F 07/22/2018 1:56pm BP Systolic 130 mmHg BP Diastolic 78 mmHg Body Temperature 97.7 F Weight 169.00 lb 07/02/2018 10:23am BP Systolic 132 mmHg BP Diastolic 80 mmHg Weight 179.00 lb with shoes 04/28/2018 11:38am BP Systolic 140 mmHg BP Diastolic 72 mmHg Heart Rate 76 /min reg Height 68.50 inches 5'8.50" Weight 177.00 lb BMI (Body Mass Index) 26.5 kg/m2 09/25/2017 2:00pm BP Systolic 124 mmHg BP Diastolic 80 mmHg Heart Rate 74 /min reg Respiratory Rate 14 /min not laboured Height 68 inches 5'8" Weight 178.00 lb BMI (Body Mass Index) 27.1 kg/m2 07/28/2017 9:32am BP Systolic 138 mmHg BP Diastolic 82 mmHg Weight 174.00 lb 06/30/2017 10:53am BP Systolic 125 mmHg BP Diastolic 80 mmHg Weight 173.00 lb with shoes 03/09/2017 2:44pm BP Systolic 128 mmHg BP Diastolic 80 mmHg Weight 178.00 lb with shoes 12/29/2016 4:57pm BP Systolic 140 mmHg BP Diastolic 90 mmHg 12/24/2016 10:08am BP Systolic 124 mmHg BP Diastolic 76 mmHg Weight 178.00 lb 09/24/2016 9:52am BP Systolic 116 mmHg BP Diastolic 74 mmHg Heart Rate 70 /min reg Respiratory Rate 12 /min not laboured Height 68.5 inches 5'8.50" Weight 181.00 lb BMI (Body Mass Index) 27.1 kg/m2 02/06/2016 9:27am BP Systolic 120 mmHg BP Diastolic 80 mmHg Weight 180.00 lb 09/24/2015 1:58pm BP Systolic 114 mmHg BP Diastolic 70 mmHg Heart Rate 72 /min irreg (reg w/ pauses/skips) Respiratory Rate 16 /min not laboured Height 68.5 inches 5'8.50" Weight 180.00 lb BMI (Body Mass Index) 27.0 kg/m2 06/15/2015 9:11am BP Systolic 108 mmHg BP Diastolic 74 mmHg Body Temperature 97.6 F Height 68.50 inches 5'8.50" Weight 187.00 lb BMI (Body Mass Index) 28.0 kg/m2 09/19/2014 2:57pm BP Systolic 110 mmHg BP Diastolic 72 mmHg Heart Rate 70 /min reg Respiratory Rate 12 /min not laboured Height 68.75 inches 5'8.75" Weight 188.00 lb BMI (Body Mass Index) 28.0 kg/m2 12/09/2013 3:17pm BP Systolic 146 mmHg BP Diastolic 90 mmHg Weight 179.00 lb 09/07/2013 12:42pm BP Systolic 118 mmHg BP Diastolic 80 mmHg BP Systolic Recheck 120 mmHg R arm sitting BP Diastolic Recheck 84 mmHg R arm sitting Heart Rate 68 /min reg Respiratory Rate 14 /min not laboured Height 68.5 inches 5'8.50" Weight 186.00 lb BMI (Body Mass Index) 27.9 kg/m2 09/07/2012 2:35pm BP Systolic 118 mmHg BP Diastolic 78 mmHg Heart Rate 66 /min reg Respiratory Rate 12 /min not laboured Height 68.50 inches 5'8.50" Weight 195.00 lb BMI (Body Mass Index) 29.2 kg/m2 08/26/2011 4:07pm BP Systolic 120 mmHg BP Diastolic 78 mmHg Heart Rate 64 /min reg Respiratory Rate 12 /min not laboured Height 69 inches 5'9" Weight 202.00 lb BMI (Body Mass Index) 29.8 kg/m2 Last Menstrual Period 0 03/26/2011 1:18pm BP Systolic 108 mmHg BP Diastolic 70 mmHg 03/14/2011 5:00pm BP Systolic 124 mmHg BP Diastolic 80 mmHg Height 69 inches 5'9" Weight 194.00 lb BMI (Body Mass Index) 28.6 kg/m2 08/23/2010 1:20pm BP Systolic 150 mmHg BP Diastolic 94 mmHg 08/16/2010 11:35am BP Systolic 128 mmHg BP Diastolic 76 mmHg BP Systolic Recheck 140 mmHg R arm sitting BP Diastolic Recheck 76 mmHg R arm sitting Height 69 inches 5'9" Weight 198.00 lb BMI (Body Mass Index) 29.2 kg/m2 Last Menstrual Period 0 03/04/2010 11:21am BP Systolic 148 mmHg BP Diastolic 78 mmHg BP Systolic Recheck 138 mmHg BP Diastolic Recheck 80 mmHg Weight 200.00 lb 11/30/2009 4:08pm BP Systolic 150 mmHg BP Diastolic 86 mmHg BP Systolic Recheck 150 mmHg R arm sitting BP Diastolic Recheck 86 mmHg R arm sitting Heart Rate 64 /min reg Respiratory Rate 12 /min not laboured Height 68.5 inches 5'8.50" Weight 199.00 lb w/out shoes BMI (Body Mass Index) 29.8 kg/m2 Results Test Date Facility Test Result H/L Range Note Ua Inhouse 07/22/2018 In House [facility] Glucose - 1 Ua Bilirubin - Ua Ketones - Ua Specific [place] 1.005 Ua Blood - Ua PH 6.0 Ua Protein - Ua Urobilinogen - Ua Nitrite - Ua Leukocytes - Urine Culture And 07/22/2018 [facility] Urine Culture SEE RESULT 2 Sensitivities [phone] BELOW CBC Auto Diff 07/15/2018 [facility] White Blood 13.2 10^3/uL High 3.5 -10 [phone] Count .8 Red Blood Count 4.58 10^6/uL N 4.00-5.40 Hemoglobin 13.9 g/dL Low 14.0-18.0 Hematocrit 41 % Low 42-52 Mean Corpuscular Volume 90 fL N 80-94 Mean Corpuscular Hemoglobin 30 pg N 27-31 Mean Corpuscular HGB Conc 34 g/dL N 31-36 Red Cell Distribution Width 13 % N 10.5-15 Platelet Count 134 10^3/uL Low 150-450 Mean Platelet Volume 8.8 fL N 7.4-10.4 Abs Neutrophils 11.7 10^3/uL High 1.5-7.7 Abs Lymphocytes 0.7 10^3/uL Low 1.0-4.8 Abs Monocytes 0.8 10^3/uL N 0-0.8 Abs Eosinophils 0 10^3/uL N 0-0.6 Abs Basophils 0 10^3/uL N 0-0.2 Abs Nucleated RBC 0 10^3/uL Granulocyte % 88.5 % Lymphocyte % 5.0 % Monocyte % 6.4 % Eosinophil % 0 % Basophil % 0.1 % Nucleated Red Blood Cells % 0.2 Comp Metabolic Panel 07/15/2018 [facility] Sodium 138 mmol/L N 135- 145 [phone] Potassium 3.7 mmol/L N 3.5-5.0 Chloride 102 mmol/L N 101-111 Co2 Carbon Dioxide 29 mmol/L N 22-32 Anion Gap 7 mmol/L N 2-11 Glucose 122 mg/dL High 70-100 Blood Urea Nitrogen 21 mg/dL N 6-24 Creatinine 1.06 mg/dL N 0.67-1.17 BUN/Creatinine Ratio 19.8 N 8-20 Calcium 9.2 mg/dL N 8.6-10.3 Total Protein 7.1 g/dL N 6.4-8.9 Albumin 3.8 g/dL N 3.2-5.2 Globulin 3.3 g/dL N 2-4 Albumin/Globulin Ratio 1.2 N 1-3 Total Bilirubin 0.80 mg/dL N 0.2-1.0 Alkaline Phosphatase 62 U/L N 34-104 Alt 12 U/L N 7-52 Ast 22 U/L N 13-39 Egfr Non- 66.4 >60 Egfr 80.3 >60 3 Laboratory test finding 07/15/2018 [facility] Magnesium 2.2 mg/dL N 1.9-2.7 [phone] Amylase 24 U/L Low 29-103 Lipase 13 U/L N 11.0-82.0 Creatine Kinase(CK) 265 U/L High 10-223 C Reactive Protein 189.33 mg/L High <8.01 Troponin-I (TnI) 0.16 ng/mL High <0.04 4 Lactic Acid 1.8 mmol/L N 0.5-2.0 5 Inr/Protime 07/15/2018 [facility] Inr 1.01 N 0.77-1.02 [phone] Laboratory test 07/15/2018 [facility] Partial 26.5 seconds N 26.0- 36.3 finding [phone] Thrombo Time PTT B-Type Natriuretic Peptide BNP 85 pg/mL <=100 Ammonia 37 mcmol/L N 16-53 Urinalysis Profile 07/15/2018 [facility] Urine Color Laura [phone] Urine Appearance Cloudy Urine Specific [place] 1.021 N 1.010-1.030 Urine pH 5.0 N 5-9 Urine Urobilinogen Negative Negative Urine Ketones Negative Negative Urine Protein 1+(30 mg/dL) Abnormal Negative Urine Leukocytes 3+ Abnormal Negative Urine Blood 2+ Abnormal Negative Urine Nitrite Positive Abnormal Negative Urine Bilirubin Negative Negative Urine Glucose Negative Negative Urine White Blood Cell 3+(>20/hpf) Abnormal Absent Urine Red Blood Cell 3+(>10/hpf) Abnormal Absent Urine Bacteria 3+ Abnormal Absent Urine Culture And 07/15/2018 [facility] Urine Culture SEE RESULT 6 Sensitivities [phone] BELOW CBC Auto Diff 07/02/2018 [facility] White Blood 8.6 10^3/uL N 3.5- 10. [phone] Count 8 Red Blood Count 4.67 10^6/uL N 4.00-5.40 Hemoglobin 14.2 g/dL N 14.0-18.0 Hematocrit 42 % N 42-52 Mean Corpuscular Volume 90 fL N 80-94 Mean Corpuscular Hemoglobin 30 pg N 27-31 Mean Corpuscular HGB Conc 34 g/dL N 31-36 Red Cell Distribution Width 13 % N 10.5-15 Platelet Count 175 10^3/uL N 150-450 Mean Platelet Volume 8.9 fL N 7.4-10.4 Abs Neutrophils 7.1 10^3/uL N 1.5-7.7 Abs Lymphocytes 1.0 10^3/uL N 1.0-4.8 Abs Monocytes 0.4 10^3/uL N 0-0.8 Abs Eosinophils 0 10^3/uL N 0-0.6 Abs Basophils 0 10^3/uL N 0-0.2 Abs Nucleated RBC 0 10^3/uL Granulocyte % 83.1 % Lymphocyte % 12.0 % Monocyte % 4.4 % Eosinophil % 0.1 % Basophil % 0.4 % Nucleated Red Blood Cells % 0.1 Comp Metabolic Panel 07/02/2018 [facility] Sodium 135 mmol/L N 135- 145 [phone] Potassium 3.8 mmol/L N 3.5-5.0 Chloride 102 mmol/L N 101-111 Co2 Carbon Dioxide 22 mmol/L N 22-32 Anion Gap 11 mmol/L N 2-11 Glucose 160 mg/dL High 70-100 Blood Urea Nitrogen 17 mg/dL N 6-24 Creatinine 0.80 mg/dL N 0.67-1.17 BUN/Creatinine Ratio 21.3 High 8-20 Calcium 9.3 mg/dL N 8.6-10.3 Total Protein 7.2 g/dL N 6.4-8.9 Albumin 4.3 g/dL N 3.2-5.2 Globulin 2.9 g/dL N 2-4 Albumin/Globulin Ratio 1.5 N 1-3 Total Bilirubin 0.90 mg/dL N 0.2-1.0 Alkaline Phosphatase 65 U/L N 34-104 Alt 16 U/L N 7-52 Ast 18 U/L N 13-39 Egfr Non- 91.9 >60 Egfr 111.2 >60 7 Laboratory test finding 07/02/2018 [facility] Lipase 13 U/L N 11.0- 82.0 [phone] C Reactive Protein < 1.00 mg/L N <8.01 Lactic Acid 2.1 mmol/L High 0.5-2.0 8 Ua Inhouse 07/02/2018 In House Ua Specific [place] 1.025 Ua Blood hemolyzed trace Ua PH 6.0 CBC Auto Diff 07/02/2018 [facility] White Blood Count 8.3 10^3/uL N 3.5-10.8 [phone] Red Blood Count 4.88 10^6/uL N 4.00-5.40 Hemoglobin 15.0 g/dL N 14.0-18.0 Hematocrit 44 % N 42-52 Mean Corpuscular Volume 90 fL N 80-94 Mean Corpuscular Hemoglobin 31 pg N 27-31 Mean Corpuscular HGB Conc 34 g/dL N 31-36 Red Cell Distribution Width 13 % N 10.5-15 Platelet Count 182 10^3/uL N 150-450 Mean Platelet Volume 8.7 fL N 7.4-10.4 Abs Neutrophils 7.1 10^3/uL N 1.5-7.7 Abs Lymphocytes 0.7 10^3/uL Low 1.0-4.8 Abs Monocytes 0.4 10^3/uL N 0-0.8 Abs Eosinophils 0 10^3/uL N 0-0.6 Abs Basophils 0 10^3/uL N 0-0.2 Abs Nucleated RBC 0 10^3/uL Granulocyte % 85.8 % Lymphocyte % 8.5 % Monocyte % 5.3 % Eosinophil % 0.2 % Basophil % 0.2 % Nucleated Red Blood Cells % 0 Comp Metabolic Panel 07/02/2018 [facility] Sodium 138 mmol/L N 135- 145 [phone] Potassium 4.4 mmol/L N 3.5-5.0 Chloride 103 mmol/L N 101-111 Co2 Carbon Dioxide 27 mmol/L N 22-32 Anion Gap 8 mmol/L N 2-11 Glucose 129 mg/dL High 70-100 Blood Urea Nitrogen 15 mg/dL N 6-24 Creatinine 0.82 mg/dL N 0.67-1.17 BUN/Creatinine Ratio 18.3 N 8-20 Calcium 9.6 mg/dL N 8.6-10.3 Total Protein 7.4 g/dL N 6.4-8.9 Albumin 4.6 g/dL N 3.2-5.2 Globulin 2.8 g/dL N 2-4 Albumin/Globulin Ratio 1.6 N 1-3 Total Bilirubin 0.90 mg/dL N 0.2-1.0 Alkaline Phosphatase 72 U/L N 34-104 Alt 18 U/L N 7-52 Ast 17 U/L N 13-39 Egfr Non- 89.3 >60 Egfr 108.0 >60 9 Comp Metabolic Panel 04/15/2018 [facility] Sodium 137 mmol/L N 135- 145 [phone] Potassium 3.8 mmol/L N 3.5-5.0 Chloride 107 mmol/L N 101-111 Co2 Carbon Dioxide 24 mmol/L N 22-32 Anion Gap 6 mmol/L N 2-11 Glucose 134 mg/dL High 70-100 Blood Urea Nitrogen 18 mg/dL N 6-24 Creatinine 0.93 mg/dL N 0.67-1.17 BUN/Creatinine Ratio 19.4 N 8-20 Calcium 8.9 mg/dL N 8.6-10.3 Total Protein 6.2 g/dL Low 6.4-8.9 Albumin 3.7 g/dL N 3.2-5.2 Globulin 2.5 g/dL N 2-4 Albumin/Globulin Ratio 1.5 N 1-3 Total Bilirubin 0.70 mg/dL N 0.2-1.0 Alkaline Phosphatase 50 U/L N 34-104 Alt 11 U/L N 7-52 Ast 14 U/L N 13-39 Egfr Non- 77.2 >60 Egfr 93.4 >60 10 Laboratory test 04/15/2018 [facility] Point of 139 mg/dL High 70-100 11 finding [phone] Care Glucose Laboratory test 04/15/2018 [facility] TSH (Thyroid 0.69 N 0.34-5.60 12, 13 finding [phone] Stim Horm) mcIU/mL Free T4 (Free Thyroxine) 0.85 ng/dL N 0.61-1.12 14 Folic Acid (Folate) 16.85 ng/mL >3.99 15 Vitamin B12 210 pg/mL N 180-914 16 Laboratory test 04/15/2018 [facility] Partial 25.9 seconds Low 26.0- 36.3 finding [phone] Thrombo Time PTT Hemoglobin A1c (Glyco HGB) 5.8 % High 4.0-5.6 17 Inr/Protime 04/15/2018 [facility] Inr 1.03 High 0.77-1.02 [phone] CBC Auto Diff 04/15/2018 [facility] White Blood 6.6 10^3/uL N 3.5- 10.8 [phone] Count Red Blood Count 4.06 10^6/uL N 4.00-5.40 Hemoglobin 12.5 g/dL Low 14.0-18.0 Hematocrit 37 % Low 42-52 Mean Corpuscular Volume 91 fL N 80-94 Mean Corpuscular Hemoglobin 31 pg N 27-31 Mean Corpuscular HGB Conc 34 g/dL N 31-36 Red Cell Distribution Width 13 % N 10.5-15 Platelet Count 166 10^3/uL N 150-450 Mean Platelet Volume 8.6 fL N 7.4-10.4 Abs Neutrophils 5.3 10^3/uL N 1.5-7.7 Abs Lymphocytes 0.8 10^3/uL Low 1.0-4.8 Abs Monocytes 0.4 10^3/uL N 0-0.8 Abs Eosinophils 0.1 10^3/uL N 0-0.6 Abs Basophils 0 10^3/uL N 0-0.2 Abs Nucleated RBC 0 10^3/uL Granulocyte % 79.9 % Lymphocyte % 11.7 % Monocyte % 6.7 % Eosinophil % 1.1 % Basophil % 0.6 % Nucleated Red Blood Cells % 0.1 Laboratory test 04/15/2018 [facility] Troponin-I (TnI) 0.00 ng/mL < 0.04 18 finding [phone] Lactic Acid 1.4 mmol/L N 0.5-2.0 19 Lipid Profile (Trig/Chol/HDL) 04/15/2018 [facility] Triglycerides 82 mg /dL 20 [phone] Cholesterol 163 mg/dL 21 HDL Cholesterol 33.6 mg/dL 22 LDL Cholesterol 113 mg/dL 23 Laboratory test 09/25/2017 In [place] Hemoglobin A1c 5.6 finding Laboratory test 09/24/2016 In [place] Hemoglobin A1c 5.6 finding Laboratory test 06/15/2015 In House Hemoglobin A1c 5.9 finding Laboratory test 09/19/2014 In House Hemoglobin A1c 6.2 finding Laboratory test 09/07/2013 In House Hemoglobin A1c 5.6 finding Laboratory test 09/07/2012 In House Hemoglobin A1c 5.8 finding Surgical Pathology 10/15/2011 [facility] Surgical Pathology -- 24 [phone] --- <SEE NOTE> Urine Micro Inhouse 08/23/2010 In House Ua WBC - Ua RBC - Ua Casts - Ua Epi - Ua Other - Ua Glucose - Ua Bilirubin - Ua Ketones - Ua Specific [place] 1.030 Ua Blood - Ua PH 5.0 Ua Protein - Ua Urobilinogen - Ua Nitrite - Ua Leukocytes - Laboratory test finding 08/16/2010 In House Hemoglobin A1c 5.9 Urine Micro Inhouse 11/30/2009 In House Ua WBC 4-5 Ua RBC - Ua Casts - Ua Epi occ Ua Other - Ua Glucose - Ua Bilirubin - Ua Ketones - Ua Specific [place] 1.025 Ua Blood - Ua PH 5.0 Ua Protein - Ua Urobilinogen - Ua Nitrite - Ua Leukocytes - 1 void, clear, yellow 2 SEE RESULT BELOW Name: GERARDOHOMER Teagan : [address]: Lyly PACK Acct: [id number] Unit: [id number] AGE: 87 Location: [facility] Re07/22/18 SEX: M Status: REG REF SPEC: [id number] TAHIRA: 07/22/18-[address] [facility] [address]: Lyly PACK REQ: [id number] RECD: 07/22/18 STATUS: COMP _ SOURCE: URINE SPDESC: ORDERED: Urine Culture COMMENTS: [id number] Urine Source: Random Procedure Result Reported Site Urine Culture Final 07/23/18- 1606 ML Few Enterobacteriacae; possible contamination. * ML - Main Lab . END OF REPORT DEPARTMENT OF PATHOLOGY, [address] [place] [address] Lane Solomon M.D. Director [facility] # [id number] 3 Because ethnic data is not always readily [...] 15-29 5 Kidney failure <15 (or dialysis) 4 Result TnIDx:0.16 Called to [id number] at: 10:54:19 by:[id number] Read back by: [id number] Troponin-I testing on Plasma Separator Tubes (PST) has a known false positive rate of 0.20-0.40%. All positive troponins reflex immediate secondary confirmatory testing. 5 [facility] Severe Sepsis and Septic Shock Management Bundle Measure requires all lactic acids initially measuring >2.0 mmol/L be repeated. 6 SEE RESULT BELOW Name: ZOHAIBJONNYHOMER : [address]: Stacey Celestin MD Acct: [id number] Unit: [id number] AGE: 87 Location: [place] [address] Re07/16/18 SEX: M Status: ADM IN SPEC: [id number] TAHIRA: 07/15/[address] [facility] [address]: Cande Suarez MD REQ: [id number] RECD: 07/15/18 STATUS: BARNEY GODINEZ DR: Martir Muir MD _ SOURCE: URINE SPDESC: ORDERED: Urine Culture Procedure Result Reported Site Urine Culture Final 07/17/18- 1546 ML Organism 1 ESCHERICHIA COLI [place] Count >100,000 (Many) CFU/ML 1. ESCHERICHIA COLI M.I.C. RX --------- ------ Ampicillin >=32 R Cefazolin <=4 S Cefepime <=1 S Ceftriaxone <=1 S Ciprofloxacin <=0.25 S Gentamicin <=1 S Levofloxacin 1 S Meropenem <=0.25 S Nitrofurantoin <=16 S Tetracycline <=1 S Pipercillin/Tazobactam <=4 S Trimethoprim/Sulfamethoxazole <=20 S Amoxicillin/Clavulanic Acid 4 S Aztreonam <=1 S Contact the Microbiology Department for any additional antibiotic reporting. * ML - Main Lab . END OF REPORT DEPARTMENT OF PATHOLOGY, [address] [place] [address] Lane Solomon M.D. Director [facility] # [id number] 7 Because ethnic data is not always readily [...] 15-29 5 Kidney failure <15 (or dialysis) 8 Critical Result LACT:2.1 Called to [id number] at: 19:49:24 by:[id number] Read back by:[id number] [facility] Severe Sepsis and Septic Shock Management Bundle Measure requires all lactic acids initially measuring >2.0 mmol/L be repeated. 9 Because ethnic data is not always [...] 5 Kidney failure <15 (or dialysis) 10 Because ethnic data is not always readily [...] 15-29 5 Kidney failure <15 (or dialysis) 11 Dry Plasterer Helper: [id number] 12 Comment: please add labs on blood set from ER if possible 13 Comment: please add labs on blood set from ER if possible 14 Comment: please add labs on blood set from ER if possible 15 Comment: please add labs on blood set from ER if possible 16 Normal Range 180 to 914 Indeterminate Range 145 to 180 Deficient Range <145 17 Therapeutic target for the treatment of diabetes mellitus patients is <7% HBA1C, and in selective patients <6.0%. Please refer to [place] [employer] diabetic care guidelines for further information. 18 Troponin-I testing on Plasma Separator Tubes (PST) has a known false positive rate of 0.20-0.40%. All positive troponins reflex immediate secondary confirmatory testing. 19 [facility] Severe Sepsis and Septic Shock Management Bundle Measure requires all lactic acids initially measuring >2.0 mmol/L be repeated. 20 Desirable: <150 Borderline High: 150-199 High: 200-499 Very High: >500 21 Desirable: <200 Borderline High: 200-239 High: >239 22 Low: <40 Desirable: 40-60 High: >60 23 Desirable: <100 Near Optimal: 100-129 Borderline High: 130-159 High: 160-189 Very High: >189 24 ---- RUN DATE: 10/17/11 [facility] NMI LIVE PAGE 1 RUN TIME: 1046 Specimen Inquiry RUN USER: INTERFACE -- Name: HOMER CARRILLO Accdarleen#: [id number] Status: REG REF Re10/15/11 Age/Sex: 80/M Unit#: [id number] Location: [facility]. : [birth year] -- Specimen: [id number] Spec Date:10/15/11- Subm Dr: Ari Anthony MD Spec Type: SURGICAL P Received:10/15/11-1320 Copies to: Martir Muir MD SPECIMEN BIOPSY ILEOCECAL NODULE HISTORY POST-OP DIAGNOSIS: Colonoscopy to cecum. Internal hemorrhoids. Ileocecal polyp. CLINICAL INFORMATION: Routine screening. GROSS DESCRIPTION The specimen is received in formalin labelled Homer Carrillo, Biopsy Ileocecal Nodule, and consists of one fragment of yellow tissue measuring 0.2 x 0.2 x 0.1 cm. Submitted entirely, one cassette. DIAGNOSIS Ileocecal nodule, biopsy: Hyperplastic polyp. Signed Electronically by: NALINI SOMMER 10/17/11 1046 -- -- DEPARTMENT OF PATHOLOGY, [address] [place] [id number] [facility] Permit #[id number] M.D. Director Nalini Sommer M.D. Refrigerator Room Clerk Dir colmenaresor -- Procedures Date Code Description Status 07/02/2018 15000 X-Ray Abdomen 2 V Completed 02/07/2016 60626 ECG Monitor/Review & Interpretation, W/Visual Completed Superimpos Scan 02/06/2016 31437 ECG Monitor/Recording W/Scanning Completed 10/10/2011 96701337 Colonoscopy Completed 08/16/2010 91075 Destruction Premalignant Skin Lesions Completed 11/30/2009 32776 Electrocardiogram Complete Completed Encounters Type Date Location Provider Dx Diagnosis Office Visit 08/31/2018 3:00p Main Office Martir Muir M.D. 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 (TIA), and cereb infrc w/o resid deficits I67.9 Cerebrovascular disease, unspecified F41.9 Anxiety disorder, unspecified Z71.89 Other specified counseling M17.11 Unilateral primary osteoarthritis, right knee Office Visit 07/28/2017 9:30a Main Office Martir Muir M25.561 Pain in right M.D. knee M17.11 Unilateral primary osteoarthritis, right knee Z23 Encounter for immunization Z29.8 Encounter for other specified prophylactic measures Office Visit 06/30/2017 10:00a Main Office Martir Muir M25.561 Pain in right M.D. knee M17.11 Unilateral primary osteoarthritis, right knee Office Visit 03/09/2017 2:30p Main Office Martir Muir R55 Syncope and M.D. collapse Office Visit 12/29/2016 4:30p Main Office Martir Muir M25.561 Pain in right M.D. knee Office Visit 12/24/2016 10:30a Main Office Martir Muir M25.561 Pain in right M.D. knee Z23 Encounter for immunization Office Visit 02/06/2016 9:15a Main Office Martir Muir M.D. R53.83 Other fatigue R55 Syncope and collapse Z23 Encounter for immunization Z41.8 Encntr for oth proc for purpose oth than remedy health state I35.0 Nonrheumatic aortic (valve) stenosis Office Visit 06/15/2015 9:30a Main Office Martir Muir, R11.2 Nausea with M.D. vomiting, unspecified R73.9 Hyperglycemia, unspecified R73.01 Impaired fasting glucose Office Visit 09/19/2014 2:00p Main Office Martir Muir, 790.21 Impaired Fasting M.D. Glucose 300.00 Anxiety State Unspec V70.0 Examination General Medical Routine AT Health Care Facility 465.9 URI Upper Respiratory Infections Acute Unspec Sites v06.1 Hifvwhyqhq-Ohhfcii-Vftypvjo Combined (DTaP) v03.82 Streptococcus Pneumoniae Vaccination Spec Other V76.44 Screening For Malig Aldair Prostate v07.2 Prophylactic Immunotherapy Office Visit 12/09/2013 3:15p Main Office Martir Muir, 719.46 Pain Joint Lower M.D. Leg 719.45 Pain Joint Pelvic Region & Thigh Office Visit 09/07/2013 12:55p Main Office Martir Muir, 790.21 Impaired Fasting M.D. Glucose V70.0 Examination General Medical Routine AT [facility] Facility 780.52 Insomnia Unspecified 300.00 Anxiety State Unspec Office Visit 09/07/2012 2:00p Main Office Martir Muir, V70.0 Examination General M.D. Medical Routine AT [facility] 780.52 Insomnia Unspecified 790.21 Impaired Fasting Glucose V76.44 Screening For Malig Aldair Prostate Office Visit 08/26/2011 3:30p Main Office Martir Muir, V70.0 Examination General M.D. Medical Routine AT [facility] 780.52 Insomnia Unspecified 728.71 Fibromatosis Plantar Fascia V76.51 Special Screening For Malignant Neoplasms Colon V79.0 Screening Depression V77.91 Screening For Lipoid Disorders V76.44 Screening For Malig Aldair Prostate Office Visit 03/26/2011 1:15p Main Office Martir Muir, 386.10 Vertigo Peripheral M.D. Unspec Office Visit 08/23/2010 1:00p Main Office Martir Muir, 788.43 Nocturia M.D. Office Visit 08/16/2010 10:45a Main Office Martir Muir, 796.2 Blood Pressure M.D. Reading Elevated W/O Hypertension 726.10 Bursae & Tendon Disorders Shoulder Region Unspec 702.0 Actinic Keratosis 238.2 Neoplasm Uncertain Skin 790.21 Impaired Fasting Glucose V65.49 Counseling Other Spec V03.82 Streptococcus Pneumoniae Vaccination Spec Other V05.8 Single Disease Spec Other Vaccination & Inoculation Office Visit 03/04/2010 10:45a Main Office Martir Muir, 796.2 Blood Pressure M.D. Reading Elevated W/O Hypertension 785.2 Murmur Cardiac Undiagnosed 780.52 Insomnia Unspecified V04.81 Need For Prophylactic Vaccination & Inoculation/Influenza V07.2 Prophylactic Immunotherapy Office Visit 11/30/2009 3:30p Main Office Martir Muir, 780.52 Insomnia M.D. Unspecified 796.2 Blood Pressure Reading Elevated W/O Hypertension V76.51 Special Screening For Malignant Neoplasms Colon 785.2 Murmur Cardiac Undiagnosed V06.5 Tetanus Diphtheria (DT) V07.2 Prophylactic Immunotherapy Plan of Treatment Future Appointment(s):09/27/2018 2:00 pm - Martir Muir M.D. at Main [id number]/22/2018 - Lyly Rizo, PAN39.0 Urinary tract infection, site not specifiedComments:Repeat UA today was normal, will send for cx. Pt to finish all Abx, keep pushing fluids. Recheck if any sx recur.A41.51 Sepsis due to Escherichia coli [E. coli]Z86.73 Personal history of transient ischemic attack ( TIA), and cerI25.10 Atherosclerotic heart disease of [place] coronary artery with
[2018-09-06] MEDS ORDERED: NS 0.9% 1000 ML** 1,000 ML IV ONE (15:17)
--- NOTE | 2018-09-06 15:23 | ED ---
Shortness of Breath - HPI Summary HPI Summary: Patient is a 87 y/o M presenting to ED with chief complaint of SOB. He had been admitted to [facility] around a week ago for UTI and bacteremia. Today, patient was in Dr. Hemphill's office and had a Jennings catheter placed. While in the office, his o2 sats were noted to be in the low 80s on RA. In triage, patient was 93% on RA. Per Shabnamter decided to bring patient to ED. Fever, cough is denied. He is on antibiotics. - History of Current Complaint Chief Complaint: EDWeakness Time Seen by Provider: 09/06/18 15:11 - Allergy/Home Medications Allergies/Adverse Reactions: Allergies Allergy/AdvReac Type Severity Reaction Status Date / Time No Known Allergies Allergy Verified 09/06/18 15:01 PMH/Surg Hx/FS Hx/Imm Hx Endocrine/Hematology History: Denies: Hx Diabetes, Hx Thyroid Disease Cardiovascular History: Denies: Hx Hypertension, Hx Myocardial Infarction, Hx Pacemaker/ICD Respiratory History: Denies: Hx Asthma, Hx Chronic Obstructive Pulmonary Disease (COPD) GI History: Reports: Other GI Disorders - constipation, H pylori Denies: Hx Ulcer History: Reports: Other Problems/Disorders - urinary retention and jennings - needs coude Denies: Hx Renal Disease Sensory History: Denies: Hx Contacts or Glasses, Hx Hearing Aid Opthamlomology History: Denies: Hx Contacts or Glasses Neurological History: Reports: Hx CVA, Hx Dementia Psychiatric History: Reports: Hx Anxiety, Hx Depression Denies: Hx Panic Disorder - Surgical History Surgery Procedure, Year, and Place: IMGUINAL HERNIA - Immunization History Date of Tetanus Vaccine: Unk Date of Influenza Vaccine: Fall 2014 Infectious Disease History: No Infectious Disease History: Denies: Hx Clostridium Difficile, Hx Hepatitis, Hx Human Immunodeficiency Virus (HIV), Hx of Known/Suspected MRSA, Hx Shingles, Hx Tuberculosis, Traveled Outside the [place] in Last 30 Days - Family History Known Family History: Positive: Diabetes - Social History Alcohol Use: Rare Alcohol Amount: 1 glass wine/week Hx Substance Use: No Substance Use Type: Reports: None Hx Tobacco Use: No Smoking Status (MU): Never Smoked Tobacco Physical Exam Vital Signs On Initial Exam: Initial Vitals Temp Pulse Resp BP Pulse Ox 97.5 F 67 18 135/81 93 09/06/18 14:56 09/06/18 14:56 09/06/18 14:56 09/06/18 14:56 09/06/18 14:56 Diagnostics - Vital Signs Vital Signs Temp Pulse Resp BP Pulse Ox 09/06/18 14:56 97.5 F 67 18 135/81 93 - Laboratory Lab Statement: Any lab studies that have been ordered have been reviewed, and results considered in the medical decision making process. - EKG 1532 Cardiac Rate: NL - rate of 67 BPM EKG Rhythm: Sinus Rhythm Summary of EKG Findings: EKG showed sinus rhythm with rate of 67 BPM, no ST elevations. Discharge - Discharge Plan Referrals: Martir Muir MD [Primary Care Provider] - - Attestation Statements Document Initiated by Scribe: Yes
[2018-09-06 16:15] LABS: ABS Basophils 0 10^3/ul (0-0.2); ABS Eosinophils 0.1 10^3/ul (0-0.6); ABS Lymphocytes 0.6 10^3/ul (1.0-4.8); ABS Monocytes 0.6 10^3/ul (0-0.8); ABS Neutrophils 6.8 10^3/ul (1.5-7.7); ABS Nucleated RBC 0 10^3/ul; Eosinophil % 0.7 %; Hematocrit 40 % (36-46); Hemoglobin 13.4 g/dL (14.0-18.0); Lymphocyte % 7.9 %; Mean Corpuscular HGB Conc 34 g/dL (31-36); Mean Corpuscular Hemoglobin 30 pg (27-31); Mean Corpuscular Volume 88 fL (80-94); Mean Platelet Volume 7.9 fL (7.4-10.4); Nucleated Red Blood Cells % 0; Platelet Count 188 10^3/uL (150-450); Red Cell Distribution Width 14 % (10.5-15); White Blood Count 8.1 10^3/uL (3.5-10.8)
[2018-09-06 16:23] LABS: Activated Partial Thrombo Time 22.5 seconds (26.0-36.3); INR 1.15 (0.82-1.09)
--- NOTE | 2018-09-06 16:30 | ED ---
Respiratory - HPI Summary HPI Summary: Patient is a 87 y/o M presenting to ED with chief complaint of low o2 sat. He had been admitted to [facility] around a week ago for UTI and bacteremia. Today, patient was in Dr. Hemphill's office and had a Jennings catheter placed as patient had a very severe phimosis. While in the office, his o2 sats were noted to be in the low 80s on RA. Patient's family member decided to bring the patient to the ED. In triage, patient was 93% on RA. Per triage, "Pt denies feeling SOB, denies chest pain". Fever, cough is denied. He is on antibiotics. Family member notes that the patient has also been fatigued, dizzy, and experienced multiple falls recently. On triage, pain is denied, nothing is noted to aggravate/ alleviate Sx. Home medications and allergies are reviewed. - History of Current Complaint Chief Complaint: EDWeakness Stated Complaint: LOW O2 PER CAREGIVER Time Seen by Provider: 09/06/18 15:11 Hx Obtained From: Patient, Family/[employer] - family member Onset/Duration: Still Present Timing: Constant Current Severity: None - pain denied Pain Intensity: 0 Sputum Amount: None Aggravating Factor(s): Nothing Alleviating Factor(s): Nothing Associated Signs and Symptoms: Dizziness - Allergy/Home Medications Allergies/Adverse Reactions: Allergies Allergy/AdvReac Type Severity Reaction Status Date / Time No Known Allergies Allergy Verified 09/06/18 15:01 PMH/Surg Hx/FS Hx/Imm Hx Endocrine/Hematology History: Denies: Hx Diabetes, Hx Thyroid Disease Cardiovascular History: Denies: Hx Hypertension, Hx Myocardial Infarction, Hx Pacemaker/ICD Respiratory History: Denies: Hx Asthma, Hx Chronic Obstructive Pulmonary Disease (COPD) GI History: Reports: Other GI Disorders - constipation, H pylori Denies: Hx Ulcer History: Reports: Other Problems/Disorders - urinary retention and jennings - needs coude Denies: Hx Renal Disease Sensory History: Denies: Hx Contacts or Glasses, Hx Hearing Aid Opthamlomology History: Denies: Hx Contacts or Glasses Neurological History: Reports: Hx CVA, Hx Dementia Psychiatric History: Reports: Hx Anxiety, Hx Depression Denies: Hx Panic Disorder - Surgical History Surgery Procedure, Year, and Place: IMGUINAL HERNIA - Immunization History Date of Tetanus Vaccine: Unk Date of Influenza Vaccine: Fall 2014 Infectious Disease History: No Infectious Disease History: Denies: Hx Clostridium Difficile, Hx Hepatitis, Hx Human Immunodeficiency Virus (HIV), Hx of Known/Suspected MRSA, Hx Shingles, Hx Tuberculosis, Traveled Outside the [place] in Last 30 Days - Family History Known Family History: Positive: Diabetes - Social History Alcohol Use: Rare Alcohol Amount: 1 glass wine/week Hx Substance Use: No Substance Use Type: Reports: None Hx Tobacco Use: No Smoking Status (MU): Never Smoked Tobacco Review of Systems Constitutional: Other - POSITIVE - MULTIPLE FALLS Positive: Fatigue, Skin Diaphoresis. Negative: Fever Negative: Chest Pain Respiratory: Other - POSITIVE - LOW O2 SAT Negative: Shortness Of Breath, Cough Neurological: Other - POSITIVE - DIZZINESS All Other Systems Reviewed And Are Negative: Yes Physical Exam - Summary Physical Exam Summary: VITAL SIGNS: Reviewed. GENERAL: Patient is a well-developed, weak, fragile male who is lying comfortable in the stretcher. Patient is not in any acute respiratory distress. He is somnolent. Patient has a Jennings catheter in place. HEAD AND FACE: No signs of trauma. No ecchymosis, hematomas or skull depressions. No sinus tenderness. EYES: PERRLA, EOMI x 2, No injected conjunctiva, no nystagmus. EARS: Hearing grossly intact. Ear canals and tympanic membranes are within normal limits. MOUTH: Oropharynx within normal limits. NECK: Supple, trachea is midline, no adenopathy, no JVD, no carotid bruit, no c- spine tenderness, neck with full ROM. CHEST: Symmetric, no tenderness at palpation LUNGS: Clear to auscultation bilaterally. No wheezing or crackles. CVS: Regular rate and rhythm, S1 and S2 present, no murmurs or gallops appreciated. ABDOMEN: Soft, non-tender. No signs of distention. No rebound no guarding, and no masses palpated. Bowel sounds are normal. EXTREMITIES: FROM in all major joints, no edema, no cyanosis or clubbing. NEURO: Alert and oriented x 3. No acute neurological deficits. Speech is normal and follows commands. SKIN: Dry and warm Triage Information Reviewed: Yes Vital Signs On Initial Exam: Initial Vitals Temp Pulse Resp BP Pulse Ox 97.5 F 67 18 135/81 93 09/06/18 14:56 09/06/18 14:56 09/06/18 14:56 09/06/18 14:56 09/06/18 14:56 Vital Signs Reviewed: Yes Diagnostics - Vital Signs Vital Signs Temp Pulse Resp BP Pulse Ox 09/06/18 14:56 97.5 F 67 18 135/81 93 - Laboratory Lab Results: Lab Results 09/06/18 Range/Units 16:02 WBC 8.1 (3.5-10.8) 10^3/uL RBC 4.50 (4.18-5.48) 10^6 /uL Hgb 13.4 L (14.0-18.0) g/dL Hct 40 (36-46) % MCV 88 (80-94) fL MCH 30 (27-31) pg MCHC 34 (31-36) g/dL RDW 14 (10.5-15) % Plt Count 188 (150-450) 10^3/uL MPV 7.9 (7.4-10.4) fL Neut % (Auto) 84.1 % Lymph % (Auto) 7.9 % [place] % (Auto) 7.1 % Eos % (Auto) 0.7 % Baso % (Auto) 0.2 % Absolute Neuts (auto) 6.8 (1.5-7.7) 10^3/ul Absolute Lymphs (auto) 0.6 L (1.0-4.8) 10^3/ul Absolute Monos (auto) 0.6 (0-0.8) 10^3/ul Absolute Eos (auto) 0.1 (0-0.6) 10^3/ul Absolute Basos (auto) 0 (0-0.2) 10^3/ul Absolute Nucleated RBC 0 10^3/ul Nucleated RBC % 0 Result Diagrams: 09/06/18 16:02 09/06/18 16:02 Lab Statement: Any lab studies that have been ordered have been reviewed, and results considered in the medical decision making process. - Radiology CHEST X-RAY Radiology Interpretation Completed By: Radiologist Summary of Radiographic Findings: IMPRESSION: No radiographic evidence for acute cardiopulmonary abnormality on this. portable chest x-ray. THIS REPORT WAS REVIEWED BY DR. OLIVO. - EKG 1532 Cardiac Rate: NL - RATE OF 67 BPM EKG Rhythm: Sinus Rhythm Summary of EKG Findings: EKG showed sinus rhythm with rate of 67 BPM, no ST elevation. Re-Evaluation - Re-Evaluation First Eval Re-Evaluation Time: 17:26 Comment: I discussed all the findings and test results with the patient and the patients daughter and they agree for the patient to be discharged home with follow-up with the primary care physician. The patient has been saturating between 93 and 95% on room air. Therefore they are comfortable going home and follow up with the PCP. Patient is hemodynamically stable alert and oriented 3. Disposition - Course Assessment/Plan: This patient is an 87-year-old male who presents to the emergency with daughter after he was transferred from Dr. Díaz office complaining that the patient is weak, unable to ambulate, sleeping most of the day, and unable to care for himself. Dr. Hemphill placed a Jennings catheter after the patient had a very severe phimosis. Bloodwork without any significant abnormality except for hemoglobin 13, INR is 1.15, PTT of 22.5. Glucose is 129. Troponin is 0.01. Chest x-ray impression: no radiographic evidence for acute cardiopulmonary abnormality. In the ED course the patient is more awake and alert patient is lying comfortable in the stretcher, he is drinking fluids and has no other complaints. I discussed all the findings and test results with the patient and the patients daughter and they agree for the patient to be discharged home with follow-up with the primary care physician. The patient has been saturating between 93 and 95% on room air. Therefore they are comfortable going home and follow up with the PCP. Patient is hemodynamically stable alert and oriented 3. - Diagnoses Provider Diagnoses: Weakness Discharge - Sign-Out/Discharge Documenting (check all that apply): Patient Departure - discharge Patient Received Moderate/Deep Sedation with Procedure: No - Discharge Plan Condition: Stable Disposition: HOME Patient Education Materials: Weakness (ED) Referrals: Martir Muir MD [Primary Care Provider] - 3 Days Additional Instructions: RETURN TO ED FOR ANY NEW OR WORSENING SYMPTOMS. FOLLOW UP WITH YOUR PRIMARY CARE PHYSICIAN WITHIN THREE DAYS - Billing Disposition and Condition Condition: STABLE Disposition: Home - Attestation Statements Document Initiated by Scribe: Yes Documenting Scribe: CLEMENT MARRERO Provider For Whom Scribe is Documenting (Include Credential): JAIDA OLIVO MD Scribe Attestation: ICLEMENT, scribed for JAIDA OLIVO MD on 09/06/18 at 2114. Scribe Documentation Reviewed: Yes Provider Attestation: The documentation as recorded by the scribe, CLEMENT MARRERO accurately reflects the service I personally performed and the decisions made by me, JAIDA OLIVO MD Status of Scribe Document: Viewed
[2018-09-06 16:43] LABS: Albumin 3.9 g/dL (3.2-5.2); Magnesium 2.1 mg/dL (1.9-2.7); Potassium 4.1 mmol/L (3.5-5.0); Total Bilirubin 0.6 mg/dL (0.2-1.0)
[2018-09-06 16:44] LABS: TSH (Thyroid Stimulating Horm) 1.13 mcIU/mL (0.34-5.60)
[2018-09-06 16:49] LABS: Albumin/Globulin Ratio 1.3 (1-3); C Reactive Protein 6.86 mg/L (<8.01); EGFR African American 112.8 (>60); EGFR Non-African American 93.2 (>60); Globulin 2.9 g/dL (2-4); Total Protein 6.8 g/dL (6.4-8.9)
[2018-09-06 17:08] LABS: Troponin I 0.01 ng/mL (<0.04)
[2018-09-06 18:02] VITALS: BP 130/82
== END 2018-09-06 17:59 | disposition home or self-care (01) ==
LOC: ED 14:54
DX: R53.1 Weakness (principal); F03.90 Unspecified dementia, unspecified severity, without behavioral disturbance, psychotic disturbance, mood disturbance, and anxiety; F41.9 Anxiety disorder, unspecified; F32.9 Major depressive disorder, single episode, unspecified; Z86.73 Personal history of transient ischemic attack (TIA), and cerebral infarction without residual deficits; R94.31 Abnormal electrocardiogram [ECG] [EKG]
CPT/HCPCS: 36415; 71045; 80053; 82550; 83605; 83735; 83880; 84443; 84484; 85025; 85610; 85730; 86140; 93005; 99282

== ENCOUNTER 2018-09-20 10:11 | Inpatient (IN) | payer MEDICARE ==
--- NOTE | 2018-09-20 10:31 | ED ---
Complex/Multi-Sys Presentation - HPI Summary HPI Summary: An 87 y/o M presents to ED with c/o failure to thrive ongoing for a few weeks and worsening. Patient was seen at [facility] on 09/01/18 and released on 09/03/18 with UTI. He was also seen at [facility] on 09/06/18 for low O2. Family is very concerned about him being able to care for himself at home. Per family: He fell 20-30 times over the weekend and is having difficulty ambulating. He becomes very tired and SOB when he stands up from sitting. Upon standing, he'll just fall. He also leans to the left when he is able to stand. Associated sx: urinary frequency. Patient denies CP at bedside. - History Of Current Complaint Chief Complaint: EDGeneral Time Seen by Provider: 09/20/18 10:25 Hx Obtained From: Patient, Family/Bung Remover Onset/Duration: Lasting Weeks, Still Present Timing: Constant Severity Currently: Moderate Severity Initially: Moderate Aggravating Factor(s): standing Associated Signs And Symptoms: Positive: SOB, Other - pos: difficulty ambulating , urinary frequency, fatigue. Negative: Chest Pain - Allergies/Home Medications Allergies/Adverse Reactions: Allergies Allergy/AdvReac Type Severity Reaction Status Date / Time No Known Allergies Allergy Verified 09/06/18 15:01 Home Medications: Home Medications Atorvastatin* [Lipitor 40 MG*] 40 mg PO QPM 09/20/18 [History Confirmed 09/20/18 ] Bifidobacterium Infantis [Align] 4 mg PO DAILY 09/20/18 [History Confirmed 09/20] PMH/Surg Hx/FS Hx/Imm Hx Previously Healthy: No Endocrine/Hematology History: Denies: Hx Diabetes, Hx Thyroid Disease Cardiovascular History: Denies: Hx Hypertension, Hx Myocardial Infarction, Hx Pacemaker/ICD Respiratory History: Denies: Hx Asthma, Hx Chronic Obstructive Pulmonary Disease (COPD) GI History: Reports: Other GI Disorders - constipation, H pylori Denies: Hx Ulcer History: Reports: Other Problems/Disorders - urinary retention and jennings - needs coude Denies: Hx Renal Disease Sensory History: Denies: Hx Contacts or Glasses, Hx Hearing Aid Opthamlomology History: Denies: Hx Contacts or Glasses Neurological History: Reports: Hx CVA, Hx Dementia Psychiatric History: Reports: Hx Anxiety, Hx Depression Denies: Hx Panic Disorder - Surgical History Surgery Procedure, Year, and Place: IMGUINAL HERNIA - Immunization History Date of Tetanus Vaccine: Unk Date of Influenza Vaccine: Fall 2014 Infectious Disease History: No Infectious Disease History: Denies: Hx Clostridium Difficile, Hx Hepatitis, Hx Human Immunodeficiency Virus (HIV), Hx of Known/Suspected MRSA, Hx Shingles, Hx Tuberculosis, Traveled Outside the [place] in Last 30 Days - Family History Known Family History: Positive: Diabetes - Social History Occupation: Employed Full-time Lives: With Family Alcohol Use: Rare Alcohol Amount: 1 glass wine/week Hx Substance Use: No Substance Use Type: Reports: None Hx Tobacco Use: No Smoking Status (MU): Never Smoked Tobacco Review of Systems Positive: Fatigue Negative: Chest Pain Positive: Shortness Of Breath Positive: frequency Neurological: Other - pos: difficulty ambulating All Other Systems Reviewed And Are Negative: Yes Physical Exam - Summary Physical Exam Summary: Appearance: Well-appearing, Well-nourished, lying in bed comfortably Skin: Warm, dry, no obvious rash Eyes: sclera anicteric, no conjunctival pallor ENT: mucous membranes moist, pharynx appears normal Neck: Supple, nontender Respiratory: Clear to auscultation, no signs of respiratory distress Cardiovascular: Normal S1, S2. No murmurs. Normal distal pulses in tibial and radial bilaterally. Abdomen: Soft, nontender, normal active bowel sounds present Musculoskeletal: Normal, Strength/ROM Intact Neurological: A&Ox3, awake and alert, mentation is normal, speech is fluent and appropriate. Finger to nose is normal. No fine motor ataxia. Truncal ataxia leaning to the left. Psychiatric: flat affect, does not appear anxious or depressed Triage Information Reviewed: Yes Vital Signs On Initial Exam: Initial Vitals Temp Pulse Resp BP Pulse Ox 98.3 F 76 16 134/79 94 09/20/18 10:15 09/20/18 10:15 09/20/18 10:15 09/20/18 10:15 09/20/18 10:15 Vital Signs Reviewed: Yes - [place] Coma Scale Best Eye Response: 4 - Spontaneous Best Motor Response: 6 - Obeys Commands Best Verbal Response: 5 - Oriented Coma Scale Total: 15 Diagnostics - Vital Signs Vital Signs Temp Pulse Resp BP Pulse Ox 09/20/18 10:15 98.3 F 76 16 134/79 94 - Laboratory Result Diagrams: 09/20/18 11:38 09/20/18 11:38 Lab Statement: Any lab studies that have been ordered have been reviewed, and results considered in the medical decision making process. - CT BRAIN CT Interpretation Completed By: Radiologist Summary of CT Findings: IMPRESSION: Chronic ischemic White matter change. No intracranial mass or hemorrhage. ED provider has reviewed this chart. - EKG 1041 Cardiac Rate: NL - 71 bpm EKG Rhythm: Sinus Rhythm Summary of EKG Findings: NSR at 71 BPM, P waves, QRS complex, and T waves are within normal limits, T waves and intervals are normal, no ischemic changes. This is a normal EKG. Complex Multi-Symp Course/Dx Course Of Treatment: Pt is an 87 y/o M presenting for increase fall-risk. Patient seen at [facility] on 09/01 and released 09/03 with UTI. Seen again on 09/06 for low O2. Family is very concerned about him being able to care for himself at home. He fell 20-30 times over the weekend. Associated sx: difficulty ambulating, fatigue, SOB when standing, urinary frequency. Denies CP. PE finds truncal ataxia leaning to the Left. Labs are without significant abnormality, glucose; 139. UA results show 2+ leukocyte esterase, 3+ WBC, 1+ RBC, 1+ bacteria and ascorbic acid present. Brain CT is unremarkable for acute findings. EKG shows NSR at 71 BPM, P waves, QRS complex, and T waves are within normal limits, T waves and intervals are normal, no ischemic changes. Consulted with Dr. Gardner, hospitalist, who will admit patient. - Diagnoses Provider Diagnoses: Generalized weakness, Ataxia - Physician Notifications Discussed Care Of Patient With: Ernestine Gardner - hospitalist Time Discussed With Above Provider: 12:50 Instructed by Provider To: Admit As Inpatient Discharge - Sign-Out/Discharge Documenting (check all that apply): Patient Departure - ADMIT Patient Received Moderate/Deep Sedation with Procedure: No - Discharge Plan Condition: Guarded Disposition: ADMITTED TO [facility] - Billing Disposition and Condition Condition: GUARDED Disposition: Admitted to [facility] - Attestation Statements Document Initiated by Scribe: Yes Documenting Scribe: Raeann Myers Provider For Whom Scribe is Documenting (Include Credential): Dr. Bc Handley MD Scribe Attestation: I, Raeann Myers, scribed for Dr. Bc Handley MD on 09/21/18 at 1118. Scribe Documentation Reviewed: Yes Provider Attestation: The documentation as recorded by the scribe, Raeann Myers accurately reflects the service I personally performed and the decisions made by me, Dr. Bc Handley MD Status of Scribe Document: Viewed
[2018-09-20 11:49] LABS: ABS Eosinophils 0.1 10^3/ul (0-0.6); ABS Lymphocytes 1.1 10^3/ul (1.0-4.8); ABS Monocytes 0.6 10^3/ul (0-0.8); Eosinophil % 0.9 %; Hematocrit 40 % (42-52); Hemoglobin 13.5 g/dL (14.0-18.0); Lymphocyte % 15.8 %; Mean Corpuscular HGB Conc 33 g/dL (31-36); Mean Corpuscular Hemoglobin 30 pg (27-31); Mean Corpuscular Volume 90 fL (80-94); Mean Platelet Volume 8.2 fL (7.4-10.4); Platelet Count 188 10^3/uL (150-450); Red Blood Count 4.52 10^6 /uL (4.18-5.48); Red Cell Distribution Width 15 % (10.5-15); White Blood Count 6.8 10^3/uL (3.5-10.8)
[2018-09-20 11:53] LABS: Urine Appearance Clear; Urine Bacteria 1+ (Absent); Urine Bilirubin Negative (Negative); Urine Blood Negative (Negative); Urine Color Yellow; Urine Glucose Negative (Negative); Urine Ketones Negative (Negative); Urine Nitrite Negative (Negative); Urine Protein Negative (Negative); Urine Red Blood Cell 1+(3-5/hpf) (Absent); Urine Specific Gravity 1.016 (1.010-1.030); Urine Urobilinogen Negative (Negative); Urine White Blood Cell 3+(>20/hpf) (Absent)
[2018-09-20 12:07] LABS: Albumin 3.8 g/dL (3.2-5.2); Albumin/Globulin Ratio 1.2 (1-3); BUN/Creatinine Ratio 19.8 (8-20); Calcium 9.3 mg/dL (8.6-10.3); EGFR African American 109.6 (>60); EGFR Non-African American 90.6 (>60); Globulin 3.1 g/dL (2-4); Magnesium 2.1 mg/dL (1.9-2.7); Total Bilirubin 0.6 mg/dL (0.2-1.0); Total Protein 6.9 g/dL (6.4-8.9)
[2018-09-20 12:08] LABS: Troponin I 0.01 ng/mL (<0.04)
[2018-09-20 12:51] LABS: TSH (Thyroid Stimulating Horm) 0.92 mcIU/mL (0.34-5.60)
[2018-09-20] MEDS: cefTRIAXone(*) 1 GM in NS 0.9% 50 ML* 50 ML IVPB SCH (15:35)
[2018-09-20] MEDS: Enoxaparin(*) 40 MG/0.4 ML SYR SUBCUT SCH (15:36)
[2018-09-20] MEDS: NS 0.9% 1000 ML** 1,000 ML IV SCH (15:38)
--- NOTE | 2018-09-20 16:32 | HP ---
CC: Dr. Muir; Dr. Hunter * HISTORY AND PHYSICAL: DATE OF ADMISSION: 09/20/18 PRIMARY CARE PROVIDER: Dr. Muir. ATTENDING PHYSICIAN WHILE IN THE HOSPITAL: Ernestine Burkett MD * (dictated by Aria Rivera NP). CHIEF COMPLAINT: Weakness, leaning to the left. HISTORY OF PRESENT ILLNESS: Mr. Ross is an 87-year-old gentleman with a past medical history significant for history of TIA, BPH, hyperlipidemia, PFO with the recent admission on 08/31/18 for altered mental status. He was admitted from 08/31/18 to 09/03/18 for altered mental status secondary to urinary tract infection with E. coli, urinary retention secondary to BPH and he was discharged back home. Per his significant other, Trinity Hylton, the patient has been weak since discharge on 09/03/18 and progressively worsening. She does report over the past 2 weeks, the patient has started leaning to the left when trying to ambulate. She also reports that the patient fell approximately 20 times over the weekend and that the patient's weakness has become progressively worse to the point he has difficulty ambulating. The patient does report that he does have some dizziness sometimes with standing, but not consistently. Due to his progressively worsening weakness and leaning to the left side, he presented to the emergency room for further evaluation. While in the emergency room, the patient had routine lab work drawn and urinalysis, which was positive for urinary tract infection. He had a CT of the head that was negative for any acute infract or hemorrhage. Due to his progressively worsening weakness and inability to ambulate and UTI, we were asked to see and evaluate him for admission. PAST MEDICAL HISTORY: 1. History of TIA. 2. BPH. 3. Hyperlipidemia. 4. PFO, diagnosed on 04/15/18 echo. 5. History of vertigo. 6. History of mild cognitive impairment. PAST SURGICAL HISTORY: Incarcerated right inguinal hernia repair. HOME MEDICATIONS: 1. Align 1 tablet p.o. daily. 2. Atorvastatin 40 mg p.o. daily. 3. Finasteride 5 mg p.o. daily. 4. Tamsulosin 0.4 mg p.o. daily. 5. Clopidogrel 75 mg p.o. daily. 6. Vitamin B12 1000 mcg p.o. daily. ALLERGIES: No known drug allergies. FAMILY HISTORY: Father with a history of a heart attack. Mother and father with history of diabetes, brother with a history of thyroid cancer. SOCIAL HISTORY: The patient denies any tobacco, alcohol or illicit drug use. He lives with his significant other, Trinity. The patient reports that he would like to be resuscitated and trial of ventilation today. He is a full code. REVIEW OF SYSTEMS: Denies any fever, unintended weight loss, chest pain or edema. Denies any cough, hemoptysis or shortness of breath. No nausea, vomiting , diarrhea, or abdominal pain. Denies any gross hematuria. He does report frequency. He does report weakness and leaning to the left side x2 weeks. Denies any visual complaints. He does report occasional dizziness. He denies any arthralgias or myalgias, rashes, lesions or open sources. Denies any psychosis or anxiety. PHYSICAL EXAMINATION GENERAL: At this time, Mr. Ross is alert and oriented resting on the stretcher in the emergency room. He does not appear to be in any acute distress. VITAL SIGNS: Blood pressure 127/82, heart rate is 70, respirations are 20, O2 saturation was 96%, temperature 98.3. HEENT: Head is atraumatic, normocephalic. Eyes: EOMs are intact. Sclerae anicteric, not pale. Oral mucosa appeared to be dry. NECK: Supple. LUNGS: Clear to auscultation bilaterally. No wheezes, rales or rhonchi. CARDIAC: S1 and S2. Regular rate and rhythm. No murmurs, rubs or gallops. ABDOMEN: Soft and nontender. Bowel sounds are present x4. EXTREMITIES: He can move all 4 extremities with 5/5 strength. Pedal pulses are +2 bilaterally. There is no clubbing or cyanosis. NEUROLOGIC: He is awake, alert and oriented x3. Speech is clear. Thought process is intact. Finger to nose is intact. There is no pronator drift. There is no leg drift. Push-pull is intact to upper and lower extremities. With the right hand, there is little drift with finger to nose. Smile is equal , tongue is midline. SKIN: He has an abrasion to his left elbow and left forearm and abrasion to his left hip with no surrounding erythema. PSYCH: The patient is alert and oriented x3. Speech is clear. He is calm and cooperative. DIAGNOSTIC STUDIES/LAB DATA: WBCs are 6.8, RBCs 4.52, hemoglobin 13.5, hematocrit is 40, platelet count is 188,000. Sodium 137, potassium 4.0, chloride 103, carbon dioxide 27, anion gap is 7, BUN was 16, creatinine 0.81, glucose 139, lactic acid 1.6, creatine was 9.3, troponin 0.01. TSH was 92. Urine color was yellow, appearance clear, pH was 5.0, specific gravity 1.016. Urine protein, ketones, blood, nitrites, bilirubin, urobilinogen was negative. Urine leukocyte esterase was 2+, wbc's were 3+, rbc's 1+, bacteria was 1+, glucose was negative, ascorbic acid was positive. He had a CT of the head, radiologist's impression: Chronic ischemic white matter changes. No intracranial mass or hemorrhage. He had an electrocardiogram which showed sinus rhythm at a rate of 71 with a prolonged NC interval and incomplete right bundle-branch block. ASSESSMENT AND PLAN: Mr. Ross is an 87-year-old gentleman with a past medical history for transient ischemic attack, benign prostatic hypertrophy, hyperlipidemia, patent foramen ovale, who presented to the emergency room with progressively worsening weakness and leaning to the left side. He was found to have urinary tract infection. He will be admitted under observation for. 1. Weakness. I suspect his generalized weakness is related to his underlying urinary tract infection. I will also started him on ceftriaxone 1 g IV q.24 hours. I will get PT/OT consultation, referral to [facility]. The patient also is noted to have progressively worsening leaning to the left side. I will get an MRI of the brain to rule out cerebrovascular accident as these symptoms have been going on for approximately 2 weeks and we will consult Dr. Rashid from Neurology. 2. Urinary tract infection. He will be placed on ceftriaxone 1 g IV q.24 hours. I will give him some gentle hydration with normal saline. 3. Leaning to the left. The patient reports that he has been leaning to the left and multiple falls x2 weeks. This is progressively worsening weakness. He had a CT of the brain in the emergency room that did not show any acute hemorrhage or mass. I will get an MRI of the brain to rule out cerebrovascular accident. The patient does have a known patent foramen ovale. We will continue him on Plavix and atorvastatin 40 mg p.o. daily and we will come consult Dr. Rashid from Neurology. 4. Benign prostatic hypertrophy. Patient will continue as finasteride and tamsulosin as previously prescribed. 5. FEN. He can have a heart-healthy, caffeine-okay diet. 6. Code status. He is a full code. 7. DVT prophylaxis. I will place him on Lovenox subcu. TIME SPENT: Time spent on this admission is approximately 60 minutes, greater than half the time was spent at the bedside reviewing the events leading to thus far to hospitalization performing my physical exam and reviewing my plan of care. I have discussed this with my attending, Dr. Mike Burkett, she is in agreement with my plan. ARIA RIVERA, BREAKER OILER [id number]/[facility] #: [id number] JESSICA
[2018-09-20] MEDS: Acetaminophen TAB* 325 MG PO PRN (18:40)
[2018-09-20] MEDS: Atorvastatin* 40 MG TAB PO SCH (18:41)
[2018-09-20] MEDS ORDERED: Aspirin EC TAB* 81 MG TAB.EC PO ONE (19:53)
[2018-09-20] MEDS ORDERED: Iohexol 350* (CONTRAST) 500 ML MDV IV ONE (20:04)
[2018-09-20] MEDS: Tamsulosin CAP* 0.4 MG PO SCH (20:24)
[2018-09-20] MEDS: Ondansetron INJ* 2 MG/ML VIAL IV PRN (20:24)
[2018-09-21] MEDS: NS 0.9% 1000 ML** 1,000 ML IV SCH ×2 (07:48→16:49)
[2018-09-21] MEDS: Cyanocobalamin TAB* 500 MCG PO SCH (07:53)
[2018-09-21] MEDS: Finasteride TAB* 5 MG PO SCH (07:54)
[2018-09-21] MEDS: Clopidogrel TAB* 75 MG PO SCH (07:54)
--- NOTE | 2018-09-21 11:13 | CONS ---
NEUROLOGY CONSULTATION: DATE OF CONSULT: 09/21/18 PHYSICAL SCIENCE TEACHER PROVIDER: Aria Rivera. REASON FOR CONSULT: Stroke. CHIEF COMPLAINT: "I feel sick." HISTORY OF PRESENT ILLNESS: The history was mostly obtained by reviewing the electronic medical records as the patient is unable to provide any medical history and his partner, Trinity Hylton was unavailable to talk on the phone today. Mr. Ross is an 87-year-old man who was recently hospitalized at [facility] for confusion that was presumably thought it was related to a UTI. He does have a history of patent foramen ovale. The patient was hospitalized from 08/31/18 to 09/03/18. According to the records, the patient was discharged on 09/03/18 and had not regained any improvement in his awareness. He has been falling constantly. He is leaning towards the left side when ambulating. He is neglecting the right side. According to the reports , the patient has fallen approximately 20 times over the weekend. There has been no reported history of any head trauma or loss of consciousness. He complains of mild dizziness. He also reports generalized malaise and weakness. In the ED, the patient's laboratory data reveals a WBC of 6.8, hemoglobin of 13, hematocrit of 40, platelet count of 188, sodium of 137, potassium of 4.0, chloride of 103, anion gap of 7, BUN 16, creatinine 0.81, glucose 139, lactic acid is 1.6, and urine analysis showed some evidence of pyuria with 2+ urine leukocyte esterase, 3+ WBC and 1+ bacteria. He had a CT of the head completed on 09/20/18 that showed chronic ischemic white matter changes. I personally reviewed the study. He had an MRI of the brain completed on 09/20/18. I personally reviewed the study. The MRI showed multifocal acute to subacute infarction involving the left parietal and occipital lobes and the posterior limb of the right internal capsule. There is a chronic microvascular disease and generalized involutional changes. CTA of head and neck was completed on . There was evidence of degenerative changes of the cervical spine, otherwise no severe arthrosclerotic disease in internal carotid or vertebral artery. There is no vessel occlusion. In CT of the head, there is mild segmental stenosis of the distal left M1 segment. There was a question of minimal 1 to 2 mm aneurysm at the origin of the left posterior communicating artery and there is arthrosclerotic calcification of the carotid siphons bilaterally with 30% to 50% stenosis bilaterally. The patient had a transthoracic echo completed on 07/15/18. The left atrial chamber was apparently normal in size. Estimated ejection fraction is 40% to 45%. There is moderate aortic stenosis. A bubble study was not obtained in this study. PAST MEDICAL HISTORY: History of TIA, benign prostatic hypertrophy, dyslipidemia, PFO, diagnosed on 04/15/18, history of vertigo, history of mild cognitive impairment, and right inguinal hernia repair. MEDICATIONS: 1. Clopidogrel 75 mg daily. 2. Cyanocobalamin 1000 mcg p.o. daily. 3. Finasteride 5 mg p.o. daily. 4. Tamsulosin 0.4 mg p.o. at bedtime. 5. Atorvastatin 40 mg p.o. q.p.m. ALLERGIES: No known drug allergies. FAMILY HISTORY: His father had a heart attack. There is no family history of stroke or seizures. SOCIAL HISTORY: The patient denied any alcohol or tobacco use. He lives with his significant other Trinity. He is a full code. REVIEW OF SYSTEMS: The patient denied all 14-point review of system, however, due to his cognitive decline it is unclear if this is accurate. PHYSICAL EXAM: General: Well-nourished, well-appearing, well-developed elderly man in no acute distress. He is resting comfortably. Head: Normocephalic, atraumatic without any obvious abnormality. Eyes: Conjunctivae/ corneas are clear. Neck is supple and symmetrical with no carotid bruits. Lungs are clear to auscultation bilaterally with nonlabored breathing. Cardiovascular: Regular rate and rhythm with normal S1 and S2. Extremities: Normal range of motion with no cyanosis. Skin: No skin lesions or ulceration. Psych: Affect is broad in normal mood. Neurological Examination: Mental status is awake and alert and oriented to person and place at [facility], but not [place]. He thought he was at [place] He also thought it was 1956. He did know the President. Cranial Nerves: Right inferior quadrantanopia. Pupils are mid range and reactive to light. Normal consensual response. Sensation is intact on the forehead, cheeks, and jaw region bilaterally. No facial droop. He is able to hear throughout the history process. Symmetrical palate elevation. Normal strength against shoulder shrug. Tongue is symmetrical and midline. Motor Examination: He has a subtle right pronator drift. Otherwise, he has 5/5 strength in the upper and lower extremities. He has slight neglect towards the right side. Reflexes right/left, brachioradialis 1/1, biceps 1/1, triceps 1/1, patella 1/1, ankle 0/0, plantar flexor/flexor. Sensation is reduced to light touch and pinprick on the right arm and the right leg in a nondermatomal distribution. He has absent vibration at the toes, reduced at the medial malleolus and present at the ankles. Coordination is mild to moderate dysmetria on the right [id number]. Gait and station were not assessed due to the patient's risk of falls. ASSESSMENT AND RECOMMENDATIONS: Mr. Dickson Ross is an 87-year-old man with history of transient ischemic attack and known patent foramen ovale who presented to [facility] with increasing falls and altered sensorium. 1. 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 He does not have any history of cardiac arrhythmias. He does have a history of PFO but unlikely to be symptomatic unless he has a known venous thrombosis. Recommendations: Continue neuro checks every 4 hours. Please consult PT/OT/ STAFF DEVELOPMENT EDUCATOR to evaluate and treat. Please perform a bedside dysphagia screen. Add aspirin to the current Plavix regimen. He will need a transesophageal echo to look for any atrioventricular thrombus. If negative, he will eventually need a loop recorder to monitor for cardiac arrhythmias. If positive, then we can discontinue both antiplatelet therapy and start him on anticoagulation therapy. He will need acute rehabilitation. Continue monitoring him on telemetry. Secondary stroke prevention, stroke education, and counseling were done with the patient today. 2. 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 Continue aspirin therapy at this time. Outpatient evaluation for cognitive assessment is recommended. I would hold off from starting on any anticholinesterase or NMDA inhibitors while he is in the hospital. 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 4. Patent foramen ovale - given his age, he would most likely not be a candidate for PFO closure. Recommend duplex ultrasound of the lower extremities to check for DVTs. 5. Hypertension - keep him within normotensive range. 6. Dyslipidemia - continue atorvastatin 40 mg nightly. I have also ordered a lipid panel to make sure his LDL is at least less than 100. I will continue to follow. Discussed above recommendations with Aria and the bedside nurse. [id number]/[facility] #: [id number] JESSICA
--- NOTE | 2018-09-21 13:06 | PN ---
Subjective Date of Service: 09/21/18 Interval History: Mr. Ross reports feeling ok today. He is drowsy this afternoon but he follows all commands. His nurse notes that he has been up and sitting in the chair without incident today. PT notes that he has a significant left sided lean after standing briefly and is unsafe. Objective Active Medications: Acetaminophen (Tylenol Tab*) 650 mg PO Q4H PRN Atorvastatin Calcium (Lipitor*) 40 mg PO QPM [facility] Clopidogrel Bisulfate (Plavix Tab*) 75 mg PO DAILY [facility] Cyanocobalamin (Vitamin B12 Tab*) 1,000 mcg PO DAILY [facility] Enoxaparin Sodium (Lovenox(*)) 40 mg SUBCUT Q24H [facility] Finasteride (Proscar Tab*) 5 mg PO DAILY [facility] Sodium Chloride (Ns 0.9% 1000 Ml) 1,000 mls @ 75 mls/hr IV PER RATE [facility] Ceftriaxone Sodium 1 gm/ (Sodium Chloride) 50 mls @ 200 mls/hr IVPB Q24H [facility] Ondansetron HCl (Zofran Inj*) 4 mg IV Q6H PRN Tamsulosin HCl (Flomax Cap*) 0.4 mg PO BEDTIME [facility] Vital Signs: Temp Pulse Resp BP Pulse Ox 97.2 F 78 16 111/61 97 09/21/18 11:15 09/21/18 11:15 09/21/18 11:15 09/21/18 11:15 09/21/18 11:15 Oxygen Devices in Use Now: None Appearance: Male lying in bed in NAD Eyes: No Scleral Icterus Ears/Nose/Mouth/Throat: Mucous Membranes Moist Neck: Trachea Midline Respiratory: Symmetrical Chest Expansion and Respiratory Effort, Clear to Auscultation Cardiovascular: NL Sounds; No Murmurs; No JVD, No Edema Abdominal: NL Sounds; No Tenderness; No Distention Extremities: No Edema Skin: No Rash or Ulcers Neurological: - - Drowsy, follows commands. Left LE slightly less strong than R LE. B UE strength intact. Nutrition: Taking PO's Result Diagrams: 09/20/18 11:38 09/20/18 11:38 Microbiology and Other Data: . Assess/Plan/Problems-Billing Assessment: Mr. Ross is an 87 yo M with a PMH of TIA and BPH with admission 08/31-09/03 for UTI with urinary retnetion secondary to BPH who was admitted on 09/20/18 progressive weakness and leaning to the left found to have have UTI and multifocal CVA. - Patient Problems (1) CVA (cerebral vascular accident) Comment: - Multifocal acute to subacute infarct per MRI brain - Appreciate Dr. Rashid's consultation. Patient has known PFO. CVA likely cardioembolic based on MRI findings. No hx of afib. - Neuro checks q4H. Continue telemetry. Needs transesophageal echo to rule out thrombus. Will need loop recorder if negative. Has known hx of PFO, doppler LEs negative. - PT/OT/ST to eval and treat. - Continue asa, plavix, atorvastatin (2) BPH (benign prostatic hyperplasia) Comment: - Continue flomax - Sees urology outpatient (3) UTI (urinary tract infection) Comment: - Frequent UTIs due to urinary retention from BPH, chronic indwelling jennings? - Continue ceftriaxone for now (4) DVT prophylaxis Comment: - HSQ (5) DNR (do not resuscitate) Comment: - Has been DNR at previous admissions, will review with family. Status and Disposition: Switch from OBV to inpatient.
[2018-09-21] MEDS: cefTRIAXone(*) 1 GM in NS 0.9% 50 ML* 50 ML IVPB SCH (15:38)
[2018-09-21] MEDS: Enoxaparin(*) 40 MG/0.4 ML SYR SUBCUT SCH (15:39)
[2018-09-21] MEDS: Atorvastatin* 40 MG TAB PO SCH (17:46)
[2018-09-21] MEDS: Tamsulosin CAP* 0.4 MG PO SCH (22:48)
[2018-09-22] MEDS: NS 0.9% 1000 ML** 1,000 ML IV SCH (00:59)
[2018-09-22] MEDS: Acetaminophen TAB* 325 MG PO PRN (03:05)
[2018-09-22] MEDS ORDERED: Polyethylene Glycol 3350* 17 GM PACKET PO ONE (04:33)
[2018-09-22 08:52] LABS: HDL Cholesterol 30.8 mg/dL
[2018-09-22] MEDS ORDERED: Midazolam* 1 MG/ML 5 ML VIAL (5 MG) ONE (12:39)
[2018-09-22] MEDS ORDERED: fentaNYL* 50 MCG/ML 2 ML VIAL (100 MCG VIAL) ONE (12:39)
[2018-09-22] MEDS ORDERED: Naloxone* 0.4 MG/ML 1 ML VIAL ONE (12:39)
[2018-09-22] MEDS ORDERED: Flumazenil* 0.1 MG/ML 5 ML MDV ONE (12:40)
[2018-09-22] MEDS ORDERED: Lidocaine 2% VISCOUS* 15 ML UDC ONE (12:40)
[2018-09-22] MEDS: Clopidogrel TAB* 75 MG PO SCH ×2 (13:49→15:56)
[2018-09-22] MEDS: Cyanocobalamin TAB* 500 MCG PO SCH ×2 (13:50→15:56)
[2018-09-22] MEDS: Finasteride TAB* 5 MG PO SCH ×2 (13:50→15:56)
--- NOTE | 2018-09-22 15:05 | PN ---
Subjective Date of Service: 09/22/18 Interval History: Mr. Ross is very drowsy this afternoon but awakens and follows all commands appropriately. Objective Active Medications: Acetaminophen (Tylenol Tab*) 650 mg PO Q4H PRN Atorvastatin Calcium (Lipitor*) 40 mg PO QPM [facility] Clopidogrel Bisulfate (Plavix Tab*) 75 mg PO DAILY [facility] Cyanocobalamin (Vitamin B12 Tab*) 1,000 mcg PO DAILY [facility] Enoxaparin Sodium (Lovenox(*)) 40 mg SUBCUT Q24H [facility] Finasteride (Proscar Tab*) 5 mg PO DAILY [facility] Sodium Chloride (Ns 0.9% 1000 Ml) 1,000 mls @ 75 mls/hr IV PER RATE HOLDEN Ceftriaxone Sodium 1 gm/ (Sodium Chloride) 50 mls @ 200 mls/hr IVPB Q24H [facility] Ondansetron HCl (Zofran Inj*) 4 mg IV Q6H PRN Tamsulosin HCl (Flomax Cap*) 0.4 mg PO BEDTIME [facility] Vital Signs: Temp Pulse Resp BP Pulse Ox 98.1 F 66 19 143/73 96 09/22/18 11:55 09/22/18 11:55 09/22/18 11:55 09/22/18 11:55 09/22/18 11:55 Oxygen Devices in Use Now: None Appearance: Male lying in bed in NAD Eyes: No Scleral Icterus Ears/Nose/Mouth/Throat: Mucous Membranes Moist Neck: Trachea Midline Respiratory: Symmetrical Chest Expansion and Respiratory Effort, Clear to Auscultation Cardiovascular: NL Sounds; No Murmurs; No JVD, No Edema Abdominal: NL Sounds; No Tenderness; No Distention Lymphatic: No Cervical Adenopathy Extremities: No Edema Skin: No Rash or Ulcers Neurological: - - Drowsy, moves all extremities though slight weakness noted to L industrial fabric cutter. Result Diagrams: 09/20/18 11:38 09/20/18 11:38 Microbiology and Other Data: . Assess/Plan/Problems-Billing Assessment: Mr. Ross is an 87 yo M with a PMH of TIA and BPH with admission 08/31-09/03 for UTI with urinary retnetion secondary to BPH who was admitted on 09/20/18 progressive weakness and leaning to the left found to have have UTI and multifocal CVA. - Patient Problems (1) CVA (cerebral vascular accident) Comment: - Multifocal acute to subacute infarct per MRI brain - Appreciate Dr. Rashid's consultation. Patient has known PFO. CVA likely cardioembolic based on MRI findings. No hx of afib. - Neuro checks q4H. Continue telemetry. Transesophageal echo to rule out thrombus completed today, awaiting report. Will need loop recorder if negative. Has known hx of PFO, doppler LEs negative. - PT/OT/ST to eval and treat. - Continue asa, plavix, atorvastatin (2) BPH (benign prostatic hyperplasia) Comment: - Continue flomax - Sees urology outpatient (3) UTI (urinary tract infection) Comment: - Frequent UTIs due to urinary retention from BPH - Essentially blair-sensitive ecoli. Switch to cefuroxime. (4) DVT prophylaxis Comment: - HSQ (5) DNR (do not resuscitate) Comment: - Has been DNR at previous admissions, will review with family. Status and Disposition: Switch from OBV to inpatient.
--- NOTE | 2018-09-22 15:23 | PN ---
Subjective Date of Service: 09/22/18 Length of Stay: 2 Days Neurology is following for stroke. Interval History: Mr. Ross is frustrated that he cannot get up on his own to use the restroom. He has no other complaints. Family at bedside report the patient is having intermittent impulsive behavior. He denied any new weakness or paresthesia. He is NPO for a IGNACIO today. Review of Systems: Denied CP, SOB, or palpitations. Objective Active Medications: Acetaminophen (Tylenol Tab*) 650 mg PO Q4H PRN PRN Reason: FEVER/PAIN Last Admin: 09/22/18 03:05 Dose: 650 mg Atorvastatin Calcium (Lipitor*) 40 mg PO QPM [facility] Last Admin: 09/21/18 17:46 Dose: 40 mg Clopidogrel Bisulfate (Plavix Tab*) 75 mg PO DAILY [facility] Last Admin: 09/22/18 13:49 Dose: Not Given Cyanocobalamin (Vitamin B12 Tab*) 1,000 mcg PO DAILY [facility] Last Admin: 09/22/18 13:50 Dose: Not Given Enoxaparin Sodium (Lovenox(*)) 40 mg SUBCUT Q24H [facility] Last Admin: 09/21/18 15:39 Dose: 40 mg Finasteride (Proscar Tab*) 5 mg PO DAILY [facility] Last Admin: 09/22/18 13:50 Dose: Not Given Ceftriaxone Sodium 1 gm/ (Sodium Chloride) 50 mls @ 200 mls/hr IVPB Q24H [facility] Last Admin: 09/21/18 15:38 Dose: 200 mls/hr Ondansetron HCl (Zofran Inj*) 4 mg IV Q6H PRN PRN Reason: NAUSEA Last Admin: 09/20/18 20:24 Dose: 4 mg Tamsulosin HCl (Flomax Cap*) 0.4 mg PO BEDTIME [facility] Last Admin: 09/21/18 22:48 Dose: 0.4 mg Vital Signs 09/21/18 09/21/18 09/22/18 19:38 20:00 00:07 Temperature 97.9 F 97.4 F Pulse Rate 66 63 Respiratory 18 18 18 Rate Blood Pressure 146/79 125/76 (mmHg) O2 Sat by Pulse 97 98 Oximetry 09/22/18 09/22/18 09/22/18 04:03 07:21 08:00 Temperature 97.3 F 97.0 F Pulse Rate 62 65 Respiratory 18 18 18 Rate Blood Pressure 141/74 146/83 (mmHg) O2 Sat by Pulse 97 99 Oximetry 09/22/18 11:55 Temperature 98.1 F Pulse Rate 66 Respiratory 19 Rate Blood Pressure 143/73 (mmHg) O2 Sat by Pulse 96 Oximetry Intake and Output Last 24 Hours 09/20/18 09/21/18 09/22/18 09/23/18 06:59 06:59 06:59 06:59 Intake Total 0 2554 0 Output Total 240 725 0 Balance -240 1829 0 Weight 175 lb Intake: IV Fluids 2439 NS (0.9%) 1449 IVPB 115 ABX - CEFTRIAXONE 50 NS (0.9%) 65 Oral 0 0 0 Output: Urine 215 725 0 [place] 25 Other: Estimated Void Small Large # Bowel Movements 0 # Voids 1 1 Oxygen Devices in Use Now: None Neurology Exam: General: Disheveled ill appearing elderly man in no distress. He was trying to use the urinal at bedside and had some incontinence. HEENT: Normocephelic/atraumatic, sclera anicteric, mucous membranes moist Neck: Supple Extremities: No clubbing, cyanosis, or edema Neurological Findings: Awake, alert, and oriented to person, place, and time. Speech: mild dysarthria. Cranial Nerve: PERRL, right inferior quadrantanopia. no facial asymmetry. Motor: s/s throughout, proximal and distal extremities x4 tone/bulk normal. Neglect towards the right side. Sensation: intact to LT/PP bilaterally upper and lower extremities Deep Tendon Reflex: 1+ symmetric in the upper/lower extremities, Babinski - down going Finger to nose, rapid alternating movements intact without tremor, no dysdiadochokinesia Gait: n/a fall risk. He is requiring two person assist to stnad. Result Diagrams: 09/20/18 11:38 09/20/18 11:38 Additional Lab and Data: - Brain CT head 09/20/2018: chronic ischemic white matter changes. - MRI brain without contrast: multifocal acute to subacute infarction involving left parietal and occipital lobes and posterior limb of the right internal capsule. - CTA head and neck: mild distal left M1 stenosis. Question of minimal 1-2 mm aneurysm at the expected origin of the left posterior communicating artery. No large vessel occlusion. - Lower extremities bilateral: no right or left DVTs Microbiology and Other Data: TSH: 0.92 LDL: 40 Urine culture: positive for E.coli Assessment/Plan 1. Multifocal embolic stroke- Pending IGNACIO. Continue DAPT. If IGNACIO is positive for a thrombus, discontinue DAPT and start anticoagulation therapy (Eliquis or Xarelto). Continue atorvastatin 40 mg nightly. He will need acute or short-term rehabilitation. Continue PT/OT/CORPORATE TRAVEL EXPERT evaluation and treatments Stroke education, secondary stroke prevention, and fall preventions were discussed today with the patient and family at bedside. I will be more than happy to follow-up with him as an outpatient in 3-4 weeks.
[2018-09-22] MEDS: cefTRIAXone(*) 1 GM in NS 0.9% 50 ML* 50 ML IVPB SCH (15:54)
[2018-09-22] MEDS: Enoxaparin(*) 40 MG/0.4 ML SYR SUBCUT SCH (15:54)
--- NOTE | 2018-09-22 16:50 | TEE ---
*[facility]* [place] [address] Fax #: [phone] Transesophageal Echocardiogram Patient: Cody, Height: 70.1 in / Dickson Candelaria 178 cm : 1930 Weight: 173.8 lb / Study Date: 09/22/2018 79 kg Age: 87 BP: 130 / 79 Gender: M BMI/BSA: 24.9 kg/m^2 HR: 85 bpm / 1.98 m^2 *Videogame Tester: Rehana Bhatti [facility] *Referring Physician: * Destinee BravoReading Physician: * Ling Torres MD Indications: CVA. History: Patent foramen ovale. Aortic stenosis. Cerebrovascular accident. Risk factors: Dyslipidemia. Conclusions Summary: 1. Left ventricle: The cavity size is normal. Wall thickness is mildly to moderately increased. The estimated ejection fraction is 60-65%. 2. Ventricular septum: The outflow septum has a sigmoid appearance, possible left ventricular outflow tract obstruction. 3. Right ventricle: Systolic function is normal. 4. Left atrium: There is no evidence of a thrombus in the atrial cavity or appendage. 5. Atrial septum: A PFO is demonstrated by agitated saline contrast. Early crossing of many bubbles at the level of the foramen ovale. 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 6. Mitral valve: There is mild regurgitation. 7. Aortic valve: The findings are consistent with mild stenosis. Study data: Diagnostic Transesophageal Echocardiogram Consent: The risks and benefits of the procedure, including alternatives were discussed with the patient and/or their health care retail representative and written informed consent was obtained. Procedure: Initial setup: The patient was brought to the laboratory in the fasting state.Intravenous access was obtained. Surface ECG leads, heart rate, heart rhythm, blood pressure measurements, pulse oximetric signals, and mainstream end-tidal CO2 tracings were monitored throughout the procedure. Sedation. Moderate sedation was administered by nursing staff. History and physical as well as labs were reviewed. An oral bite block was inserted for protection of oral dentition. The patient was placed in the left lateral decubitus position. Topical anesthesia was obtained using viscous lidocaine. A transesophageal probe was inserted by the attending waffle machine operator. Transesophageal echocardiography was performed, image quality was adequate, and all standard views were attempted within the limitations of patient tolerance and safety. Multiple 2D, color flow Doppler and spectral Doppler images were obtained. The transesophageal probe was removed. There was no blood loss.No specimens obtained.No tubes, implants, or drains. A bubble study was performed. Location: Procedure room. Patient status: Inpatient. Patient room number: 447 02. Study completion: The patient tolerated the procedure well. There were no complications. Administered medications: Midazolam, 5mg. Fentanyl, 25mcg. Rhythm: Normal sinus rhythm. Findings Left ventricle: The cavity size is normal. Wall thickness is mildly to moderately increased. The estimated ejection fraction is 60-65%. Left ventricular diastolic function parameters are indeterminate. Right ventricle: The cavity size is normal. Systolic function is normal. Ventricular septum: The outflow septum has a sigmoid appearance, possible left ventricular outflow tract obstruction. Left atrium: The atrium is normal in size. There is no evidence of a thrombus in the atrial cavity or appendage. No spontaneous echo contrast is observed. Right atrium: The atrium is normal in size. There is no evidence of a thrombus in the atrial cavity or appendage. Atrial septum: Well visualized. A PFO is demonstrated by agitated saline contrast. Bubble study image #50. 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 Mitral valve: The leaflets are mildly thickened. There is no evidence of stenosis. There is mild regurgitation. Aortic valve: The valve is trileaflet. The leaflets are mildly thickened and mildly calcified with decreased excursion. Valve mobility is moderately restricted. The findings are consistent with mild stenosis. There is trivial regurgitation. Tricuspid valve: The leaflets are normal thickness. There is no evidence of stenosis. There is trivial regurgitation. Pulmonic valve: The valve is structurally normal. There is trivial regurgitation. Aorta: There is plaque visualized in the Transverse Aorta. Aortic root: The aortic root is appears normal. Ascending aorta: The ascending aorta is mildly dilated. There is atheromatous plaque in the descending aorta. Pericardium: There is no significant pericardial effusion. Pulmonary arteries: The main pulmonary artery is normal-sized. Systemic veins: Inferior vena cava: The vessel is normal in size. Superior vena cava: The vessel is appears normal. Pulmonary veins: The flow of the pulmonary veins appears normal. Measurements Aortic valve Value Ref Pulmonic valve Value Ref Elizabeth diam, ED 2.3 cm ---- Peak v, S 0.77 m/sec ---- Peak grad, S 2.4 mm Hg ---- Mitral valve Value Ref Peak E 0.43 m/sec ---- Aortic root Value Ref Peak A 0.8 m/sec ---- Root diam 2.4 cm <4.1 Decel time 95 ms ---- Peak E/A ratio 0.53 ---- Ascending aorta Value Ref AAo AP diam, S 3.9 cm ---- Legend: (L) and (H) rissa values outside specified reference range. Prepared and electronically signed by Ling Torres MD 09/22/2018 16:50
[2018-09-22] MEDS: Atorvastatin* 40 MG TAB PO SCH (18:00)
[2018-09-22] MEDS: Tamsulosin CAP* 0.4 MG PO SCH (21:16)
[2018-09-22] MEDS: ceFUROXime TAB(*) 250 MG PO SCH (21:16)
[2018-09-23] MEDS: Finasteride TAB* 5 MG PO SCH (08:50)
[2018-09-23] MEDS: Clopidogrel TAB* 75 MG PO SCH (08:50)
[2018-09-23] MEDS: ceFUROXime TAB(*) 250 MG PO SCH ×2 (08:50→21:59)
[2018-09-23] MEDS: Cyanocobalamin TAB* 500 MCG PO SCH (08:50)
[2018-09-23 09:21] LABS: ABS Monocytes 0.8 10^3/ul (0-0.8); ABS Neutrophils 6.4 10^3/ul (1.5-7.7); Eosinophil % 0.4 %; Hematocrit 40 % (42-52); Hemoglobin 13.5 g/dL (14.0-18.0); Mean Corpuscular HGB Conc 33 g/dL (31-36); Mean Corpuscular Hemoglobin 30 pg (27-31); Mean Corpuscular Volume 90 fL (80-94); Mean Platelet Volume 8.5 fL (7.4-10.4); Nucleated Red Blood Cells % 0.1; Platelet Count 155 10^3/uL (150-450); Red Cell Distribution Width 15 % (10.5-15); White Blood Count 8.2 10^3/uL (3.5-10.8)
[2018-09-23 09:35] LABS: BUN/Creatinine Ratio 16.4 (8-20); Calcium 9.4 mg/dL (8.6-10.3); EGFR African American 136.4 (>60); EGFR Non-African American 112.7 (>60); Magnesium 1.9 mg/dL (1.9-2.7); Potassium 3.8 mmol/L (3.5-5.0)
[2018-09-23] MEDS: Aspirin 81 mg CHEW TAB* 81 MG TAB.CHEW PO SCH (10:39)
--- NOTE | 2018-09-23 14:12 | PN ---
Subjective Date of Service: 09/23/18 Length of Stay: 3 Days Neurology is following for stroke. Interval History: He is more awake and eating today. He feels well. He denied any focal weakness or paresthesia. He denied any headaches. Reviewed the IGNACIO report. The patient has a PFO and ASA. There was no atrial thrombus seen. Review of Systems: Denied CP, SOB, or palpitations. Objective Active Medications: Acetaminophen (Tylenol Tab*) 650 mg PO Q4H PRN PRN Reason: FEVER/PAIN Last Admin: 09/22/18 03:05 Dose: 650 mg Aspirin (Aspirin 81 Mg Chew Tab*) 81 mg PO DAILY [facility] Last Admin: 09/23/18 10:39 Dose: 81 mg Atorvastatin Calcium (Lipitor*) 40 mg PO QPM [facility] Last Admin: 09/22/18 18:00 Dose: 40 mg Cefuroxime Axetil (Ceftin Tab(*)) 250 mg PO BID [facility] Stop: 09/27/18 09:01 Last Admin: 09/23/18 08:50 Dose: 250 mg Clopidogrel Bisulfate (Plavix Tab*) 75 mg PO DAILY [facility] Last Admin: 09/23/18 08:50 Dose: 75 mg Cyanocobalamin (Vitamin B12 Tab*) 1,000 mcg PO DAILY [facility] Last Admin: 09/23/18 08:50 Dose: 1,000 mcg Enoxaparin Sodium (Lovenox(*)) 40 mg SUBCUT Q24H [facility] Last Admin: 09/22/18 15:54 Dose: 40 mg Finasteride (Proscar Tab*) 5 mg PO DAILY [facility] Last Admin: 09/23/18 08:50 Dose: 5 mg Ondansetron HCl (Zofran Inj*) 4 mg IV Q6H PRN PRN Reason: NAUSEA Last Admin: 09/20/18 20:24 Dose: 4 mg Tamsulosin HCl (Flomax Cap*) 0.4 mg PO BEDTIME [facility] Last Admin: 09/22/18 21:16 Dose: 0.4 mg Vital Signs 09/22/18 09/22/18 09/22/18 14:19 14:27 15:10 Temperature 98.7 F Pulse Rate 76 76 Respiratory 20 Rate Blood Pressure 110/72 125/69 139/72 (mmHg) O2 Sat by Pulse 93 94 Oximetry 09/22/18 09/22/18 09/22/18 15:21 15:49 15:50 Temperature 98.7 F Pulse Rate 78 76 Respiratory 20 Rate Blood Pressure 139/72 152/71 144/76 (mmHg) O2 Sat by Pulse 97 92 Oximetry 09/22/18 09/22/18 09/22/18 16:00 16:50 17:00 Temperature Pulse Rate 74 75 Respiratory Rate Blood Pressure 153/85 (mmHg) O2 Sat by Pulse 91 93 81 Oximetry 09/22/18 09/22/18 09/22/18 17:50 18:00 18:50 Temperature Pulse Rate 82 76 100 Respiratory Rate Blood Pressure 140/79 142/126 (mmHg) O2 Sat by Pulse 90 85 90 Oximetry 09/22/18 09/22/18 09/22/18 19:50 20:00 20:05 Temperature 99.5 F Pulse Rate 86 Respiratory 18 16 Rate Blood Pressure 113/65 128/64 (mmHg) O2 Sat by Pulse 94 Oximetry 09/22/18 09/22/18 09/22/18 20:51 21:50 22:50 Temperature Pulse Rate Respiratory Rate Blood Pressure 129/69 127/64 115/80 (mmHg) O2 Sat by Pulse Oximetry 09/22/18 09/22/18 09/22/18 23:15 23:17 23:37 Temperature 98.4 F Pulse Rate 76 75 72 Respiratory 18 Rate Blood Pressure 128/71 (mmHg) O2 Sat by Pulse 97 94 92 Oximetry 09/22/18 09/23/18 09/23/18 23:50 00:00 00:50 Temperature Pulse Rate 80 51 72 Respiratory Rate Blood Pressure 130/72 119/68 (mmHg) O2 Sat by Pulse 92 92 92 Oximetry 09/23/18 09/23/18 09/23/18 01:00 01:50 03:30 Temperature 98.3 F Pulse Rate 76 Respiratory 12 Rate Blood Pressure 129/70 (mmHg) O2 Sat by Pulse 92 Oximetry 09/23/18 09/23/18 07:16 08:00 Temperature 97.4 F Pulse Rate 71 Respiratory 20 16 Rate Blood Pressure 131/69 (mmHg) O2 Sat by Pulse 95 Oximetry Intake and Output Last 24 Hours 09/21/18 09/22/18 09/23/18 09/24/18 06:59 06:59 06:59 06:59 Intake Total 0 2554 720 Output Total 240 725 0 Balance -240 1829 720 Weight 175 lb Intake: IV Fluids 2439 NS (0.9%) 1449 IVPB 115 ABX - CEFTRIAXONE 50 NS (0.9%) 65 Oral 0 0 720 Output: Urine 215 725 0 [place] 25 Other: Estimated Void Small Large Large # Bowel Movements 0 # Voids 1 1 1 Oxygen Devices in Use Now: None Neurology Exam: General: Disheveled ill appearing elderly man in no distress. He was trying to use the urinal at bedside and had some incontinence. HEENT: Normocephelic/atraumatic, sclera anicteric, mucous membranes moist Neck: Supple Extremities: No clubbing, cyanosis, or edema Neurological Findings: Awake, alert, and oriented to person, place, and time. Speech: mild dysarthria. Cranial Nerve: PERRL, right inferior quadrantanopia. no facial asymmetry. Motor: s/s throughout, proximal and distal extremities x4 tone/bulk normal. Sensation: intact to LT/PP bilaterally upper and lower extremities Deep Tendon Reflex: 1+ symmetric in the upper/lower extremities, Babinski - down going Finger to nose, rapid alternating movements intact without tremor, no dysdiadochokinesia Gait: n/a fall risk. He is requiring two person assist to stnad. Result Diagrams: 09/23/18 08:52 09/23/18 08:52 Additional Lab and Data: - Brain CT head 09/20/2018: chronic ischemic white matter changes. - MRI brain without contrast: multifocal acute to subacute infarction involving left parietal and occipital lobes and posterior limb of the right internal capsule. - CTA head and neck: mild distal left M1 stenosis. Question of minimal 1-2 mm aneurysm at the expected origin of the left posterior communicating artery. No large vessel occlusion. - Lower extremities bilateral: no right or left DVTs Microbiology and Other Data: . Assessment/Plan 1. Multifocal embolic stroke- - IGNACIO showed a PFO and ASA. He would need evaluation by cardiology to see if he is a candidate for PFO closure. This can be done as an outpatient. He has no DVTs seen on venous doppler of the lower extremities. - Continue DAPT. - Continue atorvastatin 40 mg nightly. - He will need acute or short-term rehabilitation. - Continue PT/OT/CLASSROOM MONITOR evaluation and treatments - Stroke education, secondary stroke prevention, and fall preventions were discussed today with the patient and family at bedside. - I will be more than happy to follow-up with him as an outpatient in 3-4 weeks. Neurology will sign off. Please contact us for any questions or concerns.
[2018-09-23] MEDS: Enoxaparin(*) 40 MG/0.4 ML SYR SUBCUT SCH (17:14)
[2018-09-23] MEDS: Atorvastatin* 40 MG TAB PO SCH (17:14)
--- NOTE | 2018-09-23 18:21 | PN ---
Subjective Date of Service: 09/23/18 Interval History: Resting in bed on assessment. Family friend (who is very active in patient's care) at bedside. Patient awakes easily to voice. Denies cp, palpitations, headache, dizziness, sob. Objective Active Medications: Acetaminophen (Tylenol Tab*) 650 mg PO Q4H PRN PRN Reason: FEVER/PAIN Last Admin: 09/22/18 03:05 Dose: 650 mg Aspirin (Aspirin 81 Mg Chew Tab*) 81 mg PO DAILY [facility] Last Admin: 09/23/18 10:39 Dose: 81 mg Atorvastatin Calcium (Lipitor*) 40 mg PO QPM [facility] Last Admin: 09/23/18 17:14 Dose: 40 mg Cefuroxime Axetil (Ceftin Tab(*)) 250 mg PO BID [facility] Stop: 09/27/18 09:01 Last Admin: 09/23/18 08:50 Dose: 250 mg Clopidogrel Bisulfate (Plavix Tab*) 75 mg PO DAILY [facility] Last Admin: 09/23/18 08:50 Dose: 75 mg Cyanocobalamin (Vitamin B12 Tab*) 1,000 mcg PO DAILY [facility] Last Admin: 09/23/18 08:50 Dose: 1,000 mcg Enoxaparin Sodium (Lovenox(*)) 40 mg SUBCUT Q24H [facility] Last Admin: 09/23/18 17:14 Dose: 40 mg Finasteride (Proscar Tab*) 5 mg PO DAILY [facility] Last Admin: 09/23/18 08:50 Dose: 5 mg Ondansetron HCl (Zofran Inj*) 4 mg IV Q6H PRN PRN Reason: NAUSEA Last Admin: 09/20/18 20:24 Dose: 4 mg Tamsulosin HCl (Flomax Cap*) 0.4 mg PO BEDTIME [facility] Last Admin: 09/22/18 21:16 Dose: 0.4 mg Oxygen Devices in Use Now: None Appearance: Comfortable, NAD Eyes: No Scleral Icterus Ears/Nose/Mouth/Throat: Clear Oropharnyx, Mucous Membranes Moist Neck: NL Appearance and Movements; NL JVP Respiratory: Symmetrical Chest Expansion and Respiratory Effort, Clear to Auscultation Cardiovascular: NL Sounds; No Murmurs; No JVD, RRR, - - Systolic murmur Abdominal: NL Sounds; No Tenderness; No Distention Lymphatic: No Cervical Adenopathy Extremities: No Edema Skin: No Rash or Ulcers Neurological: NL Muscle Strength and Tone, - - Alert to self, place, and situation. Unsure of year. Nutrition: Taking PO's Result Diagrams: 09/23/18 08:52 09/23/18 08:52 Additional Lab and Data: Laboratory Results - last 24 hr 09/23/18 09/23/18 08:52 08:52 WBC 8.2 RBC 4.50 Hgb 13.5 L Hct 40 L MCV 90 MCH 30 MCHC 33 RDW 15 Plt Count 155 MPV 8.5 Neut % (Auto) 77.8 Lymph % (Auto) 12.0 [place] % (Auto) 9.6 Eos % (Auto) 0.4 Baso % (Auto) 0.2 Absolute Neuts (auto) 6.4 Absolute Lymphs (auto) 1.0 Absolute Monos (auto) 0.8 Absolute Eos (auto) 0.0 Absolute Basos (auto) 0.0 Absolute Nucleated RBC 0.0 Nucleated RBC % 0.1 Sodium 137 Potassium 3.8 Chloride 104 Carbon Dioxide 25 Anion Gap 8 BUN 11 Creatinine 0.67 Est GFR ( Amer) 136.4 Est GFR (Non-Af Amer) 112.7 BUN/Creatinine Ratio 16.4 Glucose 135 H Calcium 9.4 Magnesium 1.9 Microbiology and Other Data: . Microbiology 09/20/18 11:26 Urine Culture - Final Urine Escherichia Coli Assess/Plan/Problems-Billing 87 yr old male with pmh of tia, bph, hld, patent silva ovale; who presented to ed with worsening weakness and leaning towards left side - Patient Problems (1) CVA (cerebral vascular accident) Comment: - Multifocal acute to subacute infarct per MRI brain - Appreciate Dr. Rashid's consultation. Patient has known PFO. CVA likely cardioembolic based on MRI findings. No hx of afib. - Neuro checks q4H. Continue telemetry. - Transesophageal echo revealed no thrombus - Will need loop recorder. - Doppler LEs negative. - PT/OT/ST to eval and treat. - Continue asa, plavix, atorvastatin - Follow up with Rachid in 3 to 4 weeks after discharge (2) Hyperlipidemia Comment: - Cont Lipitor 40 mg daily (3) PFO (patent foramen ovale) Comment: - Will need outpatient cardiology evaluation to see if he is candidate for closure (4) BPH (benign prostatic hyperplasia) Comment: - Continue flomax - Sees urology outpatient - Discussed that patient would benefit from follow up with urology after discharge to evaluate for causes of recurrent UTIs. Post void bladder scanned ordered while inpatient. (5) UTI (urinary tract infection) Comment: - Frequent UTIs due to urinary retention from BPH - Essentially blair-sensitive ecoli. Switched to cefuroxime. (6) DVT prophylaxis Comment: - Lovenox Status and Disposition: Switch from OBV to inpatient. Discharge to [facility]? Attending: Delicia Rock
[2018-09-23] MEDS: Tamsulosin CAP* 0.4 MG PO SCH (21:59)
[2018-09-24] MEDS: Ondansetron INJ* 2 MG/ML VIAL IV PRN (01:28)
[2018-09-24] MEDS: Finasteride TAB* 5 MG PO SCH (08:56)
[2018-09-24] MEDS: Clopidogrel TAB* 75 MG PO SCH (08:56)
[2018-09-24] MEDS: Cyanocobalamin TAB* 500 MCG PO SCH (08:56)
[2018-09-24] MEDS: ceFUROXime TAB(*) 250 MG PO SCH ×2 (08:56→20:40)
[2018-09-24] MEDS: Aspirin 81 mg CHEW TAB* 81 MG TAB.CHEW PO SCH (08:57)
--- NOTE | 2018-09-24 15:34 | PN ---
Subjective Date of Service: 09/24/18 Interval History: Discussed plan of care with nurse who reports patient has been expressing depression. Patient assessed at bedside. He is flat and dysphoric. He reports feeling emotionally "unwell" and depressed. Denies SI. Denies headache, dizziness, cp, palpitations. Objective Active Medications: Acetaminophen (Tylenol Tab*) 650 mg PO Q4H PRN PRN Reason: FEVER/PAIN Last Admin: 09/22/18 03:05 Dose: 650 mg Aspirin (Aspirin 81 Mg Chew Tab*) 81 mg PO DAILY [facility] Last Admin: 09/24/18 08:57 Dose: 81 mg Atorvastatin Calcium (Lipitor*) 40 mg PO QPM [facility] Last Admin: 09/23/18 17:14 Dose: 40 mg Cefuroxime Axetil (Ceftin Tab(*)) 250 mg PO BID [facility] Stop: 09/27/18 09:01 Last Admin: 09/24/18 08:56 Dose: 250 mg Clopidogrel Bisulfate (Plavix Tab*) 75 mg PO DAILY [facility] Last Admin: 09/24/18 08:56 Dose: 75 mg Cyanocobalamin (Vitamin B12 Tab*) 1,000 mcg PO DAILY [facility] Last Admin: 09/24/18 08:56 Dose: 1,000 mcg Enoxaparin Sodium (Lovenox(*)) 40 mg SUBCUT Q24H [facility] Last Admin: 09/23/18 17:14 Dose: 40 mg Finasteride (Proscar Tab*) 5 mg PO DAILY [facility] Last Admin: 09/24/18 08:56 Dose: 5 mg Ondansetron HCl (Zofran Inj*) 4 mg IV Q6H PRN PRN Reason: NAUSEA Last Admin: 09/24/18 01:28 Dose: 4 mg Tamsulosin HCl (Flomax Cap*) 0.4 mg PO BEDTIME [facility] Last Admin: 09/23/18 21:59 Dose: 0.4 mg Vital Signs - 8 hr 09/24/18 09/24/18 08:00 12:10 Temperature 98.1 F Pulse Rate 79 Respiratory 16 20 Rate Blood Pressure 90/60 (mmHg) O2 Sat by Pulse 91 Oximetry Oxygen Devices in Use Now: None Appearance: Comfortable, NAD Eyes: No Scleral Icterus Ears/Nose/Mouth/Throat: Clear Oropharnyx, Mucous Membranes Moist Neck: NL Appearance and Movements; NL JVP Respiratory: Symmetrical Chest Expansion and Respiratory Effort, Clear to Auscultation Cardiovascular: RRR, No Edema, - - Systolic murmure Abdominal: NL Sounds; No Tenderness; No Distention Lymphatic: No Cervical Adenopathy Extremities: No Edema Skin: No Rash or Ulcers Neurological: Alert and Oriented x 3, NL Muscle Strength and Tone Nutrition: Taking PO's Result Diagrams: 09/23/18 08:52 09/23/18 08:52 Additional Lab and Data: . Microbiology and Other Data: . Microbiology 09/20/18 11:26 Urine Culture - Final Urine Escherichia Coli Assess/Plan/Problems-Billing 87 yr old male with pmh of tia, bph, hld, patent silva ovale; who presented to ed with worsening weakness and leaning towards left side - Patient Problems (1) CVA (cerebral vascular accident) Comment: - Multifocal acute to subacute infarct per MRI brain - Appreciate Dr. Rashid's consultation. Patient has known PFO. CVA likely cardioembolic based on MRI findings. No hx of afib. - Neuro checks q4H. Continue telemetry. - Transesophageal echo revealed no thrombus - Will need loop recorder. - Doppler LEs negative. - PT/OT/ST to eval and treat. - Continue asa, plavix, atorvastatin - Follow up with Rachid in 3 to 4 weeks after discharge (2) Depression Comment: - Denies SI - Discussed depression after strokes and other life changing events. - Declined medical intervention at this time, but agreed to visit from Tj Knutson. - Tj Knutson consulted. (3) Hyperlipidemia Comment: - Cont Lipitor 40 mg daily (4) PFO (patent foramen ovale) Comment: - Will need outpatient cardiology evaluation to see if he is candidate for closure (5) BPH (benign prostatic hyperplasia) Comment: - Continue flomax - Sees urology outpatient - Discussed that patient would benefit from follow up with urology after discharge to evaluate for causes of recurrent UTIs. Post void bladder scanned ordered while inpatient. (6) UTI (urinary tract infection) Comment: - Frequent UTIs due to urinary retention from BPH - Essentially blair-sensitive ecoli. Cont cefuroxime. (7) DVT prophylaxis Comment: - Lovenox Status and Disposition: Switch from OBV to inpatient. Discharge to [facility]? Attending: Chi Burnett
[2018-09-24] MEDS: Enoxaparin(*) 40 MG/0.4 ML SYR SUBCUT SCH (16:27)
[2018-09-24] MEDS: Atorvastatin* 40 MG TAB PO SCH (17:43)
[2018-09-24] MEDS: Tamsulosin CAP* 0.4 MG PO SCH (20:40)
[2018-09-25 05:32] LABS: BUN/Creatinine Ratio 22.2 (8-20); Calcium 9.3 mg/dL (8.6-10.3); EGFR African American 125.5 (>60); EGFR Non-African American 103.8 (>60); Magnesium 1.9 mg/dL (1.9-2.7); Potassium 3.7 mmol/L (3.5-5.0)
[2018-09-25] MEDS: Cyanocobalamin TAB* 500 MCG PO SCH (09:42)
[2018-09-25] MEDS: Finasteride TAB* 5 MG PO SCH (09:42)
[2018-09-25] MEDS: Clopidogrel TAB* 75 MG PO SCH (09:42)
[2018-09-25] MEDS: ceFUROXime TAB(*) 250 MG PO SCH (09:42)
[2018-09-25] MEDS: Aspirin 81 mg CHEW TAB* 81 MG TAB.CHEW PO SCH (09:42)
[2018-09-25] MEDS ORDERED: Potassium Chlor TAB* 20 MEQ TAB.ER PO ONE (12:11)
[2018-09-25] MEDS ORDERED: Magnesium Sulfate 2 GM IV* 2 GM/50 ML BAG IVPB ONE (12:11)
[2018-09-25] MEDS: Enoxaparin(*) 40 MG/0.4 ML SYR SUBCUT SCH (13:58)
--- NOTE | 2018-09-25 16:36 | PN ---
Subjective Date of Service: 09/25/18 Interval History: On assessment this morning patient pleasant, responding appropriately, and in no acute distress. Engaged in review of symptoms and reported right "rib" pain. Denies headache, dizziness, nausea, vomiting, diarrhea. Reports depression again today, but reports less severe. Denies SI. Received call from RN that patient noted to have episode of bradycardia on monitor and on assessment patient was lying on sided moaning, vomited, and was coughing. Patient was assisted to seated positoin and breathing improved. VS revealed mildly decrease oxygen saturation therefore supplemental o2 placed. Received additional call from nurse that patient had gotten out of bed and fell unwhitness. He was also talking about needing to mar checks. She reported VSS and unchanged neuro assessment. 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 Objective Active Medications: Acetaminophen (Tylenol Tab*) 650 mg PO Q4H PRN PRN Reason: FEVER/PAIN Last Admin: 09/22/18 03:05 Dose: 650 mg Amoxicillin/Clavulanate Potassium (Augmentin Tab*) 875 mg PO BID [facility] Aspirin (Aspirin 81 Mg Chew Tab*) 81 mg PO DAILY [facility] Last Admin: 09/25/18 09:42 Dose: 81 mg Atorvastatin Calcium (Lipitor*) 40 mg PO QPM [facility] Last Admin: 09/24/18 17:43 Dose: 40 mg Clopidogrel Bisulfate (Plavix Tab*) 75 mg PO DAILY [facility] Last Admin: 09/25/18 09:42 Dose: 75 mg Cyanocobalamin (Vitamin B12 Tab*) 1,000 mcg PO DAILY [facility] Last Admin: 09/25/18 09:42 Dose: 1,000 mcg Enoxaparin Sodium (Lovenox(*)) 40 mg SUBCUT Q24H [facility] Last Admin: 09/25/18 13:58 Dose: 40 mg Finasteride (Proscar Tab*) 5 mg PO DAILY [facility] Last Admin: 09/25/18 09:42 Dose: 5 mg Ondansetron HCl (Zofran Inj*) 4 mg IV Q6H PRN PRN Reason: NAUSEA Last Admin: 09/24/18 01:28 Dose: 4 mg Tamsulosin HCl (Flomax Cap*) 0.4 mg PO BEDTIME [facility] Last Admin: 09/24/18 20:40 Dose: 0.4 mg Vital Signs - 8 hr 09/25/18 09/25/1809/25/19 11:13 11:26 11:47 Temperature 98.0 F 99.1 F Pulse Rate 87 93 108 Respiratory 26 24 Rate Blood Pressure 138/76 135/80 146/77 (mmHg) O2 Sat by Pulse 93 95 92 Oximetry 09/25/18 16:00 Temperature 98.1 F Pulse Rate 87 Respiratory 16 Rate Blood Pressure 139/74 (mmHg) O2 Sat by Pulse 100 Oximetry Oxygen Devices in Use Now: Nasal Cannula Appearance: Initial assessment comfortable and NAD. Reassessment patient noted to be slightly dyspneic Eyes: No Scleral Icterus, PERRLA Ears/Nose/Mouth/Throat: Clear Oropharnyx, Mucous Membranes Moist Neck: NL Appearance and Movements; NL JVP Respiratory: Symmetrical Chest Expansion and Respiratory Effort - Scant coarse rhonchi anteriorly in upper airways. Clears with cough. Posteriorly lung sounds clear with good aeration Cardiovascular: NL Sounds; No Murmurs; No JVD, RRR, No Edema Abdominal: - - Initial assessment patient reported pain to light touch throughout. Repeat assessment after vomited patient denied pain to palpation Lymphatic: No Cervical Adenopathy Extremities: No Edema Skin: No Rash or Ulcers Neurological: NL Muscle Strength and Tone, - - Alert to self. Nutrition: Taking PO's Result Diagrams: 09/23/18 08:52 09/25/18 04:32 Additional Lab and Data: . Laboratory Results - last 24 hr 09/25/18 04:32 Sodium 136 Potassium 3.7 Chloride 101 Carbon Dioxide 28 Anion Gap 7 BUN 16 Creatinine 0.72 Est GFR ( Amer) 125.5 Est GFR (Non-Af Amer) 103.8 BUN/Creatinine Ratio 22.2 H Glucose 137 H Calcium 9.3 Magnesium 1.9 Microbiology and Other Data: . Microbiology 09/20/18 11:26 Urine Culture - Final Urine Escherichia Coli Assess/Plan/Problems-Billing 87 yr old male with pmh of tia, bph, hld, patent silva ovale; who presented to ed with worsening weakness and leaning towards left side - Patient Problems (1) Vomiting Comment: - Concern for aspiration, therefore, abx broadeded to cover UTI an aspiration (2) Fall Comment: - Neuro checks Q 2 - Brain CT unremarkable. Consider repeating if decompensates (3) Confusion Comment: - Increased confusion this afternoon as evidence by patient attempting to get out of bed and stating he needs to write checks. - Suspected multifactorial due to uti, hospitalization, urinary retention (4) Urinary retention Comment: - Bladder scanned after fall and increased confusion. Scan revealed apprx 360 ml. Strait cath ordered. Per nurse during straight cath > 600 mls drained therefore jennings placed. - Patient will need follow up with urology as he had jennings earlier in stay and now needed it replaced. Could attempt void trial again? (5) CVA (cerebral vascular accident) Comment: - Multifocal acute to subacute infarct per MRI brain - Appreciate Dr. Rashid's consultation. Patient has known PFO. CVA likely cardioembolic based on MRI findings. No hx of afib. - Continue telemetry. - Transesophageal echo revealed no thrombus - Will need loop recorder. - Doppler LEs negative. - PT/OT/ST to eval and treat. - Continue asa, plavix, atorvastatin - Follow up with Rachid in 3 to 4 weeks after discharge - Hopeful for PMRU discharge (6) Depression Comment: - Denies SI - Reports mild improvement - Patient stated he will consider medication, but not at this time (7) Hyperlipidemia Comment: - Cont Lipitor 40 mg daily (8) PFO (patent foramen ovale) Comment: - Will need outpatient cardiology evaluation to see if he is candidate for closure (9) BPH (benign prostatic hyperplasia) Comment: - Continue flomax - Sees urology outpatient - Jennings replaced due to retention (10) UTI (urinary tract infection) Comment: - Frequent UTIs due to urinary retention from BPH - Essentially blair-sensitive ecoli. - Changed to Augmentin to cover UTI and aspiration (11) DVT prophylaxis Comment: - Lovenox Status and Disposition: Inpatient. Attending: Chi Burnett
[2018-09-25] MEDS: Atorvastatin* 40 MG TAB PO SCH (16:51)
[2018-09-25] MEDS: Tamsulosin CAP* 0.4 MG PO SCH (20:02)
[2018-09-25] MEDS: Amoxicillin/Clavulanate TAB* 875 MG PO SCH (20:02)
[2018-09-26 08:27] LABS: Hematocrit 42 % (42-52); Hemoglobin 13.9 g/dL (14.0-18.0); Mean Corpuscular HGB Conc 33 g/dL (31-36); Mean Corpuscular Hemoglobin 30 pg (27-31); Mean Corpuscular Volume 92 fL (80-94); Red Blood Count 4.62 10^6 /uL (4.18-5.48); Red Cell Distribution Width 15 % (10.5-15); White Blood Count 13.5 10^3/uL (3.5-10.8)
[2018-09-26] MEDS: Amoxicillin/Clavulanate TAB* 875 MG PO SCH (08:31)
[2018-09-26] MEDS: Clopidogrel TAB* 75 MG PO SCH (08:31)
[2018-09-26] MEDS: Cyanocobalamin TAB* 500 MCG PO SCH (08:31)
[2018-09-26] MEDS: Finasteride TAB* 5 MG PO SCH (08:31)
[2018-09-26] MEDS: Aspirin 81 mg CHEW TAB* 81 MG TAB.CHEW PO SCH (08:31)
[2018-09-26 08:52] LABS: ABS Lymphocytes 0.8 10^3/ul (1.0-4.8); ABS Monocytes 1.3 10^3/ul (0-0.8); ABS Neutrophils 11.4 10^3/ul (1.5-7.7); Eosinophil % 0.1 %; Platelet Count Platelets clumped. 10^3/uL (150-450)
[2018-09-26 09:23] LABS: CO2 Carbon Dioxide 21 mmol/L (22-32); Calcium 9.1 mg/dL (8.6-10.3); Chloride 101 mmol/L (101-111); Magnesium 2.2 mg/dL (1.9-2.7); Sodium 135 mmol/L (135-145)
[2018-09-26 09:29] LABS: BUN/Creatinine Ratio 23.5 (8-20); Blood Urea Nitrogen 16 mg/dL (6-24); EGFR African American 134.1 (>60); EGFR Non-African American 110.8 (>60); Glucose 115 mg/dL (70-100)
[2018-09-26 10:01] LABS: Anion Gap 13 mmol/L (2-11)
[2018-09-26] MEDS ORDERED: Piperacillin/Tazobac ADVAN(*) 3.375 GM in NS 0.9% 100 ML* 100 ML IVPB ONE (12:00)
[2018-09-26] MEDS ORDERED: Zosyn per Pharmacy* NOTE FOLLOW UP SCH (12:00)
--- NOTE | 2018-09-26 14:49 | PN ---
Subjective Date of Service: 09/26/18 Interval History: Patient resting in bed on assessment. Appears slight more lethargic today as he is closing his eye intermittently during my assessment. He denies cp, palpitations, abd pain, nausea. He denies depression today. Objective Active Medications: Acetaminophen (Tylenol Tab*) 650 mg PO Q4H PRN PRN Reason: FEVER/PAIN Last Admin: 09/22/18 03:05 Dose: 650 mg Aspirin (Aspirin 81 Mg Chew Tab*) 81 mg PO DAILY [facility] Last Admin: 09/26/18 08:31 Dose: 81 mg Atorvastatin Calcium (Lipitor*) 40 mg PO QPM [facility] Last Admin: 09/25/18 16:51 Dose: 40 mg Clopidogrel Bisulfate (Plavix Tab*) 75 mg PO DAILY [facility] Last Admin: 09/26/18 08:31 Dose: 75 mg Cyanocobalamin (Vitamin B12 Tab*) 1,000 mcg PO DAILY [facility] Last Admin: 09/26/18 08:31 Dose: 1,000 mcg Enoxaparin Sodium (Lovenox(*)) 40 mg SUBCUT Q24H [facility] Last Admin: 09/25/18 13:58 Dose: 40 mg Finasteride (Proscar Tab*) 5 mg PO DAILY [facility] Last Admin: 09/26/18 08:31 Dose: 5 mg Sodium Chloride (Ns 0.9% 1000 Ml) 1,000 mls @ 75 mls/hr IV PER RATE [facility] Piperacillin Sod/Tazobactam (Sod 3.375 gm/ Sodium Chloride) 100 mls @ 25 mls/ hr IVPB Q8H [facility] Ondansetron HCl (Zofran Inj*) 4 mg IV Q6H PRN PRN Reason: NAUSEA Last Admin: 09/24/18 01:28 Dose: 4 mg Pharmacy Consult (Zosyn Per Pharmacy*) 1 note FOLLOW UP .ZOSYN PER PHARMACY [facility] Tamsulosin HCl (Flomax Cap*) 0.4 mg PO BEDTIME [facility] Last Admin: 09/25/18 20:02 Dose: 0.4 mg Vital Signs - 8 hr 09/26/18 09/26/18 08:00 11:45 Temperature 96.6 F Pulse Rate 84 Respiratory 18 16 Rate Blood Pressure 116/69 (mmHg) O2 Sat by Pulse 93 Oximetry Oxygen Devices in Use Now: Nasal Cannula Appearance: NAD Eyes: No Scleral Icterus, PERRLA Ears/Nose/Mouth/Throat: Clear Oropharnyx, Mucous Membranes Moist Neck: NL Appearance and Movements; NL JVP Respiratory: Symmetrical Chest Expansion and Respiratory Effort, Clear to Auscultation Cardiovascular: RRR, No Edema, - - Systolic murmur Abdominal: NL Sounds; No Tenderness; No Distention Lymphatic: No Cervical Adenopathy Extremities: No Clubbing, Cyanosis Skin: No Rash or Ulcers Neurological: - - Alert to self only. Patient has baseline RUE and RLE weakness which is noted today. Nutrition: - - NPO til speech therapy swallow evaluation Result Diagrams: 09/26/18 07:53 09/26/18 10:15 Additional Lab and Data: Laboratory Results - last 24 hr 09/26/18 09/26/18 09/26/18 07:53 07:53 10:15 WBC 13.5 H RBC 4.62 Hgb 13.9 L Hct 42 MCV 92 MCH 30 MCHC 33 RDW 15 Plt Count Platelets clumped. H MPV Not Reportable Neut % (Auto) 84.1 Lymph % (Auto) 6.0 [place] % (Auto) 9.6 Eos % (Auto) 0.1 Baso % (Auto) 0.2 Absolute Neuts (auto) 11.4 H Absolute Lymphs (auto) 0.8 L Absolute Monos (auto) 1.3 H Absolute Eos (auto) 0.0 Absolute Basos (auto) 0.0 Absolute Nucleated RBC 0.0 Nucleated RBC % 0.0 Sodium 135 Potassium TNP 4.0 Chloride 101 Carbon Dioxide 21 L Anion Gap 13 H BUN 16 Creatinine 0.68 Est GFR ( Amer) 134.1 Est GFR (Non-Af Amer) 110.8 BUN/Creatinine Ratio 23.5 H Glucose 115 H Calcium 9.1 Magnesium 2.2 Microbiology and Other Data: . Microbiology 09/20/18 11:26 Urine Culture - Final Urine Escherichia Coli Assess/Plan/Problems-Billing 87 yr old male with pmh of tia, bph, hld, patent silva ovale; who presented to ed with worsening weakness and leaning towards left side - Patient Problems (1) Swallowing impaired Comment: - Did not perform well during swallow evaluation yesterday and later nurse noted patient choking even on puree. Patient made NPO until official speech therapy eval - Can manage pills with applesauce without difficulty - IVF for hydration while NPO (2) Aspiration pneumonia Comment: - Yesterday patient had episode of vomiting while lying flat and failed nursing swallow evaluation. Due to concern for aspiration abx broadened to Augmentin to cover UTI an aspiration yesterday. - Today broadened further to Zosyn given NPO and leukocytosis - Also requiring supplemental O2 to maintain saturation since yesterday - Initial chest xray negative. Consider repeating? (3) Fall Comment: - Yesterday had unwitnessed fall - Neuro checks Q 2 remain unchanged - Initial brain CT unremarkable. - Brain CT repeated today as patient is slight more lethargic and baseline R sided weakness is more prominent. Repeat CT unremarkable (4) Confusion Comment: - Suspected toxic encepholapathy uspected multifactorial due to uti, hospitalization, urinary retention, aspiration (5) Urinary retention Comment: - Jennings replaced yesterday due to retention - Patient will need follow up with urology as he had jennings earlier in stay and now needed it replaced. Could attempt void trial again? (6) CVA (cerebral vascular accident) Comment: - Multifocal acute to subacute infarct per MRI brain - Appreciate Dr. Rashid's consultation. Patient has known PFO. CVA likely cardioembolic based on MRI findings. No hx of afib. - Continue telemetry. - Transesophageal echo revealed no thrombus - Will need loop recorder. - Doppler LEs negative. - PT/OT/ST to eval and treat. - Continue asa, plavix, atorvastatin - Follow up with Rachid in 3 to 4 weeks after discharge - Hopeful for PMRU discharge (7) Depression Comment: - Denies SI - Reports mild improvement - Patient stated he will consider medication, but not at this time (8) Hyperlipidemia Comment: - Cont Lipitor 40 mg daily (9) PFO (patent foramen ovale) Comment: - Will need outpatient cardiology evaluation to see if he is candidate for closure (10) BPH (benign prostatic hyperplasia) Comment: - Continue flomax - Sees urology outpatient - Jennings replaced due to retention (11) UTI (urinary tract infection) Comment: - Frequent UTIs due to urinary retention from BPH - Essentially blair-sensitive ecoli. - Changed to Zosyn to cover UTI and possible aspiration (12) DVT prophylaxis Comment: - Lovenox Status and Disposition: Inpatient. Attending: Chi Burnett
[2018-09-26] MEDS: Enoxaparin(*) 40 MG/0.4 ML SYR SUBCUT SCH (15:17)
[2018-09-26] MEDS: NS 0.9% 1000 ML** 1,000 ML IV SCH (15:22)
[2018-09-26] MEDS: ZOSYN 3.375 GM Q8H per EXTENDED INFUSION IVPB SCH ×2 (17:33)
[2018-09-26] MEDS: Atorvastatin* 40 MG TAB PO SCH (17:33)
[2018-09-26] MEDS: Tamsulosin CAP* 0.4 MG PO SCH (20:36)
[2018-09-27] MEDS: ZOSYN 3.375 GM Q8H per EXTENDED INFUSION IVPB SCH ×6 (02:43→17:33)
[2018-09-27 06:43] LABS: BUN/Creatinine Ratio 31.9 (8-20); EGFR African American 131.9 (>60); Potassium 3.8 mmol/L (3.5-5.0)
[2018-09-27 08:03] LABS: ABS Lymphocytes 0.7 10^3/ul (1.0-4.8); Eosinophil % 0.3 %; Hematocrit 35 % (42-52); Hemoglobin 11.5 g/dL (14.0-18.0); Lymphocyte % 6.3 %; Mean Corpuscular HGB Conc 33 g/dL (31-36); Mean Corpuscular Hemoglobin 30 pg (27-31); Mean Corpuscular Volume 90 fL (80-94); Mean Platelet Volume 8.2 fL (7.4-10.4); Platelet Count 186 10^3/uL (150-450); Red Cell Distribution Width 15 % (10.5-15); White Blood Count 11.8 10^3/uL (3.5-10.8)
--- NOTE | 2018-09-27 08:29 | PN ---
Subjective Date of Service: 09/27/18 Interval History: Patient laying in bed A=O - NAD - daughter at bedside. Patient reports he feels better today. Speech therapy in room on my arrival stating patient is doing better compared to last week - now passing his swallowing eval. Pt denies cough, SOB, fever. Per daughter he seems too be improving daily. Objective Active Medications: Acetaminophen (Tylenol Tab*) 650 mg PO Q4H PRN PRN Reason: FEVER/PAIN Last Admin: 09/22/18 03:05 Dose: 650 mg Aspirin (Aspirin 81 Mg Chew Tab*) 81 mg PO DAILY [facility] Last Admin: 09/26/18 08:31 Dose: 81 mg Atorvastatin Calcium (Lipitor*) 40 mg PO QPM [facility] Last Admin: 09/26/18 17:33 Dose: 40 mg Clopidogrel Bisulfate (Plavix Tab*) 75 mg PO DAILY [facility] Last Admin: 09/26/18 08:31 Dose: 75 mg Cyanocobalamin (Vitamin B12 Tab*) 1,000 mcg PO DAILY [facility] Last Admin: 09/26/18 08:31 Dose: 1,000 mcg Enoxaparin Sodium (Lovenox(*)) 40 mg SUBCUT Q24H [facility] Last Admin: 09/26/18 15:17 Dose: 40 mg Finasteride (Proscar Tab*) 5 mg PO DAILY [facility] Last Admin: 09/26/18 08:31 Dose: 5 mg Sodium Chloride (Ns 0.9% 1000 Ml) 1,000 mls @ 75 mls/hr IV PER RATE [facility] Last Admin: 09/26/18 15:22 Dose: 75 mls/hr Piperacillin Sod/Tazobactam (Sod 3.375 gm/ Sodium Chloride) 100 mls @ 25 mls/ hr IVPB Q8H [facility] Last Admin: 09/27/18 02:43 Dose: 25 mls/hr Ondansetron HCl (Zofran Inj*) 4 mg IV Q6H PRN PRN Reason: NAUSEA Last Admin: 09/24/18 01:28 Dose: 4 mg Pharmacy Consult (Zosyn Per Pharmacy*) 1 note FOLLOW UP .ZOSYN PER PHARMACY [facility] Tamsulosin HCl (Flomax Cap*) 0.4 mg PO BEDTIME [facility] Last Admin: 09/26/18 20:36 Dose: 0.4 mg Vital Signs - 8 hr 09/27/18 09/27/18 09/27/18 03:46 07:44 07:51 Temperature 97.6 F 98.3 F Pulse Rate 75 74 Respiratory 20 18 18 Rate Blood Pressure 109/67 118/65 (mmHg) O2 Sat by Pulse 95 96 Oximetry Oxygen Devices in Use Now: Nasal Cannula Appearance: elderly male lsying in bed A+O in NAD Eyes: No Scleral Icterus, PERRLA Respiratory: Symmetrical Chest Expansion and Respiratory Effort, Clear to Auscultation Cardiovascular: NL Sounds; No Murmurs; No JVD, RRR, No Edema Abdominal: NL Sounds; No Tenderness; No Distention Skin: No Rash or Ulcers, No Nodules or Sclerosis Neurological: Alert and Oriented x 3 Lines/Tubes/Other Access: Clean, Dry and Intact Peripheral IV Nutrition: Taking PO's Result Diagrams: 09/27/18 07:42 09/27/18 05:14 Additional Lab and Data: Laboratory Results - last 24 hr 09/26/18 09/26/18 09/26/18 07:53 07:53 10:15 WBC 13.5 H RBC 4.62 Hgb 13.9 L Hct 42 MCV 92 MCH 30 MCHC 33 RDW 15 Plt Count Platelets clumped. H MPV Not Reportable Neut % (Auto) 84.1 Lymph % (Auto) 6.0 [place] % (Auto) 9.6 Eos % (Auto) 0.1 Baso % (Auto) 0.2 Absolute Neuts (auto) 11.4 H Absolute Lymphs (auto) 0.8 L Absolute Monos (auto) 1.3 H Absolute Eos (auto) 0.0 Absolute Basos (auto) 0.0 Absolute Nucleated RBC 0.0 Nucleated RBC % 0.0 Sodium 135 Potassium TNP 4.0 Chloride 101 Carbon Dioxide 21 L Anion Gap 13 H BUN 16 Creatinine 0.68 Est GFR ( Amer) 134.1 Est GFR (Non-Af Amer) 110.8 BUN/Creatinine Ratio 23.5 H Glucose 115 H Calcium 9.1 Magnesium 2.2 Microbiology and Other Data: . Microbiology 09/20/18 11:26 Urine Culture - Final Urine Escherichia Coli Assess/Plan/Problems-Billing 87 yr old male with pmh of tia, bph, hld, patent silva ovale; who presented to ed with worsening weakness and leaning towards left side - Patient Problems (1) CVA (cerebral vascular accident) Comment: - Multifocal acute to subacute infarct per MRI brain - Appreciate Dr. Rashid's consultation. Patient has known PFO. CVA likely cardioembolic based on MRI findings. No hx of afib. - Continue telemetry. - Transesophageal echo revealed no thrombus - Will need loop recorder. - Doppler LEs negative. - PT/OT/ST to eval and treat. - Continue asa, plavix, atorvastatin - Follow up with Rachid in 3 to 4 weeks after discharge (2) Confusion Comment: - Improvinh - Suspected toxic encepholapathy suspected multifactorial due to uti, hospitalization, urinary retention, aspiration and CVA (3) Aspiration pneumonia Comment: - 09/25 patient had episode of vomiting while lying flat and failed nursing swallow evaluation. Due to concern for aspiration abx broadened to Augmentin to cover UTI and aspiration - Increase in oxygen needs since that time - Attempt to titrate O2 off - now on 2L NC - Initial chest xray negative. (4) UTI (urinary tract infection) Comment: - Frequent UTIs due to urinary retention from BPH - Essentially blair-sensitive ecoli. - Zosyn to cover UTI and possible aspiration (5) Fall Comment: - 09/25 had unwitnessed fall - Initial brain CT unremarkable; Brain CT repeated 09/27 due to lethargy and baseline R sided weakness wass more prominent. Repeat CT unremarkable (6) Depression Comment: - supportive treatment (7) Hyperlipidemia Comment: - Cont Lipitor 40 mg daily (8) PFO (patent foramen ovale) Comment: - Will need outpatient cardiology evaluation to see if he is candidate for closure (9) Swallowing impaired Comment: - passed swallow eval today (10) Urinary retention Current Visit: Yes Comment: - Jennings placed 09/25 due to retention - Patient will need follow up with urology as he had jennings earlier in stay and failed removal - has hx of multi UTI with retention - Discussed with daughter plan to DC home with jennings & f/u with urology (11) DVT prophylaxis Comment: - Lovenox Status and Disposition: Inpatient. Will need subacute rehab
[2018-09-27] MEDS: Cyanocobalamin TAB* 500 MCG PO SCH (09:08)
[2018-09-27] MEDS: Clopidogrel TAB* 75 MG PO SCH (09:08)
[2018-09-27] MEDS: Finasteride TAB* 5 MG PO SCH (09:08)
[2018-09-27] MEDS: Aspirin 81 mg CHEW TAB* 81 MG TAB.CHEW PO SCH (09:08)
[2018-09-27] MEDS: Enoxaparin(*) 40 MG/0.4 ML SYR SUBCUT SCH (15:52)
[2018-09-27] MEDS: NS 0.9% 1000 ML** 1,000 ML IV SCH (15:57)
[2018-09-27] MEDS: Atorvastatin* 40 MG TAB PO SCH (17:33)
[2018-09-27] MEDS: Tamsulosin CAP* 0.4 MG PO SCH (22:21)
[2018-09-28] MEDS: ZOSYN 3.375 GM Q8H per EXTENDED INFUSION IVPB SCH ×4 (02:02→09:14)
[2018-09-28 06:22] LABS: ABS Eosinophils 0.1 10^3/ul (0-0.6); ABS Lymphocytes 0.9 10^3/ul (1.0-4.8); ABS Monocytes 0.9 10^3/ul (0-0.8); ABS Neutrophils 8.1 10^3/ul (1.5-7.7); Eosinophil % 0.7 %; Hematocrit 32 % (42-52); Hemoglobin 10.9 g/dL (14.0-18.0); Lymphocyte % 8.6 %; Mean Corpuscular HGB Conc 34 g/dL (31-36); Mean Corpuscular Hemoglobin 30 pg (27-31); Mean Corpuscular Volume 90 fL (80-94); Mean Platelet Volume 7.3 fL (7.4-10.4); Platelet Count 194 10^3/uL (150-450); Red Blood Count 3.59 10^6 /uL (4.18-5.48); Red Cell Distribution Width 15 % (10.5-15); White Blood Count 9.9 10^3/uL (3.5-10.8)
[2018-09-28 06:47] LABS: Calcium 8.6 mg/dL (8.6-10.3); EGFR African American 119.8 (>60); Potassium 3.6 mmol/L (3.5-5.0)
[2018-09-28] MEDS: Cyanocobalamin TAB* 500 MCG PO SCH (09:11)
[2018-09-28] MEDS: Aspirin 81 mg CHEW TAB* 81 MG TAB.CHEW PO SCH (09:11)
[2018-09-28] MEDS: Finasteride TAB* 5 MG PO SCH (09:11)
[2018-09-28] MEDS: Clopidogrel TAB* 75 MG PO SCH (09:11)
--- NOTE | 2018-09-28 11:52 | ADMNOTE ---
Review of Systems - Measurements Intake and Output: Intake and Output Last 24 Hours 09/26/18 09/27/18 09/28/18 09/29/18 06:59 06:59 06:59 06:59 Intake Total 300 1229 1674 100 Output Total 900 1100 910 Balance -600 129 764 100 Intake: IV Fluids 1229 852 ABX - CEFTRIAXONE 170 100 NS (0.9%) 1059 752 IVPB 60 342 MG 2gm 60 NS (0.9%) 342 Oral 240 0 480 100 Output: Urine 0 0 Jennings 900 1100 910 Other: Estimated Stool Amount Large Objective Active Medications: Acetaminophen (Tylenol Tab*) 650 mg PO Q4H PRN PRN Reason: FEVER/PAIN Last Admin: 09/22/18 03:05 Dose: 650 mg Aspirin (Aspirin 81 Mg Chew Tab*) 81 mg PO DAILY [facility] Last Admin: 09/28/18 09:11 Dose: 81 mg Atorvastatin Calcium (Lipitor*) 40 mg PO QPM [facility] Last Admin: 09/27/18 17:33 Dose: 40 mg Clopidogrel Bisulfate (Plavix Tab*) 75 mg PO DAILY [facility] Last Admin: 09/28/18 09:11 Dose: 75 mg Cyanocobalamin (Vitamin B12 Tab*) 1,000 mcg PO DAILY [facility] Last Admin: 09/28/18 09:11 Dose: 1,000 mcg Enoxaparin Sodium (Lovenox(*)) 40 mg SUBCUT Q24H [facility] Last Admin: 09/27/18 15:52 Dose: 40 mg Finasteride (Proscar Tab*) 5 mg PO DAILY [facility] Last Admin: 09/28/18 09:11 Dose: 5 mg Sodium Chloride (Ns 0.9% 1000 Ml) 1,000 mls @ 75 mls/hr IV PER RATE [facility] Last Admin: 09/27/18 15:57 Dose: 75 mls/hr Piperacillin Sod/Tazobactam (Sod 3.375 gm/ Sodium Chloride) 100 mls @ 25 mls/ hr IVPB Q8H [facility] Last Admin: 09/28/18 09:14 Dose: 25 mls/hr Ondansetron HCl (Zofran Inj*) 4 mg IV Q6H PRN PRN Reason: NAUSEA Last Admin: 09/24/18 01:28 Dose: 4 mg Pharmacy Consult (Zosyn Per Pharmacy*) 1 note FOLLOW UP .ZOSYN PER [facility]ARMACY [facility] Tamsulosin HCl (Flomax Cap*) 0.4 mg PO BEDTIME [facility] Last Admin: 09/27/18 22:21 Dose: 0.4 mg Vital Signs - 8 hr 09/28/18 09/28/18 09/28/18 03:58 07:25 08:00 Temperature 97.4 F 98.0 F Pulse Rate 71 64 Respiratory 18 14 18 Rate Blood Pressure 113/64 123/64 (mmHg) O2 Sat by Pulse 93 99 Oximetry 09/28/18 10:41 Temperature 99.1 F Pulse Rate 76 Respiratory 16 Rate Blood Pressure 110/66 (mmHg) O2 Sat by Pulse 95 Oximetry Oxygen Devices in Use Now: Nasal Cannula Result Diagrams: 09/28/18 06:17 09/28/18 06:17 Additional Lab and Data: Laboratory Results - last 24 hr 09/26/18 09/26/18 09/26/18 07:53 07:53 10:15 WBC 13.5 H RBC 4.62 Hgb 13.9 L Hct 42 MCV 92 MCH 30 MCHC 33 RDW 15 Plt Count Platelets clumped. H MPV Not Reportable Neut % (Auto) 84.1 Lymph % (Auto) 6.0 [place] % (Auto) 9.6 Eos % (Auto) 0.1 Baso % (Auto) 0.2 Absolute Neuts (auto) 11.4 H Absolute Lymphs (auto) 0.8 L Absolute Monos (auto) 1.3 H Absolute Eos (auto) 0.0 Absolute Basos (auto) 0.0 Absolute Nucleated RBC 0.0 Nucleated RBC % 0.0 Sodium 135 Potassium TNP 4.0 Chloride 101 Carbon Dioxide 21 L Anion Gap 13 H BUN 16 Creatinine 0.68 Est GFR ( Amer) 134.1 Est GFR (Non-Af Amer) 110.8 BUN/Creatinine Ratio 23.5 H Glucose 115 H Calcium 9.1 Magnesium 2.2 Microbiology and Other Data: . Microbiology 09/20/18 11:26 Urine Culture - Final Urine Escherichia Coli Assess/Plan/Problems-Billing 87 yr old male with pmh of tia, bph, hld, patent silva ovale; who presented to ed with worsening weakness and leaning towards left side - Patient Problems (1) CVA (cerebral vascular accident) Comment: - Multifocal acute to subacute infarct per MRI brain - Appreciate Dr. Rashid's consultation. Patient has known PFO. CVA likely cardioembolic based on MRI findings. No hx of afib. - Continue telemetry. - Transesophageal echo revealed no thrombus - Will need loop recorder. - Doppler LEs negative. - PT/OT/ST to eval and treat. - Continue asa, plavix, atorvastatin - Follow up with Rachid in 3 to 4 weeks after discharge (2) Confusion Comment: - Improvinh - Suspected toxic encepholapathy suspected multifactorial due to uti, hospitalization, urinary retention, aspiration and CVA (3) Aspiration pneumonia Comment: - 09/25 patient had episode of vomiting while lying flat and failed nursing swallow evaluation. Due to concern for aspiration abx broadened to Augmentin to cover UTI and aspiration - Increase in oxygen needs since that time - Attempt to titrate O2 off - now on 2L NC - Initial chest xray negative. (4) UTI (urinary tract infection) Comment: - Frequent UTIs due to urinary retention from BPH - Essentially blair-sensitive ecoli. - Zosyn to cover UTI and possible aspiration (5) Fall Comment: - 09/25 had unwitnessed fall - Initial brain CT unremarkable; Brain CT repeated 09/27 due to lethargy and baseline R sided weakness wass more prominent. Repeat CT unremarkable (6) Depression Comment: - supportive treatment (7) Hyperlipidemia Comment: - Cont Lipitor 40 mg daily (8) PFO (patent foramen ovale) Comment: - Will need outpatient cardiology evaluation to see if he is candidate for closure (9) Swallowing impaired Comment: - passed swallow eval today (10) Urinary retention Current Visit: Yes Comment: - Jennings placed 09/25 due to retention - Patient will need follow up with urology as he had jennings earlier in stay and failed removal - has hx of multi UTI with retention - Discussed with daughter plan to DC home with jennings & f/u with urology (11) DVT prophylaxis Comment: - Lovenox Status and Disposition: Inpatient. Will need subacute rehab
--- NOTE | 2018-09-28 11:56 | PN ---
Subjective Date of Service: 09/28/18 Interval History: Patient denies any complaints other than "I am sleepy". Daughter at bedside who states he seems weak. Patient denies any cough, sputum production, SOB, fever or chills. Noted to have some confusion - per daughter this is his baseline Nursing staff stated when he was OOB to chair he became very agitated and at risk of falling out of chair. Objective Active Medications: Acetaminophen (Tylenol Tab*) 650 mg PO Q4H PRN PRN Reason: FEVER/PAIN Last Admin: 09/22/18 03:05 Dose: 650 mg Aspirin (Aspirin 81 Mg Chew Tab*) 81 mg PO DAILY [facility] Last Admin: 09/28/18 09:11 Dose: 81 mg Atorvastatin Calcium (Lipitor*) 40 mg PO QPM [facility] Last Admin: 09/27/18 17:33 Dose: 40 mg Clopidogrel Bisulfate (Plavix Tab*) 75 mg PO DAILY [facility] Last Admin: 09/28/18 09:11 Dose: 75 mg Cyanocobalamin (Vitamin B12 Tab*) 1,000 mcg PO DAILY [facility] Last Admin: 09/28/18 09:11 Dose: 1,000 mcg Enoxaparin Sodium (Lovenox(*)) 40 mg SUBCUT Q24H [facility] Last Admin: 09/27/18 15:52 Dose: 40 mg Finasteride (Proscar Tab*) 5 mg PO DAILY [facility] Last Admin: 09/28/18 09:11 Dose: 5 mg Sodium Chloride (Ns 0.9% 1000 Ml) 1,000 mls @ 75 mls/hr IV PER RATE [facility] Last Admin: 09/27/18 15:57 Dose: 75 mls/hr Piperacillin Sod/Tazobactam (Sod 3.375 gm/ Sodium Chloride) 100 mls @ 25 mls/ hr IVPB Q8H [facility] Last Admin: 09/28/18 09:14 Dose: 25 mls/hr Ondansetron HCl (Zofran Inj*) 4 mg IV Q6H PRN PRN Reason: NAUSEA Last Admin: 09/24/18 01:28 Dose: 4 mg Pharmacy Consult (Zosyn Per Pharmacy*) 1 note FOLLOW UP .ZOSYN PER [facility]Y [facility] Tamsulosin HCl (Flomax Cap*) 0.4 mg PO BEDTIME [facility] Last Admin: 09/27/18 22:21 Dose: 0.4 mg Vital Signs - 8 hr 09/28/18 09/28/18 09/28/18 03:58 07:25 08:00 Temperature 97.4 F 98.0 F Pulse Rate 71 64 Respiratory 18 14 18 Rate Blood Pressure 113/64 123/64 (mmHg) O2 Sat by Pulse 93 99 Oximetry 09/28/18 10:41 Temperature 99.1 F Pulse Rate 76 Respiratory 16 Rate Blood Pressure 110/66 (mmHg) O2 Sat by Pulse 95 Oximetry Oxygen Devices in Use Now: Nasal Cannula Appearance: elderly male Alert, confused. NAD Eyes: PERRLA Respiratory: Symmetrical Chest Expansion and Respiratory Effort, Clear to Auscultation Cardiovascular: NL Sounds; No Murmurs; No JVD, RRR, No Edema Abdominal: NL Sounds; No Tenderness; No Distention Extremities: No Edema, No Clubbing, Cyanosis Skin: No Rash or Ulcers, No Nodules or Sclerosis Neurological: Alert and Oriented x 3, NL Sensation, NL Muscle Strength and Tone Lines/Tubes/Other Access: Clean, Dry and Intact Peripheral IV Nutrition: Taking PO's Result Diagrams: 09/28/18 06:17 09/28/18 06:17 Microbiology and Other Data: Microbiology 09/20/18 11:26 Urine Culture - Final Urine Escherichia Coli Assess/Plan/Problems-Billing Assessment: 87 yo male with a PMH of BPH, HLD, PFO who presented with worsening weakness 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 Rashid's consultation. Patient has known PFO. CVA likely cardioembolic based on MRI findings. No hx of afib. - Continue telemetry. - Transesophageal echo revealed no thrombus - Will need loop recorder. - Doppler LEs negative. - PT/OT/ST to eval and treat. 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 Due to concern for aspiration abx broadened to Augmentin to cover UTI and aspiration - Increase in oxygen needs since that time - Attempt to titrate O2 off - now on 2L NC - Initial chest xray negative. (4) UTI (urinary tract infection) Comment: - Frequent UTIs due to urinary retention from BPH - Essentially blair-sensitive ecoli. - Zosyn to cover UTI and possible aspiration - continue jennings (5) Fall Comment: - 09/25 had unwitnessed fall - Initial brain CT unremarkable; Brain CT repeated 09/27 due to lethargy and baseline R sided weakness wass more prominent. Repeat CT unremarkable (6) Depression Comment: - supportive treatment (7) Hyperlipidemia Comment: - Cont Lipitor 40 mg daily (8) PFO (patent foramen ovale) Comment: - Will need outpatient cardiology evaluation to see if he is candidate for closure (9) Swallowing impaired Comment: - passed swallow eval today (10) Urinary retention Current Visit: Yes Comment: - Jennings placed 09/25 due to retention - Patient will need follow up with urology as he had jennings earlier in stay and failed removal - has hx of multi UTI with retention - Discussed with daughter plan to DC home with jennings & f/u with urology (11) DVT prophylaxis Comment: - Lovenox Status and Disposition: inpatient. Plan for subacute rehab due to weakness and deconditioning
[2018-09-28] MEDS: Enoxaparin(*) 40 MG/0.4 ML SYR SUBCUT SCH (14:44)
[2018-09-28] MEDS: Atorvastatin* 40 MG TAB PO SCH (17:09)
[2018-09-28] MEDS: Tamsulosin CAP* 0.4 MG PO SCH (21:01)
[2018-09-28] MEDS: Acetaminophen TAB* 325 MG PO PRN (21:01)
[2018-09-29] MEDS: Finasteride TAB* 5 MG PO SCH (07:38)
[2018-09-29] MEDS: Cyanocobalamin TAB* 500 MCG PO SCH (07:38)
[2018-09-29] MEDS: Clopidogrel TAB* 75 MG PO SCH (07:38)
[2018-09-29] MEDS: Aspirin 81 mg CHEW TAB* 81 MG TAB.CHEW PO SCH (07:38)
--- NOTE | 2018-09-29 14:06 | PN ---
Subjective Date of Service: 09/29/18 Interval History: Pt worked with PT today which is a change in his motivation. HCP agrees she wants to try PT first to see if he can increase his strength. As discussed it may be difficult with his dementia. Patient offers no complaints today. HCP thinks maybe he is doing a little better today. The patient does not have any children but a caregiver that has lived with him for 10 years and another female caregiver. 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 Objective Active Medications: Acetaminophen (Tylenol Tab*) 650 mg PO Q4H PRN PRN Reason: FEVER/PAIN Last Admin: 09/28/18 21:01 Dose: 650 mg Aspirin (Aspirin 81 Mg Chew Tab*) 81 mg PO DAILY [facility] Last Admin: 09/29/18 07:38 Dose: 81 mg Atorvastatin Calcium (Lipitor*) 40 mg PO QPM [facility] Last Admin: 09/28/18 17:09 Dose: 40 mg Clopidogrel Bisulfate (Plavix Tab*) 75 mg PO DAILY [facility] Last Admin: 09/29/18 07:38 Dose: 75 mg Cyanocobalamin (Vitamin B12 Tab*) 1,000 mcg PO DAILY [facility] Last Admin: 09/29/18 07:38 Dose: 1,000 mcg Enoxaparin Sodium (Lovenox(*)) 40 mg SUBCUT Q24H [facility] Last Admin: 09/28/18 14:44 Dose: 40 mg Finasteride (Proscar Tab*) 5 mg PO DAILY [facility] Last Admin: 09/29/18 07:38 Dose: 5 mg Ondansetron HCl (Zofran Inj*) 4 mg IV Q6H PRN PRN Reason: NAUSEA Last Admin: 09/24/18 01:28 Dose: 4 mg Pharmacy Consult (Zosyn Per Pharmacy*) 1 note FOLLOW UP .ZOSYN PER PHARMACY [facility] Tamsulosin HCl (Flomax Cap*) 0.4 mg PO BEDTIME [facility] Last Admin: 09/28/18 21:01 Dose: 0.4 mg Vital Signs - 8 hr 09/29/18 09/29/18 09/29/18 07:20 08:00 11:13 Temperature 99.3 F 98.9 F Pulse Rate 79 78 Respiratory 24 18 22 Rate Blood Pressure 117/69 118/67 (mmHg) O2 Sat by Pulse 94 97 Oximetry Oxygen Devices in Use Now: None Appearance: eldelry male laying in bed in NAD, A+O x3 Eyes: No Scleral Icterus, PERRLA Ears/Nose/Mouth/Throat: Mucous Membranes Moist Respiratory: Symmetrical Chest Expansion and Respiratory Effort, Clear to Auscultation Cardiovascular: NL Sounds; No Murmurs; No JVD, RRR, No Edema Abdominal: NL Sounds; No Tenderness; No Distention Extremities: No Edema, No Clubbing, Cyanosis Skin: No Rash or Ulcers, No Nodules or Sclerosis Neurological: - - alert, confused, answers some questions appropriately Lines/Tubes/Other Access: Clean, Dry and Intact Peripheral IV Nutrition: Taking PO's Result Diagrams: 09/28/18 06:17 09/28/18 06:17 Microbiology and Other Data: Microbiology 09/20/18 11:26 Urine Culture - Final Urine Escherichia Coli Assess/Plan/Problems-Billing Assessment: 87 yo male with a PMH of BPH, HLD, PFO who presented with worsening weakness 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 Rashid's consultation. Patient has known PFO. CVA likely cardioembolic based on MRI findings. No hx of afib. - Continue telemetry. may need loop recorder. - Transesophageal echo revealed no thrombus - Doppler LEs negative. - PT/OT/ST to eval and treat. 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 - treated with a course of abx - continue jennings - DC home with jennings and f/u with urology (5) Fall Comment: - 09/25 had unwitnessed fall - Initial brain CT unremarkable; Brain CT repeated 09/27 due to lethargy and baseline R sided weakness was more prominent. Repeat CT unremarkable (6) Depression Comment: - supportive treatment (7) Hyperlipidemia Comment: - Cont Lipitor 40 mg daily (8) PFO (patent foramen ovale) Comment: - Will need outpatient cardiology evaluation to see if he is candidate for closure (9) Swallowing impaired Comment: - passed swallow eval today (10) Urinary retention Current Visit: Yes Comment: - Jennings placed 09/25 due to retention - Patient will need follow up with urology as he had jennings earlier in stay and failed removal - has hx of multi UTI with retention - Discussed with daughter plan to DC home with jennings & f/u with urology (11) DVT prophylaxis Comment: - Lovenox Status and Disposition: inpatient. Plan for subacute rehab due to weakness and deconditioning. [facility] - HCP deciding. 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
[2018-09-29] MEDS: Enoxaparin(*) 40 MG/0.4 ML SYR SUBCUT SCH (14:32)
[2018-09-29] MEDS: Acetaminophen TAB* 325 MG PO PRN (15:57)
[2018-09-29] MEDS: Atorvastatin* 40 MG TAB PO SCH (17:33)
[2018-09-29] MEDS: Tamsulosin CAP* 0.4 MG PO SCH (21:02)
[2018-09-30] MEDS: Cyanocobalamin TAB* 500 MCG PO SCH (10:29)
[2018-09-30] MEDS: Aspirin 81 mg CHEW TAB* 81 MG TAB.CHEW PO SCH (10:29)
[2018-09-30] MEDS: Clopidogrel TAB* 75 MG PO SCH (10:29)
[2018-09-30] MEDS: Finasteride TAB* 5 MG PO SCH (10:29)
[2018-09-30] MEDS: Sertraline* 25 MG TAB PO SCH (12:31)
[2018-09-30] MEDS: Enoxaparin(*) 40 MG/0.4 ML SYR SUBCUT SCH (15:54)
[2018-09-30] MEDS: Atorvastatin* 40 MG TAB PO SCH (17:37)
--- NOTE | 2018-09-30 17:54 | PN ---
Subjective Date of Service: 09/30/18 Interval History: Patient only moderately interactive with flat affect. Denies pain, has no motivation. Denies Cp, Palpitations, F/C, N/V, abdominal pain, dysuria, dizziness, or other pain. Family History: Unchanged from Admission Social History: Unchanged from Admission Past Medical History: Unchanged from Admission Objective Active Medications: Acetaminophen (Tylenol Tab*) 650 mg PO Q4H PRN PRN Reason: FEVER/PAIN Last Admin: 09/29/18 15:57 Dose: 650 mg Aspirin (Aspirin 81 Mg Chew Tab*) 81 mg PO DAILY [facility] Last Admin: 09/30/18 10:29 Dose: 81 mg Atorvastatin Calcium (Lipitor*) 40 mg PO QPM [facility] Last Admin: 09/30/18 17:37 Dose: 40 mg Clopidogrel Bisulfate (Plavix Tab*) 75 mg PO DAILY [facility] Last Admin: 09/30/18 10:29 Dose: 75 mg Cyanocobalamin (Vitamin B12 Tab*) 1,000 mcg PO DAILY [facility] Last Admin: 09/30/18 10:29 Dose: 1,000 mcg Enoxaparin Sodium (Lovenox(*)) 40 mg SUBCUT Q24H [facility] Last Admin: 09/30/18 15:54 Dose: 40 mg Finasteride (Proscar Tab*) 5 mg PO DAILY [facility] Last Admin: 09/30/18 10:29 Dose: 5 mg Ondansetron HCl (Zofran Inj*) 4 mg IV Q6H PRN PRN Reason: NAUSEA Last Admin: 09/24/18 01:28 Dose: 4 mg Sertraline HCl (Zoloft*) 25 mg PO DAILY [facility] Last Admin: 09/30/18 12:31 Dose: 25 mg Tamsulosin HCl (Flomax Cap*) 0.4 mg PO BEDTIME [facility] Last Admin: 09/29/18 21:02 Dose: 0.4 mg Vital Signs - 8 hr 09/30/18 09/30/18 11:10 15:45 Temperature 97.6 F 98 F Pulse Rate 73 80 Respiratory 19 16 Rate Blood Pressure 119/66 133/57 (mmHg) O2 Sat by Pulse 95 97 Oximetry Oxygen Devices in Use Now: None Appearance: Patient is an 87yo male who appears stated age and is sitting in the bed in [facility]. Eyes: No Scleral Icterus, PERRLA Ears/Nose/Mouth/Throat: NL Teeth, Lips, Gums, Clear Oropharnyx, Mucous Membranes Moist Neck: NL Appearance and Movements; NL JVP, Trachea Midline Respiratory: Symmetrical Chest Expansion and Respiratory Effort, Clear to Auscultation Cardiovascular: NL Sounds; No Murmurs; No JVD, RRR, No Edema Abdominal: NL Sounds; No Tenderness; No Distention, No Hepatosplenomegaly Lymphatic: No Cervical Adenopathy Extremities: No Edema, No Clubbing, Cyanosis Skin: No Rash or Ulcers, No Nodules or Sclerosis Neurological: - - Uncooperative with neurological testing. 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 Patient is near to baseline at this point and is pending placement. - Patient Problems (1) Aspiration pneumonia Current Visit: Yes Status: Acute Code(s): J69.0 - PNEUMONITIS DUE TO INHALATION OF FOOD AND VOMIT SNOMED Code(s): 407573214 Comment: - 09/25 patient had episode of vomiting while lying flat - Treated with a course of zosyn - No current respiratory symptoms. (2) CVA (cerebral vascular accident) Current Visit: Yes Status: Acute Code(s): I63.9 - CEREBRAL INFARCTION, UNSPECIFIED SNOMED Code(s): 845634730 Comment: - Multifocal acute to subacute infarct per MRI brain - Appreciate Dr. Rashid's consultation. Patient has known PFO. CVA likely cardioembolic based on MRI findings. No hx of afib. - Continue telemetry. May need loop recorder and possible PFO closure though this is recommended against by Neuro given patient's age. - Transesophageal echo revealed no thrombus - Doppler LEs negative. No need for full anticoagulation at this time. - PT/OT/ST to eval and treat. 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 Repeat CT unremarkable (6) Swallowing impaired Current Visit: Yes Status: Acute Comment: - passed swallow eval today (7) UTI (urinary tract infection) Current Visit: Yes Status: Acute Comment: - Frequent UTIs due to urinary retention from BPH - Essentially blair-sensitive ecoli. - treated with a course of abx - continue jennings - DC home with jennings and f/u with urology (8) Urinary retention Current Visit: Yes Status: Acute Code(s): R33.9 - RETENTION OF URINE, UNSPECIFIED SNOMED Code(s): 393796500 Comment: - Jennings placed 09/25 due to retention - Patient will need follow up with urology as he had jennings earlier in stay and failed removal - has hx of multi UTI with retention - Discussed with daughter plan to DC home with jennings & f/u with urology (9) Hyperlipidemia Current Visit: Yes Status: Chronic Code(s): E78.5 - HYPERLIPIDEMIA, UNSPECIFIED SNOMED Code(s): 18686572 Comment: - Cont Lipitor 40 mg daily (10) PFO (patent foramen ovale) Current Visit: Yes Status: Chronic Code(s): Q21.1 - ATRIAL SEPTAL DEFECT SNOMED Code(s): 215488803 Comment: - Will need outpatient cardiology evaluation to see if he is candidate for closure and for the possibility of loop recorder. (11) Altered mental state Current Visit: No Status: Acute Code(s): R41.82 - ALTERED MENTAL STATUS, UNSPECIFIED SNOMED Code(s): 641057531 Comment: - Mentation back to baseline - No sepsis noted (12) BPH (benign prostatic hyperplasia) Current Visit: No Status: Acute Code(s): N40.0 - BENIGN PROSTATIC HYPERPLASIA WITHOUT LOWER URINRY TRACT SYMP SNOMED Code(s): 554930385 Comment: - Continue flomax - Sees urology outpatient - Jennings replaced due to retention (13) DNR (do not resuscitate) Current Visit: No Status: Acute Comment: - Has been DNR at previous admissions, will review with family. (14) DVT prophylaxis Current Visit: Yes Status: Acute Code(s): SPW8763 - SNOMED Code(s): 175990926 Comment: - Lovenox Status and Disposition: inpatient. Plan for subacute rehab due to weakness and deconditioning. Will be going to [facility] in AM.
[2018-09-30] MEDS: Tamsulosin CAP* 0.4 MG PO SCH (21:07)
[2018-10-01] MEDS: Aspirin 81 mg CHEW TAB* 81 MG TAB.CHEW PO SCH (10:00)
[2018-10-01] MEDS: Sertraline* 25 MG TAB PO SCH (10:00)
[2018-10-01] MEDS: Finasteride TAB* 5 MG PO SCH (10:00)
[2018-10-01] MEDS: Clopidogrel TAB* 75 MG PO SCH (10:00)
[2018-10-01] MEDS: Cyanocobalamin TAB* 500 MCG PO SCH (10:00)
[2018-10-01 10:12] VITALS: BP 126/78
--- NOTE | 2018-10-01 14:18 | DS ---
CC: Dr. Martir Muir; Dr. Jose Alberto Rashid; Dr. Rod Llanos; Dr. Miguel Hemphill ; Dr. Tomer Hill* DISCHARGE SUMMARY: DATE OF ADMISSION: 09/20/18 DATE OF DISCHARGE: 10/01/18 PRIMARY CARE PROVIDER: Dr. Martir Muir. OUTPATIENT NEUROLOGIST: Dr. Jose Alberto Rashid. OUTPATIENT LENS MARKER: Dr. Rod Llanos. OUTPATIENT UROLOGIST: Dr. Miguel Hemphill. MY ATTENDING WHILE IN THE HOSPITAL: Dr. Tomer Hill* (dictated by KELSEY Miller). PRIMARY DISCHARGE DIAGNOSES: 1. Cerebrovascular accident with residual left-sided weakness, unknown mechanism. 2. Urinary retention. 3. Urinary tract infection, treated. SECONDARY DISCHARGE DIAGNOSES: 1. History of transient ischemic attack. 2. Benign prostatic hypertrophy. 3. Patent foramen ovale. 4. Hyperlipidemia. 5. History of vertigo. 6. History of dementia. STUDIES DONE WHILE IN THE HOSPITAL: Brain CT from 09/20/18 read as chronic ischemic white matter change, no intracranial mass or hemorrhage. Brain MRI from 09/20/18 read as MRI findings consistent with multifocal acute or subacute infarction involving the left parietal and occipital lobes and the posterior limb of the right internal capsule. Chronic findings include widespread microvascular disease, symmetrical involutional change that is similar in appearance to most recent MRI of the brain dated 04/15/18. Head CTA from read as atherosclerotic calcification of the carotid siphons bilaterally estimated at 30% to 50%, minimal segmental stenosis of distal M1 segment, which is similar to 06/16/17, questionable minimal 1 to 2 mm aneurysm with expected origin of left posterior communicating artery, which overall does not appear to be patent. Otherwise, negative CT of the head. No occlusion shown, degenerative changes. Negative CT head and neck. Transesophageal echocardiogram from 09/21/18 read as left ventricular cavity size is normal, wall thickness is mildly to moderately increased, estimated ejection fraction 60 % to 65%. Ventricular septum, the outflow septum has a sigmoid appearance, possibly left ventricular outflow tract obstruction. Right ventricular systolic function is normal. Left atrium, no thrombus in the atrial cavity appendage. Atrial septum, PFO is demonstrated by agitated contrast, prominent interatrial aneurysm, mild mitral regurgitation, mild aortic stenosis. Lower extremity venous Doppler study read as no right lower extremity DVT, no left lower extremity DVT. Abdomen x-ray from 09/26/18 read as no free air obstruction. Brain CT from 09/26/18 read as no intracranial mass or hemorrhage. Chest x-ray from 09/25/18 read as no active cardiopulmonary disease. Repeat brain CT from 09/26/18 read as chronic ischemic white matter change, no evidence of intracranial mass or hemorrhage. Electrocardiogram from 09/22/18 read as normal sinus rhythm, QTc of 432, rate is 61, type 1 AV block, incomplete right bundle-branch block, right axis deviation. Compared to previous exam, there are no significant changes. MEDICATIONS AT DISCHARGE: 1. Plavix 75 mg p.o. daily. 2. Sertraline 25 mg p.o. daily. 3. Aspirin 81 mg p.o. daily. 4. Tylenol 650 mg p.o. q.4 hours as needed. 5. Lipitor 40 mg p.o. daily. 6. Align 4 mg p.o. daily. 7. Vitamin B12 1000 mcg p.o. daily. 8. Finasteride 5 mg p.o. daily. 9. Tamsulosin 0.4 mg p.o. at bedtime. Medications discontinued at discharge: None. New medications at discharge: 1. Tylenol. 2. Aspirin. 3. Sertraline. HOSPITAL COURSE: This is a brief summary of the patient's presentation. For more details, please see the history and physical from Aria Rivera NP on 09/20/18. In brief, the patient is an 87-year-old male with a past medical history significant for TIA, BPH, PFO, who presented to the emergency department with 2 weeks of leaning to left and altered mental status with numerous falls and worsening in weakness on the left side. The patient had previously been discharged for altered mental status associated with urinary tract infection. The patient did have a urinalysis concerning for UTI again. The patient was admitted to the hospital, had a brain MRI which showed multifocal infarctions. The patient was seen in consultation by Dr. Jose Alberto Rashid of Neurology, who recommended Plavix and aspirin therapy. Based on the MRI appearance, this is possibly cardioembolic. The patient had a IGNACIO which did not show intra-atrial thrombus. The patient did not have lower extremity DVT. The patient did not have any atrial fibrillation documented while in the hospital. It was not recommended the patient have PFO closure, but this discussion was deferred to the patient's outpatient providers for shared decision making. The patient in the hospital was treated with ceftriaxone. The patient then had an episode of vomiting while lying flat and had some wheezing and the patient had negative chest x-ray for infiltrate, but was switched to Zosyn for a 5-day course to cover for anaerobic bacteria, which he completed. The patient did not have any fevers during his hospital stay. No hypotension. Only 1 episode of tachycardia. The patient had no hypoxia. The patient early in his stay was found to be retaining urine. A Ulloa catheter was placed and he failed a void trial. Plan was for the patient to be discharged with his Ulloa catheter and follow up with his outpatient urologist. The patient had a bed offer from [facility] for assisted living and subacute rehab. The patient was stable and amenable for discharge on 10/01/18. PHYSICAL EXAMINATION ON THE DAY OF DISCHARGE: General: The patient is an 87- year- old male who appears stated age and sitting comfortably in the bed, in no acute distress. Vital Signs: At the time of discharge, temperature 98.4, pulse rate 69, respiratory rate 20, oxygen saturation 98% on room air, blood pressure 127/78. HEENT: Head: Normocephalic, atraumatic. Sclerae anicteric. No conjunctival injection. Nasal mucosa is moist. Oral mucosa is moist. No pharyngeal erythema, discharge, or exudate. Neck: Supple, nontender. No lymphadenopathy. No carotid bruits auscultated. No JVD. Cardiac: Regular rate and rhythm. No clicks, murmurs, gallops, or rubs. Pulses 2+ in the dorsalis pedis, posterior tibialis, and radial areas. Respiratory: Clear to auscultation bilaterally. No wheezes, rales, or rhonchi. Good air exchange bilaterally. Abdomen: Soft, nontender, nondistended. Bowel sounds present, normoactive in all 4 quadrants. No hepatosplenomegaly. No abdominal bruits auscultated. No hepatojugular reflux. Genitourinary: No suprapubic or CVA tenderness. Ulloa in place, draining clear yellow urine. Neuro: Slight left- sided facial droop with smiling. Cranial nerves II through XII are otherwise grossly intact. 4/5 strength in the left upper extremity compared to the right upper extremity. Strength 5/5 in bilateral lower extremities. Tremor, but cerebellar testing otherwise performed without difficulty. The patient unwilling to participate in gait assessment. The patient is alert and oriented to self and place. Psychiatric: Pleasant and uncooperative. DISCHARGE PLAN: The patient will be discharged to [facility]. The patient will undergo physical therapy and occupational therapy with both VNS and any services that the facility is able to provide. The patient will continue on with assisted living unless he is able to return home. The patient should follow up with his primary care provider involving him for general medical management. The patient should be continued on Plavix, aspirin, and Lipitor for a minimum of 1 month. The patient should follow up with his manager of housekeeping for consideration of PFO closure, though this has not been recommended by neurologist at this time, as well as a loop recorder placement to assess for occult paroxysmal atrial fibrillation and the patient has no evidence of that while in the hospital. This should be done within 1 to 2 weeks. The patient has already been seen in consultation with Dr. Rod Llanos when he was previously in the hospital. The patient will be discharged with a Ulloa, on finasteride and tamsulosin. The patient should follow up with his outpatient urologist, Dr. Miguel Hemphill within 1 to 2 weeks. Discussed whether the patient needs long-term Ulloa placement, which would likely not be recommended given the patient's frequent urinary tract infections. The patient completed treatment for his urinary tract infection and possible aspiration pneumonia while in the hospital. The patient will return to the hospital for high fevers , new onset focal weakness, chest pain, shortness of breath, passing out, or other alarming symptoms. The patient should have a heart healthy diet, caffeine okay with normal texture and fluid and food consistency based on most recent speech language pathologist assessment. The patient should follow up with Dr. Rashid within 1 month for assessment of his ongoing neurologic care. The patient expressed feelings of depression while in the hospital and was started on low dose sertraline; this should be increased based on the patient's symptoms after an appropriate period of time. TIME SPENT: Approximately 60 minutes was spent on this discharge of the patient , 30 of which were spent [id number] with the patient obtaining history and physical and discussing treatment plan. KELSEY MILLER [id number]/[facility] #: [id number] JESSICA
[2018-10-01] MEDS: Enoxaparin(*) 40 MG/0.4 ML SYR SUBCUT SCH (14:20)
== END 2018-10-01 14:45 | disposition home or self-care (01) | DRG 64 ==
LOC: ED 10:11 → MED 14:02 → OBSVTOIN 09-21 13:28 → MEDTELE 09-21 14:53
PROVIDERS: ADMIT Internal Medicine; ATTEND Internal Medicine
PROC: B246ZZ4 Ultrasonography of Right and Left Heart, Transesophageal (ICD-10-PCS; principal; 2018-09-22 13:00)
DX: I63.413 Cerebral infarction due to embolism of bilateral middle cerebral arteries (principal); J69.0 Pneumonitis due to inhalation of food and vomit; G81.94 Hemiplegia, unspecified affecting left nondominant side; N39.0 Urinary tract infection, site not specified; Q21.1 Atrial septal defect; I63.40 Cerebral infarction due to embolism of unspecified cerebral artery; E78.5 Hyperlipidemia, unspecified; F03.90 Unspecified dementia, unspecified severity, without behavioral disturbance, psychotic disturbance, mood disturbance, and anxiety; I67.1 Cerebral aneurysm, nonruptured; I08.0 Rheumatic disorders of both mitral and aortic valves; R62.7 Adult failure to thrive; F41.9 Anxiety disorder, unspecified; F32.9 Major depressive disorder, single episode, unspecified; R40.2142 Coma scale, eyes open, spontaneous, at arrival to emergency department; R40.2362 Coma scale, best motor response, obeys commands, at arrival to emergency department; R40.2252 Coma scale, best verbal response, oriented, at arrival to emergency department; R27.0 Ataxia, unspecified; N40.1 Benign prostatic hyperplasia with lower urinary tract symptoms; R33.8 Other retention of urine; R35.0 Frequency of micturition; R42 Dizziness and giddiness; W19.XXXA Unspecified fall, initial encounter; Y92.9 Unspecified place or not applicable; S50.312A Abrasion of left elbow, initial encounter; S50.812A Abrasion of left forearm, initial encounter; S70.212A Abrasion, left hip, initial encounter; B96.20 Unspecified Escherichia coli [E. coli] as the cause of diseases classified elsewhere; I10 Essential (primary) hypertension; R47.1 Dysarthria and anarthria; N39.498 Other specified urinary incontinence; H53.461 Homonymous bilateral field defects, right side; R00.1 Bradycardia, unspecified; R13.10 Dysphagia, unspecified; I63.432 Cerebral infarction due to embolism of left posterior cerebral artery; Z86.73 Personal history of transient ischemic attack (TIA), and cerebral infarction without residual deficits; Z79.02 Long term (current) use of antithrombotics/antiplatelets; Z79.82 Long term (current) use of aspirin; Z68.25 Body mass index [BMI] 25.0-25.9, adult; Z87.440 Personal history of urinary (tract) infections; Z83.3 Family history of diabetes mellitus; Z72.89 Other problems related to lifestyle; Z82.49 Family history of ischemic heart disease and other diseases of the circulatory system; Z80.8 Family history of malignant neoplasm of other organs or systems
CPT/HCPCS: 36415; 70450; 70496; 70498; 70551; 71045; 74019; 80048; 80053; 80061; 81003; 81015; 82607; 83605; 83735; 84443; 84484; 85025; 87077; 87086; 87186; 93005; 93312; 93325; 93970; 99156; 99284; A9270-GY; G8981-GP-CK; G8982-GP-CH; G8987-GO-CM; G8988-GO-CJ; J0696; J1650; J2250; J2310; J2405; J2543; J3010; J3475; Q9967

== ENCOUNTER 2018-10-21 10:26 | Inpatient (IN) | payer MEDICARE ==
[2018-10-21] MEDS ORDERED: Ondansetron INJ* 2 MG/ML VIAL IV ONE (10:40)
--- NOTE | 2018-10-21 10:48 | ED ---
GI/ HPI - HPI Summary HPI Summary: Pt is an 87 y/o M presenting to the ED brought in by EMS for GIGU issues. LEVEL 5 CAVEAT: Pts full hx is unobtainable d/t status of dementia. Per nursing report from [facility], he has been experiencing N/V, and has been tugging at his catheter, causing hematuria. - History of Current Complaint Time Seen by Provider: 10/21/18 10:28 Stated Complaint: POSSIBLE UTI, VOMITING Hx Obtained From: Other: - nursing report @ [facility] Hx From Patient Unobtainable Due To: Dementia Onset/Duration: Started Hours Ago, Still Present Timing: Constant, Lasting Hours Severity: Moderate Current Severity: Moderate Location of Pain: Groin Associated Signs and Symptoms: Positive: Nausea, Vomiting, Hematuria - Additional Pertinent History Primary Care Physician: PERFECTO - Allergy/Home Medications Allergies/Adverse Reactions: Allergies Allergy/AdvReac Type Severity Reaction Status Date / Time No Known Allergies Allergy Verified 10/21/18 11:04 Home Medications: Home Medications Aspirin EC TAB* [Ecotrin EC Low Dose 81 MG*] 81 mg PO DAILY 10/21/18 [History Confirmed 10/21/18] Atorvastatin* [Lipitor 40 MG*] 40 mg PO BEDTIME 10/21/18 [History Confirmed ] Cephalexin CAP* [Keflex CAP*] 500 mg PO Q8HR 10/21/18 [History Confirmed ] Cyanocobalamin TAB* [Vitamin B12 TAB*] 1,000 mcg PO DAILY 10/21/18 [History Confirmed 10/21/18] Mirtazapine TAB* [Remeron TAB*] 7.5 mg PO BEDTIME 10/21/18 [History Confirmed ] Nystatin CREAM* [Nystatin Cream*] 1 applic TOPICAL BID PRN 10/21/18 [History Confirmed 10/21/18] Pantoprazole TAB * [Protonix TAB*] 40 mg PO DAILY 10/21/18 [History Confirmed ] PMH/Surg Hx/FS Hx/Imm Hx Previously Healthy: Yes Endocrine/Hematology History: Denies: Hx Diabetes, Hx Thyroid Disease Cardiovascular History: Denies: Hx Hypertension, Hx Myocardial Infarction, Hx Pacemaker/ICD Respiratory History: Denies: Hx Asthma, Hx Chronic Obstructive Pulmonary Disease (COPD) GI History: Reports: Other GI Disorders - constipation, H pylori Denies: Hx Ulcer History: Reports: Other Problems/Disorders - urinary retention and jennings - needs coude Denies: Hx Renal Disease Sensory History: Denies: Hx Contacts or Glasses, Hx Hearing Aid, Hx Hearing Problem Opthamlomology History: Denies: Hx Contacts or Glasses Neurological History: Reports: Hx CVA, Hx Dementia Psychiatric History: Reports: Hx Anxiety, Hx Depression Denies: Hx Panic Disorder - Surgical History Surgery Procedure, Year, and Place: IMGUINAL HERNIA - Immunization History Date of Tetanus Vaccine: Unk Date of Influenza Vaccine: Fall 2014 Infectious Disease History: Denies: Hx Clostridium Difficile, Hx Hepatitis, Hx Human Immunodeficiency Virus (HIV), Hx of Known/Suspected MRSA, Hx Shingles, Hx Tuberculosis, Traveled Outside the [place] in Last 30 Days - Family History Known Family History: Positive: Diabetes - Social History Alcohol Use: Rare Alcohol Amount: 1 glass wine/week Hx Substance Use: No Substance Use Type: Reports: None Hx Tobacco Use: No Smoking Status (MU): Never Smoked Tobacco Review of Systems Positive: Vomiting, Nausea Positive: hematuria All Other Systems Reviewed And Are Negative: No Physical Exam - Summary Physical Exam Summary: Constitutional: Well-developed, Well-nourished, Alert. (-) Distressed Skin: Warm, Dry, very small abrasion over R eyebrow, does not look like it was caused by trauma, no surrounding crepitus. HENT: Normocephalic; Atraumatic Eyes: Conjunctiva normal Neck: Musculoskeletal ROM normal neck. (-) JVD, (-) Stridor, (-) Tracheal deviation Cardio: Rhythm normal, rate tachycardic, Heart sounds normal; Intact distal pulses; The pedal pulses are 2+ and symmetric. Radial pulses are 2+ and symmetric. Pulmonary/Chest wall: Tachypnic, good air movement. (-) Respiratory distress, (- ) Wheezes, (-) Rales Abd: Soft, (-) tenderness, (-) Distension, (-) Guarding, (-) Rebound Musculoskeletal: (-) Edema Neuro: Alert Psych: Mood and affect Normal : Jennings in place with gross hematuria. External male genitalia normal, no blood at the urethral meatus. No trauma to the penis or scrotum. Triage Information Reviewed: Yes Vital Signs Reviewed: Yes Completion Of Physical Exam Limited Due To: Dementia, Level 5 Diagnostics - Laboratory Result Diagrams: 10/21/18 11:38 10/21/18 11:38 Lab Statement: Any lab studies that have been ordered have been reviewed, and results considered in the medical decision making process. - Radiology CXR Radiology Interpretation Completed By: ED Physician Summary of Radiographic Findings: Mild congestion R perihylar region, pending official radiology report. Radiology report reads: No active cardiopulmonary disease is noted. ED physician has reviewed this report. - EKG 1115 Cardiac Rate: NL - 88bpm EKG Rhythm: Sinus Rhythm ST Segment: Non-Specific Ectopy: None Summary of EKG Findings: EKG at 1115 shows NSR at 88bpm with old Q waves in the inferior leads, and nonspecific ST changes that are old. There is incomplete RBBB and LAFB, with low voltage in the pericordial leads. In comparison with prior EKG, QRSD improved, MS improved, and 1st degree AV block is no longer seen. GIGU Course/Dx - Course Course Of Treatment: Pt is an 87 y/o M presenting to the ED brought in by EMS for GIGU issues. LEVEL 5 CAVEAT: Pts full hx is unobtainable d/t status of dementia. Per nursing report from [facility], he has been experiencing N/V, and has been tugging at his catheter, causing hematuria. EKG at 1115 shows NSR at 88bpm with old Q waves in the inferior leads, and nonspecific ST changes that are old. There is incomplete RBBB and LAFB, with low voltage in the pericordial leads. In comparison with prior EKG, QRSD improved, MS improved, and 1st degree AV block is no longer seen. CXR shows: Mild congestion R perihylar region, pending official radiology report. Radiology report of CXR reads: No active cardiopulmonary disease is noted. The pt's lactic acid is 4.9, but his blood pressure has improved. Pts urines show 2+ urine protein, 3+ urine blood, trace leukocyte esterase, 3+ urine WBC, and 3+ urine RBC. Pts INR is 1.30, and APTT is 24.6. His hematology shows RBC of 4.04, Hgb of 12.0, and Hct of 36. He has a total Bilirubin of 1.10. [address] Gardner about the pts present condition. [place] [facility] [place]. Pt is stable and agreeable with this plan. - Diagnoses Provider Diagnoses: UTI (urinary tract infection) Discharge - Sign-Out/Discharge Documenting (check all that apply): Patient Departure - Discharge Plan Condition: Stable Disposition: ADMITTED TO [facility] - Billing Disposition and Condition Condition: STABLE Disposition: Admitted to [facility] - Attestation Statements Document Initiated by Scribe: Yes Documenting Scribe: Lucia Bucio Provider For Whom Aishwaryae is Documenting (Include Credential): Inocente Tirado MD. Scribe Attestation: Lucia Gale, scribed for Inocente Tirado MD. on 10/21/18 at 1716. Scribe Documentation Reviewed: Yes Provider Attestation: The documentation as recorded by the scribe, Lucia Bucio accurately reflects the service I personally performed and the decisions made by me, Inocente Tirado MD. Status of Scribe Document: Viewed Consult Consult: [id number] Gardner about the pts present condition. She will be [place] [facility] [place].
--- OUTSIDE RECORDS SUMMARY | 2018-10-21 10:48 | XMS REPORT | Continuity of Care Document ---
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D. Ondansetron HCL one tablet 30tabs Princess Shepherd NP 07/13/2018 4mg Tablets every 6 to 8 hours by mouth Atorvastatin Calcium 1 by mouth Unknown 40mg every day Tablets Clopidogrel Bisulfate 1 by mouth Unknown 75mg every day Tablets Aspirin 81 1 by mouth Unknown 81mg Tablets DR every day Acetaminophen ER 1 by mouth Unknown 650mg every 4 hours Tablets ER prn pain/fever Vitamin B-12 1 by mouth Unknown 1000mcg every day Tablets Sertraline HCL 1 by mouth Unknown 25mg Tablets every day Align 1 by mouth Unknown 4mg Capsules every day Proscar 1 by mouth Unknown 5mg Tablets every day Flomax 1 by mouth Unknown 0.4mg Capsules every day Protonix 1 by mouth Unknown 40mg Tablets DR every day History Medications Aggrenox take 1 capsule by tuan Nash, 01/03/2013 - 25-200mg Caps ER mouth two times daily M.D. 05/16/2018 12HR Asa 1 po qd 90units Otto Burrows 04/10/2009 - 81mg Jorge Hallman,FACP 06/10/2013 Multivitamin 1 PO qd Otto Burrows 04/19/2007 - Liquid Jorge Hallman,FACP 06/10/2013 Naproxen 1 PO bid prn 60tabs Otto Burrows 04/19/2007 - 500mg Tablets Jorge Hallman,[facility] 06/10/2013 Lorazepam 1 PO bid Unknown - 1mg Tablets 05/16/2018 Chlorhexidine prn Unknown - Gluconate 10/27/2016 0.12% Solution Hydrocodone/Acetaminop prn Unknown - hen 02/12/2016 5-325mg Tablets Penicillin V Potassium 7-10 days. Unknown - 02/12/2016 500mg Tablets Aspirin 1 by mouth prn Unknown - 325mg Tablets 10/13/2018 Cyanocobalamin 1 milliliters Unknown - 1000mcg/ML intramuscular [id number] 08/30/2018 Solution Pantoprazole Sodium 1 by mouth every day Unknown - 40mg 07/09/[address] Moreno OTC 1 by mouth twice a Unknown - 20mg Tablets day 07/25/2018 Cefdinfranki 1 by mouth twice a Unknown - 300mg Capsules day x 7 days for 08/30/2018 bladder infection Vitamin B-12 1 by mouth every day Unknown - Natural 10/13/2018 500mcg Tablets Probiotic 1 by mouth every day Unknown - Capsules 10/12/2018 Immunizations CPT Code Status Date Vaccine Lot # [id number] Given 02/27/2015 Afluria Vaccine [id number] Given 03/14/2014 Fluvirin Im 3Yrs And Older [id number] Given 02/27/2011 Influenza Virus 3Yrs & Over [id number] Given 02/20/2009 Influenza Virus 3Yrs & Over [id number] Given 02/10/2008 Influenza Virus 3Yrs & Over [id number] Given 03/16/2007 Flu Vac (History By Patient> Vital Signs Date Vital Result Comment 10/13/2018 1:58pm Height 70 inches 5'10" Weight 170.00 lb pt in wheelchair Heart Rate 70 /min BP Systolic 116 mmHg BP Diastolic 78 mmHg BMI (Body Mass Index) 24.4 kg/m2 08/31/2018 11:52am Height 70 inches 5'10" Weight [...] H/L Range Note CBC No Diff 07/13/2018 [facility] White Blood 19.8 10^3/uL High 3.5-10.[address] [place] [address] [phone] Red Blood Count 4.71 10^6/uL N 4.00-5.40 [...] fL N 7.4-10.4 Comp Metabolic Panel 07/13/2018 [facility] Sodium 139 mmol/L N 135-[address] [place] [address] [phone] Potassium 4.2 mmol/L N 3.5-5.0 Chloride 101 [...] >60 Egfr 86.9 >60 1 Laboratory 07/13/2018 [facility] Helico Positive Abnormal Negative 2 test finding [address] [place] [address] Antigen- [phone] Stool Liver 07/13/2018 [facility] Direct 0.20 mg/dL High 0.03-0.[address] [place] [address] [phone] Indirect Bilirubin 0.9 mg/dL N 0.3-1.0 Laboratory test finding 07/13/2018 [facility] Lipase 13 U/L N 11.0-82.[address] [place] [address] [phone] Amylase 39 U/L N 29-103 Stool Occult 07/13/2018 [facility] Stool Occult SEE RESULT [address] Blood, [place] [address] [phone] Laboratory test 04/15/2018 [facility] TSH (Thyroid 0.69 mcIU/mL N 0.34-5 4, [address] Stim Horm) .60 [place] [address] [phone] Free T4 (Free Thyroxine) 0.85 ng/dL N 0.61-1.12 6 Folic Acid (Folate) 16.85 ng/mL >3.99 7 Vitamin B12 210 pg/mL N 180-914 8 CBC Auto Diff 06/11/2015 [facility] White Blood 7.8 10^3/uL N 3.5-10.[address] [place] [address] [phone] Red Blood Count 4.87 10^6/uL N 4.0-5.4 [...] % 0 N Comp Metabolic Panel 06/11/2015 [facility] Sodium 136 mmol/L N 133-[address] [place] [address] [phone] Potassium 3.6 mmol/L N 3.5-5.0 Chloride 104 [...] 94.2 N >60 9 Laboratory test 06/11/2015 [facility] Creatine 63 U/L N 10- [address] Kinase(CK) [place] [address] [phone] Troponin-I (TnI) 0.00 ng/mL N <0.03 10 CKMB 06/11/2015 [facility] CKMB ng/mL 1.2 ng/mL N 0.6-6.[address] [place] [address] [phone] Laboratory 06/11/2015 [facility] B-Type 122 pg/mL High 11 test finding [address] [place] [address] Peptide BNP [phone] Inr/Protime 06/11/2015 [facility] Inr 1.12 High 0.89-1.[address] [place] [address] [phone] Laboratory 06/11/2015 [facility] Partial 26.4 N 26.0-36.3 test finding [address] Thrombo [place] [address] PTT [phone] Laboratory 06/11/2015 [facility] Lactic Acid 1.5 mmol/L N 0.5- 2.0 12 test finding [address] [place] [address] [phone] Throat-Beta 07/19/2014 [facility] Throat Beta (SEE NOTE) [address] [place] [address] [phone] Urinalysis 12/02/2013 [facility] Urine Color Yellow N Profile [address] [place] [address] [phone] Urine Appearance Cloudy N Urine Specific [place] 1.024 N 1.010-1.030 Urine pH 5.0 N 5-9 Urine Urobilinogen Negative N Negative Urine Ketones Trace N Negative Urine Protein Negative N Negative Urine Leukocytes Negative N Negative Urine Blood Negative N Negative Urine Nitrite Negative N Negative Urine Bilirubin Negative N Negative Urine Glucose Negative N Negative Code Celis Type 03/04/2011 [facility] Patient Blood O NEGATIVE And Screen [address] [place] [address] [phone] Antibody Screen NEGATIVE Laboratory test 03/04/2011 [facility] Magnesium 2.0 mg/dL 1.7 -2.[address] [place] [address] [phone] Troponin-I 0 NG/ML 0-0.06 14 Acetaminophen < 10 g/mL Low 10-30 15 Alcohol < 10.0 mg/dL None Detected 16 Salicylate < 4.0 mg/dL Less Than 30 17 [id number] 03/04/2011 [facility] Sodium 139 mmol/L 135-[address] [place] [address] [phone] Potassium 3.1 mmol/L Low 3.5-5.0 Chloride 110 [...] 105.0 > 60 20 Laboratory test 03/04/2011 [facility] Code Celis 21.5 SEC Low 25.15-38.[address] PTT (Aptt) [place] [address] [phone] Code Celis 03/04/2011 [facility] Protime 11.3 SEC 10.67-13.64 Protime/Inr [address] [place] [address] [phone] Inr 0.96 0.88-1.13 21 Code Celis CBC 03/04/2011 [facility] White Blood 7.0 CUMM 4.8- 10.[address] [place] [address] [phone] Red Cell Count 4.33 CUMM Low 4.6-6.2 [...] Basophils 0 0-0.2 Basic Metabolic Panel 10/25/2009 [facility] Sodium 140 mmol/L 135-[address] [place] [address] [phone] Potassium 4.1 mmol/L 3.5-5.0 Chloride 105 mmol/L 101-111 Co2 (Carbon Dioxide) 29.0 mmol/L 22-32 Anion Gap 6.0 mmol/L 2-11 22 Glucose 108 mg/dL High 70-100 23 BUN 17 mg/dL 6-24 Creatinine 1.00 mg/dL 0.50-1.40 One Over Creatinine 1.00 BUN/Creatinine Ratio 17.0 8-20 Calcium 9.1 mg/dL 8.1-9.9 24 eGFR Non- 77.2 > 60 eGFR 93.4 > 60 25 Lipid Profile 10/25/2009 [facility] Triglyceride 112 mg/dL 40 -200 (Trig/Chol/HDL) [address] [place] [address] [phone] Cholesterol 189 mg/dL Less Than 200 26 High Density Lipoprotein 35 mg/dL Low 40-60 27 Cholesterol/HDL Ratio 5.40 AVERAGE High 1-4.97 Low Density Lipoprotein 132 mg/dL High Less Than 100 28 Laboratory test 05/13/2007 [facility] Uric Acid 5.4 mg/dL 2.6 -7.[address] [place] [address] [phone] Basic Metabolic 05/13/2007 [facility] One Over 1.11 Panel Stat [address] [place] [address] [phone] Anion Gap 5.0 mmol/L 2-11 30 BUN 17 mg/dL 6-24 Calcium 9.4 mg/dL 8.7-10.2 Chloride 107 mmol/L 101-111 Co2 (Carbon Dioxide) 27.0 mmol/L 22-32 Glucose 109 mg/dL High 70-105 Potassium 4.4 mmol/L 3.5-5.0 Sodium 139 mmol/L 135-145 BUN/Creatinine Ratio 18.9 8-20 Creatinine 0.9 mg/dL 0.5-1.4 Lipid Profile 05/13/2007 [facility] Cholesterol/HDL 5.02 High 1-4.97 (Trig/Chol/HDL) [address] [place] [address] [phone] Cholesterol 206 mg/dL High Less Than 200 31 Triglyceride 103 mg/dL 40-200 High Density Lipoprotein 41 mg/dL 40-60 Low Density Lipoprotein 144 mg/dL High Less Than 100 32 Laboratory test 05/13/2007 [facility] PSA Screening 0.63 NG/ML 0-[address] [place] [address] [phone] 1 Because ethnic data is not always [...] <15 (or dialysis) 2 Test Performed by: [facility] - [address] [address] 3 SEE RESULT BELOW Name: HOMER ROSS : [address]: Princess Shepherd NP Acct: [id number] Unit: [id number] AGE: 87 Location: [facility] Re07/13/18 SEX: M Status: REG REF SPEC: [id number] TAHIRA: 07/13/18-[address]: Princess Shepherd NP REQ: [id number] RECD: 07/13/18 STATUS: COMP _ SOURCE: STOOL SPDESC: ORDERED: Occult Bl, Diag Procedure Result Reported Site Stool Occult Blood (1) Final 07/13/18- 1613 ML Stool Occult Blood Negative Collection Date (1) 07/11/18 * ML - Main Lab . END OF REPORT DEPARTMENT OF PATHOLOGY, [address] [place] [address] Lane Solomon M.D. Director [facility] # [id number] 4 Comment: please add labs on blood [...] 0.03 ng/mL Not supportive of diagnosis of PR 0.03 - 0.50 ng/mL Indeterminate: suggest serial studies if clinically indicated. Greater than 0.5 ng/mL Consistent with diagnosis of PR 11 >100 to <200 pg/mL: likely compensated congestive heart failure (CHF) 200 to 400 pg/mL: likely moderate CHF >400 pg/mL: likely moderate to severe CHF 12 [facility] Severe Sepsis and Septic Shock Management Bundle Measure requires all lactic acids initially measuring >2.0mmol/L be repeated. 13 RUN DATE: 07/21/14 [facility] LAB LIVE PAGE 1 RUN TIME: [address] [place] [address] Specimen Inquiry Name: HOMER ROSS : [address]: Nasrin Coats MD Acct: [id number] Unit: [id number] AGE: 83 Location: [facility] Re07/19/14 SEX: M Status: DEP ER SPEC: [id number] TAHIRA: 07/19/14-[address] [facility] DR: Demetria Killian NP REQ: [id number] RECD: 07/19/141232 STATUS: BARNEY GODINEZ DR: Nasrin Hallman MD _ SOURCE: THROAT SPDESC: ORDERED: Throat Beta Str Procedure Result Verified Site Throat Beta Strep Culture Final 07/21/14- 0812 L Negative For Group A Beta Streptococcus END OF REPORT * ML=Testing performed at Main Lab DEPARTMENT OF PATHOLOGY, [address] [place] [address] Lane Solomon M.D. Director [facility] # [id number] 14 New Reference Range and Interpretation effective 02/11/2002 TnI (ng/ml) INTERPRETATION Less Than 0.06 ng/mL NOT SUPPORTIVE OF DIAGNOSIS OF PR 0.06 - 0.50 ng/ml INDETERMINATE: SUGGEST SERIAL STUDIES IF CLINICALLY INDICATED. Greater than 0.5 ng/mL CONSISTENT WITH DIAGNOSIS OF PR . 15 TOXIC LEVELS: GREATER THAN 150 [...] change was based on recommendations from the [place]. 24 Please note change in [...] . Procedures Date Code Description Status 07/19/2018 23714 Treadmill Interp/Report Only Completed 07/19/2018 31756 Stress Test Supervsn W/Out I/R Completed 07/18/2018 49134 EKG, Interpretation Only Completed 07/16/2018 09103 EEG Recording Awake & Asleep Completed 07/16/2018 74525 EKG, Interpretation Only Completed 07/15/2018 81076 ECHO Transthorasic Realtime 2D W Doppler & Color Flow Completed Hosp 04/16/2018 72519 EEG Recording Awake & Drowsy Completed 04/15/2018 80921 ECHO Transthorasic Realtime 2D W Doppler & Color Flow Completed Hosp 10/15/2011 [id number] Colonoscopy Completed 03/04/2011 18856 Color Flow Doppler/Interp & Reprt Completed 03/04/2011 39967 Pulse Wave/Continuous-Interp.RPT Completed 03/04/2011 46776 ECHO Transthorasic Realtime 2D W Doppler & Color Flow Completed Hosp 02/20/2004 48433 Treadmill Interp/Report Only Completed 02/20/2004 40862 Stress Test Supervsn W/Out I/R Completed 10/27/2001 97918357 Colonoscopy Completed Encounters Type Date Location Provider Dx Diagnosis Office Visit 09/30/2018 [facility] Gepp, I63.9 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:58p Assoc,pc PA infarction, Hospitalists unspecified F32.9 Major depressive disorder, single episode, unspecified N39.0 Urinary tract infection, site not specified B96.20 Unsp Escherichia coli as the cause of diseases classd elswhr N40.1 Benign prostatic hyperplasia with lower urinary tract symp R33.8 Other retention of urine W19.xxxA Unspecified fall, initial encounter Office Visit 09/29/2018 [facility] I63.9 Cerebral 12:57p Assoc,pc Dhillon, [employer] infarction, Hospitalists unspecified R41.0 Disorientation, unspecified N39.0 Urinary tract infection, site not specified B96.20 Unsp Escherichia coli as the cause of diseases classd elswhr R33.8 Other retention of urine W19.xxxA Unspecified fall, initial encounter E78.5 Hyperlipidemia, unspecified Office Visit 09/28/2018 [facility] I63.9 Cerebral 12:57p Assoc,pc Dhillon, [employer] infarction, Hospitalists unspecified R41.0 Disorientation, unspecified N39.0 Urinary tract infection, site not specified B96.20 Unsp Escherichia coli as the cause of diseases classd elswhr N40.1 Benign prostatic hyperplasia with lower urinary tract symp R33.8 Other retention of urine E78.5 Hyperlipidemia, unspecified Office Visit 09/27/2018 [facility] I63.9 Cerebral 12:57p Assoc,pc Dhillon, [employer] infarction, Hospitalists unspecified N39.0 Urinary tract infection, site not specified B96.20 Unsp Escherichia coli as the cause of diseases classd elswhr N40.1 Benign prostatic hyperplasia with lower urinary tract symp R33.8 Other retention of urine R13.10 Dysphagia, unspecified R41.0 Disorientation, unspecified W19.xxxA Unspecified fall, initial encounter Office Visit 09/26/2018 12:56p [facility] I63.9 Cerebral Assoc,pc Shortle, [employer] infarction, Hospitalists unspecified N39.0 Urinary tract infection, site not specified B96.20 Unsp Escherichia coli as the cause of diseases classd elswhr N40.1 Benign prostatic hyperplasia with lower urinary tract symp R33.8 Other retention of urine R13.10 Dysphagia, unspecified R41.0 Disorientation, unspecified R29.6 Repeated falls Office Visit 09/25/2018 12:56p [facility] I63.9 Cerebral Assoc,pc Shortle, [employer] infarction, Hospitalists unspecified B96.20 Unsp Escherichia coli as the cause of diseases classd elswhr N39.0 Urinary tract infection, site not specified R33.8 Other retention of urine N40.1 Benign prostatic hyperplasia with lower urinary tract symp R11.10 Vomiting, unspecified R41.0 Disorientation, unspecified W19.xxxA Unspecified fall, initial encounter Office Visit 09/24/2018 12:56p [facility] I63.9 Cerebral Assoc,pc Shortle, [employer] infarction, Hospitalists unspecified F32.9 Major depressive disorder, single episode, unspecified N39.0 Urinary tract infection, site not specified N40.0 Benign prostatic hyperplasia without lower urinry tract symp E78.5 Hyperlipidemia, unspecified Office Visit 09/23/2018 12:55p [facility] I63.9 Cerebral Assoc,pc Shortle, [employer] infarction, Hospitalists unspecified N39.0 Urinary tract infection, site not specified N40.0 Benign prostatic hyperplasia without lower urinry tract symp E78.5 Hyperlipidemia, unspecified Office Visit 09/22/2018 12:55p [facility] Destinee Bravo I63.9 Cerebral Assoc,pc N.P. infarction, Hospitalists unspecified N39.0 Urinary tract infection, site not specified N40.0 Benign prostatic hyperplasia without lower urinry tract symp Office Visit 09/21/2018 12:54p [facility] Destinee Bravo I63.9 Cerebral Assoc,pc N.P. infarction, Hospitalists unspecified N39.0 Urinary tract infection, site not specified Office Visit 09/20/2018 12:54p [facility] Aria N39.0 Urinary tract Assoc,pc Miguel, [employer] infection, site Hospitalists not specified R53.1 Weakness R29.6 Repeated falls Office Visit 09/03/2018 [facility] R41.82 Altered mental 11:16a Assoc,pc David Doto, status, Hospitalists [employer] unspecified N39.0 Urinary tract infection, site not specified B96.20 Unsp Escherichia coli as the cause of diseases classd elswhr N40.1 Benign prostatic hyperplasia with lower urinary tract symp R33.8 Other retention of urine Office Visit 09/02/2018 [facility] B96.20 Unsp Escherichia 11:15a Assoc,pc [facility] Doto, coli as the cause Hospitalists [employer] of diseases classd elswhr N39.0 Urinary tract infection, site not specified N40.1 Benign prostatic hyperplasia with lower urinary tract symp R33.8 Other retention of urine Office Visit 09/01/2018 11:15a [facility] N39.0 Urinary tract Assoc,pc [facility] Doto, infection, site Hospitalists [employer] not specified R33.8 Other retention of urine N40.1 Benign prostatic hyperplasia with lower urinary tract symp Office Visit 08/31/2018 11:15a [facility] Lucia Bui, N39.0 Urinary tract Assoc,pc DO infection, site Hospitalists not specified R11.10 Vomiting, unspecified R41.82 Altered mental status, unspecified Office Visit 08/31/2018 11:45a [facility] Homer Hunter, Z09 Encntr for f/u Services Of Daniel M.DMali exam aft trtmt for cond oth than corin neoplm Z86.73 Prsnl hx of TIA (TIA), and cereb infrc w/o resid deficits Z79.02 long term (current) use of antithrombotics/antiplatelets Office Visit 07/26/2018 [facility] Gastroenterology Princess Shepherd, E86.0 Dehydration 10:00a [employer] Office Visit 07/19/2018 [facility] Stacey A41.51 Sepsis due to 10:11a Assoc,pc Hospitalists Jorge Celestin Escherichia coli [E. coli] N39.0 Urinary tract infection, site not specified G93.40 Encephalopathy, unspecified R79.89 Other specified abnormal findings of blood chemistry Office Visit 07/19/2018 3:29p [facility] Angel Burrows R79.89 Other specified Of Daniel Hill M.D. 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 Escherichia coli Hospitalists [E. coli] N39.0 Urinary tract infection, site not specified R79.89 Other specified abnormal findings of blood chemistry Office Visit 07/17/2018 10:10a [facility] Stacey Celestin N39.0 Urinary tract kassandra Domínguez M.D. infection, site Hospitalists not specified R79.89 Other specified abnormal findings of blood chemistry F32.9 Major depressive disorder, single episode, unspecified Office Visit 07/16/2018 3:22p [facility] Rod Johnson R79.89 Other specified Jorge Llanos abnormal findings of blood chemistry R94.39 Abnormal result of other cardiovascular function study R94.31 Abnormal electrocardiogram [ECG] [EKG] A41.9 Sepsis, unspecified organism Office Visit 07/16/2018 [facility] Stacey Celestin, B96.20 Unsp Escherichia 10:10a kassandra Domínguez M.D. coli as the cause Hospitalists of diseases classd elswhr N39.0 Urinary tract infection, site not specified R79.89 Other specified abnormal findings of blood chemistry R41.82 Altered mental status, unspecified R53.83 Other fatigue Office Visit 07/15/2018 10:10a [facility] Phuc Martinez, E86.0 Dehydration Assoc,pc Hospitalists PA R79.89 Other specified abnormal findings of blood chemistry R10.9 Unspecified abdominal pain R53.1 Weakness Office Visit 07/13/2018 [facility] Gastroenterology Princess K59.00 Constipation, 10:00a ISIDRO Shepherd unspecified R14.0 Abdominal distension (gaseous) Z79.01 long term (current) use of anticoagulants Office Visit 05/17/2018 11:00a [facility] Homer Chen Z09 Encntr for Jorge Hunter f/u exam aft trtmt for cond oth than corin eli Z86.73 Prsnl hx of TIA (TIA), and cereb infrc w/o resid deficits Z79.02 skilled nursing (current) use of antithrombotics/antiplatelets Office Visit 04/16/2018 7:00a [facility] Homre Chen R47.01 Aphasia Jorge Hunter I67.82 Cerebral ischemia Office Visit 04/16/2018 10:43a [facility] Delicia Rock R47.01 Aphasia Assoc, Hospitalists D.O. R41.89 Oth symptoms and signs w cognitive functions and awareness G45.9 Transient cerebral ischemic attack, unspecified Office Visit 04/15/2018 10:43a [facility] Delicia Rock R47.01 Aphasia Assoc, Hospitalists D.O. 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 right knee Office Visit 01/14/2017 Pulmonology And Luna R06.83 Snoring 9:15a Sleep Services DYLAN Banegas, Of [facility] RN, FLUMER-BC Office Visit 10/28/2016 [facility]ology And Naa R06.83 Snoring 8:45a Sleep Services MD Gino Of [facility] R09.02 Hypoxemia R35.1 Nocturia Office 02/13/2016 [place]/Kamaljit Hong I67.9 Cerebrovascular Visit 2:15p Neurologic Serv Of robert Colvin Cma M.D. unspecified Office 06/10/2013 [facility] Fina Hong 437.9 Cerebrovascular Visit 11:45a [facility] Vinicius Disease Or Lesion Jorge Unspec Office 01/07/2012 [facility] Fina Hong 780.4 Dizziness & Visit 3:00p [facility] Cecelia Colvin M.D. Office 04/10/2009 DO Not Use [facility] AT Otto Burrows 790.21 Impaired Fasting Visit 10:00a Dunia Lowery M.D.,FACP 272.0 Hypercholesterolemia Pure 592.0 Calculus Of Kidney Office Visit 04/19/2007 1:40p DO Not Use [facility] Otto Burrows 785.2 Murmur Cardiac AT Saundra Hallman M.D.,FACP Undiagnosed 592.0 Calculus Of Kidney 790.21 Impaired Fasting Glucose 715.36 Osteoarthrosis Localzd Not Spec Prime Or 2Ndy Lower Leg 272.0 Hypercholesterolemia Pure V76.44 Screening For Malig Aldair Prostate Plan of Treatment Future Appointment(s):11/16/2018 2:00 pm - Howard Brown NP at [facility]10/26/2018 9:00 am - Princess Shepherd NP at [facility] Vilsdrfrnhbthsdi40/05/2019 - Howard Brown, ISIDROI63.9 Cerebral infarction, unspecifiedNew Medication:Trazodone HCL 50 mg - Take one tab po at hsNew Therapy :Occupational TherapyReferral:[facility],Follow up:ONE MONTHRecommendations:Stop Aspirin 325 mg daily after 10 days on 10/23/18.F32.9 Major depressive disorder, single episode, prtgcwxzcltR53.0 Urinary tract infection, site not uncrpkioyH76.84 Mild cognitive impairment, so uufmnpT27.1 Atrial septal defect
--- OUTSIDE RECORDS SUMMARY | 2018-10-21 10:49 | XMS REPORT | Continuity of Care Document ---
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 05/16/2018 12HR Asa 1 po qd 90units Otto Burrows 04/10/2009 - 81mg Jorge Hallman,[facility] 06/10/2013 Naproxen 1 PO bid prn 60tabs Otto Burrows 04/19/2007 - 500mg Tablets Jorge Hallman,FACP 06/10/2013 Multivitamin 1 PO qd Otto Burrows 04/19/2007 - Liquid Jorge Hallman,[facility] 06/10/2013 Lorazepam 1 PO bid Unknown - 1mg Tablets 05/16/2018 Chlorhexidine prn Unknown - Gluconate 10/27/2016 0.12% Solution Hydrocodone/Acetaminop prn Unknown - hen 02/12/2016 5-325mg Tablets Penicillin V Potassium 7-10 days. Unknown - 02/12/2016 500mg Tablets Cyanocobalamin 1 milliliters Unknown - 1000mcg/ML intramuscular [id number] 08/30/2018 Solution Pantoprazole Sodium 1 by mouth [...] Given 03/14/2014 Fluvirin Im 3Yrs And Older 64951 Given 02/27/2011 Influenza Virus 3Yrs & Over 70690 Given 02/20/2009 Influenza Virus 3Yrs & Over [id number] 19322 Given 02/10/2008 Influenza Virus 3Yrs & Over [id number] 57909 Given 03/16/2007 Flu Vac (History By Patient> [...] H/L Range Note CBC No Diff 07/13/2018 [facility] White Blood 19.8 10^3/uL High 3.5-10.[address] [place] [address] [phone] Red Blood Count 4.71 10^6/uL N 4.00-5.40 [...] fL N 7.4-10.4 Comp Metabolic Panel 07/13/2018 [facility] Sodium 139 mmol/L N 135-[address] [place] [address] [phone] Potassium 4.2 mmol/L N 3.5-5.0 Chloride 101 [...] >60 Egfr 86.9 >60 1 Laboratory 07/13/2018 [facility] Helico Positive Abnormal Negative 2 test finding [address] [place] [address] Antigen- [phone] Stool Liver 07/13/2018 [facility] Direct 0.20 mg/dL High 0.03-0.18 Function 101 [place] [address] [phone] Indirect Bilirubin 0.9 mg/dL N 0.3-1.0 Laboratory test finding 07/13/2018 [facility] Lipase 13 U/L N 11.0-82[address] [place] [address] [phone] Amylase 39 U/L N 29-103 Stool Occult 07/13/2018 [facility] Stool Occult SEE RESULT 3 Blood Diag 101 Blood, [place] [address] [phone] Laboratory test 04/15/2018 [facility] TSH (Thyroid 0.69 mcIU/mL N 0.34-5 4, [address] Stim Horm) .60 [place] [address] [phone] Free T4 (Free Thyroxine) 0.85 ng/dL N 0.61-1.12 6 Folic Acid (Folate) 16.85 ng/mL >3.99 7 Vitamin B12 210 pg/mL N 180-914 8 CBC Auto Diff 06/11/2015 [facility] White Blood 7.8 10^3/uL N 3.5-10.[address] [place] [address] [phone] Red Blood Count 4.87 10^6/uL N 4.0-5.4 [...] % 0 N Comp Metabolic Panel 06/11/2015 [facility] Sodium 136 mmol/L N 133-[address] [place] [address] [phone] Potassium 3.6 mmol/L N 3.5-5.0 Chloride 104 [...] 94.2 N >60 9 Laboratory test 06/11/2015 [facility] Creatine 63 U/L N 10- [address] Kinase(CK) [place] [address] [phone] Troponin-I (TnI) 0.00 ng/mL N <0.03 10 CKMB 06/11/2015 [facility] CKMB ng/mL 1.2 ng/mL N 0.6-6.[address] [place] [address] [phone] Laboratory 06/11/2015 [facility] B-Type 122 pg/mL High 11 test finding [address] [place] [address] Peptide BNP [phone] Inr/Protime 06/11/2015 [facility] Inr 1.12 High 0.89-1.[address] [place] [address] [phone] Laboratory 06/11/2015 [facility] Partial 26.4 N 26.0-36.3 test finding [address] [place] [address] PTT [phone] Laboratory 06/11/2015 [facility] Lactic Acid 1.5 mmol/L N 0.5- 2.0 12 test finding [address] [place], [place] [id number] [phone] Throat-Beta 07/19/2014 [facility] Throat Beta (SEE NOTE) [address] [place] [address] [phone] Urinalysis 12/02/2013 [facility] Urine Color Yellow N Profile [address] [place] [address] [phone] Urine Appearance Cloudy N Urine Specific Howell 1.024 N 1.010-1.030 Urine pH 5.0 N 5-9 Urine Urobilinogen Negative N Negative Urine Ketones Trace N Negative Urine Protein Negative N Negative Urine Leukocytes Negative N Negative Urine Blood Negative N Negative Urine Nitrite Negative N Negative Urine Bilirubin Negative N Negative Urine Glucose Negative N Negative Code Celis Type 03/04/2011 [facility] Patient Blood O NEGATIVE And Screen [address] [place] [address] [phone] Antibody Screen NEGATIVE Laboratory test 03/04/2011 [facility] Magnesium 2.0 mg/dL 1.7 -2.6 finding [address] [place] [address] [phone] Troponin-I 0 NG/ML 0-0.06 14 Acetaminophen < 10 g/mL Low 10-30 15 Alcohol < 10.0 mg/dL None Detected 16 Salicylate < 4.0 mg/dL Less Than 30 17 CGP33 03/04/2011 [facility] Sodium 139 mmol/L 135-145 [address] [place] [address] [phone] Potassium 3.1 mmol/L Low 3.5-5.0 Chloride 110 [...] 105.0 > 60 20 Laboratory test 03/04/2011 [facility] Code Celis 21.5 SEC Low 25.15-38.[address] PTT (Aptt) [place] [address] [phone] Code Celis 03/04/2011 [facility] Protime 11.3 SEC 10.67-13.64 Protime/Inr [address] [place] [address] [phone] Inr 0.96 0.88-1.13 21 Code Celis CBC 03/04/2011 [facility] White Blood 7.0 CUMM 4.8- 10.[address] [place] [address] [phone] Red Cell Count 4.33 CUMM Low 4.6-6.2 [...] Basophils 0 0-0.2 Basic Metabolic Panel 10/25/2009 [facility] Sodium 140 mmol/L 135-[address] [place] [address] [phone] Potassium 4.1 mmol/L 3.5-5.0 Chloride 105 mmol/L 101-111 Co2 (Carbon Dioxide) 29.0 mmol/L 22-32 Anion Gap 6.0 mmol/L 2-11 22 Glucose 108 mg/dL High 70-100 23 BUN 17 mg/dL 6-24 Creatinine 1.00 mg/dL 0.50-1.40 One Over Creatinine 1.00 BUN/Creatinine Ratio 17.0 8-20 Calcium 9.1 mg/dL 8.1-9.9 24 eGFR Non- 77.2 > 60 eGFR 93.4 > 60 25 Lipid Profile 10/25/2009 [facility] Triglyceride 112 mg/dL 40 -200 (Trig/Chol/HDL) [address] [place], [place] [address] [phone] Cholesterol 189 mg/dL Less Than 200 26 High Density Lipoprotein 35 mg/dL Low 40-60 27 Cholesterol/HDL Ratio 5.40 AVERAGE High 1-4.97 Low Density Lipoprotein 132 mg/dL High Less Than 100 28 Laboratory test 05/13/2007 [facility] Uric Acid 5.4 mg/dL 2.6 -7.2 [address] [place] [address] [phone] Basic Metabolic 05/13/2007 [facility] One Over 1.11 Panel Stat [address] [place] [address] [phone] Anion Gap 5.0 mmol/L 2-11 30 BUN 17 mg/dL 6-24 Calcium 9.4 mg/dL 8.7-10.2 Chloride 107 mmol/L 101-111 Co2 (Carbon Dioxide) 27.0 mmol/L 22-32 Glucose 109 mg/dL High 70-105 Potassium 4.4 mmol/L 3.5-5.0 Sodium 139 mmol/L 135-145 BUN/Creatinine Ratio 18.9 8-20 Creatinine 0.9 mg/dL 0.5-1.4 Lipid Profile 05/13/2007 [facility] Cholesterol/HDL 5.02 High 1-4.97 (Trig/Chol/HDL) [address] [place] [address] [phone] Cholesterol 206 mg/dL High Less Than 200 31 Triglyceride 103 mg/dL 40-200 High Density Lipoprotein 41 mg/dL 40-60 Low Density Lipoprotein 144 mg/dL High Less Than 100 32 Laboratory test 05/13/2007 [facility] PSA Screening 0.63 NG/ML 0-[address] [place] [address] [phone] 1 Because ethnic data is not always [...] <15 (or dialysis) 2 Test Performed by: [place] [address] 3 SEE RESULT BELOW Name: HOMER ROSS : [address]: Princess Shepherd NP Acct: [id number] Unit: [id number] AGE: 87 Location: [facility] Re07/13/18 SEX: M Status: REG REF SPEC: [id number] TAHIRA: 07/13/18-[address]: Princess Shepherd NP REQ: [id number] RECD: 07/13/18-1766 STATUS: COMP _ SOURCE: STOOL SPDESC: ORDERED: Occult Bl, Diag Procedure Result Reported Site Stool Occult Blood (1) Final 07/13/18- 1613 ML Stool Occult Blood Negative Collection Date (1) 07/11/18 * ML - Main Lab . END OF REPORT DEPARTMENT OF PATHOLOGY, [address] [place] [address] Lane Solomon M.D. Director [facility] # [id number] 4 Comment: please add labs on blood [...] 0.03 ng/mL Not supportive of diagnosis of CO 0.03 - 0.50 ng/mL Indeterminate: suggest serial studies if clinically indicated. Greater than 0.5 ng/mL Consistent with diagnosis of CO 11 >100 to <200 pg/mL: likely compensated congestive heart failure (CHF) 200 to 400 pg/mL: likely moderate CHF >400 pg/mL: likely moderate to severe CHF 12 [facility] Severe Sepsis and Septic Shock Management Bundle Measure requires all lactic acids initially measuring >2.0mmol/L be repeated. 13 RUN DATE: 07/21/14 [facility] LAB LIVE PAGE 1 RUN TIME: [address] [place] [address] Specimen Inquiry Name: HOMER ROSS : [address]: Nasrin Coats MD Acct: [id number] Unit: [id number] AGE: 83 Location: [facility] Re07/19/14 SEX: M Status: DEP ER SPEC: [id number] TAHIRA: 07/19/14-[address] [facility] [address]: Demetria Killian NP REQ: [id number] RECD: 07/19/14123 STATUS: BARNEY GODINEZ DR: Nasrin Hallman MD _ SOURCE: THROAT SPDESC: ORDERED: Throat Beta Str Procedure Result Verified Site Throat Beta Strep Culture Final 07/21/14- 08 L Negative For Group A Beta Streptococcus END OF REPORT * ML=Testing performed at Main Lab DEPARTMENT OF PATHOLOGY, [address] [place] [address] Lane Solomon M.D. Director [facility] # [id number] 14 New Reference Range and Interpretation effective 02/11/2002 TnI (ng/ml) INTERPRETATION Less Than 0.06 ng/mL NOT SUPPORTIVE OF DIAGNOSIS OF CO 0.06 - 0.50 ng/ml INDETERMINATE: SUGGEST SERIAL STUDIES IF CLINICALLY INDICATED. Greater than 0.5 ng/mL CONSISTENT WITH DIAGNOSIS OF CO . 15 TOXIC LEVELS: GREATER THAN 150 [...] has been shown to interfere with the [place] method for measuring total bilirubin. Samples from [...] change was based on recommendations from the [place] [employer]. 24 Please note change in [...] . Procedures Date Code Description Status 07/19/2018 42049 Treadmill Interp/Report Only Completed 07/19/2018 80372 Stress Test Supervsn W/Out I/R Completed 07/18/2018 02358 EKG, Interpretation Only Completed 07/16/2018 90612 EEG Recording Awake & Asleep Completed 07/16/2018 68758 EKG, Interpretation Only Completed 07/15/2018 27315 ECHO Transthorasic Realtime 2D W Doppler & Color Flow Completed Hosp 04/16/2018 60493 EEG Recording Awake & Drowsy Completed 04/15/2018 13185 ECHO Transthorasic Realtime 2D W Doppler & Color Flow Completed Hosp 10/15/2011 [id number] Colonoscopy Completed 03/04/2011 81884 Color Flow Doppler/Interp & Reprt Completed 03/04/2011 76403 Pulse Wave/Continuous-Interp.RPT Completed 03/04/2011 88876 ECHO Transthorasic Realtime 2D W Doppler & Color Flow Completed Hosp 02/20/2004 97278 Treadmill Interp/Report Only Completed 02/20/2004 15607 Stress Test Supervsn W/Out I/R Completed 10/27/2001 95378566 Colonoscopy Completed Encounters Type Date Location Provider Dx Diagnosis Office Visit 09/03/2018 [facility] R41.82 Altered mental 11:16a Assoc,kassandra Vasquez, status, Hospitalists CUPOLA LINER unspecified N39.0 Urinary tract infection, site not specified B96.20 Unsp Escherichia coli as the cause of diseases classd elswhr N40.1 Benign prostatic hyperplasia with lower urinary tract symp R33.8 Other retention of urine Office Visit 09/02/2018 [facility] B96.20 Unsp Escherichia 11:15a Assoc,kassandra Vasquez, coli as the cause Hospitalists CUPOLA LINER of diseases classd elswhr N39.0 Urinary tract infection, site not specified N40.1 Benign prostatic hyperplasia with lower urinary tract symp R33.8 Other retention of urine Office Visit 09/01/2018 11:15a [facility] N39.0 Urinary tract Assoc,pc David Vasquez, infection, site Hospitalists CUPOLA LINER not specified R33.8 Other retention of urine N40.1 Benign prostatic hyperplasia with lower urinary tract symp Office Visit 08/31/2018 11:15a [facility] Lucia Bui, N39.0 Urinary tract Assoc,pc DO infection, site Hospitalists not specified R11.10 Vomiting, unspecified R41.82 Altered mental status, unspecified Office Visit 08/31/2018 11:45a [facility] Homer Hunter, Z09 Encntr for f/u Services Of [employer] MPreet exam aft trtmt for cond oth than malig neoplm Z86.73 Prsnl hx of TIA (TIA), and cereb infrc w/o resid deficits 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 abnormal findings of blood chemistry Office Visit 07/19/2018 [facility] Stacey A41.51 Sepsis due to 10:11a Assjessi,kassandra Hospitalcarlos Celestin M.D. Escherichia coli [E. 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 Escherichia coli Mattists [E. coli] N39.0 Urinary tract infection, site not specified R79.89 Other specified abnormal findings of blood chemistry Office Visit 07/17/2018 10:10a [facility] Stacey Fawad, N39.0 Urinary tract Assoc,kassandra Patel infection, site Hospitalists not specified R79.89 Other specified abnormal findings of blood chemistry F32.9 Major depressive disorder, single episode, unspecified Office Visit 07/16/2018 3:22p [facility] Rod Johnson R79.89 Other specified Jorge Llanos abnormal findings of blood chemistry R94.39 Abnormal result of other cardiovascular function study R94.31 Abnormal electrocardiogram [ECG] [EKG] A41.9 Sepsis, unspecified organism Office Visit 07/16/2018 [facility] Stacey Celestin, B96.20 Unsp Escherichia 10:10a Assoc,kassandra Patel coli as the cause Hospitalists of diseases classd elswhr N39.0 Urinary tract infection, site not specified R79.89 Other specified abnormal findings of blood chemistry R41.82 Altered mental status, unspecified R53.83 Other fatigue Office Visit 07/15/2018 10:10a [facility] Phuc Martinez, E86.0 Dehydration Assoc, Hospitalists [place] R79.89 Other specified abnormal findings of blood chemistry R10.9 Unspecified abdominal pain R53.1 Weakness Office Visit 07/13/2018 [facility] Princess K59.00 Constipation, 10:00a ISIDRO Shepherd unspecified R14.0 Abdominal distension (gaseous) Z79.01 snf (current) use of anticoagulants Office Visit 05/17/2018 11:00a [facility] Homer Chen Z09 Encntr for Jorge Hunter f/u exam aft trtmt for cond oth than corin neoplchester Z86.73 Prsnl hx of TIA (TIA), and cereb infrc w/o resid deficits Z79.02 snf (current) use of antithrombotics/antiplatelets Office Visit 04/16/2018 7:00a [facility] Homer Chen R47.01 Aphasia Jorge Hunter I67.82 Cerebral ischemia Office Visit 04/16/2018 10:43a [facility] Delicia Rock R47.01 Aphasia Assoc,pc Hospitalists D.O. R41.89 Oth symptoms and signs w cognitive functions and awareness G45.9 Transient cerebral ischemic attack, unspecified Office Visit 04/15/2018 7:00a [facility] Rehana Saad, R47.01 Aphasia M.D. 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 right knee Office Visit 01/14/2017 Pulmonology And Luna R06.83 Snoring 9:15a Sleep Services DYLAN Banegas, Of [facility] RN, NAPRAPATH- Office Visit 10/28/2016 [facility] Naa R06.83 Snoring 8:45a Sleep Services MD Gino Of [facility] R09.02 Hypoxemia R35.1 Nocturia Office 02/13/2016 [facility] I67.9 Cerebrovascular Visit 2:15p Neurologic Serv Of robert Colvin Cma M.D. unspecified Office 06/10/2013 [facility] Fina Hong 437.9 Cerebrovascular Visit 11:45a Services Of Robert Price Or Lesion Jorge Unspec Office 01/07/2012 [facility] Mayito Hong 780.4 Dizziness & Visit 3:00p Services Of Cecelia Price M.D. Office 04/10/2009 DO Not Use [employer] AT Otto Burrows 790.21 Impaired Fasting Visit 10:00a Dunia Lowery M.D.,FACP 272.0 Hypercholesterolemia Pure 592.0 Calculus Of Kidney Office Visit 04/19/2007 1:40p DO Not Use Daniel Burrows 785.2 Murmur Cardiac AT Saundra Hallman M.D.,FACP Undiagnosed 592.0 Calculus Of Kidney 790.21 Impaired Fasting Glucose 715.36 Osteoarthrosis Localzd Not Spec Prime Or 2Ndy Lower Leg 272.0 Hypercholesterolemia Pure V76.44 Screening For Malig Aldair Prostate Plan of Treatment Future Appointment(s):10/26/2018 9:00 am - Princess Shepherd NP at [facility] Jjmkmbrtjgeajivy98/23/2019 - Homer Hunter M.D.Z09 Encntr for f/u exam aft trtmt for cond oth than fannyig qpujbmN69.73 Prsnl hx of TIA (TIA), and cereb infrc w/o resid lubdildgH85.02 snf (current) use of antithrombotics/ antiplatelets
[2018-10-21] MEDS ORDERED: Lactated Ringers 1000 ML Bag* 1,000 ML IV SCH ×2 (11:00→13:00)
[2018-10-21 11:55] LABS: Urine Appearance Cloudy; Urine Color Red; Urine Specific Gravity 1.017 (1.010-1.030)
[2018-10-21 11:56] LABS: Urine Red Blood Cell 3+(>10/hpf) (Absent); Urine White Blood Cell 1+(6-10/hpf) (Absent)
[2018-10-21 12:01] LABS: ABS Basophils 0.1 10^3/ul (0-0.2); ABS Lymphocytes 0.1 10^3/ul (1.0-4.8); ABS Monocytes 0.1 10^3/ul (0-0.8); ABS Neutrophils 8.7 10^3/ul (1.5-7.7); Hematocrit 36 % (42-52); Lymphocyte % 1.4 %; Mean Corpuscular HGB Conc 33 g/dL (31-36); Mean Corpuscular Hemoglobin 30 pg (27-31); Mean Corpuscular Volume 89 fL (80-94); Mean Platelet Volume 8.5 fL (7.4-10.4); Platelet Count 124 10^3/uL (150-450); Red Blood Count 4.04 10^6 /uL (4.18-5.48); Red Cell Distribution Width 15 % (10-15)
[2018-10-21 12:09] LABS: Activated Partial Thrombo Time 24.6 seconds (26.0-38.0); INR 1.3 (0.82-1.09)
[2018-10-21] MEDS ORDERED: Levofloxacin 500 MG IVPREMIX(* 500 MG/100 ML BAG IVPB ONE (12:14)
[2018-10-21 13:09] LABS: Albumin 3.2 g/dL (3.2-5.2); Albumin/Globulin Ratio 1.1 (1-3); BUN/Creatinine Ratio 14.9 (8-20); Calcium 8.9 mg/dL (8.6-10.3); EGFR African American 73.9 (>60); EGFR Non-African American 61.1 (>60); Globulin 2.8 g/dL (2-4); Potassium 3.6 mmol/L (3.5-5.0); Total Bilirubin 1.1 mg/dL (0.2-1.0)
[2018-10-21 13:11] LABS: Troponin I 0.01 ng/mL (<0.04)
[2018-10-21 13:37] LABS: Urine Appearance Turbid; Urine Bacteria Absent (Absent); Urine Bilirubin Negative (Negative); Urine Blood 3+ (Negative); Urine Glucose Negative (Negative); Urine Ketones Negative (Negative); Urine Nitrite Negative (Negative); Urine Protein 2+(100 mg/dL) (Negative); Urine Red Blood Cell 3+(>10/hpf) (Absent); Urine Specific Gravity 1.015 (1.010-1.030); Urine Urobilinogen Negative (Negative); Urine White Blood Cell 3+(>20/hpf) (Absent)
[2018-10-21 13:38] LABS: Urine Color Red
[2018-10-21] MEDS ORDERED: cefTRIAXone(*) 1 GM in NS 0.9% 50 ML* 50 ML IVPB ONE (14:41)
[2018-10-21] MEDS ORDERED: Acetaminophen TAB* 325 MG PO PRN (16:21)
[2018-10-21] MEDS ORDERED: Nystatin CREAM* 15 GM TUBE TOPICAL PRN (16:21)
[2018-10-21] MEDS ORDERED: Lactated Ringers 1000 ML Bag* 1,000 ML IV ONE (16:23)
--- NOTE | 2018-10-21 16:40 | PN ---
Sepsis Event Evaluation Date of Evaluation: 10/21/18 Time of Evaluation: 15:45 Current Stage of Sepsis: Severe Sepsis Vital Signs - Last 12 Hours: Vital Signs - 12 hr Temp Pulse Resp BP Pulse Ox 10/21/18 14:34 99.9 F 76 12 110/68 98 10/21/18 14:19 100.0 F 78 17 110/70 97 10/21/18 14:04 100.0 F 77 6 94/61 97 10/21/18 14:00 100.0 F 80 2 96 10/21/18 13:49 100.0 F 79 13 103/66 97 10/21/18 13:34 100.0 F 76 11 108/61 98 10/21/18 13:19 99.9 F 78 19 115/71 99 10/21/18 13:04 100.2 F 80 17 102/71 97 10/21/18 13:00 100.2 F 72 20 97 10/21/18 12:49 100.6 F 73 18 99/75 98 10/21/18 12:34 100.8 F 76 19 98/58 98 10/21/18 12:27 100.8 F 84 22 77/50 96 10/21/18 12:19 100.8 F 85 22 80/50 96 10/21/18 12:04 100.8 F 88 23 87/52 96 10/21/18 12:01 96 10/21/18 12:00 100.8 F 88 23 97 10/21/18 11:49 100.9 F 83 19 111/63 97 10/21/18 11:31 101.3 F 83 23 99/57 96 10/21/18 11:23 101.3 F 86 26 101/59 95 10/21/18 11:11 101.5 F 10/21/18 11:00 94 24 96 10/21/18 10:53 99 28 125/73 94 10/21/18 10:49 95 26 93 10/21/18 10:30 99.5 F 93 22 125/73 95 Lactic Acid: 10/21/18 10/21/18 11:38 14:47 Lactic Acid 4.9 H* 2.4 H* - Cardiopulmonary Exam Capillary Refill: Immediate Respiratory: Symmetrical Chest Expansion and Respiratory Effort, Clear to Auscultation Cardiovascular: RRR - Normal S1 and S2 - Peripheral Pulse Exam Radial Pulses: Bilateral Normal - Skin Exam Skin Exam: Normal Turgor - Orosi Coma Scale Best Eye Response: 3 - To Speech Best Motor Response: 5 - Purposeful Movement Best Verbal Response: 4 - Confused Coma Scale Total: 12 Assess/Plan/Problems-Billing Assessment: Mr Ross is an 87yo M with PMH of CVA, BPH, chronic [place], who presents with severe sepsis secondary to UTI. Will continue IVF and trend LA.
--- NOTE | 2018-10-21 18:41 | HP ---
CC: Dr. Dorothy White * HISTORY AND PHYSICAL: DATE OF ADMISSION: 10/21/18 TIME OF EVALUATION: 3:45 p.m. PRIMARY CARE PROVIDER: Dr. Dorothy White. UROLOGIST: Dr. Hemphill. CHIEF COMPLAINT: "He is confused" as per healthcare proxy. HISTORY OF PRESENT ILLNESS: Mr. Ross is an 87-year-old male with a past medical history of TIA, BPH, PFO, hyperlipidemia, dementia, recent admission in September with CVA, urinary retention and urinary tract infection, who presents to the emergency room, brought in by EMS from [facility] with complaints of nausea, vomiting, and increased confusion. At the time of my evaluation, the patient is longer agitated, but he is still confused, so history is obtained from his healthcare proxy, Ms. Trinity Hylton. The patient was admitted on 09/20/18 with weakness and leaning to the left. He had had a prior admission in August for urinary tract infection and on 09/20/18, he presented with this weakness and initially, there was concern that this weakness could be secondary to another episode of UTI, but he was admitted for stroke workup and his MRI of the brain revealed findings consistent with multifocal acute or subacute infarction involving the left parietal and occipital lobes. At that point, the patient was unable to ambulate and he was discharged to [facility]. His healthcare proxy describes progressive decline for many years, but this has become much more evident after his stroke. She states that since 10/18/18, he has been more confused and agitated. He last saw Dr. Hemphill on 10/07/18 and he had a Ulloa catheter changed for urinary retention secondary to BPH and the plan was to keep that catheter in until end of October and then depending on his condition, do a trial of spontaneous void. He was seen by his new primary care provider, Dr. White at [facility] and he had abnormal urinalysis with an urine culture that grew cephalexin. There is report that the patient was having nausea and vomiting, but it is unclear how much of the cephalexin he was able to take. Today, he was more agitated and disoriented. He pulled his Ulloa catheter almost all the way out, was complaining of nausea and vomiting and for that reason, he was sent to the emergency room for further evaluation. In the ED, he was febrile, tachycardic and had an initial lactic acid of 4.9 and the hospitalist service was called for further evaluation and management. PAST MEDICAL HISTORY: 1. Recent admission for CVA. 2. Urinary retention secondary to BPH, now with Ulloa. 3. Recent urinary tract infection. 4. TIA. 5. PFO. 6. Hyperlipidemia. 7. History of vertigo. 8. History of dementia. PAST SURGICAL HISTORY: According to records, the patient had an incarcerated right inguinal hernia repair. MEDICATION LIST: 1. Acetaminophen 650 mg p.o. q.4 hours p.r.n. pain or fever. 2. Aspirin 81 mg p.o. daily. 3. Atorvastatin 40 mg p.o. at bedtime. 4. Align 4 mg p.o. daily. 5. Cephalexin 500 mg p.o. q.8 hours, to complete 7 days. 6. Clopidogrel 75 mg p.o. daily. 7. Vitamin B12 1000 mcg p.o. daily. 8. Finasteride 5 mg p.o. daily. 9. Mirtazapine 7.5 mg p.o. at bedtime. 10. Nystatin cream topical b.i.d. as needed for rash. 11. Pantoprazole 40 mg p.o. daily. 12. Sertraline 25 mg p.o. daily. 13. Tamsulosin 0.4 mg p.o. at bedtime. ALLERGIES: No known drug allergies. FAMILY HISTORY: Unable to obtain from the patient due to his confusion. As per records, his father has a history of heart attack, mother and father had history of diabetes, brother had a history of thyroid cancer. SOCIAL HISTORY: As per records, there is no history of tobacco, alcohol, or illicit drug use. The patient now lives at [facility] since his last admission in September. Surrogate decision maker/healthcare proxy is Ms. Trinity Hylton, phone number is [phone]. REVIEW OF SYSTEMS: I am unable to obtain from the patient due to his confusion. PHYSICAL EXAMINATION GENERAL: The patient is an elderly gentleman, lying on the ED stretcher, in no acute distress. VITAL SIGNS: Temperature 99.9, heart rate is 75, respiratory rate is 12, oxygen saturation is 98% on 2 L nasal cannula, blood pressure is 110/68. HEENT: Pupils are equal. CHEST: Breath sounds present bilaterally with no added sounds. CVS: Normal S1, S2. Regular rate and rhythm. ABDOMEN: Soft. There is mild epigastric tenderness. No guarding. No rebound. Bowel sounds are present. NEUROLOGIC: He is sleeping, but arousable to voice. Oriented to self only. He thinks he is in [place]. He can move all 4 extremities, but does not really follow commands consistently. DIAGNOSTIC STUDIES/LAB DATA: The patient had a CBC that showed a WBC of 9, hemoglobin 12, hematocrit 36, platelets of 124 with 96% neutrophils. INR is 1.3. Chemistry showed a sodium of 138, potassium of 3.6, chloride of 105, bicarb of 22, BUN of 17, creatinine of 1.1, glucose of 132, calcium of 8.9. LFTs were normal except for a slight elevation of total bilirubin at 1.1. Initial lactic acid was 4.9 and repeat was 2.4. BNP is 39. Urinalysis showed 2+ protein, 3+ blood, 3+ wbc's, 3+ rbc's. Urine culture done on 10/12/18 grew E. coli resistant to ampicillin only. Chest x-ray was reviewed by myself and I am in agreement with the radiologist's read that there is no acute pulmonary disease. EKG done on 10/21/18 at 11:15 a.m. showed sinus rhythm at 88 beats per minute with incomplete right bundle branch block and a left anterior fascicular block and this is unchanged from his prior EKG from 09/22/18. There is no acute ischemic change. ASSESSMENT AND PLAN: Mr. Ross is an 87-year-old male with history of a recent admission for cerebrovascular accident, urinary retention, urinary tract infection, prior transient ischemic attack, benign prostatic hyperplasia, patent foramen ovale, hyperlipidemia, dementia, who presents to the emergency room with reports of increased confusion and hematuria while pulling out his Ulloa, found to have severe sepsis secondary to urinary tract infection. 1. Severe sepsis. The patient meets sepsis criteria with fever and tachycardia and his initial lactic acid was 4.9. The patient has responded well to IV fluid resuscitation and his blood pressure is normal and the lactic acid has trended down nicely to 2.4. I believe that the source is urinary tract infection. This is Ulloa catheter related and was present on admission. He was being treated with cephalexin as outpatient, but it is unclear how much of the treatment he was able to take as he was having nausea and vomiting. He will be admitted for further management and we will treat him with ceftriaxone. The urine culture shows that the E. coli was sensitive to it and I will prefer to avoid quinolone when the patient is already confused. We will follow his repeat urine culture and adjust antibiotics if needed. I believe he may be bacteremic at this time secondary to the trauma of pulling on his Ulloa catheter in the setting of an urinary tract infection and this is likely what caused his decompensation prompting this ED visit. We will continue IV fluids. We are going to trend his lactic acid until it normalizes. 2. History of cerebrovascular accident. As per his healthcare proxy, the patient has been unable to ambulate since he had his stroke even with physical therapy at [facility]. She does not report any new neurological deficits, only the above mentioned confusion. We will continue aspirin, Plavix, and atorvastatin. 3. Benign prostatic hyperplasia. I discussed the case with Dr. Hemphill. His plan was to keep the Ulloa catheter in until end of October and then do a trial of spontaneous void. The plan will be to treat his urinary tract infection at this point and keep this appointment for the end of October. In the emergency room , the Ulloa catheter was changed as it was apparently almost all the way out when he arrived to the ED. 4. DVT prophylaxis: The patient has a score of 3 on the DVT Prophylaxis Risk Assessment Guide, but he has significant hematuria secondary to the trauma from the Ulloa and he is already on aspirin and Plavix, so for now I am going to avoid subcutaneous heparin. He will have SCDs. 5. Code status is do not resuscitate and this was confirmed with his healthcare proxy. TIME SPENT: Approximately 60 minutes was spent with patient and healthcare proxy interview, medical records review, physical examination to complete the admission, more than half this time was spent [id number] with the patient and coordination of care. [id number]/[facility] #: [id number] JESSICA
[2018-10-21] MEDS: Mirtazapine TAB* 15 MG PO SCH (20:20)
[2018-10-21] MEDS: Atorvastatin* 40 MG TAB PO SCH (20:20)
[2018-10-21] MEDS: Tamsulosin CAP* 0.4 MG PO SCH (20:21)
[2018-10-22] MEDS: BIFIDOBACTERIUM INFANTIS 4 MG PO SCH (07:47)
[2018-10-22] MEDS: Aspirin EC TAB* 81 MG TAB.EC PO SCH (07:51)
[2018-10-22] MEDS: Clopidogrel TAB* 75 MG PO SCH (07:51)
[2018-10-22] MEDS: Cyanocobalamin TAB* 500 MCG PO SCH (07:52)
[2018-10-22] MEDS: Finasteride TAB* 5 MG PO SCH (07:52)
[2018-10-22] MEDS: Sertraline* 25 MG TAB PO SCH (07:52)
[2018-10-22] MEDS: Pantoprazole TAB * 40 MG TAB PO SCH (07:52)
[2018-10-22 08:57] LABS: BUN/Creatinine Ratio 19.5 (8-20); EGFR Non-African American 89.3 (>60)
[2018-10-22 09:29] LABS: ABS Eosinophils 0.1 10^3/ul (0-0.6); ABS Lymphocytes 0.6 10^3/ul (1.0-4.8); ABS Monocytes 0.6 10^3/ul (0-0.8); ABS Neutrophils 6.1 10^3/ul (1.5-7.7); Eosinophil % 0.8 %; Hematocrit 37 % (42-52); Hemoglobin 12.5 g/dL (14.0-18.0); Mean Corpuscular HGB Conc 34 g/dL (31-36); Mean Corpuscular Hemoglobin 30 pg (27-31); Mean Corpuscular Volume 90 fL (80-94); Mean Platelet Volume 8.6 fL (7.4-10.4); Platelet Count 87 10^3/uL (150-450); Red Blood Count 4.13 10^6 /uL (4.18-5.48); Red Cell Distribution Width 16 % (10-15); White Blood Count 7.4 10^3/uL (3.5-10.8)
--- NOTE | 2018-10-22 11:18 | PN ---
Subjective Date of Service: 10/22/18 Interval History: HOSPITALIST PROGRESS NOTE Patient seen and examined at bedside. Care reviewed and d/w Iwona Pretty RN. He is much more awake today. Denies any complaints. Knows he's in the hospital, but doesn't remember why or how he got here. Family History: Unchanged from Admission Social History: Unchanged from Admission Past Medical History: Unchanged from Admission Objective Active Medications: Acetaminophen (Tylenol Tab*) 650 mg PO Q4H PRN PRN Reason: FEVER/PAIN Last Admin: 10/21/18 20:20 Dose: 650 mg Aspirin (Aspirin Ec Tab*) 81 mg PO DAILY [facility] Last Admin: 10/22/18 07:51 Dose: 81 mg Atorvastatin Calcium (Lipitor*) 40 mg PO BEDTIME [facility] Last Admin: 10/21/18 20:20 Dose: 40 mg Clopidogrel Bisulfate (Plavix Tab*) 75 mg PO DAILY [facility] Last Admin: 10/22/18 07:51 Dose: 75 mg Cyanocobalamin (Vitamin B12 Tab*) 1,000 mcg PO DAILY [facility] Last Admin: 10/22/18 07:52 Dose: 1,000 mcg Finasteride (Proscar Tab*) 5 mg PO DAILY [facility] Last Admin: 10/22/18 07:52 Dose: 5 mg Ceftriaxone Sodium 1 gm/ (Sodium Chloride) 50 mls @ 200 mls/hr IVPB Q24H [facility] Mirtazapine (Remeron Tab*) 7.5 mg PO BEDTIME [facility] Last Admin: 10/21/18 20:20 Dose: 7.5 mg Nft* ( Bifidobacterium Infantis [Align] 4 Mg) 4 mg PO DAILY [facility] Last Admin: 10/22/18 07:47 Dose: Not Given Nystatin (Nystatin Cream*) 1 applic TOPICAL BID PRN PRN Reason: RASH Pantoprazole Sodium (Protonix Tab*) 40 mg PO DAILY [facility] Last Admin: 10/22/18 07:52 Dose: 40 mg Sertraline HCl (Zoloft*) 25 mg PO DAILY [facility] Last Admin: 10/22/18 07:52 Dose: 25 mg Tamsulosin HCl (Flomax Cap*) 0.4 mg PO BEDTIME [facility] Last Admin: 10/21/18 20:21 Dose: 0.4 mg Vital Signs - 8 hr 10/22/18 10/22/18 03:33 07:44 Temperature 97.8 F 98.1 F Pulse Rate 58 60 Respiratory 19 16 Rate Blood Pressure 105/61 109/60 (mmHg) O2 Sat by Pulse 99 98 Oximetry Oxygen Devices in Use Now: Nasal Cannula Appearance: Elderly gentleman, pleasantly confused, lying in bed in NAD. Eyes: No Scleral Icterus Ears/Nose/Mouth/Throat: Mucous Membranes Moist Neck: Trachea Midline Respiratory: Symmetrical Chest Expansion and Respiratory Effort, Clear to Auscultation Cardiovascular: RRR - Normal S1 and S2 Abdominal: NL Sounds; No Tenderness; No Distention Neurological: - - AAOx2 (self and place), mild RUE weakness Result Diagrams: 10/22/18 08:21 10/22/18 08:21 Assess/Plan/Problems-Billing Assessment: Mr Ross is an 87yo M with PMH of CVA, BPH, chronic Ulloa, who presents with severe sepsis secondary to UTI. - Patient Problems (1) Severe sepsis Comment: - Present on admission with fever, tachycardia, and lactic acidosis - resolved. - Source is UTI. (2) UTI (urinary tract infection) Comment: - Present on admission, Ulloa catheter related. - Outpatient urine culture grew E. coli resistant to Ampicillin only. He was being treated with cephalexin as outpatient, but suspect partial treatment as he was having N/V. - Continue Ceftriaxone and follow current culture. (3) CVA (cerebral vascular accident) Comment: - Continue Aspirin, Clopidogrel, and statin. (4) DVT prophylaxis Comment: - No pharmacological prophylaxis in the setting of traumatic hematuria ; already on Aspirin/Clopidogrel. - SCDs. (5) DNR (do not resuscitate) Status and Disposition: Inpatient. Anticipate d/c to [facility] when medically stable.
[2018-10-22] MEDS: cefTRIAXone(*) 1 GM in NS 0.9% 50 ML* 50 ML IVPB SCH (15:45)
[2018-10-22] MEDS: Mirtazapine TAB* 15 MG PO SCH (20:36)
[2018-10-22] MEDS: Atorvastatin* 40 MG TAB PO SCH (20:36)
[2018-10-22] MEDS: Tamsulosin CAP* 0.4 MG PO SCH (20:36)
[2018-10-23 09:52] LABS: ABS Eosinophils 0.1 10^3/ul (0-0.6); ABS Lymphocytes 0.7 10^3/ul (1.0-4.8); ABS Monocytes 0.5 10^3/ul (0-0.8); ABS Neutrophils 5.6 10^3/ul (1.5-7.7); Eosinophil % 1.5 %; Hematocrit 34 % (42-52); Hemoglobin 11.5 g/dL (14.0-18.0); Lymphocyte % 9.9 %; Mean Corpuscular HGB Conc 34 g/dL (31-36); Mean Corpuscular Hemoglobin 30 pg (27-31); Mean Corpuscular Volume 88 fL (80-94); Mean Platelet Volume 8.5 fL (7.4-10.4); Platelet Count 97 10^3/uL (150-450); Red Blood Count 3.87 10^6 /uL (4.18-5.48); Red Cell Distribution Width 15 % (10-15); White Blood Count 6.9 10^3/uL (3.5-10.8)
[2018-10-23 09:54] LABS: BUN/Creatinine Ratio 17.3 (8-20); Calcium 8.6 mg/dL (8.6-10.3); EGFR African American 119.8 (>60); Potassium 3.7 mmol/L (3.5-5.0)
--- NOTE | 2018-10-23 10:19 | PN ---
Subjective Date of Service: 10/23/18 Interval History: HOSPITALIST PROGRESS NOTE Patient seen and examined at bedside. Care reviewed and d/w Alexandra Guevara RN. He offers no complaints. As per RN, he was pocketing medications and is getting them crushed now. Family History: Unchanged from Admission Social History: Unchanged from Admission Past Medical History: Unchanged from Admission Objective Active Medications: Acetaminophen (Tylenol Tab*) 650 mg PO Q4H PRN PRN Reason: FEVER/PAIN Last Admin: 10/21/18 20:20 Dose: 650 mg Aspirin (Aspirin Ec Tab*) 81 mg PO DAILY [facility] Last Admin: 10/22/18 07:51 Dose: 81 mg Atorvastatin Calcium (Lipitor*) 40 mg PO BEDTIME [facility] Last Admin: 10/22/18 20:36 Dose: 40 mg Clopidogrel Bisulfate (Plavix Tab*) 75 mg PO DAILY [facility] Last Admin: 10/22/18 07:51 Dose: 75 mg Cyanocobalamin (Vitamin B12 Tab*) 1,000 mcg PO DAILY [facility] Last Admin: 10/22/18 07:52 Dose: 1,000 mcg Finasteride (Proscar Tab*) 5 mg PO DAILY [facility] Last Admin: 10/22/18 07:52 Dose: 5 mg Ceftriaxone Sodium 1 gm/ (Sodium Chloride) 50 mls @ 200 mls/hr IVPB Q24H [facility] Last Admin: 10/22/18 15:45 Dose: 200 mls/hr Mirtazapine (Remeron Tab*) 7.5 mg PO BEDTIME [facility] Last Admin: 10/22/18 20:36 Dose: 7.5 mg Nft* ( Bifidobacterium Infantis [Align] 4 Mg) 4 mg PO DAILY [facility] Last Admin: 10/22/18 07:47 Dose: Not Given Nystatin (Nystatin Cream*) 1 applic TOPICAL BID PRN PRN Reason: RASH Pantoprazole Sodium (Protonix Tab*) 40 mg PO DAILY [facility] Last Admin: 10/22/18 07:52 Dose: 40 mg Sertraline HCl (Zoloft*) 25 mg PO DAILY [facility] Last Admin: 10/22/18 07:52 Dose: 25 mg Tamsulosin HCl (Flomax Cap*) 0.4 mg PO BEDTIME [facility] Last Admin: 10/22/18 20:36 Dose: 0.4 mg Vital Signs - 8 hr 10/23/18 10/23/18 03:12 07:00 Temperature 97.7 F 96.5 F Pulse Rate 71 58 Respiratory 22 18 Rate Blood Pressure 121/55 122/57 (mmHg) O2 Sat by Pulse 94 97 Oximetry Oxygen Devices in Use Now: Nasal Cannula Appearance: Elderly gentleman lying in bed in NAD. Eyes: No Scleral Icterus Ears/Nose/Mouth/Throat: Mucous Membranes Moist Neck: Trachea Midline Respiratory: Symmetrical Chest Expansion and Respiratory Effort, Clear to Auscultation Cardiovascular: RRR - Normal S1 and S2 Abdominal: NL Sounds; No Tenderness; No Distention Neurological: - - AAOx2 (self and place), right hemiparesis - Nutrition: Malnutrition Diagnosis/Plan Malnutrition Assessment by Registered Dietitian: Malnutrition Assessment Clinical Characteristics Acute,Severe Malnutrition Assessment: severe wt loss: 11.8% x 1 mo Criteria inadequate oral intake: < or = 50% x > or = 5 days mild temporal wasting: observation Malnutrition Assessment: 1. mech ground texture to ease chewing Interventions 2. Ensure Enlive BID (350 kcals, 20 g pro per serving) Malnutrition Assessment: Goals 1. Pt will tolerate least restrictive diet texture without difficulty chewing 2. Intake will support wt maintenance/preserve lean body mass Result Diagrams: 10/23/18 09:20 10/23/18 09:20 Assess/Plan/Problems-Billing Assessment: Mr Ross is an 87yo M with PMH of CVA, BPH, chronic Ulloa, who presents with severe sepsis secondary to UTI. - Patient Problems (1) Severe sepsis Comment: - Present on admission with fever, tachycardia, and lactic acidosis - resolved. - Source is UTI. (2) UTI (urinary tract infection) Comment: - Present on admission, Ulloa catheter related. - Outpatient urine culture grew E. coli resistant to Ampicillin only. He was being treated with cephalexin as outpatient, but suspect partial treatment as he was having N/V. - Continue Ceftriaxone #2. - Current cultures show no growth so far. (3) CVA (cerebral vascular accident) Comment: - Continue Aspirin, Clopidogrel, and statin. - HCP thinks patient is weaker. This could be recrudescence of his neurological symptoms in the setting of UTI; but will check CT brain and request Neurology consult. (4) DVT prophylaxis Comment: - No pharmacological prophylaxis in the setting of traumatic hematuria ; already on Aspirin/Clopidogrel. - SCDs. (5) Severe protein-calorie malnutrition Comment: - As evidenced by severe wt loss (11.8% x 1 month) and inadequate oral intake. - Speech pathology consultation requested - for now he'll be on nectar thick liquids and mechanical ground texture. (6) DNR (do not resuscitate) (7) Failure to thrive Comment: - As per conversation with HCP, patient has had progressive decline of his condition since April, but much steeper since his stroke. He would not want aggressive/heroic measures. - She is agreeable with Palliative care consult. Status and Disposition: Inpatient. Anticipate d/c to [facility] when medically stable.
[2018-10-23] MEDS: Aspirin EC TAB* 81 MG TAB.EC PO SCH (10:41)
[2018-10-23] MEDS: Sertraline* 25 MG TAB PO SCH (10:41)
[2018-10-23] MEDS: Pantoprazole TAB * 40 MG TAB PO SCH (10:41)
[2018-10-23] MEDS: Cyanocobalamin TAB* 500 MCG PO SCH (10:41)
[2018-10-23] MEDS: Finasteride TAB* 5 MG PO SCH (10:41)
[2018-10-23] MEDS: Clopidogrel TAB* 75 MG PO SCH (10:45)
[2018-10-23] MEDS: BIFIDOBACTERIUM INFANTIS 4 MG PO SCH (10:55)
[2018-10-23] MEDS ORDERED: Magnesium Hydroxide LIQ* 30 ML UDC PO PRN (13:51)
[2018-10-23] MEDS: cefTRIAXone(*) 1 GM in NS 0.9% 50 ML* 50 ML IVPB SCH (15:45)
--- NOTE | 2018-10-23 15:46 | CONS ---
NEUROLOGY CONSULTATION: DATE OF CONSULT: 10/23/18 REFERRING PROVIDER: Dr. Burkett. LOCATION: He is an inpatient in [facility]. CHIEF COMPLAINT: Change in mental status. HISTORY OF PRESENT ILLNESS: Dickson Ross is an 87-year-old man known to me from prior hospital evalua tions for delirium and also cerebrovascular disease. He was admitted on 10/21/18 with urosepsis. Hi s healthcare proxy noted to Dr. Burkett today that he was not back to his baseline status and I was as ked to evaluate him. Currently, he is awake and watching the television. There is a positive spontan eous movement on verbal output. He does however respond appropriately with voice or shaking his head to questions. His proxy, Trinity, notes that his memory is extremely poor. He has been deteriorati ng for months and in fact years, but it has accelerated. He was hospitalized a month ago with a decl ine in mentation and found to have bihemispheric subacute to acute infarctions. He has been on Plavi x. PAST MEDICAL HISTORY: His past medical history is notable for progressive dementia, prior stroke, mu ltiple episodes of urinary tract infections, chronic Ulloa catheter, patent foramen ovale, hyperlipid emia. MEDICATIONS: At admission consists of: 1. Aspirin 81 mg p.o. every day. 2. Atorvastatin 40 mg p.o. every day. 3. Keflex 500 mg p.o. q.8 hours. 4. Plavix 75 mg p.o. every day. 5. Finasteride 4 mg p.o. every day. 6. Mirtazapine 7.5 mg p.o. q.h.s. 7. Sertraline 25 mg p.o. every day. 8. Tamsulosin 0.4 mg p.o. every day. Current medications also include: 1. Ceftriaxone 1 g intravenous q.24 hours. 2. Vitamin B12 at 1000 mcg p.o. every day. 3. Protonix 40 mg p.o. every day. REVIEW OF SYSTEMS: Review of systems is largely from Trinity. Dickson himself denies headache. He sa ys he did eat something this morning. He denies abdominal pain. She says he was very agitated and d elirious a couple of days ago. She says he has not walked in at least a month and that was with assi stance. She says his memory retention is about 10 minutes. She reports 4 urinary tract infections i n the last 2-1/2 months. PHYSICAL EXAM: He is currently afebrile with temperature 96.5, his T-max during this hospitalization was 101.5. Most recent blood pressure is 122/57, heart rate 58, respiratory rate 18. He is on supp lemental oxygen with an oxygen saturation of 97%. Heart tones are normal. Rhythm is regular. There are no cervical bruits. Oral mucosa is moist. He does not make eye contact. Eye movements are full, however. Facial musculature is symmetric. Sp eech is soft and clear with generally one word answers. He has good magnetic healer strength bilaterally. Othe r than that he is diffusely weak. There is no myoclonus or asterixes. DIAGNOSTIC STUDIES/LAB DATA: Laboratory data includes a CT of the brain which reveals multifocal hyp odensities consistent with chronic ischemic change. There is no evidence of acute infarction or hemo rrhage. Laboratory data is reviewed and CBC is normal this morning other than a hemoglobin of 11.5 and platel et count is down to 97,000. INR on admission was 1.3, chemistries today notable for glucose of 113, otherwise unremarkable chemistry profile. Urinalysis on admission was notable for 2+ protein, turbid appearance, 3+ blood, 3+ white blood cells, trace leukocyte esterase, absent bacteria. Microbiological data notable for negative blood cultures after 2 days. Urine culture no growth. IMPRESSION AND PLAN: Impression is that of multiple medical problems with the most recent being uros epsis. He has been demented for some time and gradually declining. I do not see any evidence of a r ecurrent cerebrovascular event and he is already on dual antiplatelet therapy. I think likely that i f he makes a recovery to his baseline prior to this week it will take at least a week's period. My un derstanding is that a palliative care consult has been ordered. I have no further recommendations an d will sign off. Please call if further input is desired. [id number]/[facility] #: [id number]
[2018-10-23] MEDS: Mirtazapine TAB* 15 MG PO SCH (20:48)
[2018-10-23] MEDS: Atorvastatin* 40 MG TAB PO SCH (20:48)
[2018-10-23] MEDS: Tamsulosin CAP* 0.4 MG PO SCH (20:48)
[2018-10-24] MEDS: Sertraline* 25 MG TAB PO SCH (09:37)
[2018-10-24] MEDS: Finasteride TAB* 5 MG PO SCH (09:37)
[2018-10-24] MEDS: Cyanocobalamin TAB* 500 MCG PO SCH (09:37)
[2018-10-24] MEDS: Aspirin EC TAB* 81 MG TAB.EC PO SCH (09:37)
[2018-10-24] MEDS: Pantoprazole TAB * 40 MG TAB PO SCH (09:37)
[2018-10-24] MEDS: Clopidogrel TAB* 75 MG PO SCH (09:37)
[2018-10-24] MEDS: BIFIDOBACTERIUM INFANTIS 4 MG PO SCH (09:51)
--- NOTE | 2018-10-24 12:31 | PN ---
Subjective Date of Service: 10/24/18 Interval History: Mr. Ross is feeling ok today. He offers no complaints. Answers questions with one word responses. Denies CP, SOB, N/V. Does not remember if he ate breakfast. He would like to go home. No concerns from nursing. Family History: Unchanged from Admission Social History: Unchanged from Admission Past Medical History: Unchanged from Admission Objective Active Medications: Acetaminophen (Tylenol Tab*) 650 mg PO Q4H PRN FEVER/PAIN Aspirin (Aspirin Ec Tab*) 81 mg PO DAILY [facility] Atorvastatin Calcium (Lipitor*) 40 mg PO BEDTIME [facility] Clopidogrel Bisulfate (Plavix Tab*) 75 mg PO DAILY [facility] Cyanocobalamin (Vitamin B12 Tab*) 1,000 mcg PO DAILY [facility] Finasteride (Proscar Tab*) 5 mg PO DAILY [facility] Ceftriaxone Sodium 1 gm/ (Sodium Chloride) 50 mls @ 200 mls/hr IVPB Q24H [facility] Magnesium Hydroxide (Milk Of Magnesia Liq*) 30 ml PO Q6H PRN CONSTIPATION Mirtazapine (Remeron Tab*) 7.5 mg PO BEDTIME [facility] Nft* ( Bifidobacterium Infantis [Align] 4 Mg) 4 mg PO DAILY [facility] Nystatin (Nystatin Cream*) 1 applic TOPICAL BID PRN RASH Pantoprazole Sodium (Protonix Tab*) 40 mg PO DAILY [facility] Sertraline HCl (Zoloft*) 25 mg PO DAILY [facility] Tamsulosin HCl (Flomax Cap*) 0.4 mg PO BEDTIME [facility] Vital Signs - 8 hr 10/24/18 10/24/18 07:25 11:18 Temperature 98.0 F 97.4 F Pulse Rate 88 65 Respiratory 16 16 Rate Blood Pressure 132/76 128/67 (mmHg) O2 Sat by Pulse 94 95 Oximetry Oxygen Devices in Use Now: None Appearance: Elderly male laying in bed in NAD Eyes: No Scleral Icterus Ears/Nose/Mouth/Throat: Mucous Membranes Moist Neck: NL Appearance and Movements; NL JVP, Trachea Midline Respiratory: Symmetrical Chest Expansion and Respiratory Effort, Clear to Auscultation Cardiovascular: NL Sounds; No Murmurs; No JVD, RRR Abdominal: NL Sounds; No Tenderness; No Distention Neurological: - - Oriented to self and place Lines/Tubes/Other Access: Clean, Dry and Intact Peripheral IV Nutrition: Taking PO's - Nutrition: Malnutrition Diagnosis/Plan Malnutrition Assessment by Registered Dietitian: Malnutrition Assessment Clinical Characteristics Acute,Severe Malnutrition Assessment: severe wt loss: 11.8% x 1 mo Criteria inadequate oral intake: < or = 50% x > or = 5 days mild temporal wasting: observation Malnutrition Assessment: 1. mech ground texture to ease chewing Interventions 2. Ensure Enlive BID (350 kcals, 20 g pro per serving) Malnutrition Assessment: Goals 1. Pt will tolerate least restrictive diet texture without difficulty chewing 2. Intake will support wt maintenance/preserve lean body mass Result Diagrams: 10/23/18 09:20 10/23/18 09:20 Assess/Plan/Problems-Billing Assessment: Mr. Ross is an 87 yo M with PMH of CVA, BPH with chronic Ulloa, and dementia; who presented to the ED with severe sepsis secondary to suspected UTI. - Patient Problems (1) Severe sepsis Code(s): A41.9 - SEPSIS, UNSPECIFIED ORGANISM; R65.20 - SEVERE SEPSIS WITHOUT SEPTIC SHOCK Comment: - Resolved - Present on admission with fever, tachycardia, and lactic acidosis - Source is unknown; previously thought to be UTI, though culture is negative (2) Thrombocytopenia Code(s): D69.6 - THROMBOCYTOPENIA, UNSPECIFIED Comment: - Stable - Unknown etiology - Will continue antiplatelet therapy at this point d/t high risk of CVA, though this may need to be reassessed if platelet count remains low or decreases further (3) History of CVA (cerebrovascular accident) Code(s): Z86.73 - PRSNL HX OF TIA (TIA), AND CEREB INFRC W/O RESID DEFICITS Comment: - HCP concerned about weakness, though there is no evidence of recurrent CVA; possible that this is recrudescence of prior stroke symptoms - Appreciate Neuro consult; recommends continuing dual antiplatelet therapy - Continue aspirin, Plavix, atorvastatin (4) Failure to thrive Comment: - As per conversation with HCP, patient has had progressive decline of his condition since April, but much steeper since his stroke; he would not want aggressive/heroic measures. - Appreciat Palliative consult (5) Severe protein-calorie malnutrition Code(s): E43 - UNSPECIFIED SEVERE PROTEIN-CALORIE MALNUTRITION Comment: - Acute, severe; as evidenced by severe wt loss (11.8% x 1 month) and inadequate oral intake. - Speech therapy recommending mechanical ground solids with nectar thickened liquids (6) BPH (benign prostatic hyperplasia) Code(s): N40.0 - BENIGN PROSTATIC HYPERPLASIA WITHOUT LOWER URINRY TRACT SYMP Comment: - Chronic Ulloa catheter - Continue tamsulosin, finasteride (7) DVT prophylaxis Comment: - No pharmacological prophylaxis in the setting of traumatic hematuria; already on aspirin/Plavix - SCDs (8) DNR (do not resuscitate) Comment: Status and Disposition: Inpatient. Anticipate d/c to [facility] after palliative care consult. Attending: Teresita Valdez
[2018-10-24] MEDS: cefTRIAXone(*) 1 GM in NS 0.9% 50 ML* 50 ML IVPB SCH (15:59)
[2018-10-24] MEDS: Atorvastatin* 40 MG TAB PO SCH (21:09)
[2018-10-24] MEDS: Mirtazapine TAB* 15 MG PO SCH (21:09)
[2018-10-24] MEDS: Tamsulosin CAP* 0.4 MG PO SCH (21:10)
[2018-10-25 06:27] LABS: ABS Eosinophils 0.1 10^3/ul (0-0.6); ABS Lymphocytes 0.9 10^3/ul (1.0-4.8); ABS Monocytes 0.6 10^3/ul (0-0.8); Eosinophil % 2.5 %; Hematocrit 35 % (42-52); Hemoglobin 11.8 g/dL (14.0-18.0); Lymphocyte % 16.3 %; Mean Corpuscular HGB Conc 34 g/dL (31-36); Mean Corpuscular Hemoglobin 30 pg (27-31); Mean Corpuscular Volume 89 fL (80-94); Mean Platelet Volume 7.9 fL (7.4-10.4); Nucleated Red Blood Cells % 0.1; Platelet Count 126 10^3/uL (150-450); Red Blood Count 3.92 10^6 /uL (4.18-5.48); Red Cell Distribution Width 15 % (10-15); White Blood Count 5.7 10^3/uL (3.5-10.8)
[2018-10-25] MEDS: Aspirin EC TAB* 81 MG TAB.EC PO SCH (10:12)
[2018-10-25] MEDS: Clopidogrel TAB* 75 MG PO SCH (10:12)
[2018-10-25] MEDS: Pantoprazole TAB * 40 MG TAB PO SCH (10:12)
[2018-10-25] MEDS: Finasteride TAB* 5 MG PO SCH (10:12)
[2018-10-25] MEDS: Sertraline* 25 MG TAB PO SCH (10:12)
[2018-10-25] MEDS: Cyanocobalamin TAB* 500 MCG PO SCH (10:12)
[2018-10-25] MEDS: BIFIDOBACTERIUM INFANTIS 4 MG PO SCH (10:13)
--- NOTE | 2018-10-25 12:16 | CONSULT ---
Palliative / Hospice Consult Ordering Provider: Jennifer Yin - Иван Referal Reason: Aftercare from hospital - Subjective Code Status: DNR Advance Directives Location: In Chart MOLST Part A Completed: Yes - on chart MOLST Part E Completed:: Yes - on chart - History or Present Illness History or Present Illness: 87 yo male recent resident of [facility] presented to ER with confusion, nausea and vomiting. PMH is significant for TIA, BPH, patent foramen ovale, hyperlipidemia, dementia and recurrent UTI with urosepsis. He is a non smoker, no alcohol and non drug user. His significant other, Trinity is his HCP [phone]. In the last 6 months pt has had 4 ER visits and 4 hospitalizations. He was living independently with a roommate until his last hospitalization 09/21-2018, after which he went to live at [facility]. 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 All history is from HCP and medical records. Pt was admitted with severe sepsis with urinary infection being the most likely source. Lab Values: Abnormal Lab Results 10/25/18 06:14 WBC 5.7 RBC 3.92 L Hgb 11.8 L Hct 35 L MCV 89 MCH 30 MCHC 34 RDW 15 Plt Count 126 L MPV 7.9 Neut % (Auto) 69.9 Lymph % (Auto) 16.3 Runnels % (Auto) 10.7 Eos % (Auto) 2.5 Baso % (Auto) 0.6 Absolute Neuts (auto) 4.0 Absolute Lymphs (auto) 0.9 L Absolute Monos (auto) 0.6 Absolute Eos (auto) 0.1 Absolute Basos (auto) 0.0 Absolute Nucleated RBC 0.0 Nucleated RBC % 0.1 Laboratory Last Values WBC 5.7 10^3/uL (3.5-10.8) 10/25/18 06:14 RBC 3.92 10^6 /uL (4.18-5.48) L 10/25/18 06:14 Hgb 11.8 g/dL (14.0-18.0) L 10/25/18 06:14 Hct 35 % (42-52) L 10/25/18 06:14 MCV 89 fL (80-94) 10/25/18 06:14 MCH 30 pg (27-31) 10/25/18 06:14 MCHC 34 g/dL (31-36) 10/25/18 06:14 RDW 15 % (10-15) 10/25/18 06:14 Plt Count 126 10^3/uL (150-450) L 10/25/18 06:14 MPV 7.9 fL (7.4-10.4) 10/25/18 06:14 Neut % (Auto) 69.9 % 10/25/18 06:14 Lymph % (Auto) 16.3 % 10/25/18 06:14 Runnels % (Auto) 10.7 % 10/25/18 06:14 Eos % (Auto) 2.5 % 10/25/18 06:14 Baso % (Auto) 0.6 % 10/25/18 06:14 Absolute Neuts (auto) 4.0 10^3/ul (1.5-7.7) 10/25/18 06:14 Absolute Lymphs (auto) 0.9 10^3/ul (1.0-4.8) L 10/25/18 06:14 Absolute Monos (auto) 0.6 10^3/ul (0-0.8) 10/25/18 06:14 Absolute Eos (auto) 0.1 10^3/ul (0-0.6) 10/25/18 06:14 Absolute Basos (auto) 0.0 10^3/ul (0-0.2) 10/25/18 06:14 Absolute Nucleated RBC 0.0 10^3/ul 10/25/18 06:14 Nucleated RBC % 0.1 10/25/18 06:14 INR (Anticoag Therapy) 1.30 (0.82-1.09) H 10/21/18 11:38 APTT 24.6 seconds (26.0-38.0) L 10/21/18 11:38 Sodium 137 mmol/L (135-145) 10/23/18 09:20 Potassium 3.7 mmol/L (3.5-5.0) 10/23/18 09:20 Chloride 104 mmol/L (101-111) 10/23/18 09:20 Carbon Dioxide 29 mmol/L (22-32) 10/23/18 09:20 Anion Gap 4 mmol/L (2-11) 10/23/18 09:20 BUN 13 mg/dL (6-24) 10/23/18 09:20 Creatinine 0.75 mg/dL (0.67-1.17) 10/23/18 09:20 Est GFR ( Amer) 119.8 (>60) 10/23/18 09:20 Est GFR (Non-Af Amer) 99.0 (>60) 10/23/18 09:20 BUN/Creatinine Ratio 17.3 (8-20) 10/23/18 09:20 Glucose 130 mg/dL (70-100) H 10/23/18 09:20 Lactic Acid 1.0 mmol/L (0.5-2.0) 10/22/18 01:15 Calcium 8.6 mg/dL (8.6-10.3) 10/23/18 09:20 Total Bilirubin 1.10 mg/dL (0.2-1.0) H 10/21/18 11:38 AST 19 U/L (13-39) 10/21/18 11:38 ALT 10 U/L (7-52) 10/21/18 11:38 Alkaline Phosphatase 100 U/L (34-104) 10/21/18 11:38 Total Creatine Kinase 45 U/L (10-223) 10/21/18 11:38 Troponin I 0.01 ng/mL (<0.04) 10/21/18 11:38 B-Natriuretic Peptide 39 pg/mL (<=100) 10/21/18 11:38 Total Protein 6.0 g/dL (6.4-8.9) L 10/21/18 11:38 Albumin 3.2 g/dL (3.2-5.2) 10/21/18 11:38 Globulin 2.8 g/dL (2-4) 10/21/18 11:38 Albumin/Globulin Ratio 1.1 (1-3) 10/21/18 11:38 Urine Color Red A 10/21/18 13:26 Urine Appearance Turbid 10/21/18 13:26 Urine pH 5.0 (5-9) 10/21/18 13:26 Ur Specific [place] 1.015 (1.010-1.030) 10/21/18 13:26 Urine Protein 2+(100 mg/dl) (Negative) A 10/21/18 13:26 Urine Ketones Negative (Negative) 10/21/18 13:26 Urine Blood 3+ (Negative) A 10/21/18 13:26 Urine Nitrate Negative (Negative) 10/21/18 13:26 Urine Bilirubin Negative (Negative) 10/21/18 13:26 Urine Urobilinogen Negative (Negative) 10/21/18 13:26 Ur Leukocyte Esterase Trace (Negative) A 10/21/18 13:26 Urine WBC (Auto) 3+(>20/hpf) (Absent) A 10/21/18 13:26 Urine RBC (Auto) 3+(>10/hpf) (Absent) A 10/21/18 13:26 Urine Bacteria Absent (Absent) 10/21/18 13:26 Urine Glucose Negative (Negative) 10/21/18 13:26 Urine Ascorbic Acid TNP 10/21/18 10:55 - Objective Active Medications: Acetaminophen (Tylenol Tab*) 650 mg PO Q4H PRN PRN Reason: FEVER/PAIN Last Admin: 10/21/18 20:20 Dose: 650 mg Aspirin (Aspirin Ec Tab*) 81 mg PO DAILY [facility] Last Admin: 10/25/18 10:12 Dose: 81 mg Atorvastatin Calcium (Lipitor*) 40 mg PO BEDTIME [facility] Last Admin: 10/24/18 21:09 Dose: 40 mg Clopidogrel Bisulfate (Plavix Tab*) 75 mg PO DAILY [facility] Last Admin: 10/25/18 10:12 Dose: 75 mg Cyanocobalamin (Vitamin B12 Tab*) 1,000 mcg PO DAILY [facility] Last Admin: 10/25/18 10:12 Dose: 1,000 mcg Finasteride (Proscar Tab*) 5 mg PO DAILY [facility] Last Admin: 10/25/18 10:12 Dose: 5 mg Ceftriaxone Sodium 1 gm/ (Sodium Chloride) 50 mls @ 200 mls/hr IVPB Q24H [facility] Last Admin: 10/24/18 15:59 Dose: 200 mls/hr Magnesium Hydroxide (Milk Of Magnesia Liq*) 30 ml PO Q6H PRN PRN Reason: CONSTIPATION Mirtazapine (Remeron Tab*) 7.5 mg PO BEDTIME [facility] Last Admin: 10/24/18 21:09 Dose: 7.5 mg Nft* ( Bifidobacterium Infantis [Align] 4 Mg) 4 mg PO DAILY [facility] Last Admin: 10/25/18 10:13 Dose: Not Given Nystatin (Nystatin Cream*) 1 applic TOPICAL BID PRN PRN Reason: RASH Pantoprazole Sodium (Protonix Tab*) 40 mg PO DAILY [facility] Last Admin: 10/25/18 10:12 Dose: 40 mg Sertraline HCl (Zoloft*) 25 mg PO DAILY [facility] Last Admin: 10/25/18 10:12 Dose: 25 mg Tamsulosin HCl (Flomax Cap*) 0.4 mg PO BEDTIME [facility] Last Admin: 10/24/18 21:10 Dose: 0.4 mg Vital Signs: Vital Signs: Temp Pulse Resp BP Pulse Ox 98.2 F 71 16 128/76 100 10/25/18 07:42 10/25/18 07:42 10/25/18 07:42 10/25/18 07:42 10/25/18 07:42 Patient Weight: Weight 71.622 kg Intake and Output: Intake & Output 10/23/18 10/24/18 10/25/18 10/26/18 06:59 06:59 06:59 06:59 Intake Total 480 1200 290 240 Output Total 1100 2150 2975 Balance -620 950 -2685 240 Intake: IV Fluids 50 50 ABX - CEFTRIAXONE 50 50 Oral 480 1150 240 240 Output: Urine 700 850 450 [place] 400 1300 2525 Other: Estimated Void Small Date of Last Bowel unknown Movement # Bowel Movements 0 0 # Voids 1 ADLs: Meal Record Start: 10/21/18 17: 40 Freq: DAILY@0900,1400,1800 Status: Active Protocol: Created 10/21/18 17:40 System (Rec: 10/21/18 17:40 System MED-C03) Document 10/21/18 18:00 [id number] (Rec: 10/21/18 21:18 [id number] MED-C15) Document 10/22/18 14:00 [id number] (Rec: 10/22/18 14:16 [id number] MED-C11) Document 10/22/18 17:36 [id number] (Rec: 10/22/18 17:37 [id number] MED-C09) Document 10/23/18 09:00 [id number] (Rec: 10/23/18 12:11 [id number] MED-C02) Document 10/23/18 14:00 [id number] (Rec: 10/23/18 17:38 [id number] MED-C02) Document 10/23/18 17:49 [id number] (Rec: 10/23/18 17:54 [id number] MED-C02) Document 10/24/18 09:00 [id number] (Rec: 10/24/18 09:57 [id number] MED-C11) Document 10/24/18 12:51 [id number] (Rec: 10/24/18 12:51 [id number] MED-C11) Document 10/25/18 09:00 [id number] (Rec: 10/25/18 09:01 [id number] MED-C15) Intake and Output Start: 10/21/18 11: 03 Freq: Status: Cancelled Protocol: Created 10/21/18 11:03 System (Rec: 10/21/18 11:03 System [id number]-C03) Intake and Output Start: 10/21/18 16: 16 Freq: 06,14,2200 Status: Complete Protocol: Created 10/21/18 16:21 [id number] (Rec: 10/21/18 16:[address] [facility]-BG12) Document 10/21/18 22:00 [id number] (Rec: 10/21/18 22:52 [id number] MED-C15) Document 10/22/18 05:37 [id number] (Rec: 10/22/18 05:37 [id number] MED-C02) Document 10/22/18 14:00 [id number] (Rec: 10/22/18 14:16 [id number] MED-C11) Document 10/22/18 22:00 [id number] (Rec: 10/22/18 22:28 [id number] MED-C09) Document 10/23/18 05:14 [id number] (Rec: 10/23/18 05:15 [id number] MED-M01) Intake and Output Start: 10/21/18 17: 40 Freq: DAILY@0600,1400,2200 Status: Active Protocol: Created 10/21/18 17:40 System (Rec: 10/21/18 17:40 System MED-C03) Document 10/22/18 14:00 [id number] (Rec: 10/22/18 14:16 [id number] MED-C11) Document 10/22/18 22:00 [id number] (Rec: 10/22/18 22:28 [id number] MED-C09) Document 10/23/18 05:14 [id number] (Rec: 10/23/18 05:15 [id number] MED-M01) Document 10/23/18 14:00 [id number] (Rec: 10/23/18 17:38 [id number] MED-C02) Document 10/23/18 22:00 [id number] (Rec: 10/23/18 22:16 [id number] MED-C09) Document 10/24/18 05:14 [id number] (Rec: 10/24/18 05:14 [id number] MED-C09) Document 10/24/18 14:00 [id number] (Rec: 10/24/18 16:36 [id number] MED-C04) Document 10/24/18 22:00 [id number] (Rec: 10/24/18 23:16 [id number] MED-C09) Document 10/25/18 05:30 [id number] (Rec: 10/25/18 05:31 [id number] MED-C09) Eyes: No Scleral Icterus Ears/Nose/Mouth/Throat: Mucous Membranes Moist Neck: NL Appearance and Movements; NL JVP, Trachea Midline Cardiovascular: NL Sounds; No Murmurs; No JVD, RRR Abdominal: NL Sounds; No Tenderness; No Distention Neurological: - - Oriented to self and place - Assessment Assessment: 87 yo male with recurrent urosepsis, moderate dementia, TIA and functional decline, recommending hospice - Plan Consult Plan (MU): Hospice Plan: Long discussion with HCP who explained that pt has declined over the last several months from being able to ambulate and live independently to requiring assistance with his ADLs and not walking. He has had 4 ER visits and 4 hospitalizations over the last 6 months although there is no documented weight loss. She stated that she would like him to be comfortable and not to have to keep coming back to the hospital because it is so disruptive. We discussed returning to [facility] with a hospice referral. Information/benefits about hospice was given. Also explained he could come off hospice at anytime. Hospice would allow the pt to be kept comfortable without bringing him back to the hospital. Pt is eligible for hospice with a diagnosis of recurrent urosepsis, moderate dementia, TIA and functional decline. PPS 40% KPS 40% - Time On Unit Date of Evaluation: 10/25/18 Hospice Consult Time in: 11:30 Hospice Consult Time Out: 13:00 Hospice Consult Time Total: 90 > 50% of Time Spend In Counseling or Coordinating Care: Yes
--- NOTE | 2018-10-25 17:05 | PN ---
Subjective Date of Service: 10/25/18 Interval History: Mr. Ross is feeling ok this morning. He is very tired. Will open his eyes if asked, but otherwise answering my questions with one word responses with his eyes closed. Denies CP, SOB, N/V. Unable to report if he ate breakfast. No concerns from nursing. Family History: Unchanged from Admission Social History: Unchanged from Admission Past Medical History: Unchanged from Admission Objective Active Medications: Acetaminophen (Tylenol Tab*) 650 mg PO Q4H PRN FEVER/PAIN Aspirin (Aspirin Ec Tab*) 81 mg PO DAILY [facility] Atorvastatin Calcium (Lipitor*) 40 mg PO BEDTIME [facility] Clopidogrel Bisulfate (Plavix Tab*) 75 mg PO DAILY [facility] Cyanocobalamin (Vitamin B12 Tab*) 1,000 mcg PO DAILY [facility] Finasteride (Proscar Tab*) 5 mg PO DAILY [facility] Magnesium Hydroxide (Milk Of Magnesia Liq*) 30 ml PO Q6H PRN CONSTIPATION Mirtazapine (Remeron Tab*) 7.5 mg PO BEDTIME [facility] Nft* ( Bifidobacterium Infantis [Align] 4 Mg) 4 mg PO DAILY [facility] Nystatin (Nystatin Cream*) 1 applic TOPICAL BID PRN RASH Pantoprazole Sodium (Protonix Tab*) 40 mg PO DAILY [facility] Sertraline HCl (Zoloft*) 25 mg PO DAILY [facility] Tamsulosin HCl (Flomax Cap*) 0.4 mg PO BEDTIME [facility] Oxygen Devices in Use Now: None Appearance: Elderly male laying in bed in NAD Eyes: No Scleral Icterus Ears/Nose/Mouth/Throat: Mucous Membranes Moist Neck: NL Appearance and Movements; NL JVP, Trachea Midline Respiratory: Symmetrical Chest Expansion and Respiratory Effort, Clear to Auscultation Cardiovascular: NL Sounds; No Murmurs; No JVD, RRR Abdominal: NL Sounds; No Tenderness; No Distention Neurological: - - Oriented to self Lines/Tubes/Other Access: Clean, Dry and Intact Peripheral IV Nutrition: Taking PO's - Nutrition: Malnutrition Diagnosis/Plan Malnutrition Assessment by Registered Dietitian: Malnutrition Assessment Clinical Characteristics Acute,Severe Malnutrition Assessment: severe wt loss: 11.8% x 1 mo Criteria inadequate oral intake: < or = 50% x > or = 5 days mild temporal wasting: observation Malnutrition Assessment: 1. mech ground texture to ease chewing Interventions 2. Ensure Enlive BID (350 kcals, 20 g pro per serving) Malnutrition Assessment: Goals 1. Pt will tolerate least restrictive diet texture without difficulty chewing 2. Intake will support wt maintenance/preserve lean body mass Result Diagrams: 10/25/18 06:14 10/23/18 09:20 Assess/Plan/Problems-Billing Assessment: Mr. Ross is an 87 yo M with PMH of CVA, BPH with chronic Ulloa, and dementia; who presented to the ED with severe sepsis secondary to suspected UTI. - Patient Problems (1) Severe sepsis Code(s): A41.9 - SEPSIS, UNSPECIFIED ORGANISM; R65.20 - SEVERE SEPSIS WITHOUT SEPTIC SHOCK Comment: - Resolved - Present on admission with fever, tachycardia, and lactic acidosis - Source is unknown; previously thought to be UTI, though culture is negative (2) Thrombocytopenia Code(s): D69.6 - THROMBOCYTOPENIA, UNSPECIFIED Comment: - Improving - Unknown etiology - Will continue antiplatelet therapy at this point d/t high risk of CVA, though this may need to be reassessed if platelet count remains low or decreases further (3) History of CVA (cerebrovascular accident) Code(s): Z86.73 - PRSNL HX OF TIA (TIA), AND CEREB INFRC W/O RESID DEFICITS Comment: - HCP concerned about weakness, though there is no evidence of recurrent CVA; possible that this is recrudescence of prior stroke symptoms - Appreciate Neuro consult; recommends continuing dual antiplatelet therapy - Continue aspirin, Plavix, atorvastatin (4) Failure to thrive Comment: - As per conversation with HCP, patient has had progressive decline of his condition since April, but much steeper since his stroke; he would not want aggressive/heroic measures. - Appreciat Palliative consult; recommends signing on with hospice at [facility] (5) Severe protein-calorie malnutrition Code(s): E43 - UNSPECIFIED SEVERE PROTEIN-CALORIE MALNUTRITION Comment: - Acute, severe; as evidenced by severe wt loss (11.8% x 1 month) and inadequate oral intake. - Speech therapy recommending mechanical ground solids with nectar thickened liquids (6) BPH (benign prostatic hyperplasia) Code(s): N40.0 - BENIGN PROSTATIC HYPERPLASIA WITHOUT LOWER URINRY TRACT SYMP Comment: - Chronic Ull[place] catheter - Continue tamsulosin, finasteride (7) DVT prophylaxis Comment: - No pharmacological prophylaxis in the setting of traumatic hematuria; already on aspirin/Plavix - SCDs (8) DNR (do not resuscitate) Comment: Status and Disposition: Inpatient. Anticipate d/c to [facility] when able to get in touch with HCP. Attending: Chi Burnett
[2018-10-25] MEDS: Tamsulosin CAP* 0.4 MG PO SCH (21:03)
[2018-10-25] MEDS: Mirtazapine TAB* 15 MG PO SCH (21:03)
[2018-10-25] MEDS: Atorvastatin* 40 MG TAB PO SCH (21:03)
[2018-10-26 03:07] VITALS: BP 108/65
[2018-10-26] MEDS: BIFIDOBACTERIUM INFANTIS 4 MG PO SCH (09:33)
[2018-10-26] MEDS: Clopidogrel TAB* 75 MG PO SCH (09:38)
[2018-10-26] MEDS: Finasteride TAB* 5 MG PO SCH (09:38)
[2018-10-26] MEDS: Pantoprazole TAB * 40 MG TAB PO SCH (09:38)
[2018-10-26] MEDS: Sertraline* 25 MG TAB PO SCH (09:38)
[2018-10-26] MEDS: Aspirin EC TAB* 81 MG TAB.EC PO SCH (09:38)
[2018-10-26] MEDS: Cyanocobalamin TAB* 500 MCG PO SCH (09:38)
--- NOTE | 2018-10-26 17:44 | DS ---
CC: Dr. Dorothy White; [facility]* DISCHARGE SUMMARY: DATE OF ADMISSION: 10/21/18 DATE OF DISCHARGE: 10/26/18 PRIMARY CARE PROVIDER: Dr. Dorothy White. ATTENDING PHYSICIAN: Dr. Stacey Celestin* (dictated by Jennifer Yin NP). PRIMARY DIAGNOSES: 1. Severe sepsis, presumed urinary tract infection. 2. Thrombocytopenia. 3. Failure to thrive. SECONDARY DIAGNOSES: 1. History of cerebrovascular accident. 2. Severe protein-calorie malnutrition. 3. Benign prostatic hypertrophy with chronic indwelling Ulloa catheter. STUDIES WHILE IN THE HOSPITAL: 1. Chest x-ray on 10/21/18 reads as no active cardiopulmonary disease. 2. EKG on 10/21/18 shows normal sinus rhythm with a rate of 188. QTc 434. Incomplete right bundle-branch block. This EKG is consistent with the previous filed at this facility. 3. Brain CT on 10/23/18 reads as no acute intracranial pathology. Chronic small- vessel ischemic change. HISTORY OF PRESENT ILLNESS AND HOSPITAL COURSE: Mr. Ross is an 87-year-old male with past medical history of CVA in September 2018, BPH with chronic Ulloa catheter, and hyperlipidemia who presented to the emergency room on 10/21/18 with reports of confusion. Please see the history and physical by Dr. Burkett for a complete summary of the events leading up to this hospitalization. In short, the patient resides at [facility] and was noted by his healthcare proxy and by staff to have increased confusion with associated nausea and vomiting. The healthcare proxy did report that the patient had been declining over recent years, though has shown a significant decline since his CVA last month. He does have a chronic Ulloa and had a catheter replaced on 10/07/18. He was then noted to have an abnormal urinalysis and a urine culture which grew E. coli resistant only to ampicillin. He reportedly became agitated and pulled his Ulloa almost all the way out and so was brought to the emergency room. In the emergency room, he was noted to meet criteria for severe sepsis due to fever, tachycardia, and lactic acidosis. He was admitted by the hospitalist service. The presumed source of sepsis was urinary tract infection. The patient did have a recent urine culture growing E. coli. The patient had been on cephalexin as an outpatient, which the E. coli was sensitive to, though it is likely that he became septic due to the trauma of pulling on the catheter in the setting of recent urinary tract infection. The patient was started on ceftriaxone and given appropriate IV fluids. It was felt as though his weakness was recrudescence of his stroke symptoms and a general decline in health. The patient was noted to have severe protein-calorie malnutrition and failure to thrive. Ulloa catheter was replaced in the emergency room on . Ultimately, the patient was treated with ceftriaxone for 4 days. Sepsis resolved and ceftriaxone was stopped as urine cultures on admission showed no bacterial growth. The patient was noted to be thrombocytopenic likely secondary to his severe sepsis. Platelet count dropped as low as 87, though as of yesterday 10/25/18 was up to 126. The patient did have a palliative care consult due to his recent decline in health and at this point, the healthcare proxy has agreed that sign on with hospice would be appropriate. She is agreeable to the patient returning back to [facility] with plans to sign on with hospice. As of today, the patient reports feeling well. He is more alert today than he was yesterday and is able to participate in a short conversation. He is very generally weak, though there are no obvious focal neurological deficits. His heart has a regular rate and rhythm without murmurs, rubs, or gallops. His lungs are clear to auscultation without rhonchi, wheezes, or rubs. Mr. Ross is stable for discharge today. Vital signs are as follows: Temp 97.3, heart rate 74, respiratory rate 16, oxygen saturation 96% on room air, blood pressure 108/65. DISCHARGE MEDICATIONS: Continued Medications: 1. Acetaminophen 650 mg p.o. q.4 hours p.r.n. for fever and pain. 2. Aspirin 81 mg p.o. daily. 3. Atorvastatin 40 mg p.o. at bedtime. 4. Align 4 mg p.o. daily. 5. Plavix 75 mg p.o. daily. 6. Vitamin B12 at 1000 mcg p.o. daily. 7. Finasteride 5 mg p.o. daily. 8. Mirtazapine 7.5 mg p.o. at bedtime. 9. Nystatin cream one application topically b.i.d. p.r.n. for rash. 10. Pantoprazole 40 mg p.o. daily. 11. Sertraline 25 mg p.o. daily. 12. Tamsulosin 0.4 mg p.o. at bedtime. Discontinued Medications: Cephalexin. DISCHARGE PLAN: Mr. Ross will be discharged back to [facility] with plans to sign on with hospice. I have recommended that hospice sign on as soon as possible due to the patient's declining health status. Activity will be as tolerated. Diet will be mechanical ground with nectar thick liquids per recommendations from speech therapy here at the hospital. Medications are noted above. I am continuing the patient on his usual medications and have not made any changes, although he should not take any more cephalexin as he has completed an appropriate course of antibiotics of 10 days. At this point, the patient does not have any pain, so I do not see any need for addition of pain medications at this point, though medication list will be reassessed when he is signed on with hospice. He should follow up with his primary care provider in the next 4 to 7 days. He should return to the emergency room or nearest hospital for any symptoms or concerns that are not appropriately managed by hospice care. DISCHARGE CONDITION: Stable. DISCHARGE DISPOSITION: Home, [facility]. This is a summarized report of a complex medical history and hospital stay. For further details, please see the entire medical record. TIME SPENT: Approximately 45 minutes were spent on this discharge. JENNIFER YIN, ISIDRO [id number]/CPS #: [id number] JESSICA
== END 2018-10-26 12:30 | disposition hospice, home (50) | DRG 871 ==
LOC: ED 10:26 → MED 16:06
PROVIDERS: ADMIT Internal Medicine; ATTEND Internal Medicine
DX: A41.9 Sepsis, unspecified organism (principal); E43 Unspecified severe protein-calorie malnutrition; N39.0 Urinary tract infection, site not specified; A52.17 General paresis; I67.82 Cerebral ischemia; E87.2 Acidosis; Q21.1 Atrial septal defect; I45.2 Bifascicular block; D69.59 Other secondary thrombocytopenia; I72.8 Aneurysm of other specified arteries; F03.90 Unspecified dementia, unspecified severity, without behavioral disturbance, psychotic disturbance, mood disturbance, and anxiety; R62.7 Adult failure to thrive; R65.20 Severe sepsis without septic shock; N40.1 Benign prostatic hyperplasia with lower urinary tract symptoms; R33.8 Other retention of urine; R00.0 Tachycardia, unspecified; R53.1 Weakness; I35.0 Nonrheumatic aortic (valve) stenosis; Z66 Do not resuscitate; R10.816 Epigastric abdominal tenderness; E78.5 Hyperlipidemia, unspecified; B96.20 Unspecified Escherichia coli [E. coli] as the cause of diseases classified elsewhere; Z16.11 Resistance to penicillins; Z86.73 Personal history of transient ischemic attack (TIA), and cerebral infarction without residual deficits; Z79.1 Long term (current) use of non-steroidal anti-inflammatories (NSAID); Z79.82 Long term (current) use of aspirin; Z79.899 Other long term (current) drug therapy; Z82.49 Family history of ischemic heart disease and other diseases of the circulatory system; Z83.3 Family history of diabetes mellitus; Z80.8 Family history of malignant neoplasm of other organs or systems
CPT/HCPCS: 36415; 70450; 71045; 80048; 80053; 81003; 81015; 82550; 83605; 83880; 84484; 85025; 85060; 85610; 85730; 87040; 87086; 87641; 93005; 99284; A9270-GY; G8978-GP-CM; G8979-GP-CK; G8987-GO-CM; G8988-GO-CL; J0696; J1956; J2405

== ENCOUNTER 2018-10-26 21:03 | Emergency (ER) | payer MEDICARE ==
--- NOTE | 2018-10-26 21:10 | ED ---
Neurological HPI - HPI Summary HPI Summary: 87 year old M brought in by [facility] ambulance to [facility] from [facility] with a chief complaint of left-sided facial droop and left-sided weakness since 19:00 today. Symptoms aggravated by nothing. Symptoms alleviated by nothing. Patient denies any pain. Patient's last known normal was 19:00. EMS reports that patient was discharged today from the hospital. [facility] staff noticed that patient was not communicating as much as he normally does per staff. EMS reports that patient was slumped over in his bed upon EMS arrival to scene. Patient was met at bedside upon EMS arrival to ED at 21:03. Patient was sent to CT at 21:04. Becca Rayo was called at 21:04. Luna, patient's nurse at [facility], states that patient had a stroke in September 2018 which was embolic in nature. Patient has hx PFO which probably caused his stroke in September 2018 per Luna. Patient was admitted to hospital for dx UTI and discharged to [facility] this morning per Luna. The accepting [facility] nurse noted that patient had some slurred speech per Luna. Per Luna, patient does not walk at baseline but today's left-sided weakness is new. Per Luna, patient is DNR and he is supposed to be on hospice care at the end of the week. Per Luna, when patient had symptoms tonight, someone contacted patient's next of kin, Trinity, who wanted him to be transported to the hospital. Patient has hx dementia. - History of Current Complaint Stated Complaint: STROKE PER EMS Hx Obtained From: EMS, Other: - [facility] staff Onset/Duration: Sudden Onset, Started hours ago - 2, Still Present Timing: Constant Current Severity: None Aggravating: Nothing Alleviating: Nothing - Additional Pertinent History Primary Care Physician: JOHNATHON - Allergy/Home Medications Allergies/Adverse Reactions: Allergies Allergy/AdvReac Type Severity Reaction Status Date / Time No Known Allergies Allergy Verified 10/26/18 21:53 PMH/Surg Hx/FS Hx/Imm Hx Previously Healthy: No Endocrine/Hematology History: Denies: Hx Diabetes, Hx Thyroid Disease Cardiovascular History: Reports: Hx Hypercholesterolemia, Other Cardiovascular Problems/Disorders - Patent foramen ovale Denies: Hx Hypertension, Hx Myocardial Infarction, Hx Pacemaker/ICD Respiratory History: Denies: Hx Asthma, Hx Chronic Obstructive Pulmonary Disease (COPD) GI History: Reports: Other GI Disorders - constipation, H pylori Denies: Hx Ulcer History: Reports: Hx Benign Prostatic Hyperplasia - Chronic Jennings, Other Problems/Disorders - urinary retention and jennings - needs coude Denies: Hx Renal Disease Sensory History: Reports: Hx Contacts or Glasses, Hx Hearing Problem Denies: Hx Vision Problem, Hx Deafness, Hx Hearing Aid Opthamlomology History: Reports: Hx Contacts or Glasses Denies: Hx Vision Problem Neurological History: Reports: Hx CVA, Hx Dementia, Hx Transient Ischemic Attacks (TIA), Other Neuro Impairments/Disorders - Vertigo Psychiatric History: Reports: Hx Anxiety, Hx Depression Denies: Hx Panic Disorder - Surgical History Surgery Procedure, Year, and Place: IMGUINAL HERNIA - Immunization History Date of Tetanus Vaccine: Unk Date of Influenza Vaccine: Fall 2014 Infectious Disease History: Denies: Hx Clostridium Difficile, Hx Hepatitis, Hx Human Immunodeficiency Virus (HIV), Hx of Known/Suspected MRSA, Hx Shingles, Hx Tuberculosis - Family History Known Family History: Positive: Diabetes - Social History Alcohol Use: Weekly Alcohol Amount: 1 glass wine/week Hx Substance Use: No Substance Use Comment - Amount & Last Used: unk 10/21/18 Hx Tobacco Use: No Smoking Status (MU): Never Smoked Tobacco Review of Systems Negative: Fever Neurological: Other - left-sided facial droop Positive: Weakness - left-sided All Other Systems Reviewed And Are Negative: Yes Physical Exam - Summary Physical Exam Summary: VITAL SIGNS: Reviewed. GENERAL: Patient is a well-developed and nourished MALE who is lying comfortable in the stretcher. Patient is not in any acute respiratory distress. HEAD AND FACE: No signs of trauma. No ecchymosis, hematomas or skull depressions. No sinus tenderness. EYES: PERRLA, EOMI x 2, No injected conjunctiva, no nystagmus. EARS: Hearing grossly intact. Ear canals and tympanic membranes are within normal limits. MOUTH: Oropharynx within normal limits. NECK: Supple, trachea is midline, no adenopathy, no JVD, no carotid bruit, no c- spine tenderness, neck with full ROM CHEST: Symmetric, no tenderness at palpation LUNGS: Clear to auscultation bilaterally. No wheezing or crackles. CVS: Regular rate and rhythm, S1 and S2 present, no murmurs or gallops appreciated. ABDOMEN: Soft, non-tender. No signs of distention. No rebound no guarding, and no masses palpated. Bowel sounds are normal. EXTREMITIES: FROM in all major joints, no edema, no cyanosis or clubbing. NEURO: Patient has mild left facial droop, right gaze preferences, left pronator drift, and left lower extremity 4/5 weakness SKIN: Dry and warm GCS: 15 Triage Information Reviewed: Yes Vital Signs Reviewed: Yes Diagnostics - Laboratory Result Diagrams: 10/26/18 21:28 10/26/18 21:28 Lab Statement: Any lab studies that have been ordered have been reviewed, and results considered in the medical decision making process. - Radiology CXR Radiology Interpretation Completed By: ED Physician Summary of Radiographic Findings: No acute processes. Pending official report. - CT Brain CT Interpretation Completed By: Radiologist Summary of CT Findings: No acute intracranial abnormality. ED physician has reviewed this imaging report. - EKG 2115 Cardiac Rate: NL - 74 BPM EKG Rhythm: Sinus Rhythm NIH Scale - NIH Scale Level of Consciousness: Alert/Keenly Responsive Ask Patient the Month and His/Her Age: Neither Correct/Aphasic Ask Pt to Open/Close Eyes and Engineering Clerk/Release Non-Paretic Hand: Both Correctly Best Gaze (Only Horizontal Eye Movement): Partial Gaze Palsy Visual Field Testing: No Visual Loss Facial Paresis-Pt to Smile & Close Eyes or Grimace Symmetry: Minor Paralysis Motor Function - Right Arm: No Drift-Holds 10 Seconds Motor Function - Left Arm: Drifts LT 10 seconds Motor Function - Right Leg: No Drift-Holds 10 Seconds Motor Function - Left Leg: Drifts LT 10 seconds Limb Ataxia-Must be out of Proportion to Weakness Present: Absent Sensory (Use Pinprick to Test Arms/Legs/Trunk/Face): Normal Best Language (Describe Picture, Name Items): No Aphasia Dysarthria (Read Several Words): Normal Extinction and Inattention: No Abnormality - Pt is not ambulatory at base line. Total Score: 6 Course/Dx - Course Course Of Treatment: 87 year old M brought in by [facility] ambulance to [facility] from [facility] with a chief complaint of left-sided facial droop and left-sided weakness since 19:00 today. Patient denies having pain. Patient's last known normal was 19:00. EMS reports that patient was discharged today from the hospital. [facility] staff noticed that patient was not communicating as much as he normally does per EMS. EMS reports that patient was slumped over in his bed upon EMS arrival to scene. Patient was met at bedside upon EMS arrival to ED at 21:03. Patient was sent to CT at 21:04. Becca Rayo was called at 21:04. Spoke with Luna, patient's nurse at [facility], at 21:22 who states that patient had a stroke in September 2018 which was embolic in nature. Patient has hx PFO which probably caused his stroke in September 2018 per Luna. Patient was admitted to hospital for dx UTI and discharged to [facility] this morning per Luna. The accepting [facility] nurse noted that patient had some slurred speech per Luna. Per Luna, patient does not walk at baseline but today's left- sided weakness is new. Per Luna, patient is DNR and he is supposed to be on hospice care at the end of the week. Per Luna, when patient had symptoms tonight, someone contacted patient's next of kin, Trinity, who wanted him to be transported to the hospital. Patient has hx dementia. Physical exam findings: Patient has mild left facial droop, right gaze preferences, left pronator drift, and left lower extremity 4/5 weakness. An EKG reveals sinus [address] Brain reveals, per radiologist, no acute intracranial abnormality. Test results with no significant abnormalities except for WBC 11.8 , Hgb 13.3, Hct 40, absolute neuts 10.4, absolute lymphs 0.6, glucose 144, lactic acid 2.3, alkaline phosphatase 120. In the ED course, the patient was given IV fluids. At 21:50, spoke with Trinity Hylton, who states that patient is DNR and will be hospice by the end of the week. Ms. Hylton states she is going to proceed with hospice and wants patient to be comfort care. Therefore, patient will not receive aggressive interventions. Based on this, patient is not a TPA candidate. Spoke with Dr. Desai, stroke attending at [facility], at 22 :24 to tell him that patient is on comfort care. Clinically, patient has right CVA with left-sided weakness. Patient will be discharged to skilled nursing on comfort care. He will follow up from primary care provider in 3 days. Patient was instructed to return to ED for new or worsening symptoms. Patient understands and is agreeable to discharge plan. - Diagnoses Provider Diagnoses: CVA (cerebral vascular accident) Discharge - Sign-Out/Discharge Documenting (check all that apply): Patient Departure - Discharge Patient Received Moderate/Deep Sedation with Procedure: No - Discharge Plan Condition: Stable Disposition: HOME Patient Education Materials: Weakness (ED) Referrals: Dorothy White MD [Primary Care Provider] - 3 Days Additional Instructions: Follow up with your primary care provider in 3 days. PLEASE RETURN TO THE EMERGENCY DEPARTMENT IMMEDIATELY FOR WORSENING OR CONCERNING SYMPTOMS. - Attestation Statements Document Initiated by Scribe: Yes Documenting Scribe: Idalmis Jack Provider For Whom Ama is Documenting (Include Credential): Jesus Edmondson MD Scribe Attestation: Idalmis Gale, scribed for Jesus Edmondson MD on 10/26/18 at [id number]. Status of Scribe Document: Ready
[2018-10-26 21:37] LABS: ABS Lymphocytes 0.6 10^3/ul (1.0-4.8); ABS Monocytes 0.7 10^3/ul (0-0.8); ABS Neutrophils 10.4 10^3/ul (1.5-7.7); Eosinophil % 0.2 %; Hematocrit 40 % (42-52); Hemoglobin 13.3 g/dL (14.0-18.0); Lymphocyte % 5.4 %; Mean Corpuscular HGB Conc 33 g/dL (31-36); Mean Corpuscular Hemoglobin 29 pg (27-31); Mean Corpuscular Volume 90 fL (80-94); Mean Platelet Volume 7.9 fL (7.4-10.4); Nucleated Red Blood Cells % 0.1; Platelet Count 161 10^3/uL (150-450); Red Blood Count 4.52 10^6 /uL (4.18-5.48); Red Cell Distribution Width 15 % (10-15); White Blood Count 11.8 10^3/uL (3.5-10.8)
[2018-10-26 21:50] LABS: Activated Partial Thrombo Time 28.1 seconds (26.0-38.0); INR 1.14 (0.82-1.09)
[2018-10-26 21:54] LABS: Albumin 3.7 g/dL (3.2-5.2); BUN/Creatinine Ratio 18.1 (8-20); Calcium 9.6 mg/dL (8.6-10.3); EGFR African American 106.5 (>60); EGFR Non-African American 88.1 (>60); Globulin 3.6 g/dL (2-4); HDL Cholesterol 30.2 mg/dL; Potassium 4.3 mmol/L (3.5-5.0); Total Bilirubin 0.6 mg/dL (0.2-1.0); Total Protein 7.3 g/dL (6.4-8.9)
[2018-10-26] MEDS: NS 0.9% 1000 ML** 1,000 ML IV ONE (21:58)
[2018-10-26 23:46] VITALS: BP 140/86
== END 2018-10-26 23:45 | disposition home or self-care (01) ==
LOC: ED 21:03
DX: I63.9 Cerebral infarction, unspecified (principal)
CPT/HCPCS: 36415; 70450; 71045; 80053; 80061; 83605; 84484; 85025; 85610; 85730; 86850; 86900; 86901; 93005; 96360; 96361; 99285